=== PATIENT | male | born 1970 | race Caucasian/White ===

== ENCOUNTER 2023-01-05 13:28 | Outpatient (OUT) | payer OTHER, SELFPAY ==
[2023-01-05 14:15] LABS: Basophils Absolute Auto 0.1 10^3/uL (0.0-0.1); Basophils Percent Auto 1.3 % (0.2-2.0); Eosinophils Absolute Auto 0.2 10^3/uL (0.0-0.7); Eosinophils Percent Auto 2.9 % (0.9-7.0); Hematocrit 40.6 % (42.0-54.0); Hemoglobin 13.9 g/dL (14.0-18.0); Immature Granulocytes Abs Auto 0.01 10^3/uL (0.00-0.03); Immature Granulocytes Pct Auto 0.2 % (0.0-0.5); Lymphocytes Absolute Auto 1.4 10^3/uL (1.2-3.8); Lymphocytes Percent Auto 24.6 % (20.5-60.0); Mean Corpuscular HGB Conc 34.2 g/dL (29.9-35.2); Mean Corpuscular Hemoglobin 31.7 pg (25.9-34.0); Mean Corpuscular Volume 92.5 fL (80.0-94.0); Mean Platelet Volume 8.8 fL (9.5-13.5); Monocytes Absolute Auto 0.5 10^3/uL (0.3-0.8); Monocytes Percent Auto 8.6 % (1.7-12.0); Neutrophils Absolute Auto 3.5 10^3/uL (1.4-6.5); Neutrophils Percent Auto 62.4 % (43.0-75.0); Platelet Count 299 10^3/uL (150-450); Red Blood Count 4.39 10^6/uL (4.70-6.10); White Blood Count 5.6 10^3/uL (4.0-11.0)
[2023-01-05 14:58] LABS: Alanine Aminotransferase 21 U/L (16-63); Albumin Globulin Ratio 1.1; Albumin Level 3.8 g/dL (3.4-5.0); Alkaline Phosphatase 51 U/L (46-116); Anion Gap 10.8; Aspartate Amino Transferase 16 U/L (15-37); BUN Creatinine Ratio 9.7; Bilirubin Total 0.5 mg/dL (0.2-1.0); Carbon Dioxide 27.8 mmol/L (21.0-32.0); Chloride 104 mmol/L (98-107); Chol HDL Ratio 3.3; Cholesterol 122 mg/dL (<=200); Estimated GFR (African America >60 (>=60); Estimated GFR (Non-African Ame 51 (>=60); Free T3 2.94 pg/mL (2.18-3.98); Globulin 3.6 g/dL; Glucose 93 mg/dL (74-106); HDL Cholesterol 37 mg/dL (40-60); Potassium 3.6 mmol/L (3.5-5.1); Sodium 139 mmol/L (136-145); Thyroid Stimulating Hormone 1.456 uIU/mL (0.358-3.740); Total Protein 7.4 g/dL (6.4-8.2); Triglycerides 55 mg/dL (<=150); Uric Acid 8.1 mg/dL (3.5-7.2)
[2023-01-05 15:19] LABS: Prostate Specific Antigen Scrn 1.59 ng/mL (<=4.00)
[2023-01-05 15:21] LABS: Estimated Average Glucose 85 mg/dL; Glycohemoglobin A1C 4.6 % (4.5-6.2)
== END 2023-01-05 13:29 | disposition home or self-care (01) ==
LOC: LAB 13:34
PROVIDERS: PCP Family Medicine; Visit Provider Nurse Practitioner Family
DX: Z00.00 Encounter for general adult medical examination without abnormal findings (principal); Z12.5 Encounter for screening for malignant neoplasm of prostate
CPT/HCPCS: 36415; 80053; 80061; 83036; 83525; 84436; 84443; 84481; 84550; 85025; G0103

== ENCOUNTER 2023-11-11 03:52 | Observation (INO) | payer OTHER, SELFPAY ==
[2023-11-11] VITALS (66 sets, daily range): BP systolic 116–160; BP diastolic 66–91; PULSE 58–81; TEMP 36.6–37.2; O2SAT 88–99; BMI 47.9; BMI 45.5
--- NOTE | 2023-11-11 03:30 | ECG_ITS ---
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
--- OUTSIDE RECORDS SUMMARY | 2023-11-11 03:58 | XMS_ITS | CCD ---
Author Organization [facility] Care Team Providers Care Mixed Livestock Farm Worker Name Role Phone TORRES, POLLY Unavailable Unavailable ELIAS SALDANA Unavailable Unavailable TORRES, POLLY Unavailable Unavailable TORRES, POLLY Unavailable Unavailable TORRES, POLLY Unavailable Unavailable SHOSHANA ESTEVES Unavailable Unavailable TORRES, POLLY Unavailable Unavailable TORRES, POLLY Unavailable Unavailable TORRES, POLLY Unavailable Unavailable TORRES, POLLY Unavailable Unavailable TORRES, POLLY Unavailable Unavailable TORRES, POLLY Unavailable Unavailable TORRES, POLLY Unavailable Unavailable TORRES, POLLY Unavailable Unavailable TORRES, POLLY Unavailable Unavailable CAT WILL (PRINT PRODUCER) Unavailable Unavailab le CAT WILL (PRINT PRODUCER) Unavailable Unavailab ARMANI Brooke (FEL) Unavailable Unavailable TORRES, POLLY Unavailable Unavailable TORRES, POLLY Unavailable Unavailable TORRES, POLLY Unavailable Unavailable HOANG ABDULLAHI Unavailable Unavailable TORRES, POLLY Unavailable Unavailable TORRES, POLLY Unavailable Unavailable TORRES, POLLY Unavailable Unavailable TORRES, POLLY Unavailable Unavailable TORRES, POLLY Unavailable Unavailable CAT WILL (PRINT PRODUCER) Unavailable Unavailab le TORRES, POLLY Unavailable Unavailable CAT WILL (PRINT PRODUCER) Unavailable Unavailab CAT Lucas (PRINT PRODUCER) Unavailable Unavailab Onel Shanks Primary Care Physician Onel Bryan Referring Unavailabl Gary Reilly Attending Unavailable NILLGary Attending Unavailable NILL, Gary Estevez Attending Unavailable NILGary Argueta Attending Unavailable nOel Bryan Referring Unavailabl e NILGary Argueta Attending Unavailable ALEXX, DR SYKES Primary Care Unavailable NILL, DR GREEN Admitting Unavailable NILL, DR GREEN Attending Unavailable NILL, DR GREEN Consulting Unavailable MARISY, DR SYKES Consulting Unavailable ALEXX, DR SYKES Primary Care Unavailable ALEXX, DR SYKES Admitting Unavailable ALEXX, DR SYKES Attending Unavailable HOY, DR SYKES Primary Care Unavailable DR ONEL COFFEY Admitting Unavailable DR ONEL COFFEY Attending Unavailable DR ONEL COFFEY Consulting Unavailable Allergies Allergy Classification Reported Allergen(s) Allergy Type Date of Onset Reaction(s) Facility (5 sources) codeine; Translations: [CODEINE] Drug Allergy 4 Weal (disorder) [facility] Repository (1 source) Codeine; Translations: [codeine sulfate] Drug Allergy [facility] Repository Medications Current Medications Medication Drug Class(es) Dates Sig (Normalized) Sig (Original) amLODIPine 10 mg oral tablet (3 sources) Dihydropyridine Calcium Channel Srinivas Start: 09-15-2021 take 1 tablet by mouth once daily amLODIPine 10 mg Tab 10 mg = 1 tab(s), Oral, Daily, Refills(s) 0 Start Date: 09/15/21 Status: Ordered carvedilol 25 mg oral tablet (3 sources) alpha-Adrenergic Srinivas, beta-Adrenergic Srinivas Start: 09-15-2021 take 1 tablet by mouth three times daily carvedilol 25 mg Tab 25 mg = 1 tab(s), Oral, TID, Refills(s) 0 Start Date: 09/15/21 Status: Ordered colchicine 0.6 mg oral tablet (3 sources) Start: 09-15-2021 take 1 tablet by mouth twice daily colchicine 0.6 mg Tab 0.6 mg = 1 tab(s), Oral, BID, Refills(s) 0 Start Date: 09/15/21 Status: Ordered hydrALAZINE hydrochloride 100 mg oral tablet (3 sources) Arteriolar Vasodilator Start: 09-15-2021 take 1 tablet by mouth three times daily hydrALAZINE 100 mg oral tablet 100 mg = 1 tab(s), Oral, TID, Refills(s) 0 Start Date: 09/15/21 Status: Ordered levoFLOXacin 750 mg oral tablet (1 source) Quinolone Antimicrobial Start: 11-29-2021 End: 12-04-2021 take 1 tablet by mouth once daily Levaquin 750 mg Tab 750 mg = 1 tab(s), Oral, Daily, X 5 day(s), # 5 tab(s), Refills(s) 0, Pharmacy: [id number], 182.9, cm, 09/23/21 13:05:00 EDT, Height/Length Dosing, 162, kg, 09/23/21 13:05:00 EDT, Weight Dosing Start Date: 11/29/21 Stop Date: 12/04/21 Status: Ordered Problems Active Problems Problem Classification Problem Date Documented Date Episodic/Chronic Calculus of urinary tract (5 sources) Calculus of kidney; Translations: [Calculus of ureter] Onset: 07-24-2017 09-15-2021 Episodic Esophageal disorders (1 source) Gastro-esophageal reflux disease without esophagitis; Translations: [Gastro-esophageal reflux disease without esophagitis] Onset: 07-24-2017 Chronic Essential hypertension (5 sources) Essential (primary) hypertension; Translations: [Hypertensive disorder] Onset: 07-24-2017 09-15-2021 Chronic Gout and other crystal arthropathies (3 sources) Primary gout 09-15-2021 Chronic Other circulatory disease (3 sources) H/O: rheumatic fever 09-15-2021 Episodic Other nutritional; endocrine; and metabolic disorders (2 sources) Hyperoxaluria; Translations: [Hyperoxaluria] Onset: 09-13-2017 Chronic Other nutritional; endocrine; and metabolic disorders (1 source) Body mass index (BMI) 50-59.9 , adult; Translations: [Body mass index (bmi) 50-59.9 , adult] Onset: 07-24-2017 Chronic Other nutritional; endocrine; and metabolic disorders (2 sources) Morbid (severe) obesity due to excess calories; Translations: [Morbid (severe) obesity due to excess calories] Onset: 09-28-2017 Chronic Other nutritional; endocrine; and metabolic disorders (3 sources) Body mass index 40+ - severely obese 09-23-2021 Chronic Other nutritional; endocrine; and metabolic disorders (3 sources) Morbid obesity 09-23-2021 Chronic Other nutritional; endocrine; and metabolic disorders (1 source) Body mass index (BMI) 45.0-49.9, adult; Translations: [BODY MASS INDEX BMI 45.0-49.9 ADULT] Onset: 11-24-2021 Chronic Other skin disorders (2 sources) Sebaceous cyst of skin; Translations: [Sebaceous cyst] Onset: 11-29-2021 Episodic Other skin disorders (2 sources) Infection of sebaceous cyst 09-25-2021 Episodic Other skin disorders (4 sources) Sebaceous cyst; Translations: [SEBACEOUS CYST] Onset: 11-16-2021 Episodic Other upper respiratory disease (3 sources) Allergic rhinitis 09-15-2021 Chronic Residual codes; unclassified (3 sources) Obstructive sleep apnea syndrome 09-15-2021 Chronic Screening or history of mental health and substance abuse (2 sources) Personal history of nicotine dependence; Translations: [Personal history of nicotine dependence] Onset: 07-24-2017 Episodic Skin and subcutaneous tissue infections (3 sources) Infection of skin and/or subcutaneous tissue; Translations: [Local infection of the skin and subcutaneous tissue, unspecified] Onset: 11-24-2021 Episodic Spondylosis; intervertebral disc disorders; other back problems (1 source) Dorsalgia, unspecified; Translations: [DORSALGIA UNSPECIFIED] Onset: 11-24-2021 Episodic Substance-related disorders (3 sources) Nicotine dependence 09-15-2021 Chronic Unclassified (3 sources) Obstructive sleep apnea (adult) (pediatric); Translations: [Dependence on other enabling machines and devices] Onset: 09-28-2017 Chronic Unclassified (3 sources) Encounter for screening for other disorder; Translations: [Other specified abnormal findings of blood chemistry] Onset: 07-26-2017 Episodic Unclassified (1 source) Hypocitraturia; Translations: [Hypocitraturia] Onset: 09-13-2017 Unclassified (1 source) Unknown / UNK(Unknown) Onset: 07-24-2017 Unclassified (3 sources) History of hydronephrosis 09-15-2021 Past or Other Problems Problem Classification Problem Date Documented Date Episodic/Chronic Fluid and electrolyte disorders (1 source) Hyperosmolality and hypernatremia; Translations: [Hyperosmolality and hypernatremia] Onset: 09-13-2017 Episodic Genitourinary symptoms and ill-defined conditions (2 sources) Anuria and oliguria; Translations: [Other abnormal findings in urine] Onset: 09-13-2017 Episodic Other nutritional; endocrine; and metabolic disorders (1 source) Hyperuricemia without signs of inflammatory arthritis and tophaceous disease; Translations: [Hyperuricemia without signs of inflammatory arthritis and tophaceous disease] Onset: 07-26-2017 Episodic Results Test Name Value Interpretation Reference Range Facility INSULINon 12-31-2021 Insulin 33.8 uIU/mL Critically high 2.6-24.9 [facility] Comment on above: Performed By: #### INSULIN #### [facility] [address] [place], [place] [address] Dr. Markus Andrade CBC AUTO DIFFon 12-30-2021 BASO # 0.1 103/ul Normal 0.0-0.1 [facility] Comment on above: Performed By: #### CBC ####[facility] ital [address] [place] [address]Dr. Markus Andrade Basophils/100 WBC (Bld) 0.7 % Normal 0.2-2.0 [facility] Comment on above: Performed By: #### CBC ####[facility] ital [address] [place] [address]Dr. Markus Andrade EO # 0.0 103/ul Normal 0.0-0.7 [facility] Comment on above: Performed By: #### CBC ####[facility] R[address]we[address] [place] [address]Dr. Markus Andrade Eosinophils/100 WBC (Bld) 0.3 % Critically low 0.9-7.0 [facility] Comment on above: Performed By: #### CBC ####[facility] [address]es[address] [place] [address]Dr. Markus Andrade Erythrocyte distribution width (RBC) [Ratio] 13.0 % Normal 11.0-15.0 [facility] Comment on above: Performed By: #### CBC ####[facility] N[address]rsvl[address] [place] [address]Dr. Markus Andrade Hematocrit (Bld) [Volume fraction] 43.8 % Normal 42.0-54.0 [facility] Comment on above: Performed By: #### CBC ####[facility] [address] [place] [address]Dr. Markus Andrade Hemoglobin (Bld) [Mass/Vol] 14.7 g/dL Normal 14.0-18.0 [facility] Comment on above: Performed By: #### CBC ####[facility] ital [address] [place] [address]Dr. Markus Andrade IG # 0.02 10e3/ul Normal 0.00-0.03 [facility] Comment on above: Performed By: #### CBC ####[facility] ital [address]jxmf[address] [place] [address]DrLinda Nellabrittanie Andrade IG % 0.2 % Normal 0.0-0.5 [facility] Comment on above: Performed By: #### CBC ####[facility] ital [address] [place] [address]DrLinda Nellabrittanie Andrade LYMPH # 1.5 103/ul Normal 1.2-3.8 [facility] Comment on above: Performed By: #### CBC ####[facility] ital [address]vps[address]llry[address] [place] [address]DrLinda Nellabrittanie Andrade Lymphocytes/100 WBC (Bld) 17.1 % Critically low 20.5-60.0 [facility] Comment on above: Performed By: #### CBC ####[facility] [address] [place] [address]Dr. Markus Andrade MANUAL DIFF REQ NO Normal [facility] Comment on above: Performed By: #### CBC ####[facility] [address] [place] [address]Dr. Nellabrittanie Andrade MCH (RBC) [Entitic mass] 31.6 pg Normal 25.9-34.0 [facility] Comment on above: Performed By: #### CBC ####[facility] [address]lem[address]ysb[address] [place] [address]DrLinda Nellabrittanie Andrade MCHC (RBC) [Mass/Vol] 33.6 g/dL Normal 29.9-35.2 [facility] Comment on above: Performed By: #### CBC ####[facility] [address]sn[address] [place] [address]DrLinda Nellabrittanie Andrade MCV (RBC) [Entitic vol] 94.2 fL Critically high 80.0-94.0 [facility] Comment on above: Performed By: #### CBC ####[facility] [address]xs[address] [place] [address]DrLinda Andrade MONO # 0.6 103/ul Normal 0.3-0.8 [facility] Comment on above: Performed By: #### CBC ####[facility] ital [address]abcw[address] [place] [id number]. Markus Andrade Monocytes/100 WBC (Bld) 6.7 % Normal 1.7-12.[address] [facility] Comment on above: Performed By: #### CBC ####[facility] ital Ltllupmrhx[address] [place] [id number]. Markus Andrade NEUT # 6.5 103/ul Normal 1.4-6.5 [facility] Comment on above: Performed By: #### CBC ####[facility] ital [address]qhvfzhxgt[address] [place] [address]Dr. Markus Andrade Neutrophils/100 WBC (Bld) 75.0 % Normal 43.0-75.[address] [facility] Comment on above: Performed By: #### CBC ####[facility] ital Yactqpdjig[address] [place] [address]Dr. Markus Andrade Platelet mean volume (Bld) [Entitic vol] 8.6 fL Critically low 9.5-13.5 [facility] Comment on above: Performed By: #### CBC ####[facility] ital Jguatolval[address] [place] [address]Dr. Markus Andrade PLT 303 103/ul Normal 150-[address] [facility] Comment on above: Performed By: #### CBC ####[facility] ital Ttmjqicpzv[address] [place] [address]Dr. Markus Andrade RBC 4.65 106/ul Critically low 4.70-6.[address] [facility] Comment on above: Performed By: #### CBC ####[facility] ital [address]xc[address]lrrar[address] [place] [id number]. Markus Andrade WBC 8.6 103/ul Normal 4.0-11.[address] [facility] Comment on above: Performed By: #### CBC ####[facility] ital Rcilnsihxl[address] [place] [address]Dr. Markus Andrade FREE THYROXINE INDEX T7on FTI 2.48 Normal 1.30-4.[address] [facility] Comment on above: Performed By: #### TSH, T7, CMP, URIC, L IPID ####[facility] [address]ocl[address] [place] [address]Dr. Markus Andrade T3U 33.0 % Normal 33.0-40.0 [facility] Comment on above: Performed By: #### TSH, T7, CMP, URIC, L IPID ####[facility] [address] [place] [address]Dr. Markus Andrade T4 [Mass/Vol] 7.50 ug/dL Normal 4.50-12.[address] [facility] Comment on above: Performed By: #### TSH, T7, CMP, URIC, L IPID ####[facility] [address]fb[address] [place] [address]Dr. Markus Andrade GLYCOHEMOGLOBIN A1Con 2021 ADA RECOMMENDATION SEE BELOW Normal [facility] Comment on above: Result Comment: ADA RECOMMENDED LIMIT 4. 0 - 6.0 ADA THERAPEUTIC TARGET < 7.0 ACTION SUGGESTED > 7.0 Performed By: #### A 1C #### [facility] [address] [place] [address] [address] Markus Andrade Glucose [Mass/Vol] 100 mg/dL Normal [facility] Comment on above: Performed By: #### A1C #### [facility] [address] [place] [address] [address] Markus Andrade HbA1c (Bld) [Mass fraction] 5.1 % Normal 4.5-6.2 [facility] Comment on above: Performed By: #### A1C #### [facility] [address] [place] [address] [address] Markus Andrade LIPID PROFILEon 12-30-2021 CHOL-HDL RATIO NORM SEE BELOW Normal [facility] Comment on above: Result Comment: 3.3 - 4.4 LOW RISK 4.4 - 7.1 AVERAGE RISK 7.1 - 11.0 MODERATE RISK >11.0 HIGH RISK Performed By: #### T SH, T7, CMP, URIC, LIPID ####[facility] [address] [place] [address]Dr. Yilan Andrade Cholesterol [Mass/Vol] 139 mg/dL Normal <=[address] [facility] Comment on above: Performed By: #### TSH, T7, CMP, URIC, L IPID ####[facility] I[address]text39[address] [place] [address]Dr. Markus Andrade Cholesterol in HDL [Mass/Vol] 41 mg/dL Normal 40-[address] [facility] Comment on above: Performed By: #### TSH, T7, CMP, URIC, L IPID ####[facility] Rowqsctkbj[address] [place] [address]Dr. Markus Andrade Cholesterol in LDL [Mass/Vol] 79.0 mg/dL Normal [facility] Comment on above: Performed By: #### TSH, T7, CMP, URIC, L IPID ####[facility] [address]ts[address] [place] [address]Dr. Markus Andrade Cholesterol.tota l/Cholesterol in HDL [Mass ratio] 3.4 {ratio} Normal [facility] Comment on above: Performed By: #### TSH, T7, CMP, URIC, L IPID ####[facility] [address] [place] [address]Dr. Markus Andrade HDL NORMAL > or = 60 mg/dl - LO W CARDIOVASCULAR RISK <40 mg/dl - HIGH CARDIOVASCULAR RISK Normal [facility] Comment on above: Performed By: #### TSH, T7, CMP, URIC, L IPID ####[facility] [address]eol[address] [place] [address]Dr. Markus Andrade LDL CALC NORMAL SEE BELOW Normal [facility] Comment on above: Result Comment: <100 mg/dl OPTIMAL 100 - 129 mg/dl NEAR OR ABOVE OPTIMAL 130 - 159 mg/dl BORDERLINE HIGH 160 - 189 mg/dl HIGH >190 mg/dl VERY HIGH Performed By: #### T SH, T7, CMP, URIC, LIPID ####[facility] [address]vqkgmh[address] [place] [address]Dr. Markus Andrade Triglyceride [Mass/Vol] 95 mg/dL Normal <=[address] [facility] Comment on above: Performed By: #### TSH, T7, CMP, URIC, L IPID ####[facility] [address]cd[address] [place] [address]Dr. Markus Andrade VLDL CALC 19.0 mg/dL Normal [facility] Comment on above: Performed By: #### TSH, T7, CMP, URIC, L IPID ####[facility] [address] [place] [address]Dr. Markus Andrade PROF 14(COMP METB)on 022 Albumin [Mass/Vol] 4.0 g/dL Normal 3.4-5.0 [facility] Comment on above: Performed By: #### TSH, T7, CMP, URIC, L IPID ####[facility] [address] [place], [place] [address]Dr. Markus Andrade Albumin/Globulin [Mass ratio] 1.2 {ratio} Normal [facility] Comment on above: Performed By: #### TSH, T7, CMP, URIC, L IPID ####[facility] [address] [place], [place] [address]Dr. Markus Andrade ALP [Catalytic activity/Vol] 55 U/L Normal 46-[address] [facility] Comment on above: Performed By: #### TSH, T7, CMP, URIC, L IPID ####[facility] [address]vr[address]wo[address] [place], [place] [address]Dr. Markus Andrade ALT [Catalytic activity/Vol] 25 U/L Normal 16-63 [facility] Comment on above: Performed By: #### TSH, T7, CMP, URIC, L IPID ####[facility] [address] [place], [place] [address]Dr. Markus Andrade Anion gap [Moles/Vol] 11.3 mmol/L Normal [facility] Comment on above: Performed By: #### TSH, T7, CMP, URIC, L IPID ####[facility] H[address]axxfosc[address] [place], [place] [address]Dr. Markus Andrade AST [Catalytic activity/Vol] 19 U/L Normal 15-37 [facility] Comment on above: Performed By: #### TSH, T7, CMP, URIC, L IPID ####[facility] [address]rv[address]rqc[address] [place], [place] [address]Dr. Markus Andrade Bilirubin [Mass/Vol] 0.6 mg/dL Normal 0.2-1.[address] [facility] Comment on above: Performed By: #### TSH, T7, CMP, URIC, L IPID ####[facility] Xspepwtglv[address] [place] [address]Dr. Markus Andrade Calcium [Mass/Vol] 8.8 mg/dL Normal 8.5-10.[address] [facility] Comment on above: Performed By: #### TSH, T7, CMP, URIC, L IPID ####[facility] [address]xpfs[address] [place], [place] [address]Dr. Markus Andrade Chloride [Moles/Vol] 105 mmol/L Normal 98-[address] [facility] Comment on above: Performed By: #### TSH, T7, CMP, URIC, L IPID ####[facility] Tgfkewvjtw[address] [place], [place] [address]Dr. Markus Andrade CO2 [Moles/Vol] 27.2 mmol/L Normal 21.0-32.[address] [facility] Comment on above: Performed By: #### TSH, T7, CMP, URIC, L IPID ####[facility] Xcg[address]uzwe[address] [place], [place] [address]Dr. Markus Raymond Creatinine [Mass/Vol] 1.33 mg/dL Critically high 0.70-1.[address] [facility] Comment on above: Performed By: #### TSH, T7, CMP, URIC, L IPID ####[facility] Sq[address]zw[address]vk[address] [place], [place] [address]Dr. Nellabrittanie Raymond EGFR-AF HONDURAN >60 Normal >=[address] [facility] Comment on above: Performed By: #### TSH, T7, CMP, URIC, L IPID ####[facility] [address]lay[address] [place], [place] [address]Dr. Markus Andrade EGFR-NON AF HONDURAN 56 mL/min/1.73m2 Critically low >=[address] [facility] Comment on above: Performed By: #### TSH, T7, CMP, URIC, L IPID ####[facility] [address]afi[address] [place], [place] [address]Dr. Markus Andrade Globulin (S) [Mass/Vol] 3.4 g/dL Normal [facility] Comment on above: Performed By: #### TSH, T7, CMP, URIC, L IPID ####[facility] [address]lo[address]vqms[address] [place], [place] [address]Dr. Markus Andrade Glucose [Mass/Vol] 103 mg/dL Normal 74-[address] [facility] Comment on above: Performed By: #### TSH, T7, CMP, URIC, L IPID ####[facility] [address] [place], [place] [address]Dr. Markus Andrade Potassium [Moles/Vol] 3.5 mmol/L Normal 3.5-5.[address] [facility] Comment on above: Performed By: #### TSH, T7, CMP, URIC, L IPID ####[facility] [address] [place], [place] [address]Dr. Markus Andrade Protein [Mass/Vol] 7.4 g/dL Normal 6.4-8.[address] [facility] Comment on above: Performed By: #### TSH, T7, CMP, URIC, L IPID ####[facility] [address] [place], [place] [address]Dr. Markus Andrade Sodium [Moles/Vol] 140 mmol/L Normal 136-[address] [facility] Comment on above: Performed By: #### TSH, T7, CMP, URIC, L IPID ####[facility] [address] [place], [place] [address]Dr. Markus Andrade Urea nitrogen [Mass/Vol] 14.0 mg/dL Normal 7.0-18.[address] [facility] Comment on above: Performed By: #### TSH, T7, CMP, URIC, L IPID ####[facility] [address]im[address] [place], [place] [address]Dr. Markus Andrade Urea nitrogen/Creatin ine [Mass ratio] 10.5 mg/mg Normal [facility] Comment on above: Performed By: #### TSH, T7, CMP, URIC, L IPID ####[facility] [address] [place], [place] [address]Dr. Markus Andrade TSHon 12-30-2021 TSH 0.811 uIU/mL Normal 0.358-3.74 0 [facility] Comment on above: Performed By: #### TSH, T7, CMP, URIC, L IPID ####[facility] [address] [place], [place] [address]Pt. Markus Andrade URIC ACID SERUMon 12-30-2021 Urate [Mass/Vol] 8.0 mg/dL Critically high 3.5-7.2 [facility] Comment on above: Performed By: #### TSH, T7, CMP, URIC, L IPID ####[facility] [address] [place], [place] [address]Ek. Markus Andrade Ambulatory Visit Summaryon 0 12-06-2021 Ambulatory Visit Summary JOE DAVID Ellie :1970 Visit Date:12/06/2021 Ambulatory Visit Instructions Your Diagnosis Infected sebaceous cyst Local infection of the skin and subcutaneous tissue, unspecified Your Care Team Attending Physician - LANNY HERNANDEZ, Gary Estevez Primary Care Physician - Onel Coffey MD This Is Your Medications List Contact prescribing physician if questions or concerns amlodipine (amLODIPine 10 mg Tab) carvedilol (carvedilol 25 mg Tab) colchicine (colchicine 0.6 mg Tab) hydrALAZINE (hydrALAZINE 100 mg oral tablet) Procedures Performed Excision sebaceous cyst, Fluoroscopic guidance for dilatation of pyloric stenosis. Medications What How Much When Instructions Unchanged amlodipine (amLODIPine 10 mg Tab) 1 Tablets By Mouth Every day Contact prescribing physician if questions or concerns Unchanged carvedilol (carvedilol 25 mg Tab) 1 Tablets By Mouth 3 times a day Contact prescribing physician if questions or concerns Unchanged colchicine (colchicine 0.6 mg Tab) 1 Tablets By Mouth 2 times a day Contact prescribing physician if questions or concerns Unchanged hydrALAZINE (hydrALAZINE 100 mg oral tablet) 1 Tablets By Mouth 3 times a day Contact prescribing physician if questions or concerns Allergies codeine sulfate (Hives) Problems Ongoing - Any problem that you are currently receiving treatment for. Allergic rhinitis BMI 45.0-49.9, adult History of hydronephrosis History of nephrolithiasis History of rheumatic fever HTN (hypertension) Idiopathic gout Infected sebaceous cyst Morbid obesity Nicotine addiction CHRISTOPHER (obstructive sleep apnea) Normal [facility] General Surgery Office/Clini c Noteon 12-06-2021 General Surgery Office/Clinic Note Chief Complaint post operative follow up HPI Staff 20 day post operative follow up post excisional biopsy sebaceous cyst right upper back. Reports redness has improved. Drainage has resolved. Levaquin prescribed at last visit has been completed. Sutures intact. History of Present Illness 3 weeks s/p excision inflamed sebaceous cyst of right upper back; completed course of antibiotics, no drainage, minimal soreness. Review of Systems ROS - Provider Constitutional: no fever, no sweats, no weight loss. Eyes: no glasses, no blurred vision, no visual loss. ENMT: no dentures, no hoarseness, no swallowing difficulties, no hearing loss, no ear infection(s), no nose bleeds. Cardiovascular: normal blood pressure, no chest pain, regular heartbeat, no heart murmur. Respiratory: no shortness of breath, no cough, no asthma, no wheezing. Gastrointestinal: no nausea, no vomiting, no diarrhea, no constipation, no blood in stool, no change in bowel habits, no abdominal pain, no hepatitis. Genitourinary: no kidney stones, no urine infection, no dysuria. Musculoskeletal: no pain, no weakness. Skin: no changing moles, no rash, no skin lumps. Neurologic: no seizures, no epilepsy, no headache. Psychiatric: no emotional or psychiatric problem. Heme/Lymph: no bleeding problems, no anemia, no blood clots, no transfusions. Allergy/Immunologic: no swollen lymph nodes/glands, no IV drug abuse. Other: Additional ROS info: Except as noted in the above Review of Systems and in the History of Present Illness, all other systems have been reviewed and are negative or noncontributory. Physical Exam skin: incision healing well, no open areas, no drainage, no fluctuance, no cellulitis Assessment/Plan 1. Infected sebaceous cyst (L72.3: Sebaceous cyst) doing well, remaining sutures removed; call with problems/questions. Local infection of the skin and subcutaneous tissue, unspecified (L08.9: Local infection of the skin and subcutaneous tissue, unspecified) Follow-up No qualifying data available Problem List/Past Medical History Ongoing Allergic rhinitis BMI 45.0-49.9, adult History of hydronephrosis History of nephrolithiasis History of rheumatic fever HTN (hypertension) Idiopathic gout Infected sebaceous cyst Morbid obesity Nicotine addiction CHRISTOPHER (obstructive sleep apnea) Historical No qualifying data Procedure/Surgical History Excision sebaceous cyst, Fluoroscopic guidance for dilatation of pyloric stenosis. Medications amLODIPine 10 mg Tab, 10 mg= 1 tab(s), Oral, Daily carvedilol 25 mg Tab, 25 mg= 1 tab(s), Oral, TID colchicine 0.6 mg Tab, 0.6 mg= 1 tab(s), Oral, BID hydrALAZINE 100 mg oral tablet, 100 mg= 1 tab(s), Oral, TID Allergies codeine sulfate (Hives) Social History Alcohol - Denies Alcohol Use, 09/23/2021 Substance Abuse - Denies Substance Abuse, 09/23/2021 Tobacco Former smoker, quit more than 30 days ago Tobacco Use:. Former smokeless tobacco user, quit more than 30 days ago Smokeless Tobacco Use:. Cigarettes, Oral, Started age 17.0 Years. Stopped age 43 Years., 09/23/2021 Family History Diabetes mellitus type 2: Father. Liver cancer: Father. Primary malignant neoplasm of prostate: Father. Renal cell carcinoma: Mother. [facility] Comment on above: Result Comment: Electronically Signed By : LANNY HERNANDEZ, Gary Molina\Date and Time Signed: 12/06/21 13:31 EDT General Surgery Office/Clini c Noteon 11-29-2021 General Surgery Office/Clinic Note Chief Complaint post operative follow up HPI Staff 13 day post operative follow up post excisional biopsy sebaceous cyst right upper back. Reports moderate redness around incision. Minimal tenderness. Small amount intermittent clear drainage. Sutures intact. History of Present Illness 2 weeks s/o excision inflamed sebaceous cyst upper right back; minimal central drainage; sore; had been using antibiotic ointment on incision, recently stopped; pathology consistent with epidermal cyst. Review of Systems ROS - Provider Constitutional: no fever, no sweats, no weight loss. Eyes: no glasses, no blurred vision, no visual loss. ENMT: no dentures, no hoarseness, no swallowing difficulties, no hearing loss, no ear infection(s), no nose bleeds. Cardiovascular: normal blood pressure, no chest pain, regular heartbeat, no heart murmur. Respiratory: no shortness of breath, no cough, no asthma, no wheezing. Gastrointestinal: no nausea, no vomiting, no diarrhea, no constipation, no blood in stool, no change in bowel habits, no abdominal pain, no hepatitis. Genitourinary: no kidney stones, no urine infection, no dysuria. Musculoskeletal: no pain, no weakness. Skin: no changing moles, no rash, no skin lumps. Neurologic: no seizures, no epilepsy, no headache. Psychiatric: no emotional or psychiatric problem. Heme/Lymph: no bleeding problems, no anemia, no blood clots, no transfusions. Allergy/Immunologic: no swollen lymph nodes/glands, no IV drug abuse. Other: Additional ROS info: Except as noted in the above Review of Systems and in the History of Present Illness, all other systems have been reviewed and are negative or noncontributory. Physical Exam skin: incision with erythema; folliculitis, edema, no drainage, no fluctuance Assessment/Plan 1. Infected sebaceous cyst (L72.3: Sebaceous cyst) s/p excision; incision with inflammation; possible early infection; begin Levaquin for 5 days; sutures removed except for 4 mattress sutures; f/u in 1 week. Ordered: levofloxacin, 750 mg = 1 tab(s), Oral, Daily, X 5 day(s), # 5 tab(s), Refills(s) 0, [id number], 182.9, cm, 09/23/21 13:05:00 EDT, Height/Length Dosing, 162, kg, 09/23/21 13:05:00 EDT, Weight Dosing E&M of Est. Patient Straight Fwd 10-19 Min [id number] Local infection of the skin and subcutaneous tissue, unspecified (L08.9: Local infection of the skin and subcutaneous tissue, unspecified) Follow-up No qualifying data available Problem List/Past Medical History Ongoing Allergic rhinitis BMI 45.0-49.9, adult History of hydronephrosis History of nephrolithiasis History of rheumatic fever HTN (hypertension) Idiopathic gout Infected sebaceous cyst Morbid obesity Nicotine addiction CHRISTOPHER (obstructive sleep apnea) Historical No qualifying data Procedure/Surgical History Excision sebaceous cyst, Fluoroscopic guidance for dilatation of pyloric stenosis. Medications amLODIPine 10 mg Tab, 10 mg= 1 tab(s), Oral, Daily carvedilol 25 mg Tab, 25 mg= 1 tab(s), Oral, TID colchicine 0.6 mg Tab, 0.6 mg= 1 tab(s), Oral, BID hydrALAZINE 100 mg oral tablet, 100 mg= 1 tab(s), Oral, TID Levaquin 750 mg Tab, 750 mg= 1 tab(s), Oral, Daily Allergies codeine sulfate (Hives) Social History Alcohol - Denies Alcohol Use, 09/23/2021 Substance Abuse - Denies Substance Abuse, 09/23/2021 Tobacco Former smoker, quit more than 30 days ago Tobacco Use:. Former smokeless tobacco user, quit more than 30 days ago Smokeless Tobacco Use:. Cigarettes, Oral, Started age 17.0 Years. Stopped age 43 Years., 09/23/2021 Family History Diabetes mellitus type 2: Father. Liver cancer: Father. Primary malignant neoplasm of prostate: Father. Renal cell carcinoma: Mother. [facility] Comment on above: Result Comment: Electronically Signed By : LANNY HERNANDEZ, Gary Estevez\.br\Date and Time Signed: 11/29/21 13:28 EDT Pathology Noteon 11-21-2021 Pathology Note [id number]:127 [facility] Operative Reporton Operative Report [id number]:127 [facility] Consent for Procedure/Surger yon 09-26-2021 Consent for Procedure/Surger y [id number]:127 [facility] Ambulatory Visit Summaryon 0 09-23-2021 Ambulatory Visit Summary JOE DAVID :1970 Visit Date:09/23/2021 Ambulatory Visit Instructions Your Care Team Attending Physician - LANNY HERNANDEZ, Gary Estevez Primary Care Physician - Alexx HERNANDEZ, Onel Referring Physician - Onel Coffey MD This Is Your Medications List Contact prescribing physician if questions or concerns amlodipine (amLODIPine 10 mg Tab) carvedilol (carvedilol 25 mg Tab) colchicine (colchicine 0.6 mg Tab) hydrALAZINE (hydrALAZINE 100 mg oral tablet) Procedures Performed Fluoroscopic guidance for dilatation of pyloric stenosis. Discharge Vitals Heart Rate (Peripheral) 80 Respiratory Rate 16 Blood Pressure 126/82 Height 182.88 cm Height 182.9 cm Weight 162 kg Weight 162.0 kg BMI 48.44 Medications What How Much When Instructions Unchanged amlodipine (amLODIPine 10 mg Tab) 1 Tablets By Mouth Every day Contact prescribing physician if questions or concerns Unchanged carvedilol (carvedilol 25 mg Tab) 1 Tablets By Mouth 3 times a day Contact prescribing physician if questions or concerns Unchanged colchicine (colchicine 0.6 mg Tab) 1 Tablets By Mouth 2 times a day Contact prescribing physician if questions or concerns Unchanged hydrALAZINE (hydrALAZINE 100 mg oral tablet) 1 Tablets By Mouth 3 times a day Contact prescribing physician if questions or concerns Allergies codeine sulfate (Hives) Problems Ongoing - Any problem that you are currently receiving treatment for. Allergic rhinitis BMI 45.0-49.9, adult History of hydronephrosis History of nephrolithiasis History of rheumatic fever HTN (hypertension) Idiopathic gout Morbid obesity Nicotine addiction CHRISTOPHER (obstructive sleep apnea) [facility] Physician Referralon 022 Physician Referral [id number]:127 [facility] INSULINon 01-28-2021 Insulin 38.3 uIU/mL Critically high 2.6-24.9 [facility] Comment on above: Performed By: #### INSULIN #### [facility] [address] [place] [address] Dr. Markus Andrade CBC AUTO DIFFon 01-27-2021 BASO # 0.1 103/ul Normal 0.0-0.1 [facility] Comment on above: Performed By: #### CBC #### [facility] [address] [address] [address] Markus Andrade Basophils/100 WBC (Bld) 0.6 % Normal 0.2-2.0 [facility] Comment on above: Performed By: #### CBC #### [facility] [address] [address] [address] Markus Andrade EO # 0.1 103/ul Normal 0.0-0.7 [facility] Comment on above: Performed By: #### CBC #### [facility] [address] [place] [address] Dr. Markus Andrade Eosinophils/100 WBC (Bld) 0.8 % Critically low 0.9-7.0 [facility] Comment on above: Performed By: #### CBC #### [facility] [address] [place] [address] Dr. Markus Andrade Erythrocyte distribution width (RBC) [Ratio] 13.3 % Normal 11.0-15.0 [facility] Comment on above: Performed By: #### CBC #### [facility] [address] [place] [address] Dr. Markus Andrade Hematocrit (Bld) [Volume fraction] 44.4 % Normal 42.0-54.0 [facility] Comment on above: Performed By: #### CBC #### [facility] [address] [place] [address] Dr. Markus Andrade Hemoglobin (Bld) [Mass/Vol] 14.8 g/dL Normal 14.0-18.0 [facility] Comment on above: Performed By: #### CBC #### [facility] [address] [place] [address] Dr. Markus Andrade IG # 0.03 10e3/ul Normal 0.00-0.03 [facility] Comment on above: Performed By: #### CBC #### [facility] [address] [place] [address] Dr. Markus Andrade IG % 0.4 % Normal 0.0-0.[address] [facility] Comment on above: Performed By: #### CBC #### [facility] [address] [place] [address] Dr. Markus Andrade LYMPH # 1.7 103/ul Normal 1.2-3.8 [facility] Comment on above: Performed By: #### CBC #### [facility] [address] [place] [address] Dr. Markus Andrade Lymphocytes/100 WBC (Bld) 20.1 % Critically low 20.5-60.0 [facility] Comment on above: Performed By: #### CBC #### [facility] [address] [place] [address] Dr. Markus Andrade MANUAL DIFF REQ NO Normal [facility] Comment on above: Performed By: #### CBC #### [facility] [address] [place] [address] Dr. Markus Andrade MCH (RBC) [Entitic mass] 31.6 pg Normal 25.9-34.0 [facility] Comment on above: Performed By: #### CBC #### [facility] [address] [place] [address] Dr. Markus Andrade MCHC (RBC) [Mass/Vol] 33.3 g/dL Normal 29.9-35.2 [facility] Comment on above: Performed By: #### CBC #### [facility] [address] [place] [address] Dr. Markus Andrade MCV (RBC) [Entitic vol] 94.7 fL Critically high 80.0-94.0 [facility] Comment on above: Performed By: #### CBC #### [facility] [address] [place] [address] Dr. Markus Andrade MONO # 0.6 103/ul Normal 0.3-0.8 [facility] Comment on above: Performed By: #### CBC #### [facility] [address] [place] [address] Dr. Markus Andrade Monocytes/100 WBC (Bld) 7.4 % Normal 1.7-12.0 [facility] Comment on above: Performed By: #### CBC #### [facility] [address] [place] [address] Dr. Markus Andrade NEUT # 5.9 103/ul Normal 1.4-6.5 [facility] Comment on above: Performed By: #### CBC #### [facility] [address] [place] [address] Dr. Markus Andrade Neutrophils/100 WBC (Bld) 70.7 % Normal 43.0-75.0 [facility] Comment on above: Performed By: #### CBC #### [facility] [address] [address] [address] Markus Andrade Platelet mean volume (Bld) [Entitic vol] 8.5 fL Critically low 9.5-13.5 [facility] Comment on above: Performed By: #### CBC #### [facility] [address] [address] [address] Markus Andrade PLT 296 103/ul Normal 150-[address] [facility] Comment on above: Performed By: #### CBC #### [facility] [address] [address] [address] Markus Andrade RBC 4.69 106/ul Critically low 4.70-6.10 [facility] Comment on above: Performed By: #### CBC #### [facility] [address] [address] [address] Markus Andrade WBC 8.4 103/ul Normal 4.0-11.0 [facility] Comment on above: Performed By: #### CBC #### [facility] [address] [address] [address] Markus Andrade GLYCOHEMOGLOBIN A1Con 2020 ADA RECOMMENDATION ADA THERAPEUTIC TARGET 6.0 - 7.0 ACTION SUGGESTED > 7.0 Normal [facility] Comment on above: Performed By: #### A1C #### [facility] [address] [address] [address] Markus Andrade Glucose [Mass/Vol] 97 mg/dL Normal [facility] Comment on above: Performed By: #### A1C #### [facility] [address] [address] [address] Markus Andrade HbA1c (Bld) [Mass fraction] 5.0 % Normal <=6.0 [facility] Comment on above: Performed By: #### A1C #### [facility] [address] [address] [address] Markus Andrade LIPID PROFILEon 01-27-2021 CHOL-HDL RATIO NORM SEE BELOW Normal [facility] Comment on above: Result Comment: 3.3 - 4.4 LOW RISK 4.4 - 7.1 AVERAGE RISK 7.1 - 11.0 MODERATE RISK >11.0 HIGH RISK Performed By: #### L IPID, CMP, URIC #### [facility] [address] [address] [address] Markus Andrade Cholesterol [Mass/Vol] 130 mg/dL Normal <=200 [facility] Comment on above: Performed By: #### LIPID, CMP, URIC #### [facility] [address] [address] [address] Markus Andrade Cholesterol in HDL [Mass/Vol] 41 mg/dL Normal [facility] Comment on above: Performed By: #### LIPID, CMP, URIC #### [facility] [address] [place] [address] Dr. Markus Andrade Cholesterol in LDL [Mass/Vol] 72.0 mg/dL Normal [facility] Comment on above: Performed By: #### LIPID, CMP, URIC #### [facility] [address] [place] [address] Dr. Markus Andrade Cholesterol.tota l/Cholesterol in HDL [Mass ratio] 3.2 {ratio} Normal [facility] Comment on above: Performed By: #### LIPID, CMP, URIC #### [facility] [address] [place] [address] Dr. Markus Andrade HDL NORMAL > or = 60 mg/dl - LO W CARDIOVASCULAR RISK <40 mg/dl - HIGH CARDIOVASCULAR RISK Normal [facility] Comment on above: Performed By: #### LIPID, CMP, URIC #### [facility] [address] [place] [address] Dr. Markus Andrade LDL CALC NORMAL SEE BELOW Normal [facility] Comment on above: Result Comment: <100 mg/dl OPTIMAL 100 - 129 mg/dl NEAR OR ABOVE OPTIMAL 130 - 159 mg/dl BORDERLINE HIGH 160 - 189 mg/dl HIGH >190 mg/dl VERY HIGH Performed By: #### L IPID, CMP, URIC #### [facility] [address] [place] [address] Dr. Markus Andrade Triglyceride [Mass/Vol] 85 mg/dL Normal <=[address] [facility] Comment on above: Performed By: #### LIPID, CMP, URIC #### [facility] [address] [address] [address] Markus Andrade VLDL CALC 17.0 mg/dL Normal [facility] Comment on above: Performed By: #### LIPID, CMP, URIC #### [facility] [address] [address] [address] Markus Andrade PROF 14(COMP METB)on 021 Albumin [Mass/Vol] 3.7 g/dL Normal 3.5-5.0 [facility] Comment on above: Performed By: #### LIPID, CMP, URIC #### [facility] [address] [address] [address] Markus Andrade Albumin/Globulin [Mass ratio] 1.0 {ratio} Normal [facility] Comment on above: Performed By: #### LIPID, CMP, URIC #### [facility] [address] [place] [address] Dr. Markus Andrade ALP [Catalytic activity/Vol] 54 U/L Normal 38-126 [facility] Comment on above: Performed By: #### LIPID, CMP, URIC #### [facility] [address] [address] [address] Markus Andrade ALT [Catalytic activity/Vol] 30 U/L Normal 21-72 [facility] Comment on above: Performed By: #### LIPID, CMP, URIC #### [facility] [address] [address] [address] Markus Andrade Anion gap [Moles/Vol] 12.5 mmol/L Normal [facility] Comment on above: Performed By: #### LIPID, CMP, URIC #### [facility] [address] [address] [address] Markus Andrade AST [Catalytic activity/Vol] 19 U/L Normal 17-59 [facility] Comment on above: Performed By: #### LIPID, CMP, URIC #### [facility] [address] [address] [address] Markus Andrade Bilirubin [Mass/Vol] 0.6 mg/dL Normal 0.2-1.[address] [facility] Comment on above: Performed By: #### LIPID, CMP, URIC #### [facility] [address] [address] [address] Markus Andrade Calcium [Mass/Vol] 8.6 mg/dL Normal 8.4-10.2 [facility] Comment on above: Performed By: #### LIPID, CMP, URIC #### [facility] [address] [address] [address] Markus Andrade Chloride [Moles/Vol] 105 mmol/L Normal 98-[address] [facility] Comment on above: Performed By: #### LIPID, CMP, URIC #### [facility] [address] [address] [address] Markus Andrade CO2 [Moles/Vol] 27.9 mmol/L Normal 22.0-30.0 [facility] Comment on above: Performed By: #### LIPID, CMP, URIC #### [facility] [address] [address] [address] Markus Andrade Creatinine [Mass/Vol] 1.35 mg/dL Critically high 0.66-1.25 [facility] Comment on above: Performed By: #### LIPID, CMP, URIC #### [facility] [address] [address] [address] Markus Andrade EGFR-AF HONDURAN >60 Normal >=60 [facility] Comment on above: Performed By: #### LIPID, CMP, URIC #### [facility] [address] [address] [address] Markus Andrade EGFR-NON AF HONDURAN 56 mL/min/1.73m2 Critically low >=[address] [facility] Comment on above: Performed By: #### LIPID, CMP, URIC #### [facility] [address] [address] [address] Markus Andrade Globulin (S) [Mass/Vol] 3.6 g/dL Normal [facility] Comment on above: Performed By: #### LIPID, CMP, URIC #### [facility] [address] [address] [address] Markus Andrade Glucose [Mass/Vol] 101 mg/dL Normal 74-106 [facility] Comment on above: Performed By: #### LIPID, CMP, URIC #### [facility] [address] [place] [address] Dr. Markus Andrade Potassium [Moles/Vol] 3.4 mmol/L Normal 3.4-5.0 [facility] Comment on above: Performed By: #### LIPID, CMP, URIC #### [facility] [address] [place] [address] Dr. Markus Andrade Protein [Mass/Vol] 7.3 g/dL Normal 6.1-8.2 [facility] Comment on above: Performed By: #### LIPID, CMP, URIC #### [facility] [address] [place] [address] Dr. Markus Andrade Sodium [Moles/Vol] 142 mmol/L Normal 137-145 [facility] Comment on above: Performed By: #### LIPID, CMP, URIC #### [facility] [address] [place] [address] Dr. Markus Andrade Urea nitrogen [Mass/Vol] 18.0 mg/dL Normal 9.0-20.0 [facility] Comment on above: Performed By: #### LIPID, CMP, URIC #### [facility] [address] [place] [address] Dr. Markus Andrade Urea nitrogen/Creatin ine [Mass ratio] 13.3 mg/mg Normal [facility] Comment on above: Performed By: #### LIPID, CMP, URIC #### [facility] [address] [place] [address] Dr. Markus Andrade URIC ACID SERUMon 01-27-2021 Urate [Mass/Vol] 8.7 mg/dL Critically high 3.5-8.5 [facility] Comment on above: Performed By: #### LIPID, CMP, URIC #### [facility] [address] [place] [address] Dr. Markus Andrade CNOVon 12-27-2017 CNOV Office Visit (UROLMN) DAVIDJOE ([id number]) 1970 MDate Time Provider Ketijbtqyt64/18/18 10:30 AM CAT WILL During your visit today, we recorded the following information about you:Cat Will APRN.PRINT PRODUCER 12/27/2017 11:59 AM SignedBasic HPI: 47 year old male Presents today for follow up appt. S/p PCNL w/ Kevin in September 2017. Pt Denies renal colic, fever, chills, n/v dysuria or grosshematuria but did have a recent gout attack -right foot then left foot. Missed7 days of work due to pain, pt sts he increased his allopurinol to 200mg /d andsxs improved after a few daysImpression/Plan:N20.0 Calculus of kidney (primary encounter diagnosis)E79.0 LcvixdyigqboxU38.0 Calcium oxalate zgijbhyoR91.992 IfeygkvmqkaexJ61.991 UxnpqwuvoorpdhV57.0 HypernatriuriaReviewed latest images and 24 hr urine testingMuch improved urine volume- encouraged to continueRecent gout attack and hx of high uric acid will increase allopurinol uz568yk/day. Pt to monitor animal protein intake, feels latest attack was due topork/ceballos/sausage he consumed. Hyperoxaluria- slowly improving, advised toadd vitamin A8Hazpzuyclmgyak- pt declined urocit but has increased dietary citrus, slowlyimproved, encouraged to continue. Hypernatriuria- worse than before, reviewedhigh sodium foods, pt to monitor intake better. Improved hydro and not stoneson imaging, will continue to monitor. RTC in 12 months with new imagesPAST MEDICAL HISTORYDiagnosis Date- Essential hypertension- Morbid obesity (HCC)- Nephrolithiasis- CHRISTOPHER on CPAPNo past surgical history on file.No family history on file.Social History Marital status: Spouse name: Years of education: Number of children:Social History Main Topics Smoking status: Former Smoker Packs/day: 1.00 Years: 24.00 Types: Cigarettes Quit date: 07/27/2013 Smokeless tobacco: Former User Types: Snuff Quit date: 07/28/2011 =======GUROS: UA: no sampleKUB: in processRenal Sono: Right Kidney:?? ? -Renal length: 11.6 cm?? ? -Parenchyma: Normal parenchymal echogenicity. ?Normal parenchymalthickness.?? ? -Collecting system: No hydronephrosis.?? ? -Calculus: No echogenic, shadowing calculus.?? ? -Lesion: ?None.Left Kidney:?? ? -Renal length: 15.4 cm?? ? -Parenchyma: Normal parenchymal echogenicity. ?Normal parenchymalthickness.?? ? -Collecting system: Previously shown hydronephrosis has improvedwith residual upper pole pelviectasis. ?Ureter stent is no longer visible.?? ? -Calculus: Previously shown echogenic, shadowing calculus is nolonger identified.?? ? -Lesion: ?None.Bladder: Normal sonographic appearanceKidney Stone Analysis: CaPh/CaOx24 hour urine test:Component Latest Ref Rng AND Units 09/04/2017 12/17/2017Urine pH 5.800 - 6.200 5.642 (L) 6.743 (H)24 hr Uric Acid <0.800 g/d 0.651 0.11546 hr Citrate >450 mg/d 106 (L) 279 (L)24 hr Oxlate 20 - 40 mg/d 77 (H) 62 (H)24 hr Calcium <250 mg/d 147 180Urine Volume 0.50 - 4.00 L/d 1.95 3.29Supersaturation CaOx 6.00 - 10.00 8.12 3.63 (L)Supersaturation CaP 0.50 - 2.00 0.34 (L) 1.16Supersaturation Uric Acid <1.00 1.23 (H) 0.0924 hr Potassium 20 - 100 mmol/d 55 4424 hr Sodium 50 - 150 mmol/d 292 (H) 373 (H)24 hr Sulfate 20 - 80 mEq/d 33 4924 hr Ammonium 15 - 60 mmol/d 39 2724 hr Chloride 70 - 250 mmol/d 290 (H) 281 (H)24 hr Magnesium 30 - 120 mg/d 138 (H) 156 (H)24 hr Phosphorus 0.60 - 1.20 g/d 1.072 1.524 (H)24 hr Urea Nitrogen 6.00 - 14.00 g/d 14.28 (H) 12.18Protein Catabolic Rate 0.8 - 1.4 g/kg/d 0.8 0.7 (L)24 hr Creatinine mg/d 2,629 2,69947 hr Creatinine per Kilogram Body Weight 11.9 - 24.4 mg/d/kg 17.0 17.324 hr Calcium per Kilogram Body Weight <4.0 mg/d/kg 1.0 1.124 hr Calcium per 24 hr Creatinine 34 - 196 mg/g 56 6624 hr Urine Comments Comments CommentsTranscription Cystine Screen Negative Fo rce of Stream: fineNOCTURIA: sometimes , 1-2 times /nightDay Time Frequency: 3hr, 4hrHesitancy: NoIntermittency: NoIncomplete Emptying: NoPost void Dribbling: NoUrinary Retention Hx:NoDouble Voiding: NoUrgency: NoDysuria: NoIncontinence history: NoGross hematuria history: NoUTI Hx: NoStone Event Hx: NoReview, other organ system:GI:Blood: NoConstipation: NoDiarrhea: NoNausea/Vomiting: NoOTHER:Impression/Plan:N20.0 Calculus of kidney (primary encounter diagnosis)E79.0 HzqexhfbvbkfwQ54.0 Calcium oxalate wryndgekS80.992 KzrgmoxogwwrjV59.991 JukvgevdvuwuwlX08.0 HypernatriuriaReviewed latest images and 24 hr urine testingMuch improved urine volume- encouraged to continueRecent gout attack and hx of high uric acid will increase allopurinol hl106ra/day. Pt to monitor animal protein intake, feels latest attack was due topork/ceballos/sausage he consumed. Hyperoxaluria- slowly improving, advised toadd vitamin M9Czxgingbscpdsr- pt declined urocit but has increased dietary citrus, slowlyimproved, encouraged to continue. Hypernatriuria- worse than before, reviewedhigh sodium foods, pt to monitor intake better. Improved hydro and not stoneson imaging, will continue to monitor. RTC in 12 months with new imagesPt requested notes forwarded to Dr Oneill spent 25 minutes in this visit, with more than 50% of the time devoted topatient face to face counseling.Cat Will APRN.CNPReferring Provider: CAT WILL [[id number]]Allergies As of Date: 12/27/2017 Noted Allergy ReactionCODEINE 07/24/2017 4 - HivesDate Reviewed: 12/27/2017Reviewed by: Isabella Lyons Rma - Fully AssessedPrimary Visit Diagnosis:Calculus of kidney [N20.0] Other Visit Diagnoses:Hyperuricemia [E79.0] Calcium oxalate calculus [N20.0] Hyperoxaluria [R82.992] Hypocitraturia [R82.991] Hypernatriuria [E87.0]Order(s):UA CHEMSTRIP ONLY [SQUA] Order #: [id number] FUTURE UA CHEMSTRIP ONLY [SQUA] Order #: [id number] allopurinol (ZYLOPRIM) 100 mg tabletTake 2 tablets by mouth once daily.Disp: 180 tabletRfl: 3 US KIDNEY/BLADDER [[id number]] Order #: [id number] FUTURE XR ABDOMEN 3V KUB W/OBLIQUES [[id number]] Order #: [id number] FUTUREPrescriptions as of 12/27/2017 Sig: ALLOPURINOL 100 MG TABLET Take 2 tablets by mouth once * CHOLECALCIFEROL (VITAMIN D3) * Take 1 tablet by mouth once e* HYDRALAZINE 100 MG TABLET Take 1 tablet by mouth three * ACETAMINOPHEN 500 MG TABLET Take 1,000 mg by mouth as nee* CARVEDILOL 25 MG TABLET Take 25 mg by mouth three randall* OXYBUTYNIN CHLORIDE 5 MG TABL* Take 1 tablet by mouth every * Patient not taking: Reported on 10/18/2017 TAMSULOSIN 0.4 MG CAPSULE Take 1 capsule by mouth once * Patient not taking: Reported on 10/18/2017 PYRIDOXINE (VITAMIN B6) 100 M* Take 1 tablet by mouth once d* Patient not taking: Reported on 10/18/2017 DOCUSATE SODIUM 100 MG CAPSULE Take 1 capsule by mouth twice* Patient not taking: Reported on 10/18/2017Problem List As Of Date 12/27/2017 Noted Resolved Calculus of kidney [N20.0] INVALID FOR* CPAP (continuous positive airway pressure) depe*INVALID FOR* CHRISTOPHER (obstructive sleep apnea) [G47.33] INVALID FOR* Gastroesophageal reflux disease without esophag*INVALID FOR* Essential hypertension [I10] INVALID FOR* Former smoker [Z87.891] INVALID FOR* BMI 50.0-59.9, adult (HCC) [Z68.43] INVALID FOR* Calculus of ureter [N20.1] INVALID FOR* Abnormal urinalysis [R82.90] INVALID FOR* Family history of diabetes mellitus [Z83.3] INVALID FOR* Family history of prostate cancer [Z80.42] INVALID FOR* Family history of nephrolithiasis [Z84.1] INVALID FOR* Hyperuricemia [E79.0] INVALID FOR* Low vitamin D level [R79.89] INVALID FOR* Hypocitraturia [R82.991] INVALID FOR* Hyperoxaluria (HCC) [R82.992] INVALID FOR* Low urine output [R34] INVALID FOR* Hypernatriuria [E87.0] INVALID FOR* Nephrolithiasis [N20.0] Morbid obesity (HCC) [E66.01] CHRISTOPHER on CPAP [G47.33, Z99.89]Prescriptions ordered this encounter Disp Refills Start End ALLOPURINOL 100 MG TABLET 180 * 3 12/27/2017 12/27/2018 Route: ORAL Sig: Take 2 tablets by mouth once daily.Medications Discontinued During This Encounter allopurinol (ZYLOPRIM) 100 mg tablet 90 t* 3 07/26/2017 12/27/2017 Route: ORAL Sig: Take 1 tablet by mouth once daily. Disc: Reason for discontinue is not on file. potassium citrate ER (UROCIT-K 10) 1* 180 * 3 09/13/2017 12/27/2017 Route: ORAL Sig: Take 1 tablet by mouth twice daily. Patient not taking: Reported on 10/18/2017 Disc: Cost of medicationDisposition: Return for New images in 1 yr .Follow-up and Disposition History RecordedEncounter Number: [id number] Status:Closed by CAT WILL CNP on 12/27/[address] [facility] PROGRESSon 12-27-2017 Protein mass conc HNO ID: [id number]: Cat PeñaroService: (none)Author Type: Nurse PractitionerType: Progress NotesFiled: 12/27/2017 11:59 AMNote Text:Basic HPI: 47 year old male Presents today for follow up appt. S/p PCNLw/ Dr Torres in September 2017. Pt Denies renal colic, fever, chills, n/vdysuria or gross hematuria but did have a recent gout attack -right footthen left foot. Missed 7 days of work due to pain, pt sts he increasedhis allopurinol to 200mg /d and sxs improved after a few daysImpression/Plan:N20.0 Calculus of kidney (primary encounter diagnosis)E79.0 SypbpdmscojvgD50.0 Calcium oxalate ynqijxqnO47.992 ZmmjiaujqtdnpQ42.991 CdsygmvwilduafJ38.0 HypernatriuriaReviewed latest images and 24 hr urine testingMuch improved urine volume- encouraged to continueRecent gout attack and hx of high uric acid will increase allopurinol xn390qc/day. Pt to monitor animal protein intake, feels latest attack wasdue to pork/ceballos/sausage he consumed. Hyperoxaluria- slowly improving,advised to add vitamin Z2Fbalyzvfsanzfa- pt declined urocit but has increased dietary citrus,slowly improved, encouraged to continue. Hypernatriuria- worse thanbefore, reviewed high sodium foods, pt to monitor intake better. Improvedhydro and not stones on imaging, will continue to monitor. RTC in 12months with new imagesPAST MEDICAL HISTORYDiagnosis Date- Essential hypertension- Morbid obesity (HCC)- Nephrolithiasis- CHRISTOPHER on CPAPNo past surgical history on file.No family history on file.Social History Marital status: Spouse name: Years of education: Number of children:Social History Main Topics Smoking status: Former Smoker Packs/day: 1.00 Years: 24.00 Types: Cigarettes Quit date: 07/27/2013 Smokeless tobacco: Former User Types: Snuff Quit date: 07/28/2011 =======GUROS: UA: no sampleKUB: in processRenal Sono: Right Kidney:?? ? -Renal length: 11.6 cm?? ? -Parenchyma: Normal parenchymal echogenicity. ?Normal parenchymalthickness.?? ? -Collecting system: No hydronephrosis.?? ? -Calculus: No echogenic, shadowing calculus.?? ? -Lesion: ?None.Left Kidney:?? ? -Renal length: 15.4 cm?? ? -Parenchyma: Normal parenchymal echogenicity. ?Normal parenchymalthickness.?? ? -Collecting system: Previously shown hydronephrosis has improvedwith residual upper pole pelviectasis. ?Ureter stent is no longer visible.?? ? -Calculus: Previously shown echogenic, shadowing calculus is nolonger identified.?? ? -Lesion: ?None.Bladder: Normal sonographic appearanceKidney Stone Analysis: CaPh/CaOx24 hour urine test:Component Latest Ref Rng AND Units 09/04/2017 12/17/2017Urine pH 5.800 - 6.200 5.642 (L) 6.743 (H)24 hr Uric Acid <0.800 g/d 0.651 0.79973 hr Citrate >450 mg/d 106 (L) 279 (L)24 hr Oxlate 20 - 40 mg/d 77 (H) 62 (H)24 hr Calcium <250 mg/d 147 180Urine Volume 0.50 - 4.00 L/d 1.95 3.29Supersaturation CaOx 6.00 - 10.00 8.12 3.63 (L)Supersaturation CaP 0.50 - 2.00 0.34 (L) 1.16Supersaturation Uric Acid <1.00 1.23 (H) 0.0924 hr Potassium 20 - 100 mmol/d 55 4424 hr Sodium 50 - 150 mmol/d 292 (H) 373 (H)24 hr Sulfate 20 - 80 mEq/d 33 4924 hr Ammonium 15 - 60 mmol/d 39 2724 hr Chloride 70 - 250 mmol/d 290 (H) 281 (H)24 hr Magnesium 30 - 120 mg/d 138 (H) 156 (H)24 hr Phosphorus 0.60 - 1.20 g/d 1.072 1.524 (H)24 hr Urea Nitrogen 6.00 - 14.00 g/d 14.28 (H) 12.18Protein Catabolic Rate 0.8 - 1.4 g/kg/d 0.8 0.7 (L)24 hr Creatinine mg/d 2,629 2,15028 hr Creatinine per Kilogram Body Weight 11.9 - 24.4 mg/d/kg 17.0 17.324 hr Calcium per Kilogram Body Weight <4.0 mg/d/kg 1.0 1.124 hr Calcium per 24 hr Creatinine 34 - 196 mg/g 56 6624 hr Urine Comments Comments CommentsTranscription Cystine Screen Negative Fo rce of Stream: fineNOCTURIA: sometimes , 1-2 times /nightDay Time Frequency: 3hr, 4hrHesitancy: NoIntermittency: NoIncomplete Emptying: NoPost void Dribbling: NoUrinary Retention Hx:NoDouble Voiding: NoUrgency: NoDysuria: NoIncontinence history: NoGross hematuria history: NoUTI Hx: NoStone Event Hx: NoReview, other organ system:GI:Blood: NoConstipation: NoDiarrhea: NoNausea/Vomiting: NoOTHER:Impression/Plan:N20.0 Calculus of kidney (primary encounter diagnosis)E79.0 XtlsbvagqnsyjK55.0 Calcium oxalate yvsujxvxF79.992 EaeqwkjhgxmhrA87.991 RrjczeuxoerbxjR60.0 HypernatriuriaReviewed latest images and 24 hr urine testingMuch improved urine volume- encouraged to continueRecent gout attack and hx of high uric acid will increase allopurinol ej897dh/day. Pt to monitor animal protein intake, feels latest attack wasdue to pork/ceballos/sausage he consumed. Hyperoxaluria- slowly improving,advised to add vitamin D3Sibhxkadlltbid- pt declined urocit but has increased dietary citrus,slowly improved, encouraged to continue. Hypernatriuria- worse thanbefore, reviewed high sodium foods, pt to monitor intake better. Improvedhydro and not stones on imaging, will continue to monitor. RTC in 12months with new imagesPt requested notes forwarded to Dr Oneill spent 25 minutes in this visit, with more than 50% of the time devotedto patient face to face counseling.Cat Will APRN.PRINT PRODUCER [facility] Protein mass conc HNO ID: [id number]: Gary Buenoice: (none)Author Type: (none)Type: Progress NotesFiled: 12/27/2017 9:59 AMNote Text: Radiology Service Progress NotePATIENT NAME: Joe [facility]N: [id number] OF SERVICE: December 27, 2017TIME: 9:58 AMPATIENT IDENTITY VERIFICATION COMPLETED USING TWO (2) METHODS: Patientconfirmed name verbally and Date of .PATIENT GENDER DATA: MalePATIENT RELEVANT IMPLANT DATA REVIEWED: Not ApplicableRADIOLOGY DEPARTMENT: General X-ray: Exam(s) Completed: Abdomen X-RayAbdomen with ObliquesPERIPHERAL IV DATA: Not applicableSIGNED BY: Gary Batista2017 9:58 AM [facility] US KIDNEY/BLADDERon 12-28-19 US KIDNEY/BLADDER * * *Final Report* * *DATE OF EXAM: Dec 27 2017 9:15AM KATTY 1055 - US KIDNEY/BLADDER / REASON: Calculus of kidney * * * * Physician Interpretation * * * * EXAMINATION: RENAL ULTRASOUNDCLINICAL HISTORY: Renal calculusTECHNIQUE: Sonography of the kidneys and urinary bladder was performed. Images were obtained and stored in a permanent archive.MQ: [id number]: 09/13/2017RESULT:Right Kidney: -Renal length: 11.6 cm -Parenchyma: Normal parenchymal echogenicity. Normal parenchymal thickness. -Collecting system: No hydronephrosis. -Calculus: No echogenic, shadowing calculus. -Lesion: None.Left Kidney: -Renal length: 15.4 cm -Parenchyma: Normal parenchymal echogenicity. Normal parenchymal thickness. -Collecting system: Previously shown hydronephrosis has improved with residual upper pole pelviectasis. Ureter stent is no longer visible. -Calculus: Previously shown echogenic, shadowing calculus is no longer identified. -Lesion: None.Bladder: Normal sonographic appearance.IMPRESSION:Improved left-sided hydronephrosis with residual upper pole pelviectasis.The previously shown left UPJ calculus is no longer identified.Care Coordination Manager: [facility] Transcribe Date/Time: Dec 27 2017 9:46ADictated by : YOGI CABAN MDThitavia examination was interpreted and the report reviewed and electronically signed by: YOGI CABAN MD on Dec 27 2017 9:52AM [id number] [facility] XR ABDOMEN 3V KUB W/OBLIQUES on 12-27-2017 XR ABDOMEN 3V KUB W/OBLIQUES * * *Final Report* * *DATE OF EXAM: Dec 27 2017 9:55AM AOX 5358 - XR ABDOMEN 3V KUB W/OBLIQUES / REASON: Calculus of kidney * * * * Physician Interpretation * * * * ABDOMEN THREE VIEWSCLINICAL INFORMATION: Renal calculus..TECHNIQUE: AP and both oblique views of the abdomen, 5 imagesCOMPARISON: 09/13/2017RESULT: The left ureter stent has been removed. No radiopaque density overlies either kidney or the expected course of the ureters. Calcified pelvic phleboliths are unchanged.Bowel gas: No dilated loops of bowel. Stool present within the right colon overlies and partially obscured the right renal shadow..No focal bony abnormalities.IMPRESSION: NO RADIOPAQUE RENAL CALCULUS. THE LEFT URETER STENT HAS BEEN REMOVED.Care Coordination Manager: [facility] Transcribe Date/Time: Dec 27 2017 1:27PDictated by : YOGI CABAN MDThitavia examination was interpreted and the report reviewed and electronically signed by: YOGI CABAN MD on Dec 27 2017 1:30PM [id number] [facility] CNOVon 10-18-2017 CNOV Office Visit (UROSMN) JOE DAVID ([id number]) 1970 MDate Time Provider Department10/18/17 3:00 PM POLLY TORRES During your visit today, we recorded the following information about you:Alberta Greenberg, RN, RN 12/19/2017 2:08 PM AddendumPRE PROCEDURE ASSESSMENT- CystoProcedure Indication: Cystoscopystent extractionAugust 2017, Time In: 1500Latex Allergy: NoAllergies reviewed and updated. YesPre-Procedure Vital Signs: BP: 159/77 Pulse: 111Heart valve replacement: NoJoint replacement: NoBack Office UA otained: noPatient brought to procedure room # 7 @ time 1500.Anabel Yo MD 10/18/2017 4:07 PM SignedCYSTOSCOPY PROCEDUREM.D.'S HOPS NOTEPertinent History and Physical Exam reviewed and is unchanged.Primary Diagnosis: NephrolithiasisProcedure: Stent ExtractionInformed Consent Discussed: Yes. Risks, benefits, alternatives and personneldiscussed with patient who consents to proceed.Audible Time-Out: YesDetails of Procedure:TECHNIQUE: The procedure was fully explained to the patient, risks werereviewed. The patient was placed in the supine position. The genitalia wereprepped with antiseptic soap per protocol, and the urethra was anesthetizedwith viscous 2% lidocaine. The flexible cystoscope was introduced into theurethra and advanced under direct vision with findings as outlined below. Atthe conclusion of the procedure, the cystoscope was withdrawn.Anesthetics given: 10 cc 2% Lidocaine-UrethralOperative Findings Urethra: Normal Prostate: Occlusive Bladder: Left stent removed without difficultyRadiologic Studies CT: N/A Urogram: N/A Urethrogram: N/A Cystogram: N/A Retrograde Pyelogram(s): None Ultrasound: None KUB: NoneComplications: NoneRecommendations: Discussed findings with patient, RTC in 6 wk for f/u (call meif probs), KUB at F/U, Renal Ultrasound at F/U and Complete 24 hr urine stonepanel prior to F/UComments: well-tolerated; Left PCNL site well-healed, sutures removed.Post Procedure Evaluation Condition Post Procedure: satisfactory Post Procedure Medications: NoneMark Brian, MDDirector, Surgical Stone DiseaseValleywise Behavioral Health Center MaryvalePager [phone]/18/2017Tonio Muñoz Ma 10/18/2017 4:10 PM SignedPROCEDURE PREP-CystoPatient ID with two(2)identifiers verified by: Tonio Thomas valve replacement: NoJoint replacement: NoPre-Procedure Antibiotics: None taken at home nor prior to procedurePatient Prep: Betadine Scrub to perineum and placement of Sterile Drape.COMPLETEDAnesthetic Given:10 cc 2% Lidocaine jelly Tonio Muñoz MaUNIVERSAL PROTOCOL / SAFETY CHECKLISTProcedure to be performed: Cystoscopy and Stent ExtractionSign in Communication: CompletedTime Out: Team Confirms the Correct Patient, Correct Procedure, Correct Siteand Site Marking, Correct Position (if applicable).Sign Out Discussion: CompletedTonio ZendejasOST PROCEDURE NURSE ASSESSMENTPresent along with physician during procedure exam. Tonio Zendejasrocedure/Indication: Cystoscopy and Stent ExtractionInstruction sheet given and reviewed and patient verbalizes understanding: yesPost Procedure Antibiotic: None givenCurrent pain intensity is 0 on a 0-10 pain scale.Tonio Muñoz MaAMBULATORY PATIENT EDUCATIONTHE FOLLOWING WAS EVALUATEDMotivation To Learn: EagerFamily/Significant Other Support: None - Unavailable/disinterestedCognitive Ability: Alert/OrientedMethod of Instruction: Individual instructionWritten instruction - handoutsVerbal instructionThe Following Influencing Factors Were Barriers To This Education Session: NoneThe Following Physical Limitations Were Barriers To This Education Session: NoneInstruction Provided To: PatientInterpreter Present: not applicableDiscipline: NursingLearning Topic: SURVIVAL SKILLS: Complication PreventionPatient Evaluation: Verbalizes understanding: YesSupplemental Material Given: Written MaterialInstructed By Tonio Muñoz Ma In Department Urology .Referring Provider: POLLY TORRES [[id number]]Allergies As of Date: 10/18/2017 Noted Allergy ReactionCODEINE 07/24/2017 4 - HivesDate Reviewed: 10/18/2017Reviewed by: Alberta Mcrae (Rn) FRANKIE Greenberg - Fully AssessedReason for Visit: Stent Extraction [372]Primary Visit Diagnosis:Calculus of kidney [N20.0]Order(s): KIDNEY/BLADDER [[id number]] Order #: [id number] FUTURE XR ABDOMEN 3V KUB W/OBLIQUES [[id number]] Order #: [id number] FUTUREPrescriptions as of 10/18/2017 Sig: CHOLECALCIFEROL (VITAMIN D3) * Take 1 tablet by mouth once e* HYDRALAZINE 100 MG TABLET Take 1 tablet by mouth three * ACETAMINOPHEN 500 MG TABLET Take 1,000 mg by mouth as nee* ALLOPURINOL 100 MG TABLET Take 1 tablet by mouth once d* CARVEDILOL 25 MG TABLET Take 25 mg by mouth three randall* OXYBUTYNIN CHLORIDE 5 MG TABL* Take 1 tablet by mouth every * Patient not taking: Reported on 10/18/2017 TAMSULOSIN 0.4 MG CAPSULE Take 1 capsule by mouth once * Patient not taking: Reported on 10/18/2017 PYRIDOXINE (VITAMIN B6) 100 M* Take 1 tablet by mouth once d* Patient not taking: Reported on 10/18/2017 POTASSIUM CITRATE ER 10 MEQ (* Take 1 tablet by mouth twice * Patient not taking: Reported on 10/18/2017 DOCUSATE SODIUM 100 MG CAPSULE Take 1 capsule by mouth twice* Patient not taking: Reported on 10/18/2017Problem List As Of Date 10/18/2017 Noted Resolved Calculus of kidney [N20.0] INVALID FOR* CPAP (continuous positive airway pressure) depe*INVALID FOR* CHRISTOPHER (obstructive sleep apnea) [G47.33] INVALID FOR* Gastroesophageal reflux disease without esophag*INVALID FOR* Essential hypertension [I10] INVALID FOR* Former smoker [Z87.891] INVALID FOR* BMI 50.0-59.9, adult (HCC) [Z68.43] INVALID FOR* Calculus of ureter [N20.1] INVALID FOR* Abnormal urinalysis [R82.90] INVALID FOR* Family history of diabetes mellitus [Z83.3] INVALID FOR* Family history of prostate cancer [Z80.42] INVALID FOR* Family history of nephrolithiasis [Z84.1] INVALID FOR* Hyperuricemia [E79.0] INVALID FOR* Low vitamin D level [R79.89] INVALID FOR* Hypocitraturia [R82.991] INVALID FOR* Hyperoxaluria (HCC) [R82.992] INVALID FOR* Low urine output [R34] INVALID FOR* Hypernatriuria [E87.0] INVALID FOR* Nephrolithiasis [N20.0] Morbid obesity (HCC) [E66.01] CHRISTOPHER on CPAP [G47.33, Z99.89]Visit Notes:>> Alberta Mcrae (Frankie) FRANKIE Greenberg [facility] Oct 18, 2017 3:06 PM Status: AddendumPRE PROCEDURE ASSESSMENT- CystoProcedure Indication: Cystoscopystent extractionAugust 2017, Time In: 1500Latex Allergy: NoAllergies reviewed and updated. YesPre-Procedure Vital Signs: BP: 159/77 Pulse: 111Heart valve replacement: NoJoint replacement: NoBack Office UA otained: noPatient brought to procedure room # 7 @ time 1500.Alberta Greenberg RN>> Tonio Muñoz Ma [facility] Oct 18, 2017 4:09 PM Status: SignedPROCEDURE PREP-CystoPatient ID with two(2)identifiers verified by: Tonio Thomas valve replacement: NoJoint replacement: NoPre-Procedure Antibiotics: None taken at home nor prior to procedurePatient Prep: Betadine Scrub to perineum and placement of Sterile Drape.COMPLETEDAnesthetic Given:10 cc 2% Lidocaine jelly Tonio Muñoz MaUNIVERSAL PROTOCOL / SAFETY CHECKLISTProcedure to be performed: Cystoscopy and Stent ExtractionSign in Communication: CompletedTime Out: Team Confirms the Correct Patient, Correct Procedure, CorrectSite and Site Marking, Correct Position (if applicable).Sign Out Discussion: Basilio Mauricio PROCEDURE NURSE ASSESSMENTPresent along with physician during procedure exam. Tonio Zendejasrocedure/Indication: Cystoscopy and Stent ExtractionInstruction sheet given and reviewed and patient verbalizes understanding:yesPost Procedure Antibiotic: None givenCurrent pain intensity is 0 on a 0-10 pain scale.Tonio OkeefeULATORY PATIENT EDUCATIONTHE FOLLOWING WAS EVALUATEDMotivation To Learn: EagerFamily/Significant Other Support: None - Unavailable/disinterestedCognitive Ability: Alert/OrientedMethod of Instruction: Individual instructionWritten instruction - handoutsVerbal instructionThe Following Influencing Factors Were Barriers To This Education Session:NoneThe Following Physical Limitations Were Barriers To This EducationSession: NoneInstruction Provided To: PatientInterpreter Present: not applicableDiscipline: NursingLearning Topic: SURVIVAL SKILLS: Complication PreventionPatient Evaluation: Verbalizes understanding: YesSupplemental Material Given: Written MaterialInstructed By Tonio Muñoz Ma In Department Urology .Disposition: Return in about 7 weeks (around 12/06/2017) for Complete repeat Litholink; f/u 6-7 wk with Cat with KUB/sono at f/u.Follow-up and Disposition History RecordedLetter Dwayne Baxter 2017TO WHOM IT MAY CONCERN:This is to certify that Joe David has been under my care. Joe Davidwas unable to work from 10/05/17 through 10/23/17. The patient may return towork on 10/23/17 with the following instructions:No restrictionsSincerely yoursPolly MDELECTRONICALLY SIGNEDEncounter Number: [id number] Status:Closed by POLLY TORRES MD on 10/18/17 Normal [facility] PROGRESSon 10-18-2017 Protein mass conc HNO ID: [id number]: Polly Leiervice: (none)Author Type: PhysicianType: Progress NotesFiled: 10/18/2017 4:07 PMNote Text:CYSTOSCOPY PROCEDUREM.D.'S HOPS NOTEPertinent History and Physical Exam reviewed and is unchanged.Primary Diagnosis: NephrolithiasisProcedure: Stent ExtractionInformed Consent Discussed: Yes. Risks, benefits, alternatives andpersonnel discussed with patient who consents to proceed.Audible Time-Out: YesDetails of Procedure:TECHNIQUE: The procedure was fully explained to the patient, risks werereviewed. The patient was placed in the supine position. The genitaliawere prepped with antiseptic soap per protocol, and the urethra wasanesthetized with viscous 2% lidocaine. The flexible cystoscope wasintroduced into the urethra and advanced under direct vision with findingsas outlined below. At the conclusion of the procedure, the cystoscope waswithdrawn.Anesthetics given: 10 cc 2% Lidocaine-UrethralOperative Findings Urethra: Normal Prostate: Occlusive Bladder: Left stent removed without difficultyRadiologic Studies CT: N/A Urogram: N/A Urethrogram: N/A Cystogram: N/A Retrograde Pyelogram(s): None Ultrasound: None KUB: NoneComplications: NoneRecommendations: Discussed findings with patient, RTC in 6 wk for f/u(call me if probs), KUB at F/U, Renal Ultrasound at F/U and Complete 24 hrurine stone panel prior to F/UComments: well-tolerated; Left PCNL site well-healed, sutures removed.Post Procedure Evaluation Condition Post Procedure: satisfactory Post Procedure Medications: NoneMark Torres, MDDirector, Surgical Stone DiseaseMount Carmel Health Systemic Jensen, [facility] HospitalPager Normal [facility] Basic Metabolic Panlon 10-06 Anion gap 3 molar conc 18 mmol/L Normal 9-18 [facility] Comment on above: Performed By: #### CBCDIF, CMP, URIC, PT HI, VITD ####[facility] [place] [phone] Calcium mass conc 8.9 mg/dL Normal 8.5-10.2 [facility] Comment on above: Performed By: #### CBCDIF, CMP, URIC, PT HI, VITD ####[facility] [address]Cle[address], [place] [phone] Chloride molar conc 99 mmol/L Normal 97-105 [facility] Comment on above: Performed By: #### CBCDIF, CMP, URIC, PT HI, VITD ####[facility] [address] AveCHolly V[place] [phone] CO2 molar conc 21 mmol/L Low 22-30 [facility] Comment on above: Performed By: #### CBCDIF, CMP, URIC, PT HI, VITD ####[facility] [address] AveCHolly V[place] [phone] Creatinine mass conc 2.04 mg/dL High 0.73-1.22 [facility] Comment on above: Performed By: #### CBCDIF, CMP, URIC, PT HI, VITD ####[facility] [address], [place] [phone] eGFR- Amer. 42 Normal [facility] Comment on above: Performed By: #### CBCDIF, CMP, URIC, PT HI, VITD ####[facility] [address] [place], [place] [phone] GFR/1.73 sq M predicted among non-blacks MDRD vol rate/area (S/P/Bld) 35 . Normal [facility] Comment on above: Result Comment: eGFR (Estimated GFR) Uni ts of measure: mL/min/1.73 meters squaredeGFR is derived from the reexpressed MDRD Study equation using the following parameters: serum creatinine, age, gender and race. The creatinine assay has been calibrated to be traceable to IDMS.An eGFR <60 mL/min/1.73m2 for >3 months is consistent with chronic kidney disease. Refer to KDOQI guidelines for clinical interpretation.In patients with unstable renal function, e.g. those with acute kidney injury, the eGFR may not accurately reflect actual GFR. Performed By: #### C BCDIF, CMP, URIC, PTHI, VITD ####[facility] [place], [place] [phone] Glucose mass conc 88 mg/dL Normal 74-99 [facility] Comment on above: Result Comment: The Canadian Diabetes As sociation (ADA) provides guidance for cutoff values for fasting glucose and random glucose. The ADA defines fasting as no caloric intake for at least 8 hours. Fasting plasma glucose results between 100 to 125 mg/dL indicate increased risk for diabetes (prediabetes).Fasting plasma glucose results greater than or equal to 126 mg/dL meet the criteria for diagnosis of diabetes. In the absence of unequivocal hyperglycemia, results should be confirmed by repeat testing. In a patient with classic symptoms of hyperglycemia or hyperglycemic crisis, random plasma glucose results greater than or equal to 200 mg/dL meet the criteria for diagnosis of diabetes.Reference: Standards of Medical Care in Diabetes 2016, Canadian Diabetes Association. Diabetes Care. 2016.39(Suppl 1). Performed By: #### C BCDIF, CMP, URIC, PTHI, VITD ####[facility] [address], [place] [phone] Potassium molar conc 4.0 mmol/L Normal 3.7-5.1 [facility] Comment on above: Performed By: #### CBCDIF, CMP, URIC, PT HI, VITD ####[facility] [address], [place] [phone] Sodium molar conc 138 mmol/L Normal 136-144 [facility] Comment on above: Performed By: #### CBCDIF, CMP, URIC, PT HI, VITD ####[facility] [address], [place] [phone] Urea nitrogen mass conc 19 mg/dL Normal 9-24 [facility] Comment on above: Performed By: #### CBCDIF, CMP, URIC, PT HI, VITD ####[facility] [address], [place] [phone] CASE MANAGEMon 10-06-2017 CASE MANAGEM HNO ID: [id number] thor: Delilah HellerRn) MITCH Rodriguezervice: Care ManagementAuthor Type: Registered NurseType: Care Mgt Progress NoteFiled: 10/06/2017 6:32 PMNote Text:CARE MANAGEMENT DISCHARGE NOTESERVICE DATE: 10/06/2017SERVICE TIME: 2:01 PM LOS: 0 daysNeeds Prior to Discharge: NoneMet with pt and spouse at bedside. No skilled needs identified. Pt readyfor discharge today. Pt verbalized agreement and understanding of thedischarge plan. Family to provide transportation. Bedside nurse to providedischarge instructions.SIGNATURE: Delilah Rodriguez RN PATIENT NAME: Joe DavidDATE: October 06, 2017 : 6:31 PM PAGER/CONTACT #: [phone] Normal [facility] CBC and Differentialon 10-06 Abs Baso 0.05 k/uL Normal <0.11 [facility] Comment on above: Performed By: #### CBCDIF, CMP, URIC, PT HI, VITD ####[place] [address] [place] [phone] Abs Island 0.82 k/uL Normal <0.87 [facility] Comment on above: Performed By: #### CBCDIF, CMP, URIC, PT HI, VITD ####[place] [address] [place] [phone] Abs Neut 9.54 k/uL High 1.45-7.50 [facility] Comment on above: Performed By: #### CBCDIF, CMP, URIC, PT HI, VITD ####[place] [address] [place] [phone] Absolute nRBC <0.01 Normal <0.01 [facility] Comment on above: Performed By: #### CBCDIF, CMP, URIC, PT HI, VITD ####[place] [address] [place] [phone] Basophils/100 WBC Auto (Bld) 0.4 % Normal [facility] Comment on above: Performed By: #### CBCDIF, CMP, URIC, PT HI, VITD ####[place] [address] [phone] DTYPE Auto Diff Normal [facility] Comment on above: Performed By: #### CBCDIF, CMP, URIC, PT HI, VITD ####[place] [address] [phone] Eosinophils Auto #/vol (Bld) 10*3/uL Normal <0.46 [facility] Comment on above: Performed By: #### CBCDIF, CMP, URIC, PT HI, VITD ####[place] [address] [phone] Eosinophils/100 WBC Auto (Bld) 0.0 % Normal [facility] Comment on above: Performed By: #### CBCDIF, CMP, URIC, PT HI, VITD ####[place] [id number] [place] [phone] Erythrocyte distribution width Auto Ratio (RBC) 12.5 % Normal 11.5-15.0 [facility] Comment on above: Performed By: #### CBCDIF, CMP, URIC, PT HI, VITD ####[place] [address] [phone] Hematocrit Auto Volume Fraction (Bld) 41.0 % Normal 39.0-51.0 [facility] Comment on above: Performed By: #### CBCDIF, CMP, URIC, PT HI, VITD ####[place] [address] [place] [phone] Hemoglobin mass conc (Bld) 13.8 g/dL Normal 13.0-17.0 [facility] Comment on above: Performed By: #### CBCDIF, CMP, URIC, PT HI, VITD ####[place] [address] [place] [phone] Lymphocytes Auto #/vol (Bld) 1.67 10*3/uL Normal 1.00-4.00 [facility] Comment on above: Performed By: #### CBCDIF, CMP, URIC, PT HI, VITD ####[place] [address] [phone] Lymphocytes/100 WBC Auto (Bld) 13.8 % Normal [facility] Comment on above: Performed By: #### CBCDIF, CMP, URIC, PT HI, VITD ####[place] [address] [place] [phone] MCH Auto Entitic mass (RBC) 31.4 pG Normal 26.0-34.0 [facility] Comment on above: Performed By: #### CBCDIF, CMP, URIC, PT HI, VITD ####[place] [address] [place] [phone] MCHC Auto mass conc (RBC) 33.7 g/dL Normal 30.5-36.0 [facility] Comment on above: Performed By: #### CBCDIF, CMP, URIC, PT HI, VITD ####[place] [address] [phone] MCV Auto Entitic volume (RBC) 93.2 fL Normal 80.0-100.0 [facility] Comment on above: Performed By: #### CBCDIF, CMP, URIC, PT HI, VITD ####[place] [address] [phone] Monocytes/100 WBC Auto (Bld) 6.8 % Normal [facility] Comment on above: Performed By: #### CBCDIF, CMP, URIC, PT HI, VITD ####[place] [address] [place] [phone] Neutrophils/100 WBC Auto (Bld) 79.0 % Normal [facility] Comment on above: Performed By: #### CBCDIF, CMP, URIC, PT HI, VITD ####[place] [address] [phone] NRBCs 0.0 /100 WBC Normal 0 [facility] Comment on above: Performed By: #### CBCDIF, CMP, URIC, PT HI, VITD ####[place] [address] [place] [phone] Platelet mean volume Auto Entitic volume (Bld) 8.5 fL Low 9.0-12.7 [facility] Comment on above: Performed By: #### CBCDIF, CMP, URIC, PT HI, VITD ####[place] [address] [place] [phone] Platelets Auto #/vol (Bld) 343 10*3/uL Normal 150-400 [facility] Comment on above: Performed By: #### CBCDIF, CMP, URIC, PT HI, VITD ####[facility] [place], [place] [phone] RBC Auto #/vol (Bld) 4.40 10*6/uL Normal 4.20-6.00 [facility] Comment on above: Performed By: #### CBCDIF, CMP, URIC, PT HI, VITD ####[address] [phone] WBC Auto #/vol (Bld) 12.08 10*3/uL High 3.70-11.00 [facility] Comment on above: Performed By: #### CBCDIF, CMP, URIC, PT HI, VITD ####[place] [address] [place], [place] [phone] PROGRESSon 10-06-2017 Protein mass conc HNO ID: [id number]: Shruthi (Jackson Hackett: UrologyAuthor Type: ResidentType: Progress NotesFiled: 10/06/2017 6:47 PMNote Text:The [place] [phone] or [phone] [facility] F I D E N T I A L I N F O R M A T I O N [facility] DOCUMENTDISCHARGE SUMMARYPatient Name: Joe Krueger Date: 10/05/2017Discharge Date:October 06, 2017Attending Physician: Tremaine Pagan Diagnosis:NephrolithiasisSecondary Diagnoses:Patient Active Hospital Problem List: Calculus of kidney (07/24/2017) CPAP (continuous positive airway pressure) dependence (07/24/2017) CHRISTOPHER (obstructive sleep apnea) (07/24/2017)Operations During Hospitalization: Procedure(s) (LRB):PERCUTANEOUS NEPHROSTOLITHOTOMY UP TO 2 CM (Left), 2.2cmReason for Hospitalization: 47 year old morbidly obese male with left2.2cm renal stone who presented for operative management.Hospital Course: The patient underwent the above procedure(s) (please seeseparately dictated operative report for full details of the procedure).Pt tolerated the procedure well and post-operatively was transferred toPACU and ultimately to a regular nursing unit. Pain was initiallycontrolled with intravenous analgesia and pt's diet was restricted untilsigns of returning bowel function. Then diet was advanced as bowelfunction returned and pt was transitioned to oral pain medication as wellas restarted on prior to admission medications. On post-operative day, 1pt was afebrile, ambulating without difficulty, tolerating a regular diet,passing flatus, and pain was adequately controlled with PO medication. HisFoley was removed and voided without issue. Pt was discharged home withinstructions to return for follow up in clinic.Patient Condition at Discharge: StableDischarge Disposition:HomeInformation Provided to the Patient:Patient was given a copy of Discharge InstructionsDischarge Medications: Discharge Medication List as of 10/06/2017 1:57 PMSTART taking these medicationsoxybutynin (DITROPAN) 5 mg tabletTake 1 tablet by mouth every 8 hours as needed. Take if you go home with afoley catheter. If you do not, no need to take.Print RX, Disp-21 tablet, R-0, Long-termCONTINUE these medications which have CHANGEDtamsulosin ER (FLOMAX) 0.4 mg capTake 1 capsule by mouth once daily. While stent in place30 minutes after the same meal each day.Print RX, Disp-30 capsule, R-0, Long-termCONTINUE these medications which have NOT CHANGEDcholecalciferol, vitamin D3, 50,000 unit tabTake 1 tablet by mouth once each week.Historical Med, Long-termhydrALAZINE (APRESOLINE) 100 mg tabletTake 1 tablet by mouth three times daily.Normal, Disp-90 tablet, R-2, Long-termpyridoxine, vitamin B6, (VITAMIN B-6) 100 mg tabletTake 1 tablet by mouth once daily.OTC, Long-termDx: 1. Calculus of kidney 2. Hyperoxaluria (HCC) 3. Hyperuricemia 4.Hypocitraturia 5. Low urine output 6. Hypernatriuria 7. Calculus of ureterpotassium citrate ER (UROCIT-K 10) 10 mEq (1,080 mg) TbERTake 1 tablet by mouth twice daily.Normal, Disp-180 tablet, R-3Dx: 1. Calculus of kidney 2. Hypocitraturia 3. Hyperuricemia 4.Hyperoxaluria (HCC) 5. Low urine output 6. Hypernatriuria 7. Calculus ofureterdocusate sodium (COLACE) 100 mg capsuleTake 1 capsule by mouth twice daily.Normal, Disp-60 capsule, R-0acetaminophen (TYLENOL EXTRA STRENGTH) 500 mg tabletTake 1,000 mg by mouth as needed for Pain.Historical Medallopurinol (ZYLOPRIM) 100 mg tabletTake 1 tablet by mouth once daily.Normal, Disp-90 tablet, R-3Dx: 1. Hyperuricemiacarvedilol (COREG) 25 mg tabletTake 25 mg by mouth three times daily.Historical Med, Long-termFuture Appointments:Please follow-up as recommended by your provider.Electronically SIGNED by Licensed Independent Practitioner: MD Manuel Normal [facility] Protein mass conc HNO ID: [id number]: CAIT Melchor Reservice: UrologyAuthor Type: ResidentType: Progress NotesFiled: 10/06/2017 10:42 AMNote Text:.UROLOGY SERVICE PROGRESS NOTEName: Joe Argueta HallBed: G090 [id number]/[id number]: [id number] clearsNo n/vNo cp, sobOBJECTIVEBP 129/58 Pulse 85 Temp 37.2 ?C (99 ?F) (Oral) Resp 17 Ht 174cm (5' 8.5 ) Wt (!) 158 kg (348 lb 5.2 oz) SpO2 94% BMI 52.19kg/m?Physical ExamGeneral: Well-appearing, no acute distressCV: Hemodynamically stable, regular rate, well perfusedLungs: Non-labored breathingAbdomen: soft, nt, ndWound: primipore dressing over left flank, c//di. No hematoma or leakageGU: valdes to gravity with light yellow urineIntake/Output Summary (Last 24 hours) at 10/06/17 1038Last data filed at 10/06/17 1000 Gross per 24 hourIntake 3122 mlOutput 1850 mlNet 1272 mlCBC, Coags, BMP, Mg, PhosRecent Labs 633WBC 12.08* 11.44*HB 13.8 14.3HCT 41.0 42.7PLT 343 340NA 138 141K 4.0 4.4CHLOR 99 101CO2 21* 25BUN 19 20CREAT 2.04* 2.10*GLUC 88 129*CA 8.9 9.4Medications: ReviewedASSESSMENT AND PLANJeffry Ellie David is a 47 year old morbidly obese male with a 2.2cm left renalstone now POD#1 s/p L PCNL.Plan:-Pulm: CXR w/o pneumo, mild left basilar atelectasis. 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 Fill and pull today.-Pain: Controlled on po and iv prns-GI/Fluids: advance to cc diet and drop fluids-ID: periop ancef-Ppx: scds, sqh contraindicated given elevated bleeding risk-Drains: has internal L JJ stent-Home meds/other issues: continue home hydralazine, urocit K, B6,allopurinol, coreg-Discharge teaching: routine teaching-Discharge planning: D/c valdes, later today if he ambulates, weaned off O2and tolerates reg diet otherwise home tmrw. Will need follow up in 1 weekfor stent removal.Discussed w/ Dr. Torres, staff attending.Shruthi Montgomery MDUrologic Surgery PGY-2From 6a-6pm, please page with any issues or concerns: Pager: [phone] hours or on the weekend, page [phone] 201710:38 AM Normal [facility] Protein mass conc HNO ID: [id number]: Stas (Jhonny Treadwell: UrologyAuthrashmi Type: ResidentType: Progress NotesFiled: 10/05/2017 11:47 PMNote Text: UROLOGY POST OPERATIVE CHECK NOTEName: Joe DavidMRN: [id number]: October 05, 2017S: Patient doing well. Pain well-controlled. Denies fevers, chills,chest pain, shortness of breath, nausea, vomiting.O: BP 155/82 Pulse 77 Temp 36.5 ?C (97.7 ?F) (Oral) Resp 16 Ht174 cm (5' 8.5 ) Wt (!) 158 kg (348 lb 5.2 oz) SpO2 93% BMI 52.19kg/m?Temp (24hrs), Av.3 ?C (97.4 ?F), Min:36.2 ?C (97.2 ?F), Max:36.5 ?C(97.7 ?F)Intake/Output Summary (Last 24 hours) at 10/05/17 2346Last data filed at 10/05/17 2242 Gross per 24 hourIntake 1703 mlOutput 600 mlNet 1103 mlCBC, Coags, BMP, Mg, PhosRecent Labs 633WBC 11.44*HB 14.3HCT 42.7PLT 340NA 141K 4.4CHLOR 101CO2 25BUN 20CREAT 2.10*GLUC 129*CA 9.4General - NAD, [id number] - non-labored breathingAbdomen - soft, appropriately tender, nondistendedGU - Valdes draining clear pink urineA/P: 47 year old male POD#0 S/P Procedure(s):Left PCNL. Doing well, hemodynamically stable, no issues. Routinepostoperative care.- Diet - Clear liquid diet- Activity - Ambulate with assistance- DVT prophylaxis - Pharmacologic DVT prophylaxis contraindicated due tobleeding risk- Antibiotics - ancef- zofran for nausea PRN- pain control with fentanylDaniesthela Pepper MD Normal [facility] ANES Ambrocio 10-05-2017 ANES POST HNO ID: [id number] thor: Sohan J PhillipsService: AnesthesiologyAuthor Type: AnesthesiologistType: Anesthesia PostOpFiled: 10/05/2017 4:43 PMNote Text:POST ANESTHESIA EVALUATION NOTESERVICE DATE: 10/04/2017SERVICE TIME: nowVitals:Patient Vitals for the past 24 hrs: BP Temp Temp src Pulse Resp SpO2 Height Issxcl10/27/18 1631 162/93 36.2 ?C (97.2 ?F) Temporal Art 87 17 97 % - -10/05/17 1024 134/67 36.2 ?C (97.2 ?F) Temporal Art 81 18 98 % 174 cm (5'8.5 ) (!) 156.9 kg (346 lb)Validated Vital Signs: YesPOST ANES STATUS: No apparent anesthetic complications. The patient isappropriately hydrated with stable respiratory and cardiovascular status.Patient has safe and adequate airway control. The patient has appropriatepain relief and no significant post operative nausea or vomiting. Thepatient has achieved baseline mental status.Further assessment by Anesthesia Service: NoneOther Remarks: Awake, fluent, clinically comfortable. Respiratory statusstable.SIGNATURE: JOB Mcknight MD PT NAME: Joe CarrasquilloTE: October 05, 2017; 4:43 PM Normal [facility] Basic Metabolic Panlon 10-05 Anion gap 3 molar conc 15 mmol/L Normal 9-18 [facility] Comment on above: Performed By: #### CBCDIF, CMP, URIC, PT HI, VITD ####[facility] [address] [place], [place] [phone] Calcium mass conc 9.4 mg/dL Normal 8.5-10.2 [facility] Comment on above: Performed By: #### CBCDIF, CMP, URIC, PT HI, VITD ####[facility] [address] [place], [place] [phone] Chloride molar conc 101 mmol/L Normal 97-105 [facility] Comment on above: Performed By: #### CBCDIF, CMP, URIC, PT HI, VITD ####[facility] [address] [place], [place] [phone] CO2 molar conc 25 mmol/L Normal 22-30 [facility] Comment on above: Performed By: #### CBCDIF, CMP, URIC, PT HI, VITD ####[facility] [address], [place] [phone] Creatinine mass conc 2.10 mg/dL High 0.73-1.22 [facility] Comment on above: Performed By: #### CBCDIF, CMP, URIC, PT HI, VITD ####[facility] [address], [place] [phone] eGFR- Amer. 41 Normal [facility] Comment on above: Performed By: #### CBCDIF, CMP, URIC, PT HI, VITD ####[facility] [address], [place] [phone] GFR/1.73 sq M predicted among non-blacks MDRD vol rate/area (S/P/Bld) 34 . Normal [facility] Comment on above: Result Comment: eGFR (Estimated GFR) Uni ts of measure: mL/min/1.73 meters squaredeGFR is derived from the reexpressed MDRD Study equation using the following parameters: serum creatinine, age, gender and race. The creatinine assay has been calibrated to be traceable to IDMS.An eGFR <60 mL/min/1.73m2 for >3 months is consistent with chronic kidney disease. Refer to KDOQI guidelines for clinical interpretation.In patients with unstable renal function, e.g. those with acute kidney injury, the eGFR may not accurately reflect actual GFR. Performed By: #### C BCDIF, CMP, URIC, PTHI, VITD ####[facility] [address], [place] [phone] Glucose mass conc 129 mg/dL High 74-99 [facility] Comment on above: Result Comment: The [place] Diabetes As sociation (ADA) provides guidance for cutoff values for fasting glucose and random glucose. The ADA defines fasting as no caloric intake for at least 8 hours. Fasting plasma glucose results between 100 to 125 mg/dL indicate increased risk for diabetes (prediabetes).Fasting plasma glucose results greater than or equal to 126 mg/dL meet the criteria for diagnosis of diabetes. In the absence of unequivocal hyperglycemia, results should be confirmed by repeat testing. In a patient with classic symptoms of hyperglycemia or hyperglycemic crisis, random plasma glucose results greater than or equal to 200 mg/dL meet the criteria for diagnosis of diabetes.Reference: Standards of Medical Care in Diabetes 2016, [place] Diabetes Association. Diabetes Care. 2016.39(Suppl 1). Performed By: #### C BCDIF, CMP, URIC, PTHI, VITD ####[place] [address] [address] [place] [phone] Potassium molar conc 4.4 mmol/L Normal 3.7-5.1 [facility] Comment on above: Performed By: #### CBCDIF, CMP, URIC, PT HI, VITD ####[place] [address] [address] [place] [phone] Sodium molar conc 141 mmol/L Normal 136-144 [facility] Comment on above: Performed By: #### CBCDIF, CMP, URIC, PT HI, VITD ####[place] [address] [address] [place] [phone] Urea nitrogen mass conc 20 mg/dL Normal 9-24 [facility] Comment on above: Performed By: #### CBCDIF, CMP, URIC, PT HI, VITD ####[place] [address] [address] [place] [phone] CBC and Differentialon 10-05 Abs Baso 0.06 k/uL Normal <0.11 [facility] Comment on above: Performed By: #### CBCDIF, CMP, URIC, PT HI, VITD ####[place] [address] [address] [phone] Abs Island 0.62 k/uL Normal <0.87 [facility] Comment on above: Performed By: #### CBCDIF, CMP, URIC, PT HI, VITD ####[place] [address] [address] [phone] Abs Neut 9.12 k/uL High 1.45-7.50 [facility] Comment on above: Performed By: #### CBCDIF, CMP, URIC, PT HI, VITD ####[place] [address] [address], [place] [phone] Absolute nRBC <0.01 Normal <0.01 [facility] Comment on above: Performed By: #### CBCDIF, CMP, URIC, PT HI, VITD ####[place] [address] [address] [phone] Basophils/100 WBC Auto (Bld) 0.5 % Normal [facility] Comment on above: Performed By: #### CBCDIF, CMP, URIC, PT HI, VITD ####[place] [address] [address] [phone] DTYPE Auto Diff Normal [facility] Comment on above: Performed By: #### CBCDIF, CMP, URIC, PT HI, VITD ####[place] [address] [address] [phone] Eosinophils Auto #/vol (Bld) 0.05 10*3/uL Normal <0.46 [facility] Comment on above: Performed By: #### CBCDIF, CMP, URIC, PT HI, VITD ####[place] [address] [address]ClevelRachel [address] [phone] Eosinophils/100 WBC Auto (Bld) 0.4 % Normal [facility] Comment on above: Performed By: #### CBCDIF, CMP, URIC, PT HI, VITD ####[place] [address] [address] [phone] Erythrocyte distribution width Auto Ratio (RBC) 12.7 % Normal 11.5-15.0 [facility] Comment on above: Performed By: #### CBCDIF, CMP, URIC, PT HI, VITD ####[place] [address] [address], [place] [phone] Hematocrit Auto Volume Fraction (Bld) 42.7 % Normal 39.0-51.0 [facility] Comment on above: Performed By: #### CBCDIF, CMP, URIC, PT HI, VITD ####[place] [address] [address], [place] [phone] Hemoglobin mass conc (Bld) 14.3 g/dL Normal 13.0-17.0 [facility] Comment on above: Performed By: #### CBCDIF, CMP, URIC, PT HI, VITD ####[place] [address] [address] [place] [phone] Lymphocytes Auto #/vol (Bld) 1.59 10*3/uL Normal 1.00-4.00 [facility] Comment on above: Performed By: #### CBCDIF, CMP, URIC, PT HI, VITD ####[place] [address] [address] [place] [phone] Lymphocytes/100 WBC Auto (Bld) 13.9 % Normal [facility] Comment on above: Performed By: #### CBCDIF, CMP, URIC, PT HI, VITD ####[place] [address] [address], [place] [phone] MCH Auto Entitic mass (RBC) 31.1 pG Normal 26.0-34.0 [facility] Comment on above: Performed By: #### CBCDIF, CMP, URIC, PT HI, VITD ####[place] [address] [address] [place] [phone] MCHC Auto mass conc (RBC) 33.5 g/dL Normal 30.5-36.0 [facility] Comment on above: Performed By: #### CBCDIF, CMP, URIC, PT HI, VITD ####[place] [address] [address] [place] [phone] MCV Auto Entitic volume (RBC) 92.8 fL Normal 80.0-100.0 [facility] Comment on above: Performed By: #### CBCDIF, CMP, URIC, PT HI, VITD ####[facility] [phone] Monocytes/100 WBC Auto (Bld) 5.4 % Normal [facility] Comment on above: Performed By: #### CBCDIF, CMP, URIC, PT HI, VITD ####[place] [address] [address] [place] [phone] Neutrophils/100 WBC Auto (Bld) 79.8 % Normal [facility] Comment on above: Performed By: #### CBCDIF, CMP, URIC, PT HI, VITD ####[place] [address] [address] [place] [phone] NRBCs 0.0 /100 WBC Normal 0 [facility] Comment on above: Performed By: #### CBCDIF, CMP, URIC, PT HI, VITD ####[place] [address] [address] [place] [phone] Platelet mean volume Auto Entitic volume (Bld) 8.4 fL Low 9.0-12.7 [facility] Comment on above: Performed By: #### CBCDIF, CMP, URIC, PT HI, VITD ####[place] [address] [address] [place] [phone] Platelets Auto #/vol (Bld) 340 10*3/uL Normal 150-400 [facility] Comment on above: Performed By: #### CBCDIF, CMP, URIC, PT HI, VITD ####[place] [address] [address] [place] [phone] RBC Auto #/vol (Bld) 4.60 10*6/uL Normal 4.20-6.00 [facility] Comment on above: Performed By: #### CBCDIF, CMP, URIC, PT HI, VITD ####[place] [address]CG[address], [place] [phone] WBC Auto #/vol (Bld) 11.44 10*3/uL High 3.70-11.00 [facility] Comment on above: Performed By: #### CBCDIF, CMP, URIC, PT HI, VITD ####[facility]Cle[address], [place] [phone] Calculi Analysison 8 Calculus Type No Information Provided Normal [facility] Comment on above: Performed By: #### CBCDIF, CMP, URIC, PT HI, VITD ####[facility] [address]CG[address], [place] [phone] Note (NOTE) Normal [facility] Comment on above: Result Comment: Calculus Color: BROWNCal culus Size & Weight: MULTIPLE PIECES, 3.9646 GRAMSComposition: CALCIUM PHOSPHATE - 60% CALCIUM OXALATE MONOHYDRATE - 30% MINOR COMPONENTS - 10%This test was developed and its performance characteristicsdetermined by the [facility] Pathology andLaboratory Medicine Jensen ([facility]).It has not been cleared or approved by the FDA.-[facility] is regulated under CLIA as qualified to performhigh-complexity testing.This test is used for clinical purposes. It should not be regarded asinvestigational or for research. Performed By: #### C BCDIF, CMP, URIC, PTHI, VITD ####[facility] [place], [place] [phone] NURSING PROGon 10-05-2017 Protein mass conc HNO ID: [id number]: Carrie (Rn) MITCH Floreservice: NursingAuthor Type: Registered NurseType: Nursing Progress NoteFiled: 10/05/2017 7:51 PMNote Text:Admission/Transfer NotePATIENT NAME: Joe DavidMRN: [id number] transferred from PACU via stretcher in stable condition.Actions taken: Patient oriented to room, call light function, prescribedactivities, Patient rights and Quiet at night. The patient has beeninstructed on the plan of care and fall prevention.This note was completed by: Carrie Flores RN [facility] Protein mass conc HNO ID: [id number]: MITCH Terrazas Rnervice: (none)Author Type: Registered NurseType: Nursing Progress NoteFiled: 10/05/2017 5:56 PMNote Text: Nursing Progress NotePatient Name: Joe JamesN: [id number] Location: E020 014/B139-03 Pt rating pain 2/10, tolerable. Pt does not want pain medication at thistime. VSS. Sats are 94% on 4L NC, RR 14. Scant amt of bloody drainage ondressing. No hematoma noted. Valdes draining clear/bloody urine. Emotionalsupport provided. Mouth care provided. Will continue to monitor andassess.This note was completed by: Karissa Barrios RN [facility] Protein mass conc HNO ID: [id number]: Jemima (Frankie) MITCH Schulteervice: NursingAuthor Type: Registered NurseType: Nursing Progress NoteFiled: 10/05/2017 10:29 AMNote Text: PATIENT EDUCATION TOPIC: PROCEDURE / SURGERY: Procedure/Surgery:PATIENT NAME: Joe JamesN: [id number] LOCATION: [place] [address]READINESS TO LEARNCOGNITIVE ABILITY: Alert and orientedMOTIVATION TO LEARN: EagerFAMILY SUPPORT: High - Very involved in pt careINSTRUCTION PROVIDED TO: PatientPATIENT LEARNS BEST BY: Individual InstructionVerbal InstructionFACTORS AFFECTING LEARNING: NonePHYSICAL LIMITATIONS AFFECTING LEARNING: NoneLEARNING RESPONSEDIAGNOSIS: ADULT: PATIENT/FAMILY RESPONSE: METHOD OF INSTRUCTION:FOLLOW-UP PLAN:INSTRUCTIONAL AIDS USED:SUPPLEMENTAL MATERIAL PROVIDED TO PATIENT: noneREFERRAL (RECOMMENDATION): noneElectronically Signed By: Jemima Schulte RN [facility] Protein mass conc HNO ID: [id number]: Jemmia (Rn) MITCH Schulteervice: NursingAuthor Type: Registered NurseType: Nursing Progress NoteFiled: 10/05/2017 10:27 AMNote Text:[facility] BEDSIDE DELIVERY SURVEY1. Patient to use [facility] Bedside Delivery - YES2. If fax, patient would like us to fax prescriptions to Pharmacy [facility]choice a. Pharmacy: b. Location: c. Phone:3. Insurance card on file - YES4. Credit card for payment - NONo prescriptions yet. Please page sds water filtration technician upon discharge. Normal [facility] OPERATIVE NOon 10-05-2017 OPERATIVE NO HNO ID: [id number] thor: Polly Leiervice: UrologyAuthor Type: PhysicianType: Operative ReportFiled: 10/08/2017 7:31 AMNote Text:OPERATIVE/PROCEDURE REPORTLOG ID: [id number]/Procedure Date: 10/05/2017Incision/Procedure Start Time: 2:14 PMIncision Close/Procedure End Time: 4:00 PMSurgeon(s)/Proceduralist(s) and Senior Research Analyst(s):Surgeon(s) and Role: * Polly Torres - Primary * Shruthi (Res) MD Ulises - Resident - AssistingProcedure(s):Flexible cystourethroscopyFlexible eft ureteroscopyLeft pyeloscopy with laser lithotripsy of a >2cm kidney stoneLeft retrograde pyelogramInsertion of left indwelling 7 Fr x 30cm JJ ureteral stentPhysician fluoroscopy time >1hrConsiderations:Technically difficult case due to patient's morbid obesity.Anesthesia: GeneralOperative Indications: This is a 47 year old morbidly obese male with a2.2cm left renal stone who after discussing the risks, benefits, andalternatives of the procedure has elected to pursue management of theircondition via the aforementioned surgery.Procedure Details:The patient was taken to the operating room and a preoperative huddle wasperformed identifying the patient. The patient was then induced undergeneral anesthesia, positioned in low lithotomy and prepped and draped inthe standard sterile fashion. Preoperative antibiotic was administeredintravenously prior to the start of the procedure. SCDs were used for DVTprophylaxis and all pressure points were padded carefully. A time-out wasthen performed to confirm the patient, procedure and laterality.?We first obtained retail field merchandiser images which showed an indwelling left ureteralstent and stone burden at the UPJ. A 22fr rigid cystoscope was insertedinto the bladder and a grasper was used to pull the stent to the meatus.A stiff glidewire was passed up for through and through access. A duallumen catheter was used to perform a retrograde pyelogram which revealed afilling defect at the UPJ. A 14fr valdes catheter was inserted. A /46ureteral access sheath was passed over the second wire up to the kidneyunder flouroscopic guidance. A flexible ureteroscope was passed throughthis up to the kidney.This was done with great difficulty due to thepatient's morbid obesity. A thorough pyeloscopy was done which revealed noresidual stones in the upper poles.The 18-gauge Chiba percutaneous access needle was then used to access aposterior lower calyx and the percutaneous needle was then identified andvisualized by flexible ureteroscopy. Once the needle was within thecollecting system, a glide wire was advanced through the sheath and [employer] nitinol basket was used to grasp the wire and pulled the wireout through the access sheath and out the urethral meatus to tfuhirxuvgq-jrt-pcvirbz access. The wire was exchanged out for a super stiffwire using the glide catheter. The tract was then dilated using the 8/10French coaxial dilator and the skin was incised. The Bard X-Force balloonwas advanced over the wire and noted to enter the collecting systemfluoroscopically. The renal tract was dilated to approximately 30F using30 atmospheres with good dilation of the tract. The working sheath wasthen advanced over the balloon and into the kidney under fluoroscopicguidance. This was done with difficulty due to the patient's morbidobesity and the sheath was essentially hubbed at the patient's skin.?The balloon was then removed, and the rigid nephroscope was inserted.Rigid nephroscopy was then performed, and the ShockPulse was used topulverize and vacuum the stone. All calyces were inspected, with the rigidand flexible nephroscopes. There was no significant stone burdenremaining. Antegrade ureteroscopy was performed to ensure that there wereno stone fragments in the ureter.?The ureteral access sheath was then removed and an antegrade ureteroscopyrevealed no further stones within the distal ureter. At that time, theureteroscope was removed, and a 7F x 30cm double-J stent was placedretrograde over the stiff glide wire and had good curls in both the kidneyand the bladder. The super stiff wire was removed using the glidecatheter. The nephrostomy sheath was then removed, and a 20 [address]Foley catheter was placed. The perc access site was closed using twointerrupted stitches with 2-0 Prolene suture. The patient was thenawakened from anesthesia and taken to the PACU in stable condition. Thepatient tolerated the procedure well, and there were no complications.Fluoroscopic interpretation of images was performed to evaluate foraccurate guidewire placement, monitor tract dilation and confirm properstent positioningPre-Op/Pre-Procedure Diagnosis: Pre-Op Diagnosis Codes: * Calculus of kidney [N20.0] greater than 2cmPost-Op/Post-Procedure Diagnosis: Post-Op Diagnosis Codes: * Calculus of kidney [N20.0] greater than 2cmEstimated Blood Loss: 50ccSpecimens: Kidney stones for analysisSpecimen ID Type Site Comments Sent Tomicro 1 Urine urine from left kidney- report any and all growthMicrobiologypath 1 Stone stone from left kidney- to PACU for analysisDrains: left Indwelling 7 Fr. X 30cm JJ ureteral stentComplications: NoneThe primary surgeon/proceduralist performed the procedure with assistance.SIGNATURE: Shruthi Montgomery MD PATIENT NAME: Joe DavidDATE: October 05, 2017 : 4:23 PM PAGER/CONTACT #: [id number] Paganirector, Surgical Stone Disease, [facility] JensenProfessor of Surgery, [facility] HospitalPager Normal [facility] Urine Cultureon 10-05-2017 Bacteria identified Cx Nom (U) Sp. Request/Comment: - Specimen collected in surgery. Culture Result - No growth (<100 CFU/ml) Normal [facility] Comment on above: Performed By: #### CBCDIF, CMP, URIC, PT HI, VITD ####[facility] [address] [place], [place] [phone] XR CHEST 1V FRONTAL PORTon 0 10-05-2017 XR CHEST 1V FRONTAL PORT * * *Final Report* * *DATE OF EXAM: Oct 05 2017 5:53PM [id number] - XR CHEST 1V FRONTAL PORT / REASON: Chest pain or SOB, pleurisy or effusion suspected * * * * Physician Interpretation * * * * EXAMINATION: XR CHEST 1V FRONTAL PORTPATIENT/TECHNOLOGIST PROVIDED HISTORY:CLINICAL INFORMATION: Chest pain or SOB, pleurisy or effusion suspectedTECHNIQUE: Frontal portable image of the chestRESULT:COMPARISON: None.DEVICES: NoneHEART/MEDIASTINUM: The patient has taken a shallow breath which accentuates the heart size and the bronchopulmonary markings. The heart is upper normal in size, without specific chamber predominance. Mediastinum appears unremarkable.MARY/PULMONARY VASCULATURE: The pulmonary vascular pattern is normal.PULMONARY PARENCHYMA: There is mild left basilar linear atelectasis or fibrosis.PLEURA: There is no evidence of pneumothorax or effusion.IMPRESSION:LEFT BASILAR LINEAR ATELECTASIS OR FIBROSIS.Care Coordination Manager: NIECY Transcribe Date/Time: Oct 05 2017 5:56PDictated by : AMRIT PAN MDThis examination was interpreted and the report reviewed and electronically signed by: AMRIT PAN MD on Oct 05 2017 6:07PM [id number] Normal [facility] CNCOon 10-01-2017 CNCO Letter Text10/01/2017 Joe Ellie [id number] [facility] [id number] Mr. David:Your vitamin D level was quite low and I recommend that you start OTC(qarr-fjo-qajahvt) vitamin D3, 2000 units daily. This will help protect youagainst osteoporosis (thin or weak bones) in the future. We can check anothervitamin D level in 3-4 months.Polly Torres, MDDirector, Surgical Stone Disease, [facility] InstituteProfessor of Surgery, [facility] [place] HospitalELECTRONICALLY SIGNED Normal [facility] CBCon 09-28-2017 Absolute nRBC <0.01 Normal <0.01 [facility] Comment on above: Performed By: #### CBCDIF, CMP, URIC, PT HI, VITD ####[place] [address] [address] [place] [phone] Erythrocyte distribution width Auto Ratio (RBC) 12.6 % Normal 11.5-15.0 [facility] Comment on above: Performed By: #### CBCDIF, CMP, URIC, PT HI, VITD ####[place] [address] [address] [place] [phone] Hematocrit Auto Volume Fraction (Bld) 41.4 % Normal 39.0-51.0 [facility] Comment on above: Performed By: #### CBCDIF, CMP, URIC, PT HI, VITD ####[place] [address] [place] [phone] Hemoglobin mass conc (Bld) 13.9 g/dL Normal 13.0-17.0 [facility] Comment on above: Performed By: #### CBCDIF, CMP, URIC, PT HI, VITD ####[place] [address] [place] [phone] MCH Auto Entitic mass (RBC) 31.6 pG Normal 26.0-34.0 [facility] Comment on above: Performed By: #### CBCDIF, CMP, URIC, PT HI, VITD ####[place] [address] [place] [phone] MCHC Auto mass conc (RBC) 33.6 g/dL Normal 30.5-36.0 [facility] Comment on above: Performed By: #### CBCDIF, CMP, URIC, PT HI, VITD ####[place] [address] [place] [phone] MCV Auto Entitic volume (RBC) 94.1 fL Normal 80.0-100.0 [facility] Comment on above: Performed By: #### CBCDIF, CMP, URIC, PT HI, VITD ####[place] [address], [place] [phone] Platelet mean volume Auto Entitic volume (Bld) 8.6 fL Low 9.0-12.7 [facility] Comment on above: Performed By: #### CBCDIF, CMP, URIC, PT HI, VITD ####[place] [address], [place] [phone] Platelets Auto #/vol (Bld) 333 10*3/uL Normal 150-400 [facility] Comment on above: Performed By: #### CBCDIF, CMP, URIC, PT HI, VITD ####[address], [place] [phone] RBC Auto #/vol (Bld) 4.40 10*6/uL Normal 4.20-6.00 [facility] Comment on above: Performed By: #### CBCDIF, CMP, URIC, PT HI, VITD ####[place] [address], [place] [phone] WBC Auto #/vol (Bld) 7.62 10*3/uL Normal 3.70-11.00 [facility] Comment on above: Performed By: #### CBCDIF, CMP, URIC, PT HI, VITD ####[address] [place], [place] [phone] Case 09-28-2017 CNOV Office Visit (IMPAMN) JOE DAVID ([id number]) 1970 MDate Time Provider Department09/28/17 1:45 PM HOANG ABDULLAHI During your visit today, we recorded the following information about you: Temperature Pulse Blood pressure Weight 98.9 degrees 88/minute 133/73 156.9 kg Height 1.74 Yariel Abdullahi MD 09/30/2017 10:31 PM SignedHISTORY AND PHYSICAL EXAMINATION (IMPACT)SERVICE DATE: 09/28/2017SERVICE TIME: 2:07 [facility] CARE PHYSICIAN: Onel Coffey [facility] COMPLAINT/HISTORY OF PRESENT ILLNESS:Mr. David is a 47 year old male referred to me for preoperative evaluation. Myfinal recommendations will be communicated back to the requestingphysician/surgeon by the way of the shared medical record.Referring Surgeon: Dr. Townsend of Surgery: 10/05Planned Surgery/Procedure: L perc nephrostolithotomyIndication for Planned Surgery / Procedure: L ureteral stone + ongoinghematuriaRefer to Assessment section for details of any comorbidities.Patient is Able to Perform the Following Physical Activity:Walk a block or two on level ground (2.75 METs)Climb a flight of stairs or walk up a hill (5.50 METs)Patient's functional class is I based on self-reported physical activity.Significant Anesthesia Considerations: None. PAST MEDICAL/SURGICAL/FAMILY/SOCIAL HISTORYPAST MEDICAL HISTORYDiagnosis Date- Essential hypertension- Morbid obesity (HCC)- Nephrolithiasis- CHRISTOPHER on CPAPNo past surgical history on file.No family history on file.SOCIAL HISTORYSocial History Marital status: Spouse name: Years of education: Number of children:Social History Main Topics Smoking status: Former Smoker Packs/day: 1.00 Years: 24.00 Types: Cigarettes Quit date: 07/27/2013 Smokeless tobacco: Former User Types: Snuff Quit date: 07/28/2011MEDICATIONS/ALLERGIESCurr ent Outpatient Prescriptions:cholecalciferol, vitamin D3, 50,000 unit tab Take 1 tablet by mouth once eachweek. Disp: Rfl:pyridoxine, vitamin B6, (VITAMIN B-6) 100 mg tablet Take 1 tablet by mouth oncedaily. Disp: Rfl:potassium citrate ER (UROCIT-K 10) 10 mEq (1,080 mg) TbER Take 1 tablet bymouth twice daily. Disp: 180 tablet Rfl: 3acetaminophen (TYLENOL EXTRA STRENGTH) 500 mg tablet Take 1,000 mg by mouth asneeded for Pain. Disp: Rfl:allopurinol (ZYLOPRIM) 100 mg tablet Take 1 tablet by mouth once daily. Disp:90 tablet Rfl: 3hydrALAZINE (APRESOLINE) 100 mg tablet Take 100 mg by mouth twice daily. Disp:Rfl:carvedilol (COREG) 25 mg tablet Take 25 mg by mouth three times daily. Disp:Rfl:docusate sodium (COLACE) 100 mg capsule Take 1 capsule by mouth twice daily.Disp: 60 capsule Rfl: 0Cephalexin 500 mg tab Take by mouth. Take one(1) tablet daily. Disp: Rfl:No current facility-administered medications for this visit.ALLERGIESAllergen Reactions- Codeine HivesREVIEW OF SYSTEMSGeneral: No weight loss, malaise or fevers.Neuro: No history of TIA's, stroke, ENTRY LEVEL FINANCE tumor, impaired sensorium, hemiplegia,paraplegia or quadriplegia. No neurological symptoms or problems.Respiratory: Obstructive Sleep Apnea (on CPAP)Cardiovascular: Hypertension requiring meds, Hx of Rheumatic fever age 4, nosequelae + NO CAD/CHFGI: No history of GI symptoms or problems. No history of esophageal varices,recent ascites, or ETOH greater than 2 drinks per day., Hx of pyloricobstruction, had surgical correction age 6 weeksGU: see HPIEndocrine: Diabetes Mellitus with diet controlHematology: No history of bleeding or clotting disorder. No history ofhematological symptoms or problems.Oncology: No history of CA metastasis, chemo within 30 days, or radiotherapywithin 90 days. No history of oncological symptoms or problems.Psych: No history of psychiatric symptoms or problems.Skin: Negative for lesions, rash, and itching.PHYSICAL EXAMVITALS: BP 133/73 Pulse 88 Temp (Src) 98.9 (Oral) Ht 5' 8.5 (1.74m) Wt346 lb (156.9kg) SpO2 95% BMI 51.84 kg/(m2).Repeat BP 160/96 R + L w/ large cuff per MDGeneral: Alert and orientedSkin: Normal color, no rash, no lesions.HEENT: EOM, pupils equal, round and reactive.Cardiovascular: Normal S1 AND S2, no rubs, murmurs or gallops. No JVD. Pulseregular.Lungs: Normal breath sounds, no wheezes or crackles.Abdomen: Soft, non-tender, no rigidity., morbid obesityExtremities: No deformity, no edema or tenderness, no joint swelling orclubbing.Neurological: Normal cognition and motor skills.Pulses: Carotid and radial pulses normal +2.ASSESSMENTMr. David is a 47 year old male referred to me for preoperative evaluation.Patient has the following medical comorbidities which might affect theperioperative course:- Hypertension, uncontrolled and Hydral dose changed to 100mg TID .- Patient is morbidly obese related to excessive caloric intake. Body massindex is 51.84 kg/m?.- Patient with sleep apnea and uses CPAP.Patient's RCRI (Revised Cardiac Risk Index: CAD/CHF/Stroke or TIA/SCr>2/DM onInsulin/High Risk Surgery) score is 0 and is at low risk for major adversecardiac events in the perioperative period.Diagnostic tests reviewed for today's visit:Most recent EKG: normal sinus rhythm, normal axis, normal intervals, small qinf, no acute changes, reviewed by myself.PLAN/RECOMMENDATIONSCARDIAC : Patient is at optimal cardiac condition for scheduled surgery / procedure.PULMONARY: Patient is at optimal Pulmonary status for scheduled surgery / procedure. Patient is at increased risk for postoperative pulmonary complications. Suggest the following in the post-operative period: Aggressivebronchopulmonary hygiene, CPAP/BiPAP at home setting (advised patient to bringtheir CPAP/BiPAP machine/mask), Minimize sedation/opioids as patient has OSAand Early ambulationVASCULAR/ANTICOAGULATION : VTE prophylaxis as deemed appropriate by the surgical service.Patient is optimally prepared for surgery pending labsPatient Instructions: As per patient instructions section.I have discussed the above recommendations with the patient in detail, in frankand lay terms, and provided a written summary of instructions as needed. Wehave discussed that no surgery is without risk, but that the goal ofpreoperative assessment is to optimize that risk, and that was clearlyunderstood by the patient. I have given ample opportunity for the patient toask questions, and answered all questions to their stated satisfaction.SIGNATURE: Hoang Abdullahi MD PATIENT NAME: Joe DavidDATE: September 28, 2017 : 2:07 PMAddendum 09/30:LabsComponent Latest Ref Rng AND Units 07/24/2017 09/28/2017WBC 3.70 - 11.00 k/uL 8.12 7.62RBC 4.20 - 6.00 m/uL 4.34 4.40Hemoglobin 13.0 - 17.0 g/dL 13.2 13.9Hematocrit 39.0 - 51.0 % 41.2 41.4MCV 80.0 - 100.0 fL 94.9 94.1MCH 26.0 - 34.0 pG 30.4 31.6MCHC 30.5 - 36.0 g/dL 32.0 33.6RDW-CV 11.5 - 15.0 % 13.0 12.6Platelet Count 150 - 400 k/uL 372 333MPV 9.0 - 12.7 fL 8.8 (L) 8.6 (L)Neut% % 71.5Abs Neut (ANC) 1.45 - 7.50 k/uL 5.80Lymph% % 19.8Abs Lymph 1.00 - 4.00 k/uL 1.61Mono% % 6.0Abs Island <0.87 k/uL 0.49Eosin% % 1.6Abs Eosin <0.46 k/uL 0.13Baso% % 1.1Abs Baso <0.11 k/uL 0.09Nucleated Reds 0 /100 WBC 0.0Absolute nRBC <0.01 k/uL <0.01 <0.01Diff Type Auto DiffProtein, Total 6.3 - 8.0 g/dL 7.6 6.5Albumin 3.9 - 4.9 g/dL 4.6 4.3Calcium 8.5 - 10.2 mg/dL 9.5 9.9Bilirubin, Total 0.2 - 1.3 mg/dL 0.4 0.3Alkaline Phosphatase 36 - 108 U/L 54 53AST 14 - 40 U/L 10 (L) 10 (L)Glucose 74 - 99 mg/dL 90 109 (H)BUN 9 - 24 mg/dL 22 19Creatinine 0.73 - 1.22 mg/dL 1.78 (H) 1.64 (H)Sodium 136 - 144 mmol/L 139 140Potassium 3.7 - 5.1 mmol/L 4.0 4.0Chloride 97 - 105 mmol/L 101 101CO2 22 - 30 mmol/L 25 26Anion Gap 9 - 18 mmol/L 13 13ALT 10 - 54 U/L 12 14eGFR- 50 55eGFR-All Other Races . 41 45Uric Acid 4.0 - 8.1 mg/dL 9.3 (H) 7.3OK to proceed with surgery.Vinayak Benson LPN 09/30/2017 10:31 PM SignedJoe David is a 47 year old male [facility] Dr. Townsend of Surgery: 10/05/2017Planned Surgery/Procedure: PERCUTANEOUS NEPHROSTOLIAllergies have been reviewed and verified. They include the following:CodeineSocial HistorySubstance Use Topics- Smoking status: Former Smoker Packs/day: 1.00 Years: 24.00 Types: Cigarettes Quit date: 07/27/2013- Smokeless tobacco: Former User Types: Snuff Quit date: 07/28/2011- Alcohol use Not on fileMedications reviewed and updated: Isaac Bertrand LPNRhomero Abdullahi MD 09/28/2017 2:33 PM SignedPROM[facility]PITALPatient Instructions for SurgeryRepeat OLIVIER 160/96Exam is stableSame meds except:Increase Hydralazine to 1 pill 3 times a dayBring CPAP machine + mask with you (+ water)FOOD INSTRUCTIONS:NO solid food or non-clear liquids for 8 hours prior to the arrival time foryour surgery. Unless you are instructed otherwise, you are allowed to drink upto 12 ounces of clear liquids (e.g. water, black tea/coffee, fruit juicewithout pulp, Baldo Celestina, etc.) up until 2 hours prior to the arrival time forsurgery.MEDICATION INSTRUCTIONS: Prior to Surgery:Do not take the following medications for 7 days prior to surgery: DONE - any NSAID's (e.g. Motrin, Aleve, Arthrotec, Naproxen,etc) - any herbal preparations - Aspirin or aspirin containing productsDo not take any Vitamin E / multivitamins for 10-14 days before surgery:You are allowed to take Tylenol if needed until the day of surgery.MEDICATION INSTRUCTIONS: Day/Morning of Surgersee belowCarvedilolHydralazineZyloprim If you have any questions or concerns regarding today's visit please do nothesitate to contact the [facility] at [phone] or [phone], [phone].Signature: Hoang Abdullahi, MDDate: September 28, 2017Referring Provider: POLLY TORRES [[id number]]Allergies As of Date: 09/28/2017 Noted Allergy ReactionCODEINE 07/24/2017 4 - HivesDate Reviewed: 09/28/2017Reviewed by: Milton Bertrand LPN - Fully AssessedPrimary Visit Diagnosis:Pre-op evaluation [Z01.818] Other Visit Diagnoses:Calculus of kidney [N20.0] Nephrolithiasis [N20.0] Morbid obesity (HCC) [E66.01] CHRISTOPHER on CPAP [G47.33, Z99.89] Pre-operative examination [Z01.818]Order(s):hydrALAZINE (APRESOLINE) 100 mg tabletTake 1 tablet by mouth three times daily.Disp: 90 tabletRfl: 2Prescriptions as of 09/28/2017 Sig: CHOLECALCIFEROL (VITAMIN D3) * Take 1 tablet by mouth once e* HYDRALAZINE 100 MG TABLET Take 1 tablet by mouth three * PYRIDOXINE (VITAMIN B6) 100 M* Take 1 tablet by mouth once d* POTASSIUM CITRATE ER 10 MEQ (* Take 1 tablet by mouth twice * ACETAMINOPHEN 500 MG TABLET Take 1,000 mg by mouth as nee* ALLOPURINOL 100 MG TABLET Take 1 tablet by mouth once d* CARVEDILOL 25 MG TABLET Take 25 mg by mouth three randall* DOCUSATE SODIUM 100 MG CAPSULE Take 1 capsule by mouth twice* CEPHALEXIN 500 MG TABLET Take by mouth. Take one(1) ta*Medication notes this encounter ALLOPURINOL 100 MG TABLET >> Milton Bertrand LPN 09/28/2017 1:27 PM >> MILTON MADSEN* Fri Sep 28, 2017 1:27 PMProblem List As Of Date 09/28/2017 Noted Resolved Calculus of kidney [N20.0] INVALID FOR* CPAP (continuous positive airway pressure) depe*INVALID FOR* CHRISTOPHER (obstructive sleep apnea) [G47.33] INVALID FOR* Gastroesophageal reflux disease without esophag*INVALID FOR* Essential hypertension [I10] INVALID FOR* Former smoker [Z87.891] INVALID FOR* BMI 50.0-59.9, adult (HCC) [Z68.43] INVALID FOR* Calculus of ureter [N20.1] INVALID FOR* Abnormal urinalysis [R82.90] INVALID FOR* Family history of diabetes mellitus [Z83.3] INVALID FOR* Family history of prostate cancer [Z80.42] INVALID FOR* Family history of nephrolithiasis [Z84.1] INVALID FOR* Hyperuricemia [E79.0] INVALID FOR* Low vitamin D level [R79.89] INVALID FOR* Hypocitraturia [R82.99] INVALID FOR* Hyperoxaluria (HCC) [E72.53] INVALID FOR* Low urine output [R34] INVALID FOR* Hypernatriuria [E87.0] INVALID FOR* Nephrolithiasis [N20.0] Morbid obesity (HCC) [E66.01] CHRISTOPHER on CPAP [G47.33, Z99.89] Other instructions from your clinician: [facility] Patient Instructions for Surgery Repeat OLIVIER 160/96 Exam is stable Same meds except: Increase Hydralazine to 1 pill 3 times a day Bring CPAP machine + mask with you (+ water) FOOD INSTRUCTIONS: NO solid food or non-clear liquids for 8 hours prior to the arrival time for your surgery. Unless you are instructed otherwise, you are allowed to drink up to 12 ounces of clear liquids (e.g. water, black tea/coffee, fruit juice without pulp, Baldo Celestina, etc.) up until 2 hours prior to the arrival time for surgery. MEDICATION INSTRUCTIONS: Prior to Surgery: Do not take the following medications for 7 days prior to surgery: DONE - any NSAID's (e.g. Motrin, Aleve, Arthrotec, Naproxen,etc) - any herbal preparations - Aspirin or aspirin containing products Do not take any Vitamin E / multivitamins for 10-14 days before surgery: You are allowed to take Tylenol if needed until the day of surgery. MEDICATION INSTRUCTIONS: Day/Morning of Surgersee below Carvedilol Hydralazine Zyloprim If you have any questions or concerns regarding today's visit please do not hesitate to contact the [facility] at [phone] or [phone], ext [phone]. Signature: Hoang Abdullahi MD Date: September 28, 2017Prescriptions ordered this encounter Disp Refills Start End HYDRALAZINE 100 MG TABLET 90 t* 2 09/28/2017 Route: ORAL Sig: Take 1 tablet by mouth three times daily.Medications Discontinued During This Encounter hydrALAZINE (APRESOLINE) 100 mg tabl* 09/28/2017 Class: Historical Med Route: ORAL Sig: Take 100 mg by mouth twice daily. Disc: Reason for discontinue is not on file. Status:Closed by HOANG ABDULLAHI MD on 09/30/17 [facility] CNOV Office Visit (UROLMN) JOE DAVID ([id number]) 1970 MDate Time Provider Department09/28/17 9:30 AM ARMANI URENA ([place]) URODAQUAN During your visit today, we recorded the following information about you: Pulse Blood pressure Weight Height 87/minute 184/104 158.8 kg 1.727 Ralph Urena MD 09/28/2017 9:45 AM [facility] UROLOGICAL AND KIDNEY INSTITUTEPRE-OP NOTEJoe David is a 47 year old male.Pre-op Date: September 28, 2017Date of Procedure: 10/05/17Procedure/Surgery: left PCNLDiagnosis: left UPJ stonePrimary Surgeon: MD Brian, [facility] Hospitalquest Score:BP 184/104 Pulse 87 Ht 172.7 cm (5' 8 ) Wt (!) 158.8 kg (350 lb) BMI 53.22 kg/m?Pain Assessment: Are you currently having pain? No 0 on a scale of 0 to 10Surgical Guide Book Status: Patient given book today.Dialysis Guide Book Status: N/AAllergies Reviewed: YesMedications Reviewed: YesIs patient currently on oral steroids?: NoHas the patient had a UTI in the past month?: No.Does the patient have any artificial joints (last 2 years), metal parts,pacemakers or cardiac/ureteral stents in place?: NoDoes the patient have diabetes?: NoIs the patient routinely taking anticoagulants?: No.Can the patient have an IV put in either arm?: YesUrine Dip Complete?: YesURINE CULTURE COMPLETE?: in processOstomy/Stoma Nurse appointment made/completed: N/AIMPACT/Medical Clearance: Cleared per IMPACT - To be seenP[facility] Clinic: Cleared per [facility] - N/AAll testing on cureform has been scheduled: YesConsent Signed: Yes.DOS Orders Placed and Signed: Yes.Pre-op HANDP Done by Impact: To be done by [facility].PATIENT INSTRUCTIONS FOR SURGERY1.) DO NOT HAVE ANYTHING TO EAT AFTER MIDNIGHT THE DAY BEFORE SURGERY exceptfor certain morning medications as instructed by the doctor. Candy, mints, gum,and smoking are NOT permitted. You may drink clear liquids (Sprite, water,baldo celestina) up to two hours before your arrival time on the day of surgery.2.) Medications to be taken on the morning of surgery with a few sips of water:per IMPACT3.) Please bring all your prescribed inhalers (if you have any you normallytake) to the hospital.4.) Arrival time: Call for arrival.5.) Prep given: No6.) Lovenox instructions given: N/A7.) Patient reminded that surgery time provided day before surgery is tentativebased on potential changes with transplants.Recommendations: This patient is optimally prepared for surgery pendingIMPACT, LABS and urine culture.Armani Urena MDElectronically signedArmani Urena MD 09/28/2017 9:49 AM SignedAddended by: ARMANI URENA MD on: 09/28/2017 09:49 AM Modules accepted: OrdersReferring Provider: POLLY TORRES [[id number]]Allergies As of Date: 09/28/2017 Noted Allergy ReactionCODEINE 07/24/2017 4 - HivesDate Reviewed: 09/28/2017Reviewed by: Briana Conklin - Fully AssessedPrimary Visit Diagnosis:Screening for genitourinary condition [Z13.89] Other Visit Diagnosis:Calculus of kidney [N20.0]Order(s):UA CHEMSTRIP ONLY [SQUA] Order #: [id number] FUTURE UA CHEMSTRIP ONLY [SQUA] Order #: [id number]. #:[id number] URINE CULTURE [SQURCUL] Order #: [id number] as of 09/28/2017 Sig: PYRIDOXINE (VITAMIN B6) 100 M* Take 1 tablet by mouth once d* POTASSIUM CITRATE ER 10 MEQ (* Take 1 tablet by mouth twice * DOCUSATE SODIUM 100 MG CAPSULE Take 1 capsule by mouth twice* ACETAMINOPHEN 500 MG TABLET Take 1,000 mg by mouth as nee* HYDRALAZINE 100 MG TABLET Take 100 mg by mouth twice da* CARVEDILOL 25 MG TABLET Take 25 mg by mouth three randall* CEPHALEXIN 500 MG TABLET Take by mouth. Take one(1) ta* ALLOPURINOL 100 MG TABLET Take 1 tablet by mouth once d*Problem List As Of Date 09/28/2017 Noted Resolved Calculus of kidney [N20.0] INVALID FOR* CPAP (continuous positive airway pressure) depe*INVALID FOR* CHRISTOPHER (obstructive sleep apnea) [G47.33] INVALID FOR* Gastroesophageal reflux disease without esophag*INVALID FOR* Essential hypertension [I10] INVALID FOR* Former smoker [Z87.891] INVALID FOR* BMI 50.0-59.9, adult (HCC) [Z68.43] INVALID FOR* Calculus of ureter [N20.1] INVALID FOR* Abnormal urinalysis [R82.90] INVALID FOR* Family history of diabetes mellitus [Z83.3] INVALID FOR* Family history of prostate cancer [Z80.42] INVALID FOR* Family history of nephrolithiasis [Z84.1] INVALID FOR* Hyperuricemia [E79.0] INVALID FOR* Low vitamin D level [R79.89] INVALID FOR* Hypocitraturia [R82.99] INVALID FOR* Hyperoxaluria (HCC) [E72.53] INVALID FOR* Low urine output [R34] INVALID FOR* Hypernatriuria [E87.0] INVALID FOR* Nephrolithiasis [N20.0] Morbid obesity (HCC) [E66.01] CHRISTOPHER on CPAP [G47.33, Z99.89] Status:Closed by ARMANI URENA MD on 09/28/17 Normal [facility] Metabolic Panelon 09-28 Albumin mass conc 4.3 g/dL Normal 3.9-4.9 [facility] Comment on above: Performed By: #### CBCDIF, CMP, URIC, PT HI, VITD ####[facility], [place] [phone] ALP enzyme act/vol 53 U/L Normal 36-108 [facility] Comment on above: Performed By: #### CBCDIF, CMP, URIC, PT HI, VITD ####[place] [address] [place] [phone] ALT enzyme act/vol 14 U/L Normal 10-54 [facility] Comment on above: Performed By: #### CBCDIF, CMP, URIC, PT HI, VITD ####[place] [address], [place] [phone] Anion gap 3 molar conc 13 mmol/L Normal 9-18 [facility] Comment on above: Performed By: #### CBCDIF, CMP, URIC, PT HI, VITD ####[place] [address], [place] [phone] AST enzyme act/vol 10 U/L Low 14-40 [facility] Comment on above: Performed By: #### CBCDIF, CMP, URIC, PT HI, VITD ####[place] [address], [place] [phone] Bilirubin mass conc 0.3 mg/dL Normal 0.2-1.3 [facility] Comment on above: Performed By: #### CBCDIF, CMP, URIC, PT HI, VITD ####[place] [address], [place] [phone] Calcium mass conc 9.9 mg/dL Normal 8.5-10.2 [facility] Comment on above: Performed By: #### CBCDIF, CMP, URIC, PT HI, VITD ####[place] [address] [place] [phone] Chloride molar conc 101 mmol/L Normal 97-105 [facility] Comment on above: Performed By: #### CBCDIF, CMP, URIC, PT HI, VITD ####[facility] [place] [phone] CO2 molar conc 26 mmol/L Normal 22-30 [facility] Comment on above: Performed By: #### CBCDIF, CMP, URIC, PT HI, VITD ####[facility] [place] [phone] Creatinine mass conc 1.64 mg/dL High 0.73-1.22 [facility] Comment on above: Performed By: #### CBCDIF, CMP, URIC, PT HI, VITD ####[facility] [place] [phone] eGFR- Amer. 55 Normal [facility] Comment on above: Performed By: #### CBCDIF, CMP, URIC, PT HI, VITD ####[facility] [place] [phone] GFR/1.73 sq M predicted among non-blacks MDRD vol rate/area (S/P/Bld) 45 . Normal [facility] Comment on above: Result Comment: eGFR (Estimated GFR) Uni ts of measure: mL/min/1.73 meters squaredeGFR is derived from the reexpressed MDRD Study equation using the following parameters: serum creatinine, age, gender and race. The creatinine assay has been calibrated to be traceable to IDMS.An eGFR <60 mL/min/1.73m2 for >3 months is consistent with chronic kidney disease. Refer to KDOQI guidelines for clinical interpretation.In patients with unstable renal function, e.g. those with acute kidney injury, the eGFR may not accurately reflect actual GFR. Performed By: #### C BCDIF, CMP, URIC, PTHI, VITD ####[facility], [place] [phone] Glucose mass conc 109 mg/dL High 74-99 [facility] Comment on above: Result Comment: The [place] Diabetes As sociation (ADA) provides guidance for cutoff values for fasting glucose and random glucose. The ADA defines fasting as no caloric intake for at least 8 hours. Fasting plasma glucose results between 100 to 125 mg/dL indicate increased risk for diabetes (prediabetes).Fasting plasma glucose results greater than or equal to 126 mg/dL meet the criteria for diagnosis of diabetes. In the absence of unequivocal hyperglycemia, results should be confirmed by repeat testing. In a patient with classic symptoms of hyperglycemia or hyperglycemic crisis, random plasma glucose results greater than or equal to 200 mg/dL meet the criteria for diagnosis of diabetes.Reference: Standards of Medical Care in Diabetes 2016, Canadian Diabetes Association. Diabetes Care. 2016.39(Suppl 1). Performed By: #### C BCDIF, CMP, URIC, PTHI, VITD ####[place] [address] [place], [place] [phone] Potassium molar conc 4.0 mmol/L Normal 3.7-5.1 [facility] Comment on above: Performed By: #### CBCDIF, CMP, URIC, PT HI, VITD ####[facility] [place] [phone] Protein mass conc 6.5 g/dL Normal 6.3-8.0 [facility] Comment on above: Performed By: #### CBCDIF, CMP, URIC, PT HI, VITD ####[facility] [phone] Sodium molar conc 140 mmol/L Normal 136-144 [facility] Comment on above: Performed By: #### CBCDIF, CMP, URIC, PT HI, VITD ####[facility] [place] [place] [phone] Urea nitrogen mass conc 19 mg/dL Normal 9-24 [facility] Comment on above: Performed By: #### CBCDIF, CMP, URIC, PT HI, VITD ####[facility] [place] [phone] PROGRESSon 07-20-2018 Protein mass conc HNO ID: [id number]: Milton Bertrand LPNService: (none)Author Type: (none)Type: Progress NotesFiled: 09/30/2017 10:31 PMNote Text:Joe David is a 47 year old male [facility]: Dr. TorresDate of Surgery: 10/05/2017Planned Surgery/Procedure: PERCUTANEOUS NEPHROSTOLIAllergies have been reviewed and verified. They include the following:CodeineSocial HistorySubstance Use Topics- Smoking status: Former Smoker Packs/day: 1.00 Years: 24.00 Types: Cigarettes Quit date: 07/27/2013- Smokeless tobacco: Former User Types: Snuff Quit date: 07/28/2011- Alcohol use Not on fileMedications reviewed and updated: Isaac Bertrand LPN Normal [facility] Protein mass conc HNO ID: [id number]: Armani Joel (Fel): (none)Author Type: FellowType: Progress NotesFiled: 09/28/2017 9:45 AMNote Text:[facility] UROLOGICAL AND KIDNEY INSTITUTEPRE-OP NOTEJoe David is a 47 year old male.Pre-op Date: September 28, 2017Date of Procedure: 10/05/17Procedure/Surgery: left PCNLDiagnosis: left UPJ stonePrimary Surgeon: MD Brian, MarkHealthquest Score:BP 184/104 Pulse 87 Ht 172.7 cm (5' 8 ) Wt (!) 158.8 kg (350 lb) BMI 53.22 kg/m?Pain Assessment: Are you currently having pain? No 0 on a scale of 0 xt61Imertjye Guide Book Status: Patient given book today.Dialysis Guide Book Status: N/AAllergies Reviewed: YesMedications Reviewed: YesIs patient currently on oral steroids?: NoHas the patient had a UTI in the past month?: No.Does the patient have any artificial joints (last 2 years), metal parts,pacemakers or cardiac/ureteral stents in place?: NoDoes the patient have diabetes?: NoIs the patient routinely taking anticoagulants?: No.Can the patient have an IV put in either arm?: YesUrine Dip Complete?: YesURINE CULTURE COMPLETE?: in processOstomy/Stoma Nurse appointment made/completed: N/AIMPACT/Medical Clearance: Cleared per [facility] - To be seenPACE Clinic: Cleared per [facility] - N/AAll testing on cureform has been scheduled: YesConsent Signed: Yes.DOS Orders Placed and Signed: Yes.Pre-op HANDP Done by Impact: To be done by [facility].PATIENT INSTRUCTIONS FOR SURGERY1.) DO NOT HAVE ANYTHING TO EAT AFTER MIDNIGHT THE DAY BEFORE SURGERYexcept for certain morning medications as instructed by the doctor. Candy,mints, gum, and smoking are NOT permitted. You may drink clear liquids(Sprite, water, baldo celestina) up to two hours before your arrival time onthe day of surgery.2.) Medications to be taken on the morning of surgery with a few sips ofwater: per IMPACT3.) Please bring all your prescribed inhalers (if you have any younormally take) to the hospital.4.) Arrival time: Call for arrival.5.) Prep given: No6.) Lovenox instructions given: N/A7.) Patient reminded that surgery time provided day before surgery istentative based on potential changes with transplants.Recommendations: This patient is optimally prepared for surgery pendingIMPACT, LABS and urine culture.Armani Urena MDElectronically signed Normal [facility] Protein mass conc HNO ID: [id number]: Hoang AbdullahiSer: (none)Author Type: PhysicianType: Progress NotesFiled: 09/30/2017 10:31 PMNote Text:HISTORY AND PHYSICAL EXAMINATION ([employer])SERVICE DATE: 09/28/2017SERVICE TIME: 2:07 [facility]IAN: MATTHEW RushingMEЕЛЕНА COMPLAINT/HISTORY OF PRESENT ILLNESS:Mr. David is a 47 year old male referred to me for preoperative evaluation.My final recommendations will be communicated back to the requestingphysician/surgeon by the way of the shared medical record.Referring Surgeon: Dr. Townsend of Surgery: 10/05Planned Surgery/Procedure: L perc nephrostolithotomyIndication for Planned Surgery / Procedure: L ureteral stone + ongoinghematuriaRefer to Assessment section for details of any comorbidities.Patient is Able to Perform the Following Physical Activity:Walk a block or two on level ground (2.75 METs)Climb a flight of stairs or walk up a hill (5.50 METs)Patient's functional class is I based on self-reported physical activity.Significant Anesthesia Considerations: None. PAST MEDICAL/SURGICAL/FAMILY/SOCIAL HISTORYPAST MEDICAL HISTORYDiagnosis Date- Essential hypertension- Morbid obesity (HCC)- Nephrolithiasis- CHRISTOPHER on CPAPNo past surgical history on file.No family history on file.SOCIAL HISTORYSocial History Marital status: Spouse name: Years of education: Number of children:Social History Main Topics Smoking status: Former Smoker Packs/day: 1.00 Years: 24.00 Types: Cigarettes Quit date: 07/27/2013 Smokeless tobacco: Former User Types: Snuff Quit date: 07/28/2011MEDICATIONS/ALLERGIESCurr ent Outpatient Prescriptions:cholecalciferol, vitamin D3, 50,000 unit tab Take 1 tablet by mouth onceeach week. Disp: Rfl:pyridoxine, vitamin B6, (VITAMIN B-6) 100 mg tablet Take 1 tablet by mouthonce daily. Disp: Rfl:potassium citrate ER (UROCIT-K 10) 10 mEq (1,080 mg) TbER Take 1 tablet bymouth twice daily. Disp: 180 tablet Rfl: 3acetaminophen (TYLENOL EXTRA STRENGTH) 500 mg tablet Take 1,000 mg bymouth as needed for Pain. Disp: Rfl:allopurinol (ZYLOPRIM) 100 mg tablet Take 1 tablet by mouth once daily.Disp: 90 tablet Rfl: 3hydrALAZINE (APRESOLINE) 100 mg tablet Take 100 mg by mouth twice daily.Disp: Rfl:carvedilol (COREG) 25 mg tablet Take 25 mg by mouth three times daily.Disp: Rfl:docusate sodium (COLACE) 100 mg capsule Take 1 capsule by mouth twicedaily. Disp: 60 capsule Rfl: 0Cephalexin 500 mg tab Take by mouth. Take one(1) tablet daily. Disp: Rfl:No current facility-administered medications for this visit.ALLERGIESAllergen Reactions- Codeine HivesREVIEW OF SYSTEMSGeneral: No weight loss, malaise or fevers.Neuro: No history of TIA's, stroke, ENTRY LEVEL FINANCE tumor, impaired sensorium,hemiplegia, paraplegia or quadriplegia. No neurological symptoms orproblems.Respiratory: Obstructive Sleep Apnea (on CPAP)Cardiovascular: Hypertension requiring meds, Hx of Rheumatic fever age 4,no sequelae + NO CAD/CHFGI: No history of GI symptoms or problems. No history of esophagealvarices, recent ascites, or ETOH greater than 2 drinks per day., Hx ofpyloric obstruction, had surgical correction age 6 weeksGU: see HPIEndocrine: Diabetes Mellitus with diet controlHematology: No history of bleeding or clotting disorder. No history ofhematological symptoms or problems.Oncology: No history of CA metastasis, chemo within 30 days, orradiotherapy within 90 days. No history of oncological symptoms orproblems.Psych: No history of psychiatric symptoms or problems.Skin: Negative for lesions, rash, and itching.PHYSICAL EXAMVITALS: BP 133/73 Pulse 88 Temp (Src) 98.9 (Oral) Ht 5' 8.5 (1.74m) Wt 346 lb (156.9kg) SpO2 95% BMI 51.84 kg/(m2).Repeat BP 160/96 R + L w/ large cuff per MDGeneral: Alert and orientedSkin: Normal color, no rash, no lesions.HEENT: EOM, pupils equal, round and reactive.Cardiovascular: Normal S1 AND S2, no rubs, murmurs or gallops. No JVD. Pulseregular.Lungs: Normal breath sounds, no wheezes or crackles.Abdomen: Soft, non-tender, no rigidity., morbid obesityExtremities: No deformity, no edema or tenderness, no joint swelling orclubbing.Neurological: Normal cognition and motor skills.Pulses: Carotid and radial pulses normal +2.ASSESSMENTMr. David is a 47 year old male referred to me for preoperative evaluation.Patient has the following medical comorbidities which might affect theperioperative course:- Hypertension, uncontrolled and Hydral dose changed to 100mg TID .- Patient is morbidly obese related to excessive caloric intake. Body massindex is 51.84 kg/m?.- Patient with sleep apnea and uses CPAP.Patient's RCRI (Revised Cardiac Risk Index: CAD/CHF/Stroke or TIA/SCr>2/DMon Insulin/High Risk Surgery) score is 0 and is at low risk for majoradverse cardiac events in the perioperative period.Diagnostic tests reviewed for today's visit:Most recent EKG: normal sinus rhythm, normal axis, normal intervals, smallq inf, no acute changes, reviewed by myself.PLAN/RECOMMENDATIONSCARDIAC : Patient is at optimal cardiac condition for scheduled surgery /procedure.PULMONARY: Patient is at optimal Pulmonary status for scheduled surgery /procedure. Patient is at increased risk for postoperative pulmonary complications. Suggest the following in the post-operative period: Aggressivebronchopulmonary hygiene, CPAP/BiPAP at home setting (advised patient tobring their CPAP/BiPAP machine/mask), Minimize sedation/opioids as patienthas CHRISTOPHER and Early ambulationVASCULAR/ANTICOAGULATION : VTE prophylaxis as deemed appropriate by the surgical service.Patient is optimally prepared for surgery pending labsPatient Instructions: As per patient instructions section.I have discussed the above recommendations with the patient in detail, infrank and lay terms, and provided a written summary of instructions asneeded. We have discussed that no surgery is without risk, but that thegoal of preoperative assessment is to optimize that risk, and that wasclearly understood by the patient. I have given ample opportunity for thepatient to ask questions, and answered all questions to their statedsatisfaction.SIGNATURE: Hoang Abdullahi MD PATIENT NAME: Joe DavidDATE: September 28, 2017 : 2:07 PMAddendum 09/30:LabsComponent Latest Ref Rng AND Units 07/24/2017 09/28/2017WBC 3.70 - 11.00 k/uL 8.12 7.62RBC 4.20 - 6.00 m/uL 4.34 4.40Hemoglobin 13.0 - 17.0 g/dL 13.2 13.9Hematocrit 39.0 - 51.0 % 41.2 41.4MCV 80.0 - 100.0 fL 94.9 94.1MCH 26.0 - 34.0 pG 30.4 31.6MCHC 30.5 - 36.0 g/dL 32.0 33.6RDW-CV 11.5 - 15.0 % 13.0 12.6Platelet Count 150 - 400 k/uL 372 333MPV 9.0 - 12.7 fL 8.8 (L) 8.6 (L)Neut% % 71.5Abs Neut (ANC) 1.45 - 7.50 k/uL 5.80Lymph% % 19.8Abs Lymph 1.00 - 4.00 k/uL 1.61Mono% % 6.0Abs Island <0.87 k/uL 0.49Eosin% % 1.6Abs Eosin <0.46 k/uL 0.13Baso% % 1.1Abs Baso <0.11 k/uL 0.09Nucleated Reds 0 /100 WBC 0.0Absolute nRBC <0.01 k/uL <0.01 <0.01Diff Type Auto DiffProtein, Total 6.3 - 8.0 g/dL 7.6 6.5Albumin 3.9 - 4.9 g/dL 4.6 4.3Calcium 8.5 - 10.2 mg/dL 9.5 9.9Bilirubin, Total 0.2 - 1.3 mg/dL 0.4 0.3Alkaline Phosphatase 36 - 108 U/L 54 53AST 14 - 40 U/L 10 (L) 10 (L)Glucose 74 - 99 mg/dL 90 109 (H)BUN 9 - 24 mg/dL 22 19Creatinine 0.73 - 1.22 mg/dL 1.78 (H) 1.64 (H)Sodium 136 - 144 mmol/L 139 140Potassium 3.7 - 5.1 mmol/L 4.0 4.0Chloride 97 - 105 mmol/L 101 101CO2 22 - 30 mmol/L 25 26Anion Gap 9 - 18 mmol/L 13 13ALT 10 - 54 U/L 12 14eGFR- 50 55eGFR-All Other Races . 41 45Uric Acid 4.0 - 8.1 mg/dL 9.3 (H) 7.3OK to proceed with surgery.Hoang Abdullahi MD Normal [facility] Type and SCR (30D)on 018 ABO/RH(D) Positive Normal [facility] Comment on above: Performed By: #### CBCDIF, CMP, URIC, PT HI, VITD ####[facility] [address] [place], [place] [phone] Uric Acidon 09-28-2017 Urate mass conc 7.3 mg/dL Normal 4.0-8.1 [facility] Comment on above: Performed By: #### CBCDIF, CMP, URIC, PT HI, VITD ####[place] [address] [place] [phone] Urinalysison 09-28-2017 Bilirubin, Urine Negative Normal Negative [facility] Comment on above: Performed By: #### CBCDIF, CMP, URIC, PT HI, VITD ####[address] [place] [phone] Clarity Slightly Cloudy Critically abnormal Clear [facility] Comment on above: Performed By: #### CBCDIF, CMP, URIC, PT HI, VITD ####[place] [phone] Color Tiffanie Critically abnormal Yellow [facility] Comment on above: Performed By: #### CBCDIF, CMP, URIC, PT HI, VITD ####[address] [place] [phone] Comments SEE COMMENT Normal [facility] Comment on above: Result Comment: Microscopic Examination Performed Performed By: #### C BCDIF, CMP, URIC, PTHI, VITD ####[place] [phone] Glucose Ql (U) Negative Normal Negative [facility] Comment on above: Performed By: #### CBCDIF, CMP, URIC, PT HI, VITD ####[address] [place] [phone] Hemoglobin/Blood ,Ur 3+ Critically abnormal Negative [facility] Comment on above: Performed By: #### CBCDIF, CMP, URIC, PT HI, VITD ####[address] [place] [phone] INR Coag RelTime (Bld) {INR} Critically abnormal 0-3 [facility] Comment on above: Performed By: #### CBCDIF, CMP, URIC, PT HI, VITD ####[place] [address] [address] [phone] Ketones Ql (U) Negative Normal Negative [facility] Comment on above: Performed By: #### CBCDIF, CMP, URIC, PT HI, VITD ####[facility] [place] [phone] Leukest 2+ Critically abnormal Negative [facility] Comment on above: Performed By: #### CBCDIF, CMP, URIC, PT HI, VITD ####[place] [id number] [place] [phone] Nitrites Negative Normal Negative [facility] Comment on above: Performed By: #### CBCDIF, CMP, URIC, PT HI, VITD ####[place] [address] [address] [phone] pH 6.0 Normal 4.5-8.0 [facility] Comment on above: Performed By: #### CBCDIF, CMP, URIC, PT HI, VITD ####[place] [address] [address] [phone] Protein, Urine 30 mg/dL Critically abnormal Negative [facility] Comment on above: Performed By: #### CBCDIF, CMP, URIC, PT HI, VITD ####[place] [address] [address] [phone] Specific Mcdavid, Ur 1.017 Normal 1.005-1.03 0 [facility] Comment on above: Performed By: #### CBCDIF, CMP, URIC, PT HI, VITD ####[facility] [phone] Urine Brayan Comment SEE COMMENT Normal [facility] Comment on above: Result Comment: N/A Performed By: #### C BCDIF, CMP, URIC, PTHI, VITD ####[place] [id number] [place] [phone] Urobilinogen Normal Normal Normal [facility] Comment on above: Performed By: #### CBCDIF, CMP, URIC, PT HI, VITD ####[facility], [place] [phone] WBC 6-10 Critically abnormal 0-5 [facility] Comment on above: Performed By: #### CBCDIF, CMP, URIC, PT HI, VITD ####[facility] [place], [place] [phone] Urine Cultureon 09-28-2017 Bacteria identified Cx Nom (U) Sp. Request/Comment: - Presurgical Sterilization Specimen received in preservative Culture Result - Normal Urogenital nadia: Staphylococcus epidermidis --> ABNORMAL ALERT Corynebacterium species --> ABNORMAL ALERT Critically abnormal [facility] Comment on above: Performed By: #### CBCDIF, CMP, URIC, PT HI, VITD ####[facility] [place], [place] [phone] Vitamin D 25 Hydroxyon 09-28 Vitamin D 25 Hydroxy 24.2 ng/mL Low 31.0-80.0 [facility] Comment on above: Result Comment: Classification of 25 [place] Vitamin D status:Insufficiency/Moderate Deficiency: < or = 30 ng/mLSufficiency/Optimal Levels: 31 to 80 ng/mLToxicity: > 100 ng/mLTest performed by chemiluminescent immunoassay. Performed By: #### C BCDIF, CMP, URIC, PTHI, VITD ####[facility] [place], [place] [phone] HOSPon 09-19-2017 HOSP Patient Update (UROLMN) JOE DAVID ([id number]) 1970 MDate Time Provider Department09/19/17 CAT WILL (EDNA) KIRK During your visit today, we recorded the following information about you:Allergies As of Date: 09/19/2017 Noted Allergy ReactionCODEINE 07/24/2017 4 - HivesDate Reviewed: 08/16/2017Reviewed by: Kayleigh Muñoz - Fully AssessedPrimary Visit Diagnosis:Calculus of kidney [N20.0] Other Visit Diagnoses:CPAP (continuous positive airway pressure) dependence [Z99.89] CHRISTOPHER (obstructive sleep apnea) [G47.33]Order(s):COMP METABOLIC PANEL [SQCMP] Order #: [id number] FUTURE CBC [SQCBC] Order #: [id number] FUTURE TYPE + SCREEN,30 DAY [[id number]] Order #: [id number] FUTURE URINALYSIS WITH MICROSCOPIC [SQUAWMIC] Order #: [id number] FUTURE URINE CULTURE [SQURCUL] Order #: [id number] CONSULT TO ANESTHESIOLOGY [9002] Order #: [id number]: 1 CONSULT TO INT MED-IMPACT [6022988] Order #: [id number]: 1 SURGICAL REQUEST - ELECTIVE [5950907] Order #: [id number]: 1Prescriptions as of 09/19/2017 Sig: PYRIDOXINE (VITAMIN B6) 100 M* Take 1 tablet by mouth once d* POTASSIUM CITRATE ER 10 MEQ (* Take 1 tablet by mouth twice * DOCUSATE SODIUM 100 MG CAPSULE Take 1 capsule by mouth twice* ACETAMINOPHEN 500 MG TABLET Take 1,000 mg by mouth as nee* ALLOPURINOL 100 MG TABLET Take 1 tablet by mouth once d* HYDRALAZINE 100 MG TABLET Take 100 mg by mouth twice da* CARVEDILOL 25 MG TABLET Take 25 mg by mouth three randall* CEPHALEXIN 500 MG TABLET Take by mouth. Take one(1) ta*Problem List As Of Date 09/19/2017 Noted Resolved Calculus of kidney [N20.0] INVALID FOR* CPAP (continuous positive airway pressure) depe*INVALID FOR* CHRISTOPHER (obstructive sleep apnea) [G47.33] INVALID FOR* Gastroesophageal reflux disease without esophag*INVALID FOR* Essential hypertension [I10] INVALID FOR* Former smoker [Z87.891] INVALID FOR* BMI 50.0-59.9, adult (HCC) [Z68.43] INVALID FOR* Calculus of ureter [N20.1] INVALID FOR* Abnormal urinalysis [R82.90] INVALID FOR* Family history of diabetes mellitus [Z83.3] INVALID FOR* Family history of prostate cancer [Z80.42] INVALID FOR* Family history of nephrolithiasis [Z84.1] INVALID FOR* Hyperuricemia [E79.0] INVALID FOR* Low vitamin D level [R79.89] INVALID FOR* Hypocitraturia [R82.99] INVALID FOR* Hyperoxaluria (HCC) [E72.53] INVALID FOR* Low urine output [R34] INVALID FOR* Hypernatriuria [E87.0] INVALID FOR*Follow-up and Disposition History RecordedEncounter Number: [id number] Status:Closed by CAT WILL CNP on 09/19/17 [facility] Patient:Joe David LMRN: Height:5' 8 (1.727 m)Weight:350 lb (158.759 kg)Outpatient Medications as of 10/05/17:cholecalciferol, vitamin D3, 50,000 unit tabhydrALAZINE (APRESOLINE) 100 mg tabletpyridoxine, vitamin B6, (VITAMIN B-6) 100 mg tabletpotassium citrate ER (UROCIT-K 10) 10 mEq (1,080 mg) TbERdocusate sodium (COLACE) 100 mg capsuleacetaminophen (TYLENOL EXTRA STRENGTH) 500 mg tabletallopurinol (ZYLOPRIM) 100 mg tabletcarvedilol (COREG) 25 mg tabletAdmission/Clinic Administered Medications as of 10/05/17:lactated ringers infusionProblem List:Calculus of kidney [N20.0]CPAP (continuous positive airway pressure) dependence [Z99.89]CHRISTOPHER (obstructive sleep apnea) [G47.33]Gastroesophageal reflux disease without esophagitis [K21.9]Essential hypertension [I10]Former smoker [Z87.891]BMI 50.0-59.9, adult (HCC) [Z68.43]Calculus of ureter [N20.1]Abnormal urinalysis [R82.90]Family history of diabetes mellitus [Z83.3]Family history of prostate cancer [Z80.42]Family history of nephrolithiasis [Z84.1]Hyperuricemia [E79.0]Low vitamin D level [R79.89]Hypocitraturia [R82.99]Hyperoxaluria (HCC) [E72.53]Low urine output [R34]Hypernatriuria [E87.0]Nephrolithiasis [N20.0]Morbid obesity (HCC) [E66.01]CHRISTOPHER on CPAP [G47.33, Z99.89]Allergies:CodeineDate Verified: 10/05/17Lab ValuesLab Value Units Date High LowPOTA* 4.0 mmol/L 09/28/2017 5.1 3.7HEMA* 41.4 % 09/28/2017 51.0 39.0Progress Notes (UROL MAIN):Armani Urena MD 09/28/2017 9:45 AM SignedATRIUM HEALTH UNION [facility]OLOGICAL AND KIDNEY INSTITUTEPRE-OP NOTEJoe David is a 47 year old male.Pre-op Date: September 28, 2017Date of Procedure: 10/05/17Procedure/Surgery: left PCNLDiagnosis: left UPJ stonePrimary Surgeon: MD Brian, MarkHealthquest Score:BP 184/104 Pulse 87 Ht 172.7 cm (5' 8 ) Wt (!) 158.8 kg (350 lb) BMI53.22 kg/m?Pain Assessment: Are you currently having pain? No 0 on a scale of 0 to 10Surgical Guide Book Status: Patient given book today.Dialysis Guide Book Status: N/AAllergies Reviewed: YesMedications Reviewed: YesIs patient currently on oral steroids?: NoHas the patient had a UTI in the past month?: No.Does the patient have any artificial joints (last 2 years), metal parts,pacemakers or cardiac/ureteral stents in place?: NoDoes the patient have diabetes?: NoIs the patient routinely taking anticoagulants?: No.Can the patient have an IV put in either arm?: YesUrine Dip Complete?: YesURINE CULTURE COMPLETE?: in processOstomy/Stoma Nurse appointment made/completed: N/AIMPACT/Medical Clearance: Cleared per [facility] - [facility]: Cleared per [facility] - N/AAll testing on cureform has been scheduled: YesConsent Signed: Yes.DOS Orders Placed and Signed: Yes.Pre-op HANDP Done by Impact: To be done by [facility].PATIENT INSTRUCTIONS FOR SURGERY1.) DO NOT HAVE ANYTHING TO EAT AFTER MIDNIGHT THE DAY BEFORE SURGERY except forcertain morning medications as instructed by the doctor. Candy, mints, gum, andsmoking are NOT permitted. You may drink clear liquids (Sprite, water, gingerale) up to two hours before your arrival time on the day of surgery.2.) Medications to be taken on the morning of surgery with a few sips of water:per IMPACT3.) Please bring all your prescribed inhalers (if you have any you normallytake) to the hospital.4.) Arrival time: Call for arrival.5.) Prep given: No6.) Lovenox instructions given: N/A7.) Patient reminded that surgery time provided day before surgery is tentativebased on potential changes with transplants.Recommendations: This patient is optimally prepared for surgery pending IMPACT,LABS and urine culture.Armani Urena MDElectronically signedArmani Urena MD 09/28/2017 9:49 AM SignedAddended by: ARMANI URENA MD on: 09/28/2017 09:49 AM Modules accepted: OrdersProgress Notes (INTM MAIN [facility]):Hoang Abdullahi MD 09/30/2017 10:31 PM SignedHISTORY AND PHYSICAL EXAMINATION (IMPACT)SERVICE DATE: 09/28/2017SERVICE TIME: 2:07 [facility]IAN: Onel Coffey [facility] COMPLAINT/HISTORY OF PRESENT ILLNESS:Mr. David is a 47 year old male referred to me for preoperative evaluation. Myfinal recommendations will be communicated back to the requestingphysician/surgeon by the way of the shared medical record.Referring Surgeon: Dr. Townsend of Surgery: 10/05Planned Surgery/Procedure: L perc nephrostolithotomyIndication for Planned Surgery / Procedure: L ureteral stone + ongoing hematuriaRefer to Assessment section for details of any comorbidities.Patient is Able to Perform the Following Physical Activity:Walk a block or two on level ground (2.75 METs)Climb a flight of stairs or walk up a hill (5.50 METs)Patient's functional class is I based on self-reported physical activity.Significant Anesthesia Considerations: None. PAST MEDICAL/SURGICAL/FAMILY/SOCIAL HISTORYPAST MEDICAL HISTORYDiagnosis Date- Essential hypertension- Morbid obesity (HCC)- Nephrolithiasis- CHRISTOPHER on CPAPNo past surgical history on file.No family history on file.SOCIAL HISTORYSocial History Marital status: Spouse name: Years of education: Number of children:Social History Main Topics Smoking status: Former Smoker Packs/day: 1.00 Years: 24.00 Types: Cigarettes Quit date: 07/27/2013 Smokeless tobacco: Former User Types: Snuff Quit date: 07/28/2011MEDICATIONS/ALLERGIESCurr ent Outpatient Prescriptions:cholecalciferol, vitamin D3, 50,000 unit tab Take 1 tablet by mouth once eachweek. Disp: Rfl:pyridoxine, vitamin B6, (VITAMIN B-6) 100 mg tablet Take 1 tablet by mouth oncedaily. Disp: Rfl:potassium citrate ER (UROCIT-K 10) 10 mEq (1,080 mg) TbER Take 1 tablet by mouthtwice daily. Disp: 180 tablet Rfl: 3acetaminophen (TYLENOL EXTRA STRENGTH) 500 mg tablet Take 1,000 mg by mouth asneeded for Pain. Disp: Rfl:allopurinol (ZYLOPRIM) 100 mg tablet Take 1 tablet by mouth once daily. Disp: 90tablet Rfl: 3hydrALAZINE (APRESOLINE) 100 mg tablet Take 100 mg by mouth twice daily. Disp:Rfl:carvedilol (COREG) 25 mg tablet Take 25 mg by mouth three times daily. Disp:Rfl:docusate sodium (COLACE) 100 mg capsule Take 1 capsule by mouth twice daily.Disp: 60 capsule Rfl: 0Cephalexin 500 mg tab Take by mouth. Take one(1) tablet daily. Disp: Rfl:No current facility-administered medications for this visit.ALLERGIESAllergen Reactions- Codeine HivesREVIEW OF SYSTEMSGeneral: No weight loss, malaise or fevers.Neuro: No history of TIA's, stroke, ENTRY LEVEL FINANCE tumor, impaired sensorium, hemiplegia,paraplegia or quadriplegia. No neurological symptoms or problems.Respiratory: Obstructive Sleep Apnea (on CPAP)Cardiovascular: Hypertension requiring meds, Hx of Rheumatic fever age 4, nosequelae + NO CAD/CHFGI: No history of GI symptoms or problems. No history of esophageal varices,recent ascites, or ETOH greater than 2 drinks per day., Hx of pyloricobstruction, had surgical correction age 6 weeksGU: see HPIEndocrine: Diabetes Mellitus with diet controlHematology: No history of bleeding or clotting disorder. No history ofhematological symptoms or problems.Oncology: No history of CA metastasis, chemo within 30 days, or radiotherapywithin 90 days. No history of oncological symptoms or problems.Psych: No history of psychiatric symptoms or problems.Skin: Negative for lesions, rash, and itching.PHYSICAL EXAMVITALS: BP 133/73 Pulse 88 Temp (Src) 98.9 (Oral) Ht 5' 8.5 (1.74m) Wt346 lb (156.9kg) SpO2 95% BMI 51.84 kg/(m2).Repeat BP 160/96 R + L w/ large cuff per MDGeneral: Alert and orientedSkin: Normal color, no rash, no lesions.HEENT: EOM, pupils equal, round and reactive.Cardiovascular: Normal S1 AND S2, no rubs, murmurs or gallops. No JVD. Pulseregular.Lungs: Normal breath sounds, no wheezes or crackles.Abdomen: Soft, non-tender, no rigidity., morbid obesityExtremities: No deformity, no edema or tenderness, no joint swelling orclubbing.Neurological: Normal cognition and motor skills.Pulses: Carotid and radial pulses normal +2.ASSESSMENTMr. David is a 47 year old male referred to me for preoperative evaluation.Patient has the following medical comorbidities which might affect theperioperative course:- Hypertension, uncontrolled and Hydral dose changed to 100mg TID .- Patient is morbidly obese related to excessive caloric intake. Body mass indexis 51.84 kg/m?.- Patient with sleep apnea and uses CPAP.Patient's RCRI (Revised Cardiac Risk Index: CAD/CHF/Stroke or TIA/SCr>2/DM onInsulin/High Risk Surgery) score is 0 and is at low risk for major adversecardiac events in the perioperative period.Diagnostic tests reviewed for today's visit:Most recent EKG: normal sinus rhythm, normal axis, normal intervals, small qinf, no acute changes, reviewed by myself.PLAN/RECOMMENDATIONSCARDIAC : Patient is at optimal cardiac condition for scheduled surgery / procedure.PULMONARY: Patient is at optimal Pulmonary status for scheduled surgery / procedure. Patient is at increased risk for postoperative pulmonary complications. Suggest the following in the post-operative period: Aggressivebronchopulmonary hygiene, CPAP/BiPAP at home setting (advised patient to bringtheir CPAP/BiPAP machine/mask), Minimize sedation/opioids as patient has CHRISTOPHER andEarly ambulationVASCULAR/ANTICOAGULATION : VTE prophylaxis as deemed appropriate by the surgical service.Patient is optimally prepared for surgery pending labsPatient Instructions: As per patient instructions section.I have discussed the above recommendations with the patient in detail, in frankand lay terms, and provided a written summary of instructions as needed. We havediscussed that no surgery is without risk, but that the goal of preoperativeassessment is to optimize that risk, and that was clearly understood by thepatient. I have given ample opportunity for the patient to ask questions, andanswered all questions to their stated satisfaction.SIGNATURE: Hoang Abdullahi MD PATIENT NAME: Joe DavidDATE: September 28, 2017 : 2:07 PMAddendum 09/30:LabsComponent Latest Ref Rng AND Units 07/24/2017 09/28/2017WBC 3.70 - 11.00 k/uL 8.12 7.62RBC 4.20 - 6.00 m/uL 4.34 4.40Hemoglobin 13.0 - 17.0 g/dL 13.2 13.9Hematocrit 39.0 - 51.0 % 41.2 41.4MCV 80.0 - 100.0 fL 94.9 94.1MCH 26.0 - 34.0 pG 30.4 31.6MCHC 30.5 - 36.0 g/dL 32.0 33.6RDW-CV 11.5 - 15.0 % 13.0 12.6Platelet Count 150 - 400 k/uL 372 333MPV 9.0 - 12.7 fL 8.8 (L) 8.6 (L)Neut% % 71.5Abs Neut (ANC) 1.45 - 7.50 k/uL 5.80Lymph% % 19.8Abs Lymph 1.00 - 4.00 k/uL 1.61Mono% % 6.0Abs Island <0.87 k/uL 0.49Eosin% % 1.6Abs Eosin <0.46 k/uL 0.13Baso% % 1.1Abs Baso <0.11 k/uL 0.09Nucleated Reds 0 /100 WBC 0.0Absolute nRBC <0.01 k/uL <0.01 <0.01Diff Type Auto DiffProtein, Total 6.3 - 8.0 g/dL 7.6 6.5Albumin 3.9 - 4.9 g/dL 4.6 4.3Calcium 8.5 - 10.2 mg/dL 9.5 9.9Bilirubin, Total 0.2 - 1.3 mg/dL 0.4 0.3Alkaline Phosphatase 36 - 108 U/L 54 53AST 14 - 40 U/L 10 (L) 10 (L)Glucose 74 - 99 mg/dL 90 109 (H)BUN 9 - 24 mg/dL 22 19Creatinine 0.73 - 1.22 mg/dL 1.78 (H) 1.64 (H)Sodium 136 - 144 mmol/L 139 140Potassium 3.7 - 5.1 mmol/L 4.0 4.0Chloride 97 - 105 mmol/L 101 101CO2 22 - 30 mmol/L 25 26Anion Gap 9 - 18 mmol/L 13 13ALT 10 - 54 U/L 12 14eGFR- 50 55eGFR-All Other Races . 41 45Uric Acid 4.0 - 8.1 mg/dL 9.3 (H) 7.3OK to proceed with surgery.Vinayak Benson LPN 09/30/2017 10:31 PM SignedJoe David is a 47 year old male [facility] Dr. Townsend of Surgery: 10/05/2017Planned Surgery/Procedure: PERCUTANEOUS NEPHROSTOLIAllergies have been reviewed and verified. They include the following:CodeineSocial HistorySubstance Use Topics- Smoking status: Former Smoker Packs/day: 1.00 Years: 24.00 Types: Cigarettes Quit date: 07/27/2013- Smokeless tobacco: Former User Types: Snuff Quit date: 07/28/2011- Alcohol use Not on fileMedications reviewed and updated: Isaac Bertrand LPNRhomero Abdullahi MD 09/28/2017 2:33 PM SignedPROMEDICA FLOWER HOSPITALPatient Instructions for SurgeryRepeat OLIVIER 160/96Exam is stableSame meds except:Increase Hydralazine to 1 pill 3 times a dayBring CPAP machine + mask with you (+ water)FOOD INSTRUCTIONS:NO solid food or non-clear liquids for 8 hours prior to the arrival time foryour surgery. Unless you are instructed otherwise, you are allowed to drink upto 12 ounces of clear liquids (e.g. water, black tea/coffee, fruit juice withoutpulp, Baldo Celestina, etc.) up until 2 hours prior to the arrival time for surgery.MEDICATION INSTRUCTIONS: Prior to Surgery:Do not take the following medications for 7 days prior to surgery: DONE - any NSAID's (e.g. Motrin, Aleve, Arthrotec, Naproxen,etc) - any herbal preparations - Aspirin or aspirin containing productsDo not take any Vitamin E / multivitamins for 10-14 days before surgery:You are allowed to take Tylenol if needed until the day of surgery.MEDICATION INSTRUCTIONS: Day/Morning of Surgersee belowCarvedilolHydralazineZyloprim If you have any questions or concerns regarding today's visit please do nothesitate to contact the [facility] at [phone] or [phone], [phone].Signature: Hoang Abdullahi, MDDate: September 28, 2017 Normal [facility] CNOVon 09-13-2017 CNOV Office Visit (UROLMN) JOE DAVID ([id number]) 1970 MDate Time Provider Department09/13/17 10:00 AM CAT WILL ([facility]) URODAQUAN During your visit today, we recorded the following information about you:Cat Will APRN.CNP 09/13/2017 12:32 PM SignedChief complaint: Kidney stonesJeffry Ellie David is a 47 year old male who presents today for a Kidney stonemanagement and prevention counseling. Denies renal colic, fever, chills, n/vdysuria or gross hematuriaRecent R URS and large left ureteral stone and stone present. Some stentdiscomfort and gross hematuria at times but denies fever, chills. Was told John Argueta PCNl is tent for September 24, will confirm w/ Dr TorresAssessment/Plan:N20.0 Calculus of kidney (primary encounter diagnosis)E79.0 LiyojowrafbonP41.99 MxkmoqehygqvfhI30.53 Hyperoxaluria (HCC)R34 Low urine hdqzohY27.0 QggkykeyfrliwhR95.1 Calculus of ureterReviewed recent 24 hour urine study and discussed strategies for stoneprevention.Hyperuricemia- pt recently started on allopurinol. Denies hx of goutHypocitraturia-Recommend increasing dietary citrate intake. Adding more fruitsAND vegetables to your diet; in particular citrus fruits like mesfin, limes,oranges, melons and tomatoes. Will also start potassium citrate BIDHyperoxaluria-recommend a low oxalate diet, adding calcium rich foods at eachmeal and add a vitamin B6 100 mg supplement daily.Low urine volume-We recommend increasing your fluid intake to 2.5-3L/day lz86-906 ounces/day. Not only increase fluids during the day but also drink 1-2glasses of water before bed, get up at least once thru the night to urinate andthen before returning to sleep drink another glass of water.Hypernatriuria-we recommend a low sodium diet <2000mg/d. Read food labels,choose low sodium options, avoid canned, frozen or boxed meals, eat more freshfoods and reduce consumption of fast food, convenience meals and processedmeats.Ureteral stone AND stent- will confirm sx date w/ Dr Torres for PCNl procedureNew litholink in 3 monthsNo past medical history on file.No past surgical history on file.No family history on file.Social History Marital status: Spouse name: Years of education: Number of children:Social History Main Topics Smoking status: Former Smoker Packs/day: 1.00 Years: 24.00 Types: Cigarettes Quit date: 07/27/2013 Smokeless tobacco: Former User Types: Snuff Quit date: 07/28/2011Current Outpatient Prescriptions on File Prior to Visit:docusate sodium (COLACE) 100 mg capsule Take 1 capsule by mouth twice daily.acetaminophen (TYLENOL EXTRA STRENGTH) 500 mg tablet Take 1,000 mg by mouth asneeded for Pain.allopurinol (ZYLOPRIM) 100 mg tablet Take 1 tablet by mouth once daily.hydrALAZINE (APRESOLINE) 100 mg tablet Take 100 mg by mouth twice daily.carvedilol (COREG) 25 mg tablet Take 25 mg by mouth three times daily.Cephalexin 500 mg tab Take by mouth. Take one(1) tablet daily.No current facility-administered medications on file prior to visit.ALLERGIESAllergen Reactions- Codeine HivesResults Only on 09/04/2017Component Date Value Ref Range Status- 24 hr Urine Comments 09/04/2017 Comments Corrected Comment: BORDERLINE LOW URINE PH. : May lead to uric acid stoneformation, particularly if urine volume is low. If thepatient has uric acid stones consider treatment with alkalipotassium citrate, 20 - 60 mEq/day in 2-3 doses (check serumpotassium). If unable to tolerate potassium loads considersodium bicarbonate. Recheck at 6 weeks including serumpotassium.MARKED HYPOCITRATURIA. : Consider treatment with potassiumcitrate 20 to 60 meq per day in 2 to 3 doses. If pH is above6.3 monitor SS CaP, hypercalciuria may need to be treated toavoid CaP stones. Hypokalemia can cause hypocitraturia.HYPEROXALURIA. : Most likely of dietary origin. Boweldisease and primary hyperoxaluria usually raise oxalate morethan this. Treat with low oxalate diet and diet calcium of800 to 1200 mg/day. Recheck at 6 weeks.SUBOPTIMAL URINE VOLUME. : Increase urine volume above 2.5liters.MODERATE CAOX STONE RISK. : If stones are calcium oxalateand actively forming, manage urine volume, calcium andoxalate to lower SS below 4.MILD URIC ACID SUPERSATURATION. : If stones are uric acidmanage volume and pH to reduce SS below 1. If uric acidexcretion low and urine pH is low, consider crystallizationhas occurred and uric acid excretion and SS are falsely low.- Urine pH 09/04/2017 5.642* 5.800 - 6.200 Final Comment: This value shows an increased risk factor of 2, where 0 isnormal and 7 is extremely high.- 24 hr Uric Acid 09/04/2017 0.651 <0.800 g/d Final- 24 hr Citrate 09/04/2017 106* >450 mg/d Final Comment: This value shows an increased risk factor of 5, where 0 isnormal and 7 is extremely high.- 24 hr Oxlate 09/04/2017 77* 20 - 40 mg/d Final Comment: This value shows an increased risk factor of 4, where 0 isnormal and 7 is extremely high.- 24 hr Calcium 09/04/2017 147 <250 mg/d Final- Urine Volume 09/04/2017 1.95 0.50 - 4.00 L/d Final Comment: This value shows an increased risk factor of 1, where 0 isnormal and 7 is extremely high.- Supersaturation CaOx 09/04/2017 8.12 6.00 - 10.00 Final Comment: This value shows an increased risk factor of 4, where 0 isnormal and 7 is extremely high.- Supersaturation CaP 09/04/2017 0.34* 0.50 - 2.00 Final- Supersaturation Uric Acid 09/04/2017 1.23* <1.00 Final Comment: This value shows an increased risk factor of 1, where 0 isnormal and 7 is extremely high.- 24 hr Potassium 09/04/2017 55 20 - 100 mmol/d Final- 24 hr Sodium 09/04/2017 292* 50 - 150 mmol/d Final Comment: This value shows an increased risk factor of 4, where 0 isnormal and 7 is extremely high.- 24 hr Sulfate 09/04/2017 33 20 - 80 mEq/d Final- 24 hr Ammonium 09/04/2017 39 15 - 60 mmol/d Final- 24 hr Chloride 09/04/2017 290* 70 - 250 mmol/d Final Comment: This value shows an increased risk factor of 4, where 0 isnormal and 7 is extremely high.- 24 hr Magnesium 09/04/2017 138* 30 - 120 mg/d Final- 24 hr Phosphorus 09/04/2017 1.072 0.60 - 1.20 g/d Final- 24 hr Urea Nitrogen 09/04/2017 14.28* 6.00 - 14.00 g/d Final- Protein Catabolic Rate 09/04/2017 0.8 0.8 - 1.4 g/kg/d Final- 24 hr Creatinine 09/04/2017 2629 mg/d Final Comment: Glove Cleaner Note: Effective 07/08/2017, reference rangeshave changed for Cr24/Kg, Ca24/Cr24 and Cit24/Cr24 due toconversion to an IDMS traceable urine creatininecalibration.- 24 hr Creatinine per Kilogram Body* 09/04/2017 17.0 11.9 - 24.4 mg/d/kgFinal- 24 hr Calcium per Kilogram Body We* 09/04/2017 1.0 <4.0 mg/d/kg Final- 24 hr Calcium per 24 hr Creatinine 09/04/2017 56 34 - 196 mg/g Final- Medical Biller Coder 09/04/2017 Final Value: Cystine Screen Negative ====Urinalysis: Red (A) Yellow Final CCMClarity Cloudy (A) Clear Final CCMGlucose, Urine Negative Negative mg/dL Final CCMBilirubin, Urine Negative Negative Final CCMKetones, Urine Negative Negative Final CCMSpecific Mcdavid, Ur 1.018 1.005 - 1.030 Final CCMHemoglobin/Blood,Ur 2+ (A) Negative ? ? Final CCMpH, Urine 6.0 4.5 - 8.0 Final CCMProtein, Urine 30 (A) Negative mg/dL Final CCMUrobilinogen Normal Normal Final CCMNitrites Negative Negative Final CCMLeukest 2+ (A) Negative Final CCMComments SEE COMMENT Final CCMComment:Microscopic Examination PerformedWBC, Urine 6-10 (A) 0 - 5 /HPF Final CCMRBC, Urine >25 (A) 0 - 3 /HPF Final CCMUrine Brayan Comment SEE COMMENT Final CCMComment:N/AStone composition: CaOx/CaPhImages:US: PERSISTENT MILD LEFT-SIDED HYDRONEPHROSIS DESPITE PRESENCE OF URETERSTENT. ?PERSISTENT 2 CM SHADOWING CALCULUS AT THE LEFT UPJ.KUB: LEFT DOUBLE-J URETERAL STENT WITH LARGE LEFT URETERAL CALCULUS ASDESCRIBED.PREVIOUSLY REPORTED RIGHT URETERAL CALCULUS IS NO LONGER VISIBLE.Stone Panel/ Litholink:Component Latest Ref Rng AND Units 09/04/2017Urine pH 5.800 - 6.200 5.642 (L)24 hr Uric Acid <0.800 g/d 0.33369 hr Citrate >450 mg/d 106 (L)24 hr Oxlate 20 - 40 mg/d 77 (H)24 hr Calcium <250 mg/d 147Urine Volume 0.50 - 4.00 L/d 1.95Supersaturation CaOx 6.00 - 10.00 8.12Supersaturation CaP 0.50 - 2.00 0.34 (L)Supersaturation Uric Acid <1.00 1.23 (H)24 hr Potassium 20 - 100 mmol/d 5524 hr Sodium 50 - 150 mmol/d 292 (H)24 hr Sulfate 20 - 80 mEq/d 3324 hr Ammonium 15 - 60 mmol/d 3924 hr Chloride 70 - 250 mmol/d 290 (H)24 hr Magnesium 30 - 120 mg/d 138 (H)24 hr Phosphorus 0.60 - 1.20 g/d 1.14343 hr Urea Nitrogen 6.00 - 14.00 g/d 14.28 (H)Protein Catabolic Rate 0.8 - 1.4 g/kg/d 0.824 hr Creatinine mg/d 2,46533 hr Creatinine per Kilogram Body Weight 11.9 - 24.4 mg/d/kg 17.024 hr Calcium per Kilogram Body Weight <4.0 mg/d/kg 1.024 hr Calcium per 24 hr Creatinine 34 - 196 mg/g 5624 hr Urine Comments CommentsTranscription Cystine Screen Negative ====24-Hour Diet Recall:B'fast: Sleeps till 11am-snack- Diet Dew or waterLunch: Water, 40-60oz during work shift--1pm or 3pm: pc of fruit, chixtenders.-snack- Small frozen mealsDinner: After work meal- frozen meal/ PB or cheese crackers; Dt 7up or water-snack- waterFluids: Water, Dt Dew, Dt 7 up, no coffee/tea, rare ETOH, rare milk, no sportdrinks, no energy drinks, no protein drinks, occ OJWorks afternoons 3-11pm, tool makerAssessment/Plan:N20.0 Calculus of kidney (primary encounter diagnosis)E79.0 VvomjgqtrfhmbB80.99 IfdtevqvetrkusA28.53 Hyperoxaluria (HCC)R34 Low urine ehkimbG18.0 RlqvgohpyerhcrF66.1 Calculus of ureterReviewed recent 24 hour urine study and discussed strategies for stoneprevention.Hyperuricemia- pt recently started on allopurinol. Denies hx of goutHypocitraturia-Recommend increasing dietary citrate intake. Adding more fruitsAND vegetables to your diet; in particular citrus fruits like mesfin, limes,oranges, melons and tomatoes. Will also start potassium citrate BIDHyperoxaluria-recommend a low oxalate diet, adding calcium rich foods at eachmeal and add a vitamin B6 100 mg supplement daily.Low urine volume-We recommend increasing your fluid intake to 2.5-3L/day gs66-406 ounces/day. Not only increase fluids during the day but also drink 1-2glasses of water before bed, get up at least once thru the night to urinate andthen before returning to sleep drink another glass of water.Hypernatriuria-we recommend a low sodium diet <2000mg/d. Read food labels,choose low sodium options, avoid canned, frozen or boxed meals, eat more freshfoods and reduce consumption of fast food, convenience meals and processedmeats.Ureteral stone AND stent- will confirm sx date w/ Dr Torres for PCNl procedureNew litholink in 3 monthsTime spent in direct contact (face to face) with the patient, counseling andcoordination of care over 30 minutes. Greater than 50% of the visit was spentwith face to face counselling, discussion of the above topics, and coordinationof care. All questions answered.Cat Will APRN.CNPReferring Provider: CAT WILL ([facility]) [[id number]]Allergies As of Date: 09/13/2017 Noted Allergy ReactionCODEINE 07/24/2017 4 - HivesDate Reviewed: 08/16/2017Reviewed by: Kayleigh Toni - Fully AssessedPrimary Visit Diagnosis:Calculus of kidney [N20.0] Other Visit Diagnoses:Hyperuricemia [E79.0] Hypocitraturia [R82.99] Hyperoxaluria (HCC) [E72.53] Low urine output [R34] Hypernatriuria [E87.0] Calculus of ureter [N20.1]Order(s):UA CHEMSTRIP ONLY [SQUA] Order #: [id number] FUTURE UA CHEMSTRIP ONLY [SQUA] Order #: [id number]. #:[id number] pyridoxine, vitamin B6, (VITAMIN B-6) 100 mg tabletTake 1 tablet by mouth once daily.Disp: Rfl: potassium citrate ER (UROCIT-K 10) 10 mEq (1,080 mg) TbERTake 1 tablet by mouth twice daily.Disp: 180 tabletRfl: 3 URINE CULTURE [SQURCUL] Order #: [id number] as of 09/13/2017 Sig: PYRIDOXINE (VITAMIN B6) 100 M* Take 1 tablet by mouth once d* POTASSIUM CITRATE ER 10 MEQ (* Take 1 tablet by mouth twice * DOCUSATE SODIUM 100 MG CAPSULE Take 1 capsule by mouth twice* ACETAMINOPHEN 500 MG TABLET Take 1,000 mg by mouth as nee* ALLOPURINOL 100 MG TABLET Take 1 tablet by mouth once d* HYDRALAZINE 100 MG TABLET Take 100 mg by mouth twice da* CARVEDILOL 25 MG TABLET Take 25 mg by mouth three randall* CEPHALEXIN 500 MG TABLET Take by mouth. Take one(1) ta*Problem List As Of Date 09/13/2017 Noted Resolved Calculus of kidney [N20.0] INVALID FOR* CPAP (continuous positive airway pressure) depe*INVALID FOR* CHRISTOPHER (obstructive sleep apnea) [G47.33] INVALID FOR* Gastroesophageal reflux disease without esophag*INVALID FOR* Essential hypertension [I10] INVALID FOR* Former smoker [Z87.891] INVALID FOR* BMI 50.0-59.9, adult (HCC) [Z68.43] INVALID FOR* Calculus of ureter [N20.1] INVALID FOR* Abnormal urinalysis [R82.90] INVALID FOR* Family history of diabetes mellitus [Z83.3] INVALID FOR* Family history of prostate cancer [Z80.42] INVALID FOR* Family history of nephrolithiasis [Z84.1] INVALID FOR* Hyperuricemia [E79.0] INVALID FOR* Low vitamin D level [R79.89] INVALID FOR* Hypocitraturia [R82.99] INVALID FOR* Hyperoxaluria (HCC) [E72.53] INVALID FOR* Low urine output [R34] INVALID FOR* Hypernatriuria [E87.0] INVALID FOR*Prescriptions ordered this encounter Disp Refills Start End PYRIDOXINE (VITAMIN B6) 100 MG TABLET 09/13/2017 Class: OTC Route: ORAL Sig: Take 1 tablet by mouth once daily. POTASSIUM CITRATE ER 10 MEQ (1,080 M* 180 * 3 09/13/2017 Route: ORAL Sig: Take 1 tablet by mouth twice daily.Disposition: Return for Blood work in 2-3 weeks, new 24 hr testing in 3 months - will update w/ sx date once I speak w/ Dr Del Toro.Follow-up and Disposition History RecordedEncounter Number: [id number] Status:Closed by CAT WILL CNP on 09/13/17 [facility] PROGRESSon 09-13-2017 Protein mass conc HNO ID: [id number]: Cat ([place]) CaseyroService: (none)Author Type: Nurse PractitionerType: Progress NotesFiled: 09/13/2017 12:32 PMNote Text:Chief complaint: Kidney stonesJoe David is a 47 year old male who presents today for a Kidney stonemanagement and prevention counseling. Denies renal colic, fever, chills,n/v dysuria or gross hematuriaRecent R URS and large left ureteral stone and stone present. Some stentdiscomfort and gross hematuria at times but denies fever, chills. Wastold by Dr Brian Argueta PCNl is tent for September 24, will confirm w/ Dr TorresAssessment/Plan:N20.0 Calculus of kidney (primary encounter diagnosis)E79.0 SxnrnkhajpyphR71.99 LbghsxyxtzxvdiR07.53 Hyperoxaluria (HCC)R34 Low urine xhjhqsA05.0 BxqirriylopkmcF13.1 Calculus of ureterReviewed recent 24 hour urine study and discussed strategies for stoneprevention.Hyperuricemia- pt recently started on allopurinol. Denies hx of goutHypocitraturia-Recommend increasing dietary citrate intake. Adding morefruits AND vegetables to your diet; in particular citrus fruits like mesfin,limes, oranges, melons and tomatoes. Will also start potassium citrate BIDHyperoxaluria-recommend a low oxalate diet, adding calcium rich foods ateach meal and add a vitamin B6 100 mg supplement daily.Low urine volume-We recommend increasing your fluid intake to 2.5-3L/dayor 80-100 ounces/day. Not only increase fluids during the day but alsodrink 1-2 glasses of water before bed, get up at least once thru the nightto urinate and then before returning to sleep drink another glass ofwater.Hypernatriuria-we recommend a low sodium diet <2000mg/d. Read foodlabels, choose low sodium options, avoid canned, frozen or boxed meals,eat more fresh foods and reduce consumption of fast food, conveniencemeals and processed meats.Ureteral stone AND stent- will confirm sx date w/ Dr Torres for PCNlprocedureNew litholink in 3 monthsNo past medical history on file.No past surgical history on file.No family history on file.Social History Marital status: Spouse name: Years of education: Number of children:Social History Main Topics Smoking status: Former Smoker Packs/day: 1.00 Years: 24.00 Types: Cigarettes Quit date: 07/27/2013 Smokeless tobacco: Former User Types: Snuff Quit date: 07/28/2011Current Outpatient Prescriptions on File Prior to Visit:docusate sodium (COLACE) 100 mg capsule Take 1 capsule by mouth twicedaily.acetaminophen (TYLENOL EXTRA STRENGTH) 500 mg tablet Take 1,000 mg bymouth as needed for Pain.allopurinol (ZYLOPRIM) 100 mg tablet Take 1 tablet by mouth once daily.hydrALAZINE (APRESOLINE) 100 mg tablet Take 100 mg by mouth twice daily.carvedilol (COREG) 25 mg tablet Take 25 mg by mouth three times daily.Cephalexin 500 mg tab Take by mouth. Take one(1) tablet daily.No current facility-administered medications on file prior to visit.ALLERGIESAllergen Reactions- Codeine HivesResults Only on 09/04/2017Component Date Value Ref Range Status- 24 hr Urine Comments 09/04/2017 Comments Corrected Comment: BORDERLINE LOW URINE PH. : May lead to uric acid stoneformation, particularly if urine volume is low. If thepatient has uric acid stones consider treatment with alkalipotassium citrate, 20 - 60 mEq/day in 2-3 doses (check serumpotassium). If unable to tolerate potassium loads considersodium bicarbonate. Recheck at 6 weeks including serumpotassium.MARKED HYPOCITRATURIA. : Consider treatment with potassiumcitrate 20 to 60 meq per day in 2 to 3 doses. If pH is above6.3 monitor SS CaP, hypercalciuria may need to be treated toavoid CaP stones. Hypokalemia can cause hypocitraturia.HYPEROXALURIA. : Most likely of dietary origin. Boweldisease and primary hyperoxaluria usually raise oxalate morethan this. Treat with low oxalate diet and diet calcium of800 to 1200 mg/day. Recheck at 6 weeks.SUBOPTIMAL URINE VOLUME. : Increase urine volume above 2.5liters.MODERATE CAOX STONE RISK. : If stones are calcium oxalateand actively forming, manage urine volume, calcium andoxalate to lower SS below 4.MILD URIC ACID SUPERSATURATION. : If stones are uric acidmanage volume and pH to reduce SS below 1. If uric acidexcretion low and urine pH is low, consider crystallizationhas occurred and uric acid excretion and SS are falsely low.- Urine pH 09/04/2017 5.642* 5.800 - 6.200 Final Comment: This value shows an increased risk factor of 2, where 0 isnormal and 7 is extremely high.- 24 hr Uric Acid 09/04/2017 0.651 <0.800 g/d Final- 24 hr Citrate 09/04/2017 106* >450 mg/d Final Comment: This value shows an increased risk factor of 5, where 0 isnormal and 7 is extremely high.- 24 hr Oxlate 09/04/2017 77* 20 - 40 mg/d Final Comment: This value shows an increased risk factor of 4, where 0 isnormal and 7 is extremely high.- 24 hr Calcium 09/04/2017 147 <250 mg/d Final- Urine Volume 09/04/2017 1.95 0.50 - 4.00 L/d Final Comment: This value shows an increased risk factor of 1, where 0 isnormal and 7 is extremely high.- Supersaturation CaOx 09/04/2017 8.12 6.00 - 10.00 Final Comment: This value shows an increased risk factor of 4, where 0 isnormal and 7 is extremely high.- Supersaturation CaP 09/04/2017 0.34* 0.50 - 2.00 Final- Supersaturation Uric Acid 09/04/2017 1.23* <1.00 Final Comment: This value shows an increased risk factor of 1, where 0 isnormal and 7 is extremely high.- 24 hr Potassium 09/04/2017 55 20 - 100 mmol/d Final- 24 hr Sodium 09/04/2017 292* 50 - 150 mmol/d Final Comment: This value shows an increased risk factor of 4, where 0 isnormal and 7 is extremely high.- 24 hr Sulfate 09/04/2017 33 20 - 80 mEq/d Final- 24 hr Ammonium 09/04/2017 39 15 - 60 mmol/d Final- 24 hr Chloride 09/04/2017 290* 70 - 250 mmol/d Final Comment: This value shows an increased risk factor of 4, where 0 isnormal and 7 is extremely high.- 24 hr Magnesium 09/04/2017 138* 30 - 120 mg/d Final- 24 hr Phosphorus 09/04/2017 1.072 0.60 - 1.20 g/d Final- 24 hr Urea Nitrogen 09/04/2017 14.28* 6.00 - 14.00 g/d Final- Protein Catabolic Rate 09/04/2017 0.8 0.8 - 1.4 g/kg/d Final- 24 hr Creatinine 09/04/2017 2629 mg/d Final Comment: Glove Cleaner Note: Effective 07/08/2017, reference rangeshave changed for Cr24/Kg, Ca24/Cr24 and Cit24/Cr24 due toconversion to an IDMS traceable urine creatininecalibration.- 24 hr Creatinine per Kilogram Body* 09/04/2017 17.0 11.9 - 24.4 mg/d/kgFinal- 24 hr Calcium per Kilogram Body We* 09/04/2017 1.0 <4.0 mg/d/kg Final- 24 hr Calcium per 24 hr Creatinine 09/04/2017 56 34 - 196 mg/g Final- Medical Biller Coder 09/04/2017 Final Value: Cystine Screen Negative ====Urinalysis: Red (A) Yellow Final CCMClarity Cloudy (A) Clear Final CCMGlucose, Urine Negative Negative mg/dL Final CCMBilirubin, Urine Negative Negative Final CCMKetones, Urine Negative Negative Final CCMSpecific Mcdavid, Ur 1.018 1.005 - 1.030 Final CCMHemoglobin/Blood,Ur 2+ (A) Negative ? ? Final CCMpH, Urine 6.0 4.5 - 8.0 Final CCMProtein, Urine 30 (A) Negative mg/dL Final CCMUrobilinogen Normal Normal Final CCMNitrites Negative Negative Final CCMLeukest 2+ (A) Negative Final CCMComments SEE COMMENT Final CCMComment:Microscopic Examination PerformedWBC, Urine 6-10 (A) 0 - 5 /HPF Final CCMRBC, Urine >25 (A) 0 - 3 /HPF Final CCMUrine Brayan Comment SEE COMMENT Final CCMComment:N/AStone composition: CaOx/CaPhImages:US: PERSISTENT MILD LEFT-SIDED HYDRONEPHROSIS DESPITE PRESENCE OFURETERSTENT. ?PERSISTENT 2 CM SHADOWING CALCULUS AT THE LEFT UPJ.KUB: LEFT DOUBLE-J URETERAL STENT WITH LARGE LEFT URETERAL CALCULUS ASDESCRIBED.PREVIOUSLY REPORTED RIGHT URETERAL CALCULUS IS NO LONGER VISIBLE.Stone Panel/ [facility]ink:Component Latest Ref Rng AND Units 09/04/2017Urine pH 5.800 - 6.200 5.642 (L)24 hr Uric Acid <0.800 g/d 0.33440 hr Citrate >450 mg/d 106 (L)24 hr Oxlate 20 - 40 mg/d 77 (H)24 hr Calcium <250 mg/d 147Urine Volume 0.50 - 4.00 L/d 1.95Supersaturation CaOx 6.00 - 10.00 8.12Supersaturation CaP 0.50 - 2.00 0.34 (L)Supersaturation Uric Acid <1.00 1.23 (H)24 hr Potassium 20 - 100 mmol/d 5524 hr Sodium 50 - 150 mmol/d 292 (H)24 hr Sulfate 20 - 80 mEq/d 3324 hr Ammonium 15 - 60 mmol/d 3924 hr Chloride 70 - 250 mmol/d 290 (H)24 hr Magnesium 30 - 120 mg/d 138 (H)24 hr Phosphorus 0.60 - 1.20 g/d 1.94989 hr Urea Nitrogen 6.00 - 14.00 g/d 14.28 (H)Protein Catabolic Rate 0.8 - 1.4 g/kg/d 0.824 hr Creatinine mg/d 2,49012 hr Creatinine per Kilogram Body Weight 11.9 - 24.4 mg/d/kg 17.024 hr Calcium per Kilogram Body Weight <4.0 mg/d/kg 1.024 hr Calcium per 24 hr Creatinine 34 - 196 mg/g 5624 hr Urine Comments CommentsTranscription Cystine Screen Negative ====24-Hour Diet Recall:B'fast: Sleeps till 11am-snack- Diet Dew or waterLunch: Water, 40-60oz during work shift--1pm or 3pm: pc of fruit, chixtenders.-snack- Small frozen mealsDinner: After work meal- frozen meal/ PB or cheese crackers; Dt 7up orwater-snack- waterFluids: Water, Dt Dew, Dt 7 up, no coffee/tea, rare ETOH, rare milk, nosport drinks, no energy drinks, no protein drinks, occ OJWorks afternoons 3-11pm, tool makerAssessment/Plan:N20.0 Calculus of kidney (primary encounter diagnosis)E79.0 OtcqitbqrqjslK97.99 SvsgzpdhvcyhzkJ48.53 Hyperoxaluria (HCC)R34 Low urine oowqpxA29.0 LxsqyqcuvsfyhmQ47.1 Calculus of ureterReviewed recent 24 hour urine study and discussed strategies for stoneprevention.Hyperuricemia- pt recently started on allopurinol. Denies hx of goutHypocitraturia-Recommend increasing dietary citrate intake. Adding morefruits AND vegetables to your diet; in particular citrus fruits like mesfin,limes, oranges, melons and tomatoes. Will also start potassium citrate BIDHyperoxaluria-recommend a low oxalate diet, adding calcium rich foods ateach meal and add a vitamin B6 100 mg supplement daily.Low urine volume-We recommend increasing your fluid intake to 2.5-3L/dayor 80-100 ounces/day. Not only increase fluids during the day but alsodrink 1-2 glasses of water before bed, get up at least once thru the nightto urinate and then before returning to sleep drink another glass ofwater.Hypernatriuria-we recommend a low sodium diet <2000mg/d. Read foodlabels, choose low sodium options, avoid canned, frozen or boxed meals,eat more fresh foods and reduce consumption of fast food, conveniencemeals and processed meats.Ureteral stone AND stent- will confirm sx date w/ Dr Torres for PCNlprocedureNew litholink in 3 monthsTime spent in direct contact (face to face) with the patient, counselingand coordination of care over 30 minutes. Greater than 50% of the visitwas spent with face to face counselling, discussion of the above topics,and coordination of care. All questions answered.Cat Will APRN.PRINT PRODUCER Normal [facility] Protein mass conc HNO ID: [id number]: Martin Sánchez (Rt)vice: RadiologyAuthor Type: TechnicianType: Progress NotesFiled: 09/13/2017 9:06 AMNote Text: Radiology Service Progress NotePATIENT NAME: Joe [facility]gu[facility]N: [id number] OF SERVICE: September 13, 2017TIME: 9:05 AMPATIENT IDENTITY VERIFICATION COMPLETED USING TWO (2) METHODS: Patientconfirmed name verbally and Date of .PATIENT GENDER DATA: MalePATIENT RELEVANT IMPLANT DATA REVIEWED: YesRADIOLOGY DEPARTMENT: General X-ray: Exam(s) Completed: Abdomen X-RayAbdomen with ObliquesPERIPHERAL IV DATA: Not applicableSIGNED BY: Kristine Sánchez 2017 9:05 AM Normal [facility] US KIDNEY/BLADDERon 09-14-19 US KIDNEY/BLADDER * * *Final Report* * *DATE OF EXAM: Sep 13 2017 8:26AM KATTY 1055 - US KIDNEY/BLADDER / REASON: Calculus of kidney * * * * Physician Interpretation * * * * EXAMINATION: RENAL ULTRASOUNDCLINICAL HISTORY: NephrolithiasisTECHNIQUE: Sonography of the kidneys and urinary bladder was performed. Images were obtained and stored in a permanent archive.MQ: UR_1COMPARISON: 07/27/2017 CT scanRESULT:Right Kidney: -Renal length: 9.6 cm -Parenchyma: Normal parenchymal echogenicity. Normal parenchymal thickness. -Collecting system: No hydronephrosis. -Calculus: No echogenic, shadowing calculus. -Lesion: None.Left Kidney: -Renal length: 13.2 cm -Parenchyma: Normal parenchymal echogenicity. Normal parenchymal thickness. -Collecting system: Mild hydronephrosis with 2 cm shadowing calculus at the UPJ, similar to prior CT. Portions of ureter stent are identified in the lower pole collecting system. -Calculus: UPJ calculus as above -Lesion: None.Bladder: Normal sonographic appearance with portion of ureter stent visualized.IMPRESSION:PERSISTENT MILD LEFT-SIDED HYDRONEPHROSIS DESPITE PRESENCE OF URETER STENT. PERSISTENT 2 CM SHADOWING CALCULUS AT THE LEFT UPJ.Care Coordination Manager: [facility] Transcribe Date/Time: Sep 13 2017 8:33ADictated by : YOGI CABAN MDThis examination was interpreted and the report reviewed and electronically signed by: YOGI CABAN MD on Sep 13 2017 8:39AM [id number] Normal [facility] Urinalysison 09-13-2017 Bilirubin, Urine Negative Normal Negative [facility] Comment on above: Performed By: #### CBCDIF, CMP, URIC, PT HI, VITD ####[facility] [address] [place], [place] [phone] Clarity Cloudy Critically abnormal Clear [facility] Comment on above: Performed By: #### CBCDIF, CMP, URIC, PT HI, VITD ####[facility] [address] [place], [place] [phone] Color Red Critically abnormal Yellow [facility] Comment on above: Performed By: #### CBCDIF, CMP, URIC, PT HI, VITD ####[place] [id number] AveCH[address] [place] [phone] Comments SEE COMMENT Normal [facility] Comment on above: Result Comment: Microscopic Examination Performed Performed By: #### C BCDIF, CMP, URIC, PTHI, VITD ####[place] [address] [address] [phone] Glucose Ql (U) Negative Normal Negative [facility] Comment on above: Performed By: #### CBCDIF, CMP, URIC, PT HI, VITD ####[place] [address] [address] [phone] Hemoglobin/Blood ,Ur 2+ Critically abnormal Negative [facility] Comment on above: Performed By: #### CBCDIF, CMP, URIC, PT HI, VITD ####[place] [address] [phone] INR Coag RelTime (Bld) {INR} Critically abnormal 0-3 [facility] Comment on above: Performed By: #### CBCDIF, CMP, URIC, PT HI, VITD ####[place] [address] [address] [phone] Ketones Ql (U) Negative Normal Negative [facility] Comment on above: Performed By: #### CBCDIF, CMP, URIC, PT HI, VITD ####[place] [address] [address] [phone] Leukest 2+ Critically abnormal Negative [facility] Comment on above: Performed By: #### CBCDIF, CMP, URIC, PT HI, VITD ####[place] [address] [address] [phone] Nitrites Negative Normal Negative [facility] Comment on above: Performed By: #### CBCDIF, CMP, URIC, PT HI, VITD ####[place] [address] [phone] pH 6.0 Normal 4.5-8.0 [facility] Comment on above: Performed By: #### CBCDIF, CMP, URIC, PT HI, VITD ####[place] [address] [address] [phone] Protein, Urine 30 mg/dL Critically abnormal Negative [facility] Comment on above: Performed By: #### CBCDIF, CMP, URIC, PT HI, VITD ####[place] [address] [address] [place] [phone] Specific Mcdavid, Ur 1.018 Normal 1.005-1.03 0 [facility] Comment on above: Performed By: #### CBCDIF, CMP, URIC, PT HI, VITD ####[place] [address] [address] [phone] Urine Brayan Comment SEE COMMENT Normal [facility] Comment on above: Result Comment: N/A Performed By: #### C BCDIF, CMP, URIC, PTHI, VITD ####[place] [address] [address] [phone] Urobilinogen Normal Normal Normal [facility] Comment on above: Performed By: #### CBCDIF, CMP, URIC, PT HI, VITD ####[place] [address] [address] [place] [phone] WBC 6-10 Critically abnormal 0-5 [facility] Comment on above: Performed By: #### CBCDIF, CMP, URIC, PT HI, VITD ####[place] [address] [phone] Urine Cultureon 09-13-2017 Bacteria identified Cx Nom (U) Sp. Request/Comment: - Specimen received in preservative Presurgical Sterilization Culture Result - <1,000 CFU/ml Normal Urogenital nadia: --> ABNORMAL ALERT Coagulase negative Staphylococcus species --> ABNORMAL ALERT Critically abnormal [facility] Comment on above: Performed By: #### CBCDIF, CMP, URIC, PT HI, VITD ####[facility] [address] [place], [place] [phone] XR ABDOMEN 3V KUB W/OBLIQUES on 09-13-2017 XR ABDOMEN 3V KUB W/OBLIQUES * * *Final Report* * *DATE OF EXAM: Sep 13 2017 9:05AM OBED 5358 - XR ABDOMEN 3V KUB W/OBLIQUES / REASON: Calculus of kidney * * * * Physician Interpretation * * * * ABDOMINAL SERIES, 3 VIEWSCLINICAL INFORMATION: History of stones.TECHNIQUE: AP and bilateral oblique views of the abdomen, 4 imagesCOMPARISON: US Kidney/bladder 09/13/2017, CT flank 07/27/2017RESULT:Left double-J ureteral stent remains in place. Again present is a large LEFT ureteral calculus, which appears more distal in the ureter when compared to recent CT, measuring approximately 3 cm x 1.75 cm.No radiopaque calculus in the distribution of the RIGHT kidney or ureter. Previously reported RIGHT ureteral calculus is no longer visible.No dilated bowel. No organomegaly.IMPRESSION:LEFT DOUBLE-J URETERAL STENT WITH LARGE LEFT URETERAL CALCULUS DESCRIBED.PREVIOUSLY REPORTED RIGHT URETERAL CALCULUS IS NO LONGER VISIBLE.Care Coordination Manager: NIECY Transcribe Date/Time: Sep 13 2017 9:38ADictated by : Loli SALAZAR examination was interpreted and the report reviewed and electronically signed by: BENITEZ BOYKIN MD on Sep 13 2017 9:53AM [id number] Normal [facility] CNOVon 08-16-2017 CNOV Office Visit (UROSMN) JOE DAVID ([id number]) 1970 MDate Time Provider Department08/16/17 10:30 AM POLLY TORRES During your visit today, we recorded the following information about you:Kayleigh Muñoz 08/16/2017 10:54 AM SignedPRE PROCEDURE ASSESSMENT- CystoProcedure Indication: Stent ExtractionJune 2017, Time In: 10:36Latex Allergy: NoAllergies reviewed and updated. YesPre-Procedure Vital Signs: BP: 166/100 Pulse: 84Heart valve replacement: NoJoint replacement: NoBack Office UA otained: noPatient brought to procedure room # 9 @ time 10:56.Kayleigh Darwin Anderson Ma 08/16/2017 11:59 AM SignedPROCEDURE PREP-CystoPatient ID with two(2)identifiers verified by: Page Thomas valve replacement: NoJoint replacement: NoPre-Procedure Antibiotics: Patient is currently on Cephalexin 500 mg daily.Patient Prep: Betadine Scrub to perineum and placement of Sterile Drape.COMPLETEDAnesthetic Given:10 cc 2% Lidocaine jelly Page Anderson Ma/given by Maribel FORDUNIVERSAL PROTOCOL / SAFETY CHECKLISTProcedure to be performed: Cystoscopy and Stent ExtractionSign in Communication: CompletedTime Out: Team Confirms the Correct Patient, Correct Procedure, Correct Siteand Site Marking, Correct Position (if applicable).Sign Out Discussion: Erlinda Mauricio PROCEDURE NURSE ASSESSMENTPresent along with physician during procedure exam. Page Zendejasrocedure/Indication: Cystoscopy and Stent ExtractionInstruction sheet given and reviewed and patient verbalizes understanding: yesPost Procedure Antibiotic: noneCurrent pain intensity is 0 on a 0-10 pain scale.Page Anderson MaAMBULATORY PATIENT EDUCATIONTHE FOLLOWING WAS EVALUATEDMotivation To Learn: InterestedFamily/Significant Other Support: Unable to assess - Family not presentCognitive Ability: Alert/OrientedMethod of Instruction: Individual instructionWritten instruction - handoutsVerbal instructionThe Following Influencing Factors Were Barriers To This Education Session: NoneThe Following Physical Limitations Were Barriers To This Education Session: NoneInstruction Provided To: PatientInterpreter Present: not applicableDiscipline: NursingLearning Topic: SURVIVAL SKILLS: Complication PreventionPatient Evaluation: Verbalizes understanding: YesSupplemental Material Given: NoneInstructed By Page Anderson Ma In Department Urology .Polly Torres MD 08/16/2017 1:27 PM SignedCYSTOSCOPY PROCEDUREM.Andrew'S HOPS NOTEPertinent History and Physical Exam reviewed and is unchanged.Primary Diagnosis: NephrolithiasisProcedure: Stent ExtractionInformed Consent Discussed: Yes. Risks, benefits, alternatives and personneldiscussed with patient who consents to proceed.Audible Time-Out: YesDetails of Procedure:TECHNIQUE: The procedure was fully explained to the patient, risks werereviewed. The patient was placed in the supine position. The genitalia wereprepped with antiseptic soap per protocol, and the urethra was anesthetizedwith viscous 2% lidocaine. The flexible cystoscope was introduced into theurethra and advanced under direct vision with findings as outlined below. Atthe conclusion of the procedure, the cystoscope was withdrawn.Anesthetics given: 10 cc 2% Lidocaine-UrethralOperative Findings Urethra: Normal Prostate: Occlusive Bladder: Right stent removed with difficulty; it was necessary to untanglethe coils of the left and right stents to avoid dislodging the left one whileremoving the right one; Rechecked with flex cystoscope and left stent still ingood position.Radiologic Studies CT: N/A Urogram: N/A Urethrogram: N/A Cystogram: N/A Retrograde Pyelogram(s): None Ultrasound: None KUB: NoneComplications: NoneRecommendations: Discussed findings with patient, RTC in 4-6 wk for f/u (callme if probs), KUB at F/U, Renal Ultrasound at F/U, Complete 24 hr urine stonepanel prior to F/U and set up for left PCNL in about 6 wk;Comments: well-tolerated;Post Procedure Evaluation Condition Post Procedure: satisfactory Post Procedure Medications: NoneMark MARTHA Torresirector, Surgical Stone DiseaseUn[facility] Health [facility] JensenCleveland Clinic Union HospitalPager [phone] Provider: POLLY TORRES [[id number]]Allergies As of Date: 08/16/2017 Noted Allergy ReactionCODEINE 07/24/2017 4 - HivesDate Reviewed: 08/16/2017Reviewed by: Kayleigh Muñoz - Fully AssessedPrimary Visit Diagnosis:Calculus of kidney [N20.0]Order(s):US KIDNEY/BLADDER [1035831] Order #: [id number] FUTURE XR ABDOMEN 3V KUB W/OBLIQUES [9323417] Order #: [id number] FUTUREPrescriptions as of 08/16/2017 Sig: DOCUSATE SODIUM 100 MG CAPSULE Take 1 capsule by mouth twice* ACETAMINOPHEN 500 MG TABLET Take 1,000 mg by mouth as nee* ALLOPURINOL 100 MG TABLET Take 1 tablet by mouth once d* HYDRALAZINE 100 MG TABLET Take 100 mg by mouth twice da* CARVEDILOL 25 MG TABLET Take 25 mg by mouth three randall* CEPHALEXIN 500 MG TABLET Take by mouth. Take one(1) ta*Medication notes this encounter LIDOCAINE 2 % MUCOUS MEMBRANE JELLY IN APPLICATOR >> Page Anderson Ma 08/16/2017 11:14 AM >> PAGE ANDERSON MA Angella Aug 16, 2017 11:14 AM Medication given as directed in SIG, administered into urethra , Lot#[id number], expiration date 10/2018.Problem List As Of Date 08/16/2017 Noted Resolved Calculus of kidney [N20.0] INVALID FOR* CPAP (continuous positive airway pressure) depe*INVALID FOR* CHRISTOPHER (obstructive sleep apnea) [G47.33] INVALID FOR* Gastroesophageal reflux disease without esophag*INVALID FOR* Essential hypertension [I10] INVALID FOR* Former smoker [Z87.891] INVALID FOR* BMI 50.0-59.9, adult (HCC) [Z68.43] INVALID FOR* Calculus of ureter [N20.1] INVALID FOR* Abnormal urinalysis [R82.90] INVALID FOR* Family history of diabetes mellitus [Z83.3] INVALID FOR* Family history of prostate cancer [Z80.42] INVALID FOR* Family history of nephrolithiasis [Z84.1] INVALID FOR* Hyperuricemia [E79.0] INVALID FOR* Low vitamin D level [E55.9] INVALID FOR*Visit Notes:>> Kayleigh Perales Aug 16, 2017 10:39 AM Status: SignedPRE PROCEDURE ASSESSMENT- CystoProcedure Indication: Stent ExtractionJune 2017, Time In: 10:36Latex Allergy: NoAllergies reviewed and updated. YesPre-Procedure Vital Signs: BP: 166/100 Pulse: 84Heart valve replacement: NoJoint replacement: NoBack Office UA otained: noPatient brought to procedure room # 9 @ time 10:56.Kayleigh Muñoz>> Page Anderson Ma Angella Aug 16, 2017 10:57 AM Status: SignedPROCEDURE PREP-CystoPatient ID with two(2)identifiers verified by: Page Thomas valve replacement: NoJoint replacement: NoPre-Procedure Antibiotics: Patient is currently on Cephalexin 500 mgdaily.Patient Prep: Betadine Scrub to perineum and placement of Sterile Drape.COMPLETEDAnesthetic Given:10 cc 2% Lidocaine jelly Page Anderson Ma/given David Harden RNUNIVERSAL PROTOCOL / SAFETY CHECKLISTProcedure to be performed: Cystoscopy and Stent ExtractionSign in Communication: CompletedTime Out: Team Confirms the Correct Patient, Correct Procedure, CorrectSite and Site Marking, Correct Position (if applicable).Sign Out Discussion: Erlinda ZendejasOST PROCEDURE NURSE ASSESSMENTPresent along with physician during procedure exam. Page Zendejasrocedure/Indication: Cystoscopy and Stent ExtractionInstruction sheet given and reviewed and patient verbalizes understanding:yesPost Procedure Antibiotic: noneCurrent pain intensity is 0 on a 0-10 pain scale.Page Anderson MaAMBULATORY PATIENT EDUCATIONTHE FOLLOWING WAS EVALUATEDMotivation To Learn: InterestedFamily/Significant Other Support: Unable to assess - Family not presentCognitive Ability: Alert/OrientedMethod of Instruction: Individual instructionWritten instruction - handoutsVerbal instructionThe Following Influencing Factors Were Barriers To This Education Session:NoneThe Following Physical Limitations Were Barriers To This EducationSession: NoneInstruction Provided To: PatientInterpreter Present: not applicableDiscipline: NursingLearning Topic: SURVIVAL SKILLS: Complication PreventionPatient Evaluation: Verbalizes understanding: YesSupplemental Material Given: NoneInstructed By Page Anderson Ma In Department Urology .Medications Discontinued During This Encounter lidocaine urojet (XYLOCAINE, GLYDO) * 10 mL 0 08/16/2017 08/16/2017 Route: URETHRAL Sig: Insert 10 mL into the urethra one time only for 1 dose. Instill contents into urethra 5-10 minutes prior to HOPS endoscopy procedure Disc: Course of therapy completedDisposition: Return in about 4 weeks (around 09/13/2017) for Litholink; f/u 4 wk w Cat w WARREN/hina, discuss Litholink, and HANDP for left PCNL.Follow-up and Disposition History RecordedLetter TextTHE LAKEHEALTH BEACHWOOD MEDICAL CENTERUROLOGICAL INSTITUTEAFTER YOUR STENT EXTRACTIONYou have undergone a cystoscopy. Your doctor has inserted a telescope intoyour urinary bladder through your urethra to view the inside of your bladderand/or urethra.WHAT TO EXPECT * Possible burning during urination and/or blood-tinged urine.WHAT TO DO * Resume normal activity and medications. * Drink 6-8 glasses of fluid each day for 3 days to help flush yoururinary system.MEDICATIONS * If an antibiotic is prescribed, take it until ALL the medicationis gone. (If you miss a dose, continue when you remember and finish themedication completely.) * Other medication instructions: as prescribedWHEN TO CALL THE DOCTOR * If you have a fever over 100* Fahrenheit. * If you are unable to urinate. * If blood clots form in your urine. * If your urine becomes very bloody and does not clear with drinkingextra fluids.Between the hours of 9AM and 5PM call your doctor's office:Dr. Polly Torres M.D., Office Phone #: [phone] 5 PM and on weekends for [facility] [place] physicians only:Call [phone] and ask for the urologist coke oven mason. The doctor will needto know that you have had a cystoscopy and what symptoms you are having. Status:Closed by POLLY TORRES MD on 08/16/17 Normal [facility] PROGRESSon 08-16-2017 Protein mass conc HNO ID: [id number]: Polly Leiervice: (none)Author Type: PhysicianType: Progress NotesFiled: 08/16/2017 1:27 PMNote Text:CYSTOSCOPY PROCEDUREM.D.'S HOPS NOTEPertinent History and Physical Exam reviewed and is unchanged.Primary Diagnosis: NephrolithiasisProcedure: Stent ExtractionInformed Consent Discussed: Yes. Risks, benefits, alternatives andpersonnel discussed with patient who consents to proceed.Audible Time-Out: YesDetails of Procedure:TECHNIQUE: The procedure was fully explained to the patient, risks werereviewed. The patient was placed in the supine position. The genitaliawere prepped with antiseptic soap per protocol, and the urethra wasanesthetized with viscous 2% lidocaine. The flexible cystoscope wasintroduced into the urethra and advanced under direct vision with findingsas outlined below. At the conclusion of the procedure, the cystoscope waswithdrawn.Anesthetics given: 10 cc 2% Lidocaine-UrethralOperative Findings Urethra: Normal Prostate: Occlusive Bladder: Right stent removed with difficulty; it was necessary tountangle the coils of the left and right stents to avoid dislodging theleft one while removing the right one; Rechecked with flex cystoscope andleft stent still in good position.Radiologic Studies CT: N/A Urogram: N/A Urethrogram: N/A Cystogram: N/A Retrograde Pyelogram(s): None Ultrasound: None KUB: NoneComplications: NoneRecommendations: Discussed findings with patient, RTC in 4-6 wk for f/u(call me if probs), KUB at F/U, Renal Ultrasound at F/U, Complete 24 hrurine stone panel prior to F/U and set up for left PCNL in about 6 wk;Comments: well-tolerated;Post Procedure Evaluation Condition Post Procedure: satisfactory Post Procedure Medications: NoneMark Torres, MDDirector, Surgical Stone DiseaseUnc Health [facility]rologic [facility] HospitalPager [phone]/16/2017 Normal [facility] ANES Ambrocio 08-01-2017 ANES POST HNO ID: [id number] thor: Parrish Flaherty: (none)Author Type: AnesthesiologistType: Anesthesia PostOpFiled: 08/01/2017 2:46 PMNote Text:POST ANESTHESIA EVALUATION NOTESERVICE DATE: 08/01/2017SERVICE TIME: 1444DOB: 1970Vitals: 08/01/1813Temp: 36.5 ?C (97.7 ?F) 36.3 ?C (97.3 ?F) 08/01/18137BP: 153/70 157/77 08/01/1813Pulse: 85 84 08/01/1813Resp: 16 20 05/23/999960 05/23/354145ZmJ8: 94% 96%Validated Vital Signs: YesPOST ANES STATUS: No apparent anesthetic complications. The patient isappropriately hydrated with stable respiratory and cardiovascular status.Patient has safe and adequate airway control. The patient has appropriatepain relief and no significant post operative nausea or vomiting. Thepatient has achieved baseline mental status.Further assessment by Anesthesia Service: NoneOther Remarks:SIGNATURE: Parrish Umana MD PATIENT NAME: Joe DavidDATE: August 01, 2017 : 2:45 PM PAGER/CONTACT #: [phone] Normal [facility] Calculi Analysison 8 Calculus Type STONE Normal [facility] Comment on above: Performed By: #### CBCDIF, CMP, URIC, PT HI, VITD ####[facility] [address] [place], [place] [phone] Note (NOTE) Normal [facility] Comment on above: Result Comment: Calculus Color: BROWNCal culus Size & Weight: MULTIPLE PIECES, 0.0798 GRAMSComposition: CALCIUM PHOSPHATE - 60% CALCIUM OXALATE DIHYDRATE - 30% MINOR COMPONENTS - 10%This test was developed and its performance characteristicsdetermined by the [facility] Pathology andLaboratory Medicine Jensen ([facility]).It has not been cleared or approved by the FDA.[facility] is regulated under CLIA as qualified to performhigh-complexity testing.This test is used for clinical purposes. It should not be regarded asinvestigational or for research. Performed By: #### C BCDIF, CMP, URIC, PTHI, VITD ####[facility] [address] [place], [place] [phone] NURSING PROGon 08-01-2017 Protein mass conc HNO ID: [id number]: Adriana (Rn) MITCH Sheffieldervice: NursingAuthor Type: Registered NurseType: Nursing Progress NoteFiled: 08/01/2017 6:21 PMNote Text:PATIENT EDUCATION TOPIC: SURVIVAL SKILLS: Symptom ManagementPATIENT NAME: Joe DavidMRN: [id number] LOCATION: [place] [address]READINESS TO LEARNCOGNITIVE ABILITY: Alert and orientedMOTIVATION TO LEARN: EagerFAMILY SUPPORT: High - Very involved in pt careINSTRUCTION PROVIDED TO: Patient and family memberPATIENT LEARNS BEST BY: Written Instruction - Hand-outsVerbal InstructionFACTORS AFFECTING LEARNING: NonePHYSICAL LIMITATIONS AFFECTING LEARNING: NoneLEARNING RESPONSEDIAGNOSIS: ADULT: Well AdultPATIENT/FAMILY RESPONSE: Verbalizes understanding of: QOQZ-NABBDOLZZVMJZHFJULDBX-Ndtfabo actions to take to reduce postoperative complicationsPOST-PROCEDURE INSTRUCTIONS-Correct actions to take to reduce postprocedure complicationsMETHOD OF INSTRUCTION: Written instruction - handoutsVerbal instructionFOLLOW-UP PLAN: Follow up phone call.INSTRUCTIONAL AIDS USED: NASUPPLEMENTAL MATERIAL PROVIDED TO PATIENT: NoneREFERRAL (RECOMMENDATION): NoneElectronically Signed By: Adriana Sheffield RN [facility] Protein mass conc HNO ID: [id number]: Adriana (Rn) MITCH Sheffieldervice: NursingAuthor Type: Registered NurseType: Nursing Progress NoteFiled: 08/01/2017 6:08 PMNote Text:Pt has voided 125cc (around 60 twice). PVR is 50 from bladder scan Del paged to advise [facility] Protein mass conc HNO ID: [id number]: Cat Adhikari (Rn) MITCH Torreservice: NursingAuthor Type: Registered NurseType: Nursing Progress NoteFiled: 08/01/2017 11:47 AMNote Text:PRE OP LEARNING ASSESSMENTPROCEDURE/SURGERY: SURGERY: logisticsREADINESS TO LEARNCOGNITIVE ABILITY: Alert and orientedMOTIVATION TO LEARN: InterestedFAMILY SUPPORT: High - Very involved in pt carePATIENT LEARNS BEST BY: Verbal InstructionFACTORS AFFECTING LEARNING: NonePHYSICAL LIMITATIONS AFFECTING LEARNING: NoneElectronically Signed By: Boom Torres RN In Department: HOSP [id number] [facility] OPERATIVE NOon 08-01-2017 OPERATIVE NO HNO ID: [id number] thor: Polly YoonbleService: UrologyAuthor Type: PhysicianType: Operative ReportFiled: 08/02/2017 7:41 AMNote Text:OPERATIVE/PROCEDURE REPORTLOG ID: [id number]/Procedure Date: 08/01/2017Incision/Procedure Start Time: 1:21 PMIncision Close/Procedure End Time: 2:11 PMSurgeon(s)/Proceduralist(s) and Senior Research Analyst(s):Surgeon(s) and Role: * Polly Torres - Primary * Nestor (Daisha) June - Resident - Assisting * Armani ([place]) Ayanna - FellowProcedure(s):Cystoscopyright Ureteroscopy with laser lithotripsy and basket of stoneInsertion of right indwelling 7 Fr x 26cm JJ ureteral stentLeft ureteral stent exchange 7 Fr x 28cm JJPhysician fluoroscopy time <1hrAnatomic Site:Kidney, Laterality: BilateralUreter, Laterality: BilateralApproach: EndoscopicAnesthesia: GeneralOperative Indications: This is a 46 year old year old male with a right1.2 cm distal ureteral stone and a left 2.2 cm UPJ stone and bilateralureteral stents placed in another hospital, who after discussing therisks, benefits, and alternatives of the procedure has elected to pursuemanagement of their condition via the aforementioned surgery.Procedure Details:The patient was correctly identified and the operative plan was confirmedwith the patient and the operative team. A weight appropriate dose ofprophylactic antibiotics was administered intravenously prior to theprocedure and sequential compression devices were applied to the lowerextremities and activated prior to induction of anesthesia.The patient was placed in the dorsal lithotomy position. Generalanesthesia was induced. All pressure points were padded per protocol andthe operative area was prepped and draped in the standard sterile fashion.The panendoscope was inserted after dilating the patient's very tighturethral meatus and the bladder was surveyed with the 30 degree lens. Theureteral orifices were noted to be in orthotopic position and withoutgrowths and without hematuria. The remainder of the bladder mucosa wasnoted to be normal without erythema, lesions, or trabeculations.The Right ureteral orifice was identified and the pre placed ureteralstent was grasped at the tip and brought out and canulated with 0.035stiff shaft glidewire; the old stent was removed and discarded and thewire clipped to the drape as a safety. A 14 Fr. valdes was placed to keepthe bladder decompressed. A semirigid ureteroscope was then used tovisualize the stone that was impacted in the lower right ureter.This wasbroken with the holmium laser 200 micron fiber and basketed out. A second0.035 stiff shaft glidewire was introduced via the scope to kidney underfluoroscopic guidance. The semi rigid scope was removed. One of thesewires was clamped to the drape as a safety wire and the other kept as aworking wire. At this point, over one of the the wires a 13/15 Fr by 46 cmureteral access sheath was placed up to the UPJ. A flexible ureteroscopewas then inserted. There were no stones visible in any of the calyces.Thescope and sheath were removed and a 7 Fr x 26cm JJ ureteral stent wasplaced with position confirmed fluoroscopically in the pelvis and in thebladder. Cystoscopy revealed a few stone fragments in the bladder whichwere irrigated out. The bladder was emptied and the scope and all wiresremoved. Stone fragments were submitted for chemical stone analysis. Thenagain using the rigid cystoscope the pre placed left ureteral stent tipwas grasped and brought to the outside and was cannulated with a 0.035stiff Glidewire all the way to the left kidney. A new 7 Fr x 28 cm JJstent was then placed again under fluroscopy guide and have curls in thekidney and bladder. The patient was awakened from anesthesia and taken tothe recovery room in stable condition. It should be noted that perpre-operative discussion, the patient and spouse were informed that if theright stone was complex in its removal (and it was) that the left stoneremoval via percutaneous approach would be deferred to a separate date andthey had understood and agreed pre-operatively.Pre-Op/Pre-Procedu re Diagnosis: Pre-Op Diagnosis Codes: * Calculus of kidney [N20.0]Post-Op/Post-Procedure Diagnosis: Post-Op Diagnosis Codes: * Calculus of kidney [N20.0]Estimated Blood Loss: 3 mlsSpecimens: Kidney stones for analysisSpecimen ID Type Site Comments Sent Tostone 1 Stone RIGHT ureteral stones for analysis; to PACU with pt OtherDrains: 20 coude tip Valdes catheterImplantable Devices: bilateral Indwelling 7 Fr. X 26cm JJ ureteral stenton right and 7 Fr x 28 cm on the leftComplications: NoneQualifier: NoneThe primary surgeon/proceduralist performed the procedure with assistance.SIGNATURE: Armani Urena MD PATIENT NAME: Joe DavidDATE: August 01, 2017 : 2:56 PM PAGER/CONTACT #: [phone] Paganirector, Surgical Stone Disease, [facility] InstituteProfessor of Surgery, [facility] CenterPager [phone]/02/2017 [facility] PLAN OF CAREon 08-01-2017 PLAN OF CARE HNO ID: [id number] thor: Karina Yepez (Amplifinity)Service: (none)Author Type: (none)Type: Plan of CareFiled: 08/01/2017 5:25 PMNote Text:PHARMACY BEDSIDE DELIVERY SERVICEPatient Name: Joe DavidMRN: [id number] marked outpatient medications were Filled at: [facility] anddelivered to the patient's bedside to ptMedication ListSTART taking these medicationsdocusate sodium 100 mg capsule xCommonly known as: COLACETake 1 capsule by mouth twice daily.oxyCODONE-acetaminophen 5-325 mg tablet xCommonly known as: PERCOCETTake 1 tablet by mouth every 8 hours as needed for Pain for up to 7 days.CONTINUE taking these medicationsallopurinol 100 mg tabletCommonly known as: ZYLOPRIMTake 1 tablet by mouth once daily.carvedilol 25 mg tabletCommonly known as: COREGCephalexin 500 mg TabhydrALAZINE 100 mg tabletCommonly known as: APRESOLINETYLENOL EXTRA STRENGTH 500 mg tabletGeneric drug: acetaminophenYou might also be taking other medications not listed above. If you havequestions about any of your other medications, talk to the person whoprescribed them or your Primary Care Provider.Karina Yepez (Amplifinity)PAGER: [phone] 2017 4:33 PM [facility] PLAN OF CARE HNO ID: [id number] thor: Karina Yepez (Amplifinity)Service: (none)Author Type: (none)Type: Plan of CareFiled: 08/01/2017 3:20 PMNote Text:[facility] BEDSIDE DELIVERY SURVEY1. Patient to use [facility] Bedside Delivery - YES2. If fax, patient would like us to fax prescriptions to Pharmacy ofchoice a. Pharmacy: b. Location: c. Phone:3. Insurance card on file - YES4. Credit card for payment - YESNo prescriptions yet. Please page [phone] upon discharge[address] [facility] PLAN OF CARE HNO ID: [id number] thor: Karina Yepez (Amplifinity)Service: (none)Author Type: (none)Type: Plan of CareFiled: 08/01/2017 3:18 PMNote Text:Pharmacy Discharge Medication Service:This patient [facility]. Theprescriptions are currently being processed. A follow-up note will beentered once the prescriptions have been filled and delivered to thepatient. Please contact me with any questions or updates to the patient'sdischarge medications.Karina Yepez (Amplifinity)DCT Contact Info: [phone] [facility] PROGRESSon 08-01-2017 Protein mass conc HNO ID: [id number]: Nestor Solizervice: UrologyAuthor Type: ResidentType: Progress NotesFiled: 08/01/2017 2:21 PMNote Text:BRIEF OPERATIVE / PROCEDURE NOTELOG ID: [id number]/PROCEDURE DATE: 08/01/2017INCISION/PROCEDURE START TIME: 1:21 PMINCISION CLOSE/PROCEDURE END TIME: 2:11 PMSURGEON(S)/PROCEDURALIST(S) AND MIRROR FABRICATION SUPERVISOR(S):Surgeon(s) and Role: * Polly Torres - Primary * Nestor Watkins - Resident - Assisting * Armani Urena (Fel) - FellowNo Additional StaffSURGERY/PROCEDURE(S):1. Cystoscopy2. Bilateral ureteral stent removal3. Bilateral ureteral stent replacement4. Right semirigid ureteroscopy with laser lithotripsy5. Right ureteral stone basketing6. Right retrograde pyelography7. Right physician fluoroscopy interpretation <1hrANESTHESIA: GeneralFINDINGS:-10mm right impacted mid ureteral stone with moderate ureteral edema andtrauma-Decision made to forego left PCNL given extent of right ureteral work andconcern for complications given comorbidities-Left ureteral stent successfully exchangedESTIMATED BLOOD LOSS: 2 mlsSPECIMENS:Specimen ID Type Site Comments Sent Jabier 1 Stone RIGHT ureteral stones for analysis; to PACU with pt OtherCOMPLICATIONS: NonePRE-OP/PRE-PROCEDURE DIAGNOSIS: NephrolithiasisPOST-OP/POST-PROCED URE DIAGNOSIS: SameSIGNATURE: Nestor Watkins MD, PhD PATIENT NAME: Joe DavidDATE: August 01, 2017 : 2:19 PM PAGER/CONTACT #: [phone] [facility] PT EDon 08-01-2017 PT ED HNO ID: [id number] thor: Neha (Rn) Francia, MITCHervice: NursingAuthor Type: Registered NurseType: Patient EducationFiled: 08/01/2017 5:23 PMNote Text:PATIENT EDUCATION TOPIC: PROCEDURE / SURGERY: Post-op Teaching: SymptomManagementPATIENT NAME: Joe DavidMRN: [id number] LOCATION: [place] [address]READINESS TO LEARNCOGNITIVE ABILITY: Alert and orientedMOTIVATION TO LEARN: InterestedFAMILY SUPPORT: High - Very involved in pt careINSTRUCTION PROVIDED TO: Patient and family memberPATIENT LEARNS BEST BY: Written Instruction - Hand-outsVerbal InstructionFACTORS AFFECTING LEARNING: NonePHYSICAL LIMITATIONS AFFECTING LEARNING: NoneLEARNING RESPONSEDIAGNOSIS: ADULT: Procedure(s):Cystoscopyright Ureteroscopy with laser lithotripsy and basket of stoneInsertion of right indwelling 7 Fr x 26cm JJ ureteral stentLeft ureteral stent exchange 7 Fr x 28cm JJPhysician fluoroscopy time <1hrPATIENT/FAMILY RESPONSE: Information received as demonstrated byinterest and questionsMETHOD OF INSTRUCTION: Written instruction - handoutsVerbal instructionFOLLOW-UP PLAN: Patient instructed to call with any further issuesRecommend - Recommend continued instruction and follow up as directedFollow up phone call.Contact information given.INSTRUCTIONAL AIDS USED: NASUPPLEMENTAL MATERIAL PROVIDED TO PATIENT: Post op discharge instructionsREFERRAL (RECOMMENDATION): NoneElectronically Signed By: Neha Feldman RN [facility] CNOVon 07-27-2017 CNOV Office Visit (PSSCMN) JOE DAVID ([id number]) 1970 MDate Time Provider Department07/27/17 9:00 AM [facility] During your visit today, we recorded the following information about you: Pulse Blood pressure Weight Height 83/minute 159/85 152 kg 1.753 MINDY Boyd 07/27/2017 9:23 AM SignedANESTHESIA PRE-OPERATIVE ASSESSMENT (PACE)SERVICE DATE: 07/27/2017SERVICE TIME: 0853ASSESSMENT AND PLAN:Joe David is a 46 year old male scheduled for Left PercutaneousNephrolithotomy per Informed Consent in [facility] on 08/01/17.PMH:1. Renal calculus (is s/p stent placement 3-4 wks ago)2. HTN on carvedilol and hydralazine3. CHRISTOPHER on CPAP (provides adequate relief)4. Morbid Obesity5. May be difficult mask ventilation: CHRISTOPHER, thick neck, large beardHealthQuest: 4FC: IIMETS: Walk a block or two on level ground (2.75 METs)Do moderate work around the house such as vacuuming, sweeping floors, orcarrying in groceries (3.50 METs)Do yardwork, such as raking leaves, weeding,or pushing a power mower (4.50 METs)Climb a flight of stairs or walk up a hill (5.50 METs)ADDITIONAL DISCUSSION WITH PATIENT: Discussed with patient the possibilities of invasive monitoring, blood loss or possibiltiy of prolonged ICU stay andintubation.Patient WILL accept blood products.BLOOD WORK/PRODUCTS ORDERED: Type and Screen , Con ABOHISTORY OF CHRONIC PAIN: NoPAIN MANAGEMENT OPTIONS: Final pain management plan will be discussed on theday of surgery.ANESTHETIC OPTIONS: Final anesthesia management options will be discussed onday of surgery.PRE-OP PLAN ORDERED: Not ApplicablePatient Instructed:? No solid food or non-clear liquids after midnight. Clear liquids alloweduntil two hours before scheduled arrival.? Patient instructed to take the following medications with a sip of water:Coreg, HydralazineVital Signs:BP 159/85 Pulse 83 Ht 175.3 cm (5' 9.02 ) Wt (!) 152 kg (335 lb 1.6oz) SpO2 95% BMI 49.46 kg/m?BMI 49.46 kg/(m2)Vital signs completed by: IMPACTWeight acquired: per HANDP. Height acquired: per HANDPAirway Exam:MOUTH OPENING/TMJ: Full jaw ROMMICROGNATHIA/OVERBITE: NoMALLAMPATI SCORE is CLASS IVUPPER LIP BITE TEST: Class II - Lower incisors can bite the upper lip below thevermillion lineDENTITION: Chipped, loose, and/or missing - right lower jaw, left upper jawTHYROMENTAL DIST: WNLSHORT NECK: NoNECK CIRCUMFERENCE >40 cm: Appears > than 40 CMNECK FLEX: Full ROMNECK EXTENSION: Full ROMAIRWAY HISTORY: No abnormal airway historyARKS AIRWAY DETAIL:N/ADATA:EKG READING: Confirmed - 07/24/17OTHER TESTS: N/A Lab Value Units Date High Low HB 13.2 g/dL 07/24/2017 17.0 13.0 HCT 41.2 % 07/24/2017 51.0 39.0 WBC 8.12 k/uL 07/24/2017 11.00 3.70 PLT 372 k/uL 07/24/2017 400 150 NA 139 mmol/L 07/24/2017 144 136 K 4.0 mmol/L 07/24/2017 5.1 3.7 GLUC 90 mg/dL 07/24/2017 99 74 BUN 22 mg/dL 07/24/2017 24 9CREAT 1.78 mg/dL 07/24/2017 1.22 0.73 PTSEC No results within date range. INR No results within date range. APTT No results within date range. ALT 12 U/L 07/24/2017 54 10AST 10 U/L 07/24/2017 40 14 TBILI 0.4 mg/dL 07/24/2017 1.3 0.2 TSH No results within date range. Lab Value Units Date High Low HCGQT No results within date range. UHCG No results within date range. HCG, BODY* No results within date range. ABORHD O POSI* no uni* 07/24/2017 ABSCREEN NEG no uni* 07/24/2017HBA1C: No results found for: HBA1C)Patient accompanied by selfCase Discussed with Dr. GeorgePTIMIZATION STATUS: Patient optimized for OR, pending DOS review.SIGNATURE: MINDY Celeste PATIENT NAME: Joe DavidDATE: July 27, 2017 : 9:15 AM PAGER/CONTACT #:Referring Provider: POLLY TORRES [[id number]]Allergies As of Date: 07/27/2017 Noted Allergy ReactionCODEINE 07/24/2017 4 - HivesDate Reviewed: 07/27/2017Reviewed by: Stacia Toussaint) Mary - Fully AssessedPrimary Visit Diagnosis:Pre-op evaluation [Z01.818]Prescriptions as of 07/27/2017 Sig: ACETAMINOPHEN 500 MG TABLET Take 1,000 mg by mouth as nee* ALLOPURINOL 100 MG TABLET Take 1 tablet by mouth once d* HYDRALAZINE 100 MG TABLET Take 100 mg by mouth twice da* CARVEDILOL 25 MG TABLET Take 25 mg by mouth three randall* CEPHALEXIN 500 MG TABLET Take by mouth. Take one(1) ta*Problem List As Of Date 07/27/2017 Noted Resolved Calculus of kidney [N20.0] INVALID FOR* CPAP (continuous positive airway pressure) depe*INVALID FOR* CHRISTOPHER (obstructive sleep apnea) [G47.33] INVALID FOR* Gastroesophageal reflux disease without esophag*INVALID FOR* Essential hypertension [I10] INVALID FOR* Former smoker [Z87.891] INVALID FOR* BMI 50.0-59.9, adult (HCC) [Z68.43] INVALID FOR* Calculus of ureter [N20.1] INVALID FOR* Abnormal urinalysis [R82.90] INVALID FOR* Family history of diabetes mellitus [Z83.3] INVALID FOR* Family history of prostate cancer [Z80.42] INVALID FOR* Family history of nephrolithiasis [Z84.1] INVALID FOR* Hyperuricemia [E79.0] INVALID FOR* Low vitamin D level [E55.9] INVALID FOR* Status:Closed by STACIA FRIEDMAN on 07/27/17Chart Close Cosign Required by: Jurgen Emerson[] [facility] CNOV Office Visit (IMPAMN) JOE DAVID ([id number]) 1970 MDate Time Provider Department07/27/17 7:45 AM SHOSHANA ESTEVES During your visit today, we recorded the following information about you: Temperature Pulse Blood pressure Weight 97.9 degrees 83/minute 159/85 152 kg Height 1.753 Ana Esteves MD 07/27/2017 8:22 AM Chet David is a 46 year old male [facility]: Dr. Townsend of Surgery: 08/01/2017Planned Surgery/Procedure: PERCUTANEOUS NEPHROLITHOAllergies have been reviewed and verified. They include the following:CodeineSocial HistorySubstance Use Topics- Smoking status: Not on file- Smokeless tobacco: Not on file- Alcohol use Not on fileMedications reviewed and updated: Jeronimo Esteves MD 07/27/2017 8:22 AM SignedHISTORY AND PHYSICAL EXAMINATION (IMPACT)SERVICE DATE: 07/27/2017SERVICE TIME: 8:02 [facility] CARE PHYSICIAN: Onel Coffey [facility] COMPLAINT/HISTORY OF PRESENT ILLNESS:Mr. David is a 46 year old male referred to me for preoperative evaluation. Myfinal recommendations will be communicated back to the requestingphysician/surgeon by the way of the shared medical record.Referring Surgeon: Dr. Townsend of Surgery: 08/01/2017Planned Surgery/Procedure: PERCUTANEOUS NEPHROLITHOTOMYLaterality Anesthesia Op RegionLeftIndication for Planned Surgery / Procedure: BKidney stones, multiple URS inthe past with B stents placed 4 weeks ago.Patient is Able to Perform the Following Physical Activity:Climb a flight of stairs or walk up a hill (5.50 METs)Significant Anesthesia Considerations: None and Didn't get sick but was givenanti-emetic prior to surgery . PAST MEDICAL/SURGICAL/FAMILY/SOCIAL HISTORYNo past medical history on file.No past surgical history on file.No family history on file.SOCIAL HISTORYSocial History Marital status: Spouse name: Years of education: Number of children:Social History Main Topics Smoking status: Former Smoker Packs/day: 1.00 Years: 24.00 Types: Cigarettes Quit date: 07/27/2013 Smokeless tobacco: Former User Types: Snuff Quit date: 07/28/2011MEDICATIONS/ALLERGIESCurr ent Outpatient Prescriptions:acetaminophen (TYLENOL EXTRA STRENGTH) 500 mg tablet Take 1,000 mg by mouth asneeded for Pain. Disp: Rfl:allopurinol (ZYLOPRIM) 100 mg tablet Take 1 tablet by mouth once daily. Disp:90 tablet Rfl: 3carvedilol (COREG) 25 mg tablet Take 25 mg by mouth three times daily. Disp:Rfl:Cephalexin 500 mg tab Take by mouth. Take one(1) tablet daily. Disp: Rfl:ergocalciferol, vitamin D2, (VITAMIN D) 50,000 unit capsule Take 1 capsule bymouth once each week. (Patient not taking: Reported on 07/27/2017) Disp: 12 capsule Rfl: 1hydrALAZINE (APRESOLINE) 100 mg tablet Take 100 mg by mouth twice daily. Disp:Rfl:No current facility-administered medications for this visit.ALLERGIESAllergen Reactions- Codeine HivesREVIEW OF SYSTEMSGeneral: No weight loss, malaise or fevers.Neuro: No history of TIA's, stroke, ENTRY LEVEL FINANCE tumor, impaired sensorium, hemiplegia,paraplegia or quadriplegia. No neurological symptoms or problems.Respiratory: Obstructive Sleep Apnea (on CPAP)Cardiovascular: HypertensionGI: No history of GI symptoms or problems. No history of esophageal varices,recent ascites, or ETOH greater than 2 drinks per day.: UTI < 6 weeksEndocrine: No history of diabetes. Has not taken steroids within the past 30days. No history of endocrinological symptoms or problems.Hematology: No history of bleeding or clotting disorder. No history ofhematological symptoms or problems.Oncology: No history of CA metastasis, chemo within 30 days, or radiotherapywithin 90 days. No history of oncological symptoms or problems.Psych: No history of psychiatric symptoms or problems.Skin: Negative for lesions, rash, and itching.PHYSICAL EXAMVITALS: BP 159/85[MD notified[ Pulse 83 Temp (Src) 97.9 (Oral) Ht 5' 9 (1.75m) Wt 335 lb (152.0kg) SpO2 95% BMI 49.45 kg/(m2).Last 14 BPLast 14 Encounter BP Readings: Date: BP: 07/27/2017 159/85[MD notified[ 07/24/2017 175/99General: Alert and orientedSkin: Normal color, no rash, no lesions.HEENT: EOM, pupils equal, round and reactive.Cardiovascular: Normal S1 AND S2, no rubs, murmurs or gallops. No JVD. Pulseregular.Lungs: Normal breath sounds, no wheezes or crackles.Abdomen: Soft, non-tender, no rigidity.Extremities: No deformity, no edema or tenderness, no joint swelling orclubbing.Neurological: Normal cognition and motor skills.Pulses: Carotid and radial pulses normal +2.ASSESSMENTMrLinda David is a 46 year old male referred to me for preoperative evaluation.Patient has the following medical comorbidities which might affect theperioperative course:- Hypertension, uncontrolled - bp meds taken but has been normal in recentvisits with PCP and dose just adjusted- Patient is overweight related to- Patient with sleep apnea and uses CPAP.Patient's RCRI (Revised Cardiac Risk Index: CAD/CHF/Stroke or TIA/SCr>2/DM onInsulin/High Risk Surgery) score is 0 and is at low risk for major adversecardiac events in the perioperative period.Diagnostic tests reviewed for today's visit:Most recent labsComponent Latest Ref Rng AND Units 07/24/2017WBC 3.70 - 11.00 k/uL 8.12RBC 4.20 - 6.00 m/uL 4.34Hemoglobin 13.0 - 17.0 g/dL 13.2Hematocrit 39.0 - 51.0 % 41.2MCV 80.0 - 100.0 fL 94.9MCH 26.0 - 34.0 pG 30.4MCHC 30.5 - 36.0 g/dL 32.0RDW-CV 11.5 - 15.0 % 13.0Platelet Count 150 - 400 k/uL 372MPV 9.0 - 12.7 fL 8.8 (L)Neut% % 71.5Abs Neut (ANC) 1.45 - 7.50 k/uL 5.80Lymph% % 19.8Abs Lymph 1.00 - 4.00 k/uL 1.61Mono% % 6.0Abs Island <0.87 k/uL 0.49Eosin% % 1.6Abs Eosin <0.46 k/uL 0.13Baso% % 1.1Abs Baso <0.11 k/uL 0.09Nucleated Reds 0 /100 WBC 0.0Absolute nRBC <0.01 k/uL <0.01Diff Type Auto DiffProtein, Total 6.3 - 8.0 g/dL 7.6Albumin 3.9 - 4.9 g/dL 4.6Calcium 8.5 - 10.2 mg/dL 9.5Bilirubin, Total 0.2 - 1.3 mg/dL 0.4Alkaline Phosphatase 36 - 108 U/L 54AST 14 - 40 U/L 10 (L)Glucose 74 - 99 mg/dL 90BUN 9 - 24 mg/dL 22Creatinine 0.73 - 1.22 mg/dL 1.78 (H)Sodium 136 - 144 mmol/L 139Potassium 3.7 - 5.1 mmol/L 4.0Chloride 97 - 105 mmol/L 101CO2 22 - 30 mmol/L 25Anion Gap 9 - 18 mmol/L 13ALT 10 - 54 U/L 12eGFR- 50eGFR-All Other Races . 41ABO/RH(D) O POSITIVEOrder Type Blood Bank Blood BankPTH, Intact 15 - 65 pg/mL 60Vitamin D 25 Hydroxy 31.0 - 80.0 ng/mL 9.7 (L)Uric Acid 4.0 - 8.1 mg/dL 9.3 (H)Most recent EKG: normal sinus rhythm, normal axis, normal intervals, reviewedby myself.PLAN/RECOMMENDATIONSCARDIAC : Patient is at optimal cardiac condition for scheduled surgery / procedure.PULMONARY: Suggest the following in the post-operative period: Aggressivebronchopulmonary hygiene, CPAP/BiPAP at home setting (advised patient to bringtheir CPAP/BiPAP machine/mask), Minimize sedation/opioids as patient has OSAand Early ambulationVASCULAR/ANTICOAGULATION : VTE prophylaxis as deemed appropriate by the surgical service.Patient is optimally prepared for surgery.Patient Instructions: As per patient instructions section.I have discussed the above recommendations with the patient in detail, in frankand lay terms, and provided a written summary of instructions as needed. Wehave discussed that no surgery is without risk, but that the goal ofpreoperative assessment is to optimize that risk, and that was clearlyunderstood by the patient. I have given ample opportunity for the patient toask questions, and answered all questions to their stated satisfaction.SIGNATURE: Shoshana Esteves MD PATIENT NAME: Joe DavidDATE: July 27, 2017 : 8:02 AMShoshana Esteves MD 07/27/2017 8:21 AM Signed [facility]ITALPatient Instructions for SurgeryFOOD INSTRUCTIONS:NO solid food or non-clear liquids for 8 hours prior to the arrival time foryour surgery. Unless you are instructed otherwise, you are allowed to drink upto 12 ounces of clear liquids (e.g. water, black tea/coffee, fruit juicewithout pulp, Baldo Celestina, etc.) up until 2 hours prior to the arrival time forsurgery.MEDICATION INSTRUCTIONS: Prior to Surgery:Do not take the following medications for 7 days prior to surgery: - any NSAID's (e.g. Motrin, Aleve, Arthrotec, Naproxen,etc) - any herbal preparations - Aspirin or aspirin containing productsDo not take any Vitamin E / multivitamins for 10-14 days before surgeryYou are allowed to take Tylenol if needed until the day of surgery.Please bring your inhalers and or CPAP/BiPAP machine and mask when you come foryour surgery.MEDICATION INSTRUCTIONS: Day/Morning of Surgery:The following medications should be taken with sips of water: Carvedilol(Coreg) and HydralazineIf you have any questions or concerns regarding today's visit please do nothesitate to contact the [facility] at [phone] or [phone], [phone].Signature: MARTHA Christineate: July 27, 2017Referring Provider: POLLY TORRES [[id number]]Allergies As of Date: 07/27/2017 Noted Allergy ReactionCODEINE 07/24/2017 4 - HivesDate Reviewed: 07/27/2017Reviewed by: Rosana Romero Ma - Fully AssessedPrimary Visit Diagnosis:Pre-operative examination [Z01.818] Other Visit Diagnoses:Calculus of kidney [N20.0] CHRISTOPHER (obstructive sleep apnea) [G47.33] Essential hypertension [I10]Prescriptions as of 07/27/2017 Sig: ACETAMINOPHEN 500 MG TABLET Take 1,000 mg by mouth as nee* ALLOPURINOL 100 MG TABLET Take 1 tablet by mouth once d* CARVEDILOL 25 MG TABLET Take 25 mg by mouth three randall* CEPHALEXIN 500 MG TABLET Take by mouth. Take one(1) ta* HYDRALAZINE 100 MG TABLET Take 100 mg by mouth twice da*Problem List As Of Date 07/27/2017 Noted Resolved Calculus of kidney [N20.0] INVALID FOR* CPAP (continuous positive airway pressure) depe*INVALID FOR* CHRISTOPHER (obstructive sleep apnea) [G47.33] INVALID FOR* Gastroesophageal reflux disease without esophag*INVALID FOR* Essential hypertension [I10] INVALID FOR* Former smoker [Z87.891] INVALID FOR* BMI 50.0-59.9, adult (HCC) [Z68.43] INVALID FOR* Calculus of ureter [N20.1] INVALID FOR* Abnormal urinalysis [R82.90] INVALID FOR* Family history of diabetes mellitus [Z83.3] INVALID FOR* Family history of prostate cancer [Z80.42] INVALID FOR* Family history of nephrolithiasis [Z84.1] INVALID FOR* Hyperuricemia [E79.0] INVALID FOR* Low vitamin D level [E55.9] INVALID FOR* Other instructions from your clinician: [facility] Patient Instructions for Surgery FOOD INSTRUCTIONS: NO solid food or non-clear liquids for 8 hours prior to the arrival time for your surgery. Unless you are instructed otherwise, you are allowed to drink up to 12 ounces of clear liquids (e.g. water, black tea/coffee, fruit juice without pulp, Baldo Celestina, etc.) up until 2 hours prior to the arrival time for surgery. MEDICATION INSTRUCTIONS: Prior to Surgery: Do not take the following medications for 7 days prior to surgery: - any NSAID's (e.g. Motrin, Aleve, Arthrotec, Naproxen,etc) - any herbal preparations - Aspirin or aspirin containing products Do not take any Vitamin E / multivitamins for 10-14 days before surgery You are allowed to take Tylenol if needed until the day of surgery. Please bring your inhalers and or CPAP/BiPAP machine and mask when you come for your surgery. MEDICATION INSTRUCTIONS: Day/Morning of Surgery: The following medications should be taken with sips of water: Carvedilol (Coreg) and Hydralazine If you have any questions or concerns regarding today's visit please do not hesitate to contact the [facility] at [phone] or [phone], ext [phone]. Signature: Shoshana Esteves MD Date: July 27, 2017Medications Discontinued During This Encounter ergocalciferol, vitamin D2, (VITAMIN* 12 c* 1 07/26/2017 07/27/2017 Route: ORAL Sig: Take 1 capsule by mouth once each week. Patient not taking: Reported on 07/27/2017 Disc: Reason for discontinue is not on file. Status:Closed by SHOSHANA ESTEVES MD on 07/27/[address] [facility] CT FLANK WO IVCONon 07-28-19 CT FLANK WO IVCON * * *Final Report* * * * SEE BOTTOM OF REPORT FOR ADDENDED TEXT * * *DATE OF EXAM: Jul 27 2017 7:24AM [facility] 0529 - CT FLANK WO IVCON / REASON: multiple diagnoses * * * * Physician Interpretation * * * * * * * * * * * * ORIGINAL REPORT * * * * * * * *EXAMINATION: CT ABDOMEN AND PELVIS WITHOUT IV CONTRAST (Renal stone protocol)CLINICAL HISTORY: Calculus of kidneyTECHNIQUE: Non-contrast imaging of the abdomen and pelvis was performed through the urinary tract. Study performed without intravenous or oral contrast to evaluate for urinary tract calculus.MQ: CTAbdPelvF_1Contrast:IV contrast: NoneOral contrast: NoneCT Radiation dose: Integrated dose-length product (DLP) for this visit = 1696 mGy*cm.CT Dose Reduction Employed: Automated exposure control (AEC)COMPARISON: None.RESULT:Limitations: Unenhanced imaging is limited for the evaluation of some renal and other intra-abdominal and pelvic pathology.Urinary Tract:Right kidney and ureter: 1.0 cm calculus distal right ureter, near iliac crossing (2:116). Moderate upstream hydroureteronephrosis. No other radiopaque calculi. Indwelling right double-J ureteral stent, proximal pigtail in renal pelvis, distal pigtail in urinary bladder.Left kidney and ureter: 2.2 cm calculus at left UPJ, with mild left pelvocaliectasis. No substantial ureterectasis. No other radiopaque calculi. Left double-J ureteral stent, proximal pigtail along left upper pole infundibula, distal pigtail in urinary bladder.Bladder: No calculus.Abdomen and Pelvis:Liver: Nodular hepatic surface contour suggests underlying chronic liver disease/cirrhosis.Biliary: Gallbladder present, unremarkableSpleen: No splenomegaly.Pancreas: Interdigitation of peripancreatic fat along pancreatic tail. No contour deforming mass or ductal dilatation.Adrenals: Mild nodular thickening bilaterally.GI Tract: No bowel dilation. Colonic diverticulosis without acute inflammation. Normal appendix right lower quadrant.Lymph Nodes: No lymphadenopathy.Mesentery/peritone um: Inflammatory retroperitoneal stranding, probably from prior stent manipulation and/or stone migration. No massVasculature: No abdominal aortic aneurysm. Mild atherosclerotic aorta iliac vascular calcification.Pelvis: Coarse central prostatic ulcerations, probably dystrophic. No pelvic soft tissue mass or loculated collection .Bones/Soft Tissues: Degenerative changes. No destructive osseous lesion.Lower thorax: Multiple tiny well marginated cysts in lung bases, overall similar to prior. Some of these demonstrate small vessels coursing through them, and may represent emphysema rather than cystic interstitial lung disease.IMPRESSION:BILATERAL DOUBLE-J URETERAL STENTS IN PLACE. OBSTRUCTING RIGHT DISTAL URETERAL CALCULUS WITH UPSTREAM MODERATE HYDROURETERONEPHROSIS.LARGE LEFT PELVIC CALCULUS WITH MILD PELVOCALIECTASIS.NODULAR HEPATIC SURFACE CONTOUR RAISES POSSIBILITY OF UNDERLYING CHRONIC LIVER DISEASE. CORRELATE CLINICALLY.CHANGES IN LUNG BASES DESCRIBED. * * * * * * * * ADDENDUM #1 * * * * * * * *Addendum:There is also 0.5 cm noncalcified nodule in the left lower lobe, which is similar to prior study. This is not well seen on the prior study, and therefore could be inflammatory in etiology, though follow-up study in 6-12 months may be of value to ensure temporal stability/resolution.-Transcriptio nist: PSCB Transcribe Date/Time: Jul 27 2017 11:30ADictated by : Arleth CARREON examination was interpreted and the report reviewed and electronically signed by: AMALIA FREIRE MD on Jul 27 2017 9:45AM ESTThis document has been addended by: AMALIA FREIRE MD on Jul 27 2017 11:31AM [id number] Normal [facility] HISTORY PHYSICALon 8 HISTORY PHYSICAL HNO ID: [id number] thor: Shoshana Houser: (none)Author Type: PhysicianType: HANDPFiled: 07/27/2017 8:22 AMNote Text:HISTORY AND PHYSICAL EXAMINATION (IMPACT)SERVICE DATE: 07/27/2017SERVICE TIME: 8:02 [facility]IAN: NIKI Rushing COMPLAINT/HISTORY OF PRESENT ILLNESS:Mr. David is a 46 year old male referred to me for preoperative evaluation.My final recommendations will be communicated back to the requestingphysician/surgeon by the way of the shared medical record.Referring Surgeon: Dr. Townsend of Surgery: 08/01/2017Planned Surgery/Procedure: PERCUTANEOUS NEPHROLITHOTOMYLaterality Anesthesia Op RegionLeftIndication for Planned Surgery / Procedure: BKidney stones, multiple URSin the past with B stents placed 4 weeks ago.Patient is Able to Perform the Following Physical Activity:Climb a flight of stairs or walk up a hill (5.50 METs)Significant Anesthesia Considerations: None and Didn't get sick but wasgiven anti-emetic prior to surgery . PAST MEDICAL/SURGICAL/FAMILY/SOCIAL HISTORYNo past medical history on file.No past surgical history on file.No family history on file.SOCIAL HISTORYSocial History Marital status: Spouse name: Years of education: Number of children:Social History Main Topics Smoking status: Former Smoker Packs/day: 1.00 Years: 24.00 Types: Cigarettes Quit date: 07/27/2013 Smokeless tobacco: Former User Types: Snuff Quit date: 07/28/2011MEDICATIONS/ALLERGIESCurr ent Outpatient Prescriptions:acetaminophen (TYLENOL EXTRA STRENGTH) 500 mg tablet Take 1,000 mg bymouth as needed for Pain. Disp: Rfl:allopurinol (ZYLOPRIM) 100 mg tablet Take 1 tablet by mouth once daily.Disp: 90 tablet Rfl: 3carvedilol (COREG) 25 mg tablet Take 25 mg by mouth three times daily.Disp: Rfl:Cephalexin 500 mg tab Take by mouth. Take one(1) tablet daily. Disp: Rfl:ergocalciferol, vitamin D2, (VITAMIN D) 50,000 unit capsule Take 1 capsuleby mouth once each week. (Patient not taking: Reported on 07/27/2017) Disp: 12 capsule Rfl: 1hydrALAZINE (APRESOLINE) 100 mg tablet Take 100 mg by mouth twice daily.Disp: Rfl:No current facility-administered medications for this visit.ALLERGIESAllergen Reactions- Codeine HivesREVIEW OF SYSTEMSGeneral: No weight loss, malaise or fevers.Neuro: No history of TIA's, stroke, ENTRY LEVEL FINANCE tumor, impaired sensorium,hemiplegia, paraplegia or quadriplegia. No neurological symptoms orproblems.Respiratory: Obstructive Sleep Apnea (on CPAP)Cardiovascular: HypertensionGI: No history of GI symptoms or problems. No history of esophagealvarices, recent ascites, or ETOH greater than 2 drinks per day.: UTI < 6 weeksEndocrine: No history of diabetes. Has not taken steroids within the past30 days. No history of endocrinological symptoms or problems.Hematology: No history of bleeding or clotting disorder. No history ofhematological symptoms or problems.Oncology: No history of CA metastasis, chemo within 30 days, orradiotherapy within 90 days. No history of oncological symptoms orproblems.Psych: No history of psychiatric symptoms or problems.Skin: Negative for lesions, rash, and itching.PHYSICAL EXAMVITALS: BP 159/85[MD notified[ Pulse 83 Temp (Src) 97.9 (Oral) Ht 5'9 (1.75m) Wt 335 lb (152.0kg) SpO2 95% BMI 49.45 kg/(m2).Last 14 BPLast 14 Encounter BP Readings: Date: BP: 07/27/2017 159/85[MD notified[ 07/24/2017 175/99General: Alert and orientedSkin: Normal color, no rash, no lesions.HEENT: EOM, pupils equal, round and reactive.Cardiovascular: Normal S1 AND S2, no rubs, murmurs or gallops. No JVD. Pulseregular.Lungs: Normal breath sounds, no wheezes or crackles.Abdomen: Soft, non-tender, no rigidity.Extremities: No deformity, no edema or tenderness, no joint swelling orclubbing.Neurological: Normal cognition and motor skills.Pulses: Carotid and radial pulses normal +2.ASSESSMENTMr. David is a 46 year old male referred to me for preoperative evaluation.Patient has the following medical comorbidities which might affect theperioperative course:- Hypertension, uncontrolled - bp meds taken but has been normal in recentvisits with PCP and dose just adjusted- Patient is overweight related to- Patient with sleep apnea and uses CPAP.Patient's RCRI (Revised Cardiac Risk Index: CAD/CHF/Stroke or TIA/SCr>2/DMon Insulin/High Risk Surgery) score is 0 and is at low risk for majoradverse cardiac events in the perioperative period.Diagnostic tests reviewed for today's visit:Most recent labsComponent Latest Ref Rng AND Units 07/24/2017WBC 3.70 - 11.00 k/uL 8.12RBC 4.20 - 6.00 m/uL 4.34Hemoglobin 13.0 - 17.0 g/dL 13.2Hematocrit 39.0 - 51.0 % 41.2MCV 80.0 - 100.0 fL 94.9MCH 26.0 - 34.0 pG 30.4MCHC 30.5 - 36.0 g/dL 32.0RDW-CV 11.5 - 15.0 % 13.0Platelet Count 150 - 400 k/uL 372MPV 9.0 - 12.7 fL 8.8 (L)Neut% % 71.5Abs Neut (ANC) 1.45 - 7.50 k/uL 5.80Lymph% % 19.8Abs Lymph 1.00 - 4.00 k/uL 1.61Mono% % 6.0Abs Island <0.87 k/uL 0.49Eosin% % 1.6Abs Eosin <0.46 k/uL 0.13Baso% % 1.1Abs Baso <0.11 k/uL 0.09Nucleated Reds 0 /100 WBC 0.0Absolute nRBC <0.01 k/uL <0.01Diff Type Auto DiffProtein, Total 6.3 - 8.0 g/dL 7.6Albumin 3.9 - 4.9 g/dL 4.6Calcium 8.5 - 10.2 mg/dL 9.5Bilirubin, Total 0.2 - 1.3 mg/dL 0.4Alkaline Phosphatase 36 - 108 U/L 54AST 14 - 40 U/L 10 (L)Glucose 74 - 99 mg/dL 90BUN 9 - 24 mg/dL 22Creatinine 0.73 - 1.22 mg/dL 1.78 (H)Sodium 136 - 144 mmol/L 139Potassium 3.7 - 5.1 mmol/L 4.0Chloride 97 - 105 mmol/L 101CO2 22 - 30 mmol/L 25Anion Gap 9 - 18 mmol/L 13ALT 10 - 54 U/L 12eGFR- 50eGFR-All Other Races . 41ABO/RH(D) O POSITIVESt. [facility] Type Blood Bank Blood BankPTH, Intact 15 - 65 pg/mL 60Vitamin D 25 Hydroxy 31.0 - 80.0 ng/mL 9.7 (L)Uric Acid 4.0 - 8.1 mg/dL 9.3 (H)Most recent EKG: normal sinus rhythm, normal axis, normal intervals,reviewed by myself.PLAN/RECOMMENDATIONSCARDIAC : Patient is at optimal cardiac condition for scheduled surgery /procedure.PULMONARY: Suggest the following in the post-operative period: Aggressivebronchopulmonary hygiene, CPAP/BiPAP at home setting (advised patient tobring their CPAP/BiPAP machine/mask), Minimize sedation/opioids as patienthas CHRISTOPHER and Early ambulationVASCULAR/ANTICOAGULATION : VTE prophylaxis as deemed appropriate by the surgical service.Patient is optimally prepared for surgery.Patient Instructions: As per patient instructions section.I have discussed the above recommendations with the patient in detail, infrank and lay terms, and provided a written summary of instructions asneeded. We have discussed that no surgery is without risk, but that thegoal of preoperative assessment is to optimize that risk, and that wasclearly understood by the patient. I have given ample opportunity for thepatient to ask questions, and answered all questions to their statedsatisfaction.SIGNATURE: hSoshana Esteves MD PATIENT NAME: Joe DavidDATE: July 27, 2017 : 8:02 AM Normal [facility] 07-27-2017 Protein mass conc HNO ID: [id number]: Stacia Kilgore (Srna)e: (none)Author Type: StudentType: Progress NotesFiled: 07/27/2017 9:23 AMNote Text:ANESTHESIA PRE-OPERATIVE ASSESSMENT (PACE)SERVICE DATE: 07/27/2017SERVICE TIME: 0853ASSESSMENT AND PLAN:Joe David is a 46 year old male scheduled for Left PercutaneousNephrolithotomy per Informed Consent in MAIN on 08/01/17.PMH:1. Renal calculus (is s/p stent placement 3-4 wks ago)2. HTN on carvedilol and hydralazine3. CHRISTOPHER on CPAP (provides adequate relief)4. Morbid Obesity5. May be difficult mask ventilation: CHRISTOPHER, thick neck, large beardHealthQuest: 4FC: IIMETS: Walk a block or two on level ground (2.75 METs)Do moderate work around the house such as vacuuming, sweeping floors, orcarrying in groceries (3.50 METs)Do yardwork, such as raking leaves, weeding,or pushing a power mower (4.50METs)Climb a flight of stairs or walk up a hill (5.50 METs)ADDITIONAL DISCUSSION WITH PATIENT: Discussed with patient thepossibilities of invasive monitoring, blood loss or possibiltiy ofprolonged ICU stay and intubation.Patient WILL accept blood products.BLOOD WORK/PRODUCTS ORDERED: Type and Screen , Con ABOHISTORY OF CHRONIC PAIN: NoPAIN MANAGEMENT OPTIONS: Final pain management plan will be discussed onthe day of surgery.ANESTHETIC OPTIONS: Final anesthesia management options will be discussedon day of surgery.PRE-OP PLAN ORDERED: Not ApplicablePatient Instructed:? No solid food or non-clear liquids after midnight. Clear liquids alloweduntil two hours before scheduled arrival.? Patient instructed to take the following medications with a sip ofwater: Coreg, HydralazineVital Signs:BP 159/85 Pulse 83 Ht 175.3 cm (5' 9.02 ) Wt (!) 152 kg (335 lb1.6 oz) SpO2 95% BMI 49.46 kg/m?BMI 49.46 kg/(m2)Vital signs completed by: IMPACTWeight acquired: per HANDP. Height acquired: per HANDPAirway Exam:MOUTH OPENING/TMJ: Full jaw ROMMICROGNATHIA/OVERBITE: NoMALLAMPATI SCORE is CLASS IVUPPER LIP BITE TEST: Class II - Lower incisors can bite the upper lipbelow the dirk lineDENTITION: Chipped, loose, and/or missing - right lower jaw, left upperjawTHYROMENTAL DIST: WNLSHORT NECK: NoNECK CIRCUMFERENCE >40 cm: Appears > than 40 CMNECK FLEX: Full ROMNECK EXTENSION: Full ROMAIRWAY HISTORY: No abnormal airway historyARKS AIRWAY DETAIL:N/ADATA:EKG READING: Confirmed - 07/24/17OTHER TESTS: N/A Lab Value Units Date High Low HB 13.2 g/dL 07/24/2017 17.0 13.0 HCT 41.2 % 07/24/2017 51.0 39.0 WBC 8.12 k/uL 07/24/2017 11.00 3.70 PLT 372 k/uL 07/24/2017 400 150 NA 139 mmol/L 07/24/2017 144 136 K 4.0 mmol/L 07/24/2017 5.1 3.7 GLUC 90 mg/dL 07/24/2017 99 74 BUN 22 mg/dL 07/24/2017 24 9CREAT 1.78 mg/dL 07/24/2017 1.22 0.73 PTSEC No results within date range. INR No results within date range. APTT No results within date range. ALT 12 U/L 07/24/2017 54 10AST 10 U/L 07/24/2017 40 14 TBILI 0.4 mg/dL 07/24/2017 1.3 0.2 TSH No results within date range. Lab Value Units Date High Low HCGQT No results within date range. UHCG No results within date range. HCG, BODY* No results within date range. ABORHD O POSI* no uni* 07/24/2017 ABSCREEN NEG no uni* 07/24/2017HBA1C: No results found for: HBA1C)Patient accompanied by selfCase Discussed with Dr. GeorgePTIMIZATION STATUS: Patient optimized for OR, pending DOS review.SIGNATURE: MINDY Celeste PATIENT NAME: Joe DavidDATE: July 27, 2017 : 9:15 AM PAGER/CONTACT #: Normal [facility] Protein mass conc HNO ID: [id number]: Shoshana Houser: (none)Author Type: PhysicianType: Progress NotesFiled: 07/27/2017 8:22 AMNote Text:Joe David is a 46 year old male [facility] Dr. Townsend of Surgery: 08/01/2017Planned Surgery/Procedure: PERCUTANEOUS NEPHROLITHOAllergies have been reviewed and verified. They include the following:CodeineSocial HistorySubstance Use Topics- Smoking status: Not on file- Smokeless tobacco: Not on file- Alcohol use Not on fileMedications reviewed and updated: Jeronimo Romero Ma Normal [facility] Protein mass conc HNO ID: [id number]: Barbara Senior (Ct) Alis, CTService: RadiologyAuthor Type: Clinical TechnicianType: Progress NotesFiled: 07/27/2017 7:27 AMNote Text: Radiology Service Progress NotePATIENT NAME: Joe DavidMRN: [id number] OF SERVICE: July 27, 2017TIME: 7:12 AMPATIENT IDENTITY VERIFICATION COMPLETED USING TWO (2) METHODS: Patientconfirmed name verbally and ID band matches..PATIENT GENDER DATA: MalePATIENT RELEVANT IMPLANT DATA REVIEWED: YesRADIOLOGY DEPARTMENT: CT; Exam(s) Completed: Abdomen/PelvisPERIPHERAL IV DATA: Not applicableSIGNED BY: Barbara Diego, CTMay 2017 7:12 AM Normal [facility] CBC and Differentialon 07-24 Abs Baso 0.09 k/uL Normal <0.11 [facility] Comment on above: Performed By: #### CBCDIF, CMP, URIC, PT HI, VITD ####[facility] [address] [place], [place] [phone] Abs Island 0.49 k/uL Normal <0.87 [facility] Comment on above: Performed By: #### CBCDIF, CMP, URIC, PT HI, VITD ####[facility] [address] [place], [place] [phone] Abs Neut 5.80 k/uL Normal 1.45-7.50 [facility] Comment on above: Performed By: #### CBCDIF, CMP, URIC, PT HI, VITD ####[place] [address] [address] [place] [phone] Absolute nRBC <0.01 Normal <0.01 [facility] Comment on above: Performed By: #### CBCDIF, CMP, URIC, PT HI, VITD ####[place] [address] [address] [place] [phone] Basophils/100 WBC Auto (Bld) 1.1 % Normal [facility] Comment on above: Performed By: #### CBCDIF, CMP, URIC, PT HI, VITD ####[place] [address] [address] [phone] DTYPE Auto Diff Normal [facility] Comment on above: Performed By: #### CBCDIF, CMP, URIC, PT HI, VITD ####[place] [address] [address] [phone] Eosinophils Auto #/vol (Bld) 0.13 10*3/uL Normal <0.46 [facility] Comment on above: Performed By: #### CBCDIF, CMP, URIC, PT HI, VITD ####[place] [address] [address] [phone] Eosinophils/100 WBC Auto (Bld) 1.6 % Normal [facility] Comment on above: Performed By: #### CBCDIF, CMP, URIC, PT HI, VITD ####[place] [address] [address] [phone] Erythrocyte distribution width Auto Ratio (RBC) 13.0 % Normal 11.5-15.0 [facility] Comment on above: Performed By: #### CBCDIF, CMP, URIC, PT HI, VITD ####[place] [address] [address] [phone] Hematocrit Auto Volume Fraction (Bld) 41.2 % Normal 39.0-51.0 [facility] Comment on above: Performed By: #### CBCDIF, CMP, URIC, PT HI, VITD ####[place] [address] [address] [place] [phone] Hemoglobin mass conc (Bld) 13.2 g/dL Normal 13.0-17.0 [facility] Comment on above: Performed By: #### CBCDIF, CMP, URIC, PT HI, VITD ####[place] [address] [address] [phone] Lymphocytes Auto #/vol (Bld) 1.61 10*3/uL Normal 1.00-4.00 [facility] Comment on above: Performed By: #### CBCDIF, CMP, URIC, PT HI, VITD ####[place] [address] [address] [phone] Lymphocytes/100 WBC Auto (Bld) 19.8 % Normal [facility] Comment on above: Performed By: #### CBCDIF, CMP, URIC, PT HI, VITD ####[place] [address] [place] [phone] MCH Auto Entitic mass (RBC) 30.4 pG Normal 26.0-34.0 [facility] Comment on above: Performed By: #### CBCDIF, CMP, URIC, PT HI, VITD ####[place] [address] [address] [phone] MCHC Auto mass conc (RBC) 32.0 g/dL Normal 30.5-36.0 [facility] Comment on above: Performed By: #### CBCDIF, CMP, URIC, PT HI, VITD ####[place] [address] [address] [phone] MCV Auto Entitic volume (RBC) 94.9 fL Normal 80.0-100.0 [facility] Comment on above: Performed By: #### CBCDIF, CMP, URIC, PT HI, VITD ####[facility] [phone] Monocytes/100 WBC Auto (Bld) 6.0 % Normal [facility] Comment on above: Performed By: #### CBCDIF, CMP, URIC, PT HI, VITD ####[place] [address] [address] [phone] Neutrophils/100 WBC Auto (Bld) 71.5 % Normal [facility] Comment on above: Performed By: #### CBCDIF, CMP, URIC, PT HI, VITD ####[place] [address] [address] [phone] NRBCs 0.0 /100 WBC Normal 0 [facility] Comment on above: Performed By: #### CBCDIF, CMP, URIC, PT HI, VITD ####[place] [address] [address] [place] [phone] Platelet mean volume Auto Entitic volume (Bld) 8.8 fL Low 9.0-12.7 [facility] Comment on above: Performed By: #### CBCDIF, CMP, URIC, PT HI, VITD ####[place] [address] [address] [place] [phone] Platelets Auto #/vol (Bld) 372 10*3/uL Normal 150-400 [facility] Comment on above: Performed By: #### CBCDIF, CMP, URIC, PT HI, VITD ####[place] [address] [address] [place] [phone] RBC Auto #/vol (Bld) 4.34 10*6/uL Normal 4.20-6.00 [facility] Comment on above: Performed By: #### CBCDIF, CMP, URIC, PT HI, VITD ####[place] [address] [address] [phone] WBC Auto #/vol (Bld) 8.12 10*3/uL Normal 3.70-11.00 [facility] Comment on above: Performed By: #### CBCDIF, CMP, URIC, PT HI, VITD ####[facility] [address] [place], [place] [phone] CNOVon 07-24-2017 CNOV Office Visit (UROLMN) JOE DAVID ([id number]) 1970 MDate Time Provider Department07/24/17 8:45 AM POLLY TORRES During your visit today, we recorded the following information about you: Pulse Blood pressure Weight Height 89/minute 175/99 153.6 kg 1.753 Polly Rust 07/24/2017 10:08 AM SignedBasic HPI: 46 year old male who comes in for kidney stone management. Hx ofstones starting 10 years ago. Patient has a history of stones and has hadmultiple URS in the past. Patient has bilateral stents placed 3-4 weeks ago.Patient has some irritation from the stents. Patient's father had stones andDM. No family history of gout. Family history of prostate cancer. =====GUROS: =========UA: unable to leave a sampleOutside records receivedForce of Stream: fluctuatesNOCTURIA: Yes: 2 times /nightDay Time Frequency: 1-2hrHesitancy: NoIntermittency: NoIncomplete Emptying: Yes: unsurePost void Dribbling: NoUrinary Retention Hx:NoDouble Voiding: NoUrgency: NoDysuria: Yes:Incontinence history: NoGross hematuria history: NoUTI Hx: NoStone Event Hx: Yes: URS 4 weeks agoReview, other organ system:GI:Blood: NoConstipation: NoDiarrhea: NoNausea/Vomiting: NoREVIEW OF SYSTEMSPAIN ASSESSMENT: Negative for pain, history of chronic pain, or currenttreatment for a chronic pain condition.GENERAL: No weight loss, malaise or feversRESPIRATORY: sleep apnea-cpap, former smokerCARDIOVASCULAR: HypertensionGI: No nausea, vomiting, or diarrheaGU: hx of kidney stonesENDOCRINE: Negative for cold or heat intolerance, polyuria, polydipsia andgoiterNEURO: No history of headaches, syncope, paralysis, seizures or tremorsOTHER: patient present for kidney stone consult. Currently on keflex s/p stentplacementSara KRISSY Duggan UROLOGY NOTE:I personally interviewed the patient, examined, confirmed and edited thehistory that was documented by Ms Ema RN and ancillary personnel.Consultation requested by Dr. Saldana for an opinion regarding bilateral largestones; 14 mm distal right ureter and 2.2 cm left UPJ. My finalrecommendations will be communicated back to the requesting physician by way ofshared Medical record or letter to requesting physician via US mail.UROLOGY SURGICAL HANDPSERVICE DATE: 07/24/2017SERVICE TIME: 9:31 AMREFERRING PROVIDER: Elias Saldana MD[address] [place] [address]RYO: Onel Coffey MDGENDER:SUBJECTIVECHIEF COMPLAINT: Pre-op examHISTORY OF PRESENT ILLNESS: Mr. David is a 46 year old male who presents forbilateral stones (see above);FUNCTIONAL STATUS: Do moderate work around the house such as vacuuming,sweeping floors, or carrying in groceries (3.50 METs)No past medical history on file.No past surgical history on file.No family history on file.Social HistorySubstance Use Topics- Smoking status: Not on file- Smokeless tobacco: Not on file- Alcohol use Not on fileREVIEW OF SYSTEMS:General: General: Well developed, well nourished. No acute distressGeneral: Positive for Morbidly obeseHEENT: Negative for sore throat, difficulty swallowing.Negative for frequent or significant headaches, changes in vision or hearing.Cardiovascular: No history of cardiovascular symtoms or problems.No history of angina, CHF, [place], cardiac surgery of stents.Respiratory: Negative for current cough, dyspnea. No hx of pneumonia in thepast six weeksPositive: Sleep apneaGastrointestinal: No history of GERD, PUD, abd pain, difficulty swallowing, GIbleed.Renal: Negative for renal failure and No history of dialysisMusculoskeletal: Negative for joint pain or swelling, back pain or muscle pain.Skin: Negative for lesions, rash and itching.Psychological: No history of psychiatric symptoms or problems.Neurologic: No history of TIA's, stroke, ENTRY LEVEL FINANCE tumor, impaired sensorium,hemiplegia, paraplegia or quadriplegia. No neurological symptoms or problems.Hematology/Oncology: No history of bleeding or clotting disorder. Pt is nottaking anti-coagulation or platelet medications. No history of hematologicalsymptoms or problems.Endocrine: No history of endocrinological symtoms or problemsNo history of DM; has not taken steroids w/in past 30 days.Negative for excessive sweating, thirst or hungerPHYSICAL EXAM:General Appearance/ Constitutional: Well developed, well nourished, and in noapparent distressHead and Neck normal, no jugular venous extension, no thyromegaly and nopalpable massEyes: Pupils are equally round and reactive to light. Extraocular movementsare intact.Respiratory: Clear to auscultation AND percussionCardiovascular: Normal, Regular rate and rhythm and No murmursGI: Soft, Non-tender, No masses, hepatosplenomegaly and No lymphadenopathyExtremities: Radial and pedal pulses +2, no edema, extremities WNLBack: Normal back and mobilityNeurological: Normal cognition and motor skills.Skin: Color, texture, turgor normal.VITALS:BP 175/99 Pulse 89 Ht 175.3 cm (5' 9 ) Wt (!) 153.6 kg (338 lb 11.2oz) BMI 50.02 kg/m?Temperature Max: @TMAXREFRESH(24)@ALLERGIES:ALLERGI ESAllergen Reactions- Codeine HivesLABS:No results found for: BUNNo results found for: CREATNo results found for: PSANo results found for: UGLUC, UBILI, UKET, SPGR, UHB, UPH, UPROT, NITRITES,UWBC, COLOR, CLARITYMEDICATIONS:(Not in a hospital admission)Current Outpatient Prescriptions:hydrALAZINE (APRESOLINE) 100 mg tablet Take 100 mg by mouth twice daily.carvedilol (COREG) 25 mg tablet Take 25 mg by mouth three times daily.Cephalexin 500 mg tab Take by mouth. Take one(1) tablet daily.No current facility-administered medications for this visit.DIAGNOSIS, ASSESSMENT AND PLANThere are no active hospital problems to display for this patient.Medication and Non-Pharmacologic VTE Prophylaxis/AnticoagulantsVTE Prophylaxis: VTE prophylaxis appropriateAssessment AND Plan:Imp: The primary encounter diagnosis was Calculus of kidney. Diagnoses of CPAP(continuous positive airway pressure) dependence, CHRISTOPHER (obstructive sleepapnea), Gastroesophageal reflux disease without esophagitis, Essentialhypertension, Former smoker, BMI 50.0-59.9, adult (HCC), Calculus of ureter,Kidney stone, Abnormal urinalysis, Family history of nephrolithiasis, Familyhistory of prostate cancer, and Family history of diabetes mellitus were alsopertinent to this visit.Plan: Labs, EKG, repeat CT (has had right URS x [address]); then mayneed repeat right URS plus will need left PCNL with URS-guided access;brochures given and consent done. Culture. IMPACT/PACE.Very complex, very high risk, complete HANDPMark MARTHA Torresirector, Surgical Stone Disease, [facility] InstituteProfessor of Surgery, [place] [facility] CenterPager [phone]: Polly Torres MD PATIENT NAME: Joe DavidDATE: July 24, 2017 : 9:31 AM PAGER/CONTACT #:Referring Provider: ELIAS SALDANA [[id number]]Allergies As of Date: 07/24/2017 Noted Allergy ReactionCODEINE 07/24/2017 4 - HivesDate Reviewed: 07/24/2017Reviewed by: Isabella Armstrong - Fully AssessedPrimary Visit Diagnosis:Calculus of kidney [N20.0] Other Visit Diagnoses:CPAP (continuous positive airway pressure) dependence [Z99.89] CHRISTOPHER (obstructive sleep apnea) [G47.33] Gastroesophageal reflux disease without esophagitis [K21.9] Essential hypertension [I10] Former smoker [Z87.891] BMI 50.0-59.9, adult (HCC) [Z68.43] Calculus of ureter [N20.1] Kidney stone [N20.0] Abnormal urinalysis [R82.90] Family history of nephrolithiasis [Z84.1] Family history of prostate cancer [Z80.42] Family history of diabetes mellitus [Z83.3]Order(s):UA CHEMSTRIP ONLY [SQUA] Order #: [id number] FUTURE UA CHEMSTRIP ONLY [SQUA] Order #: [id number] CBC + DIFF [SQCBCDIF] Order #: [id number] FUTURE COMP METABOLIC PANEL [SQCMP] Order #: [id number] FUTURE PTH INTACT BLD [SQPTHI] Order #: [id number] FUTURE VITAMIN D 25 HYDROXY [SQVITD] Order #: [id number] FUTURE URIC ACID BLOOD [SQURIC] Order #: [id number] FUTURE CONFIRM BLOOD TYPE [SQCONABO] Order #: [id number] FUTURE TYPE + SCREEN,30 DAY [YIDGVB90] Order #: [id number] FUTURE ECG COMPLETE W INTERPRETATION [ECG01] Order #: [id number] FUTURE CT FLANK WO IVCON [1645227] Order #: [id number] FUTURE CONSULT TO ANESTHESIOLOGY [9001] Order #: [id number]: 1 CONSULT TO INT MED-IMPACT [4901302] Order #: [id number]: 1 [facility] [[id number]] Order #: [id number] URINE CULTURE [SQURCUL] Order #: [id number] as of 07/24/2017 Sig: HYDRALAZINE 100 MG TABLET Take 100 mg by mouth twice da* CARVEDILOL 25 MG TABLET Take 25 mg by mouth three randall* CEPHALEXIN 500 MG TABLET Take by mouth. Take one(1) ta*Problem List As Of Date 07/24/2017 Noted Resolved Calculus of kidney [N20.0] INVALID FOR* CPAP (continuous positive airway pressure) depe*INVALID FOR* CHRISTOPHER (obstructive sleep apnea) [G47.33] INVALID FOR* Gastroesophageal reflux disease without esophag*INVALID FOR* Essential hypertension [I10] INVALID FOR* Former smoker [Z87.891] INVALID FOR* BMI 50.0-59.9, adult (HCC) [Z68.43] INVALID FOR* Calculus of ureter [N20.1] INVALID FOR* Abnormal urinalysis [R82.90] INVALID FOR* Family history of diabetes mellitus [Z83.3] INVALID FOR* Family history of prostate cancer [Z80.42] INVALID FOR* Family history of nephrolithiasis [Z84.1] INVALID FOR*Disposition: Return for blood work and EKG today; surgery 08/01/17.Follow-up and Disposition History RecordedLetter TextMay 2017Elias Saldana MD[address] [place] [address]BTNV: Boo David NO: [id number] OF SERVICE: 07/24/2017Dear Dr. Saldana,I recently saw your patient, Mr. David, [facility].Enclosed is a copy of my clinic note which should be self-explanatoryregarding findings, recommendations, and treatment plan. Please don'thesitate to contact me if there are questions.Sincerely,Polly Torres M.D.Staff Urologist, [facility] CenterELECTRONICALLY SIGNEDcc: Onel Coffey MD, [address] [facility] [address]Zdeqlvfnp Number: [id number] Status:Closed by POLLY TORRES MD on 07/24/17 Normal [facility] Comp Metabolic Panelon 07-24 Albumin mass conc 4.6 g/dL Normal 3.9-4.9 [facility] Comment on above: Performed By: #### CBCDIF, CMP, URIC, PT HI, VITD ####[facility] [address] [place], [place] [phone] ALP enzyme act/vol 54 U/L Normal 36-108 [facility] Comment on above: Performed By: #### CBCDIF, CMP, URIC, PT HI, VITD ####[facility] [address] [place], [place] [phone] ALT enzyme act/vol 12 U/L Normal 10-54 [facility] Comment on above: Performed By: #### CBCDIF, CMP, URIC, PT HI, VITD ####[facility]CH[address] [place] [phone] Anion gap 3 molar conc 13 mmol/L Normal 9-18 [facility] Comment on above: Performed By: #### CBCDIF, CMP, URIC, PT HI, VITD ####[place] [address] [phone] AST enzyme act/vol 10 U/L Low 14-40 [facility] Comment on above: Performed By: #### CBCDIF, CMP, URIC, PT HI, VITD ####[place] [address] [address] [phone] Bilirubin mass conc 0.4 mg/dL Normal 0.2-1.3 [facility] Comment on above: Performed By: #### CBCDIF, CMP, URIC, PT HI, VITD ####[place] [address] [phone] Calcium mass conc 9.5 mg/dL Normal 8.5-10.2 [facility] Comment on above: Performed By: #### CBCDIF, CMP, URIC, PT HI, VITD ####[place] [address] [address] [place] [phone] Chloride molar conc 101 mmol/L Normal 97-105 [facility] Comment on above: Performed By: #### CBCDIF, CMP, URIC, PT HI, VITD ####[place] [address] [phone] CO2 molar conc 25 mmol/L Normal 22-30 [facility] Comment on above: Performed By: #### CBCDIF, CMP, URIC, PT HI, VITD ####[place] [address] [place] [phone] Creatinine mass conc 1.78 mg/dL High 0.73-1.22 [facility] Comment on above: Performed By: #### CBCDIF, CMP, URIC, PT HI, VITD ####[facility] [address] [place], [place] [phone] eGFR- Amer. 50 Normal [facility] Comment on above: Performed By: #### CBCDIF, CMP, URIC, PT HI, VITD ####[facility] [address] [place], [place] [phone] GFR/1.73 sq M predicted among non-blacks MDRD vol rate/area (S/P/Bld) 41 . Normal [facility] Comment on above: Result Comment: eGFR (Estimated GFR) Uni ts of measure: mL/min/1.73 meters squaredeGFR is derived from the reexpressed MDRD Study equation using the following parameters: serum creatinine, age, gender and race. The creatinine assay has been calibrated to be traceable to IDMS.An eGFR <60 mL/min/1.73m2 for >3 months is consistent with chronic kidney disease. Refer to KDOQI guidelines for clinical interpretation.In patients with unstable renal function, e.g. those with acute kidney injury, the eGFR may not accurately reflect actual GFR. Performed By: #### C BCDIF, CMP, URIC, PTHI, VITD ####[facility] [place], [place] [phone] Glucose mass conc 90 mg/dL Normal 74-99 [facility] Comment on above: Result Comment: The [place] Diabetes As sociation (ADA) provides guidance for cutoff values for fasting glucose and random glucose. The ADA defines fasting as no caloric intake for at least 8 hours. Fasting plasma glucose results between 100 to 125 mg/dL indicate increased risk for diabetes (prediabetes).Fasting plasma glucose results greater than or equal to 126 mg/dL meet the criteria for diagnosis of diabetes. In the absence of unequivocal hyperglycemia, results should be confirmed by repeat testing. In a patient with classic symptoms of hyperglycemia or hyperglycemic crisis, random plasma glucose results greater than or equal to 200 mg/dL meet the criteria for diagnosis of diabetes.Reference: Standards of Medical Care in Diabetes 2016, Canadian Diabetes Association. Diabetes Care. 2016.39(Suppl 1). Performed By: #### C BCDIF, CMP, URIC, PTHI, VITD ####[address] [place] [phone] Potassium molar conc 4.0 mmol/L Normal 3.7-5.1 [facility] Comment on above: Performed By: #### CBCDIF, CMP, URIC, PT HI, VITD ####[address] [place] [phone] Protein mass conc 7.6 g/dL Normal 6.3-8.0 [facility] Comment on above: Performed By: #### CBCDIF, CMP, URIC, PT HI, VITD ####[address], [place] [phone] Sodium molar conc 139 mmol/L Normal 136-144 [facility] Comment on above: Performed By: #### CBCDIF, CMP, URIC, PT HI, VITD ####[address], [place] [phone] Urea nitrogen mass conc 22 mg/dL Normal 9-24 [facility] Comment on above: Performed By: #### CBCDIF, CMP, URIC, PT HI, VITD ####[address] [place], [place] [phone] Confirm Blood Typeon 018 ABO/RH(D) Positive Normal [facility] Comment on above: Performed By: #### CONABO ####[place] [phone] HOSPon 07-24-2017 HOSP Patient Update (UROLMN) JOANNJOE Argueta ([id number]) 1970 MDate Time Provider Department07/24/17 JANA DUGGAN (RN) UROLMN During your visit today, we recorded the following information about you:Allergies As of Date: 07/24/2017 Noted Allergy ReactionCODEINE 07/24/2017 4 - HivesDate Reviewed: 07/24/2017Reviewed by: Isabella Okeefe - Fully AssessedOrder(s):SURGICAL REQUEST - ELECTIVE [[id number]] Order #: [id number]: 1Prescriptions as of 07/24/2017 Sig: HYDRALAZINE 100 MG TABLET Take 100 mg by mouth twice da* CARVEDILOL 25 MG TABLET Take 25 mg by mouth three randall* CEPHALEXIN 500 MG TABLET Take by mouth. Take one(1) ta*Problem List As Of Date 07/24/2017 Noted Resolved Calculus of kidney [N20.0] INVALID FOR* CPAP (continuous positive airway pressure) depe*INVALID FOR* CHRISTOPHER (obstructive sleep apnea) [G47.33] INVALID FOR* Gastroesophageal reflux disease without esophag*INVALID FOR* Essential hypertension [I10] INVALID FOR* Former smoker [Z87.891] INVALID FOR* BMI 50.0-59.9, adult (HCC) [Z68.43] INVALID FOR* Calculus of ureter [N20.1] INVALID FOR* Abnormal urinalysis [R82.90] INVALID FOR* Family history of diabetes mellitus [Z83.3] INVALID FOR* Family history of prostate cancer [Z80.42] INVALID FOR* Family history of nephrolithiasis [Z84.1] INVALID FOR*Follow-up and Disposition History RecordedEncounter Number: [id number] Status:Closed by JANA DUGGAN on 07/24/17 [facility] Patient:Joe David LMRN: Height:5' 9.016 (1.753 m)Weight:335 lb 1.6 oz (152 kg)Outpatient Medications as of 08/01/17:acetaminophen (TYLENOL EXTRA STRENGTH) 500 mg tabletallopurinol (ZYLOPRIM) 100 mg tablethydrALAZINE (APRESOLINE) 100 mg tabletcarvedilol (COREG) 25 mg tabletCephalexin 500 mg tabAdmission/Clinic Administered Medications as of 08/01/17:0.9% NaCl 2-10 mLlactated ringers infusionceFAZolin 3 g in D5W 100 mL (ANCEF)Problem List:Calculus of kidney [N20.0]CPAP (continuous positive airway pressure) dependence [Z99.89]CHRISTOPHER (obstructive sleep apnea) [G47.33]Gastroesophageal reflux disease without esophagitis [K21.9]Essential hypertension [I10]Former smoker [Z87.891]BMI 50.0-59.9, adult (HCC) [Z68.43]Calculus of ureter [N20.1]Abnormal urinalysis [R82.90]Family history of diabetes mellitus [Z83.3]Family history of prostate cancer [Z80.42]Family history of nephrolithiasis [Z84.1]Hyperuricemia [E79.0]Low vitamin D level [E55.9]Allergies:CodeineDate Verified: 08/01/17Lab ValuesLab Value Units Date High LowPOTA* 4.0 mmol/L 07/24/2017 5.1 3.7HEMA* 41.2 % 07/24/2017 51.0 39.0Progress Notes (INTM MAIN IMPACT):Shoshana Esteves MD 07/27/2017 8:22 AM SignedJoe David is a 46 year old male here today for visit in IMPACTReferring Surgeon: Dr. Townsend of Surgery: 08/01/2017Planned Surgery/Procedure: PERCUTANEOUS NEPHROLITHOAllergies have been reviewed and verified. They include the following:CodeineSocial HistorySubstance Use Topics- Smoking status: Not on file- Smokeless tobacco: Not on file- Alcohol use Not on fileMedications reviewed and updated: Jeronimo Romero MaPrevious VersionShoshana Esteves MD 07/27/2017 8:22 AM SignedHISTORY AND PHYSICAL EXAMINATION (IMPACT)SERVICE DATE: 07/27/2017SERVICE TIME: 8:02 [facility] CARE PHYSICIAN: Onel Coffey [facility] COMPLAINT/HISTORY OF PRESENT ILLNESS:Mr. David is a 46 year old male referred to me for preoperative evaluation. Myfinal recommendations will be communicated back to the requestingphysician/surgeon by the way of the shared medical record.Referring Surgeon: Dr. Townsend of Surgery: 08/01/2017Planned Surgery/Procedure: PERCUTANEOUS NEPHROLITHOTOMYLaterality Anesthesia Op RegionLeftIndication for Planned Surgery / Procedure: BKidney stones, multiple URS in thepast with B stents placed 4 weeks ago.Patient is Able to Perform the Following Physical Activity:Climb a flight of stairs or walk up a hill (5.50 METs)Significant Anesthesia Considerations: None and Didn't get sick but was givenanti-emetic prior to surgery . PAST MEDICAL/SURGICAL/FAMILY/SOCIAL HISTORYNo past medical history on file.No past surgical history on file.No family history on file.SOCIAL HISTORYSocial History Marital status: Spouse name: Years of education: Number of children:Social History Main Topics Smoking status: Former Smoker Packs/day: 1.00 Years: 24.00 Types: Cigarettes Quit date: 07/27/2013 Smokeless tobacco: Former User Types: Snuff Quit date: 07/28/2011MEDICATIONS/ALLERGIESCurr ent Outpatient Prescriptions:acetaminophen (TYLENOL EXTRA STRENGTH) 500 mg tablet Take 1,000 mg by mouth asneeded for Pain. Disp: Rfl:allopurinol (ZYLOPRIM) 100 mg tablet Take 1 tablet by mouth once daily. Disp: 90tablet Rfl: 3carvedilol (COREG) 25 mg tablet Take 25 mg by mouth three times daily. Disp:Rfl:Cephalexin 500 mg tab Take by mouth. Take one(1) tablet daily. Disp: Rfl:ergocalciferol, vitamin D2, (VITAMIN D) 50,000 unit capsule Take 1 capsule bymouth once each week. (Patient not taking: Reported on 07/27/2017) Disp: 12 capsule Rfl: 1hydrALAZINE (APRESOLINE) 100 mg tablet Take 100 mg by mouth twice daily. Disp:Rfl:No current facility-administered medications for this visit.ALLERGIESAllergen Reactions- Codeine HivesREVIEW OF SYSTEMSGeneral: No weight loss, malaise or fevers.Neuro: No history of TIA's, stroke, ENTRY LEVEL FINANCE tumor, impaired sensorium, hemiplegia,paraplegia or quadriplegia. No neurological symptoms or problems.Respiratory: Obstructive Sleep Apnea (on CPAP)Cardiovascular: HypertensionGI: No history of GI symptoms or problems. No history of esophageal varices,recent ascites, or ETOH greater than 2 drinks per day.: UTI < 6 weeksEndocrine: No history of diabetes. Has not taken steroids within the past 30days. No history of endocrinological symptoms or problems.Hematology: No history of bleeding or clotting disorder. No history ofhematological symptoms or problems.Oncology: No history of CA metastasis, chemo within 30 days, or radiotherapywithin 90 days. No history of oncological symptoms or problems.Psych: No history of psychiatric symptoms or problems.Skin: Negative for lesions, rash, and itching.PHYSICAL EXAMVITALS: BP 159/85[MD notified[ Pulse 83 Temp (Src) 97.9 (Oral) Ht 5' 9 (1.75m) Wt 335 lb (152.0kg) SpO2 95% BMI 49.45 kg/(m2).Last 14 BPLast 14 Encounter BP Readings: Date: BP: 07/27/2017 159/85[MD notified[ 07/24/2017 175/99General: Alert and orientedSkin: Normal color, no rash, no lesions.HEENT: EOM, pupils equal, round and reactive.Cardiovascular: Normal S1 AND S2, no rubs, murmurs or gallops. No JVD. Pulseregular.Lungs: Normal breath sounds, no wheezes or crackles.Abdomen: Soft, non-tender, no rigidity.Extremities: No deformity, no edema or tenderness, no joint swelling orclubbing.Neurological: Normal cognition and motor skills.Pulses: Carotid and radial pulses normal +2.ASSESSMENTMr. David is a 46 year old male referred to me for preoperative evaluation.Patient has the following medical comorbidities which might affect theperioperative course:- Hypertension, uncontrolled - bp meds taken but has been normal in recentvisits with PCP and dose just adjusted- Patient is overweight related to- Patient with sleep apnea and uses CPAP.Patient's RCRI (Revised Cardiac Risk Index: CAD/CHF/Stroke or TIA/SCr>2/DM onInsulin/High Risk Surgery) score is 0 and is at low risk for major adversecardiac events in the perioperative period.Diagnostic tests reviewed for today's visit:Most recent labsComponent Latest Ref Rng AND Units 07/24/2017WBC 3.70 - 11.00 k/uL 8.12RBC 4.20 - 6.00 m/uL 4.34Hemoglobin 13.0 - 17.0 g/dL 13.2Hematocrit 39.0 - 51.0 % 41.2MCV 80.0 - 100.0 fL 94.9MCH 26.0 - 34.0 pG 30.4MCHC 30.5 - 36.0 g/dL 32.0RDW-CV 11.5 - 15.0 % 13.0Platelet Count 150 - 400 k/uL 372MPV 9.0 - 12.7 fL 8.8 (L)Neut% % 71.5Abs Neut (ANC) 1.45 - 7.50 k/uL 5.80Lymph% % 19.8Abs Lymph 1.00 - 4.00 k/uL 1.61Mono% % 6.0Abs Island <0.87 k/uL 0.49Eosin% % 1.6Abs Eosin <0.46 k/uL 0.13Baso% % 1.1Abs Baso <0.11 k/uL 0.09Nucleated Reds 0 /100 WBC 0.0Absolute nRBC <0.01 k/uL <0.01Diff Type Auto DiffProtein, Total 6.3 - 8.0 g/dL 7.6Albumin 3.9 - 4.9 g/dL 4.6Calcium 8.5 - 10.2 mg/dL 9.5Bilirubin, Total 0.2 - 1.3 mg/dL 0.4Alkaline Phosphatase 36 - 108 U/L 54AST 14 - 40 U/L 10 (L)Glucose 74 - 99 mg/dL 90BUN 9 - 24 mg/dL 22Creatinine 0.73 - 1.22 mg/dL 1.78 (H)Sodium 136 - 144 mmol/L 139Potassium 3.7 - 5.1 mmol/L 4.0Chloride 97 - 105 mmol/L 101CO2 22 - 30 mmol/L 25Anion Gap 9 - 18 mmol/L 13ALT 10 - 54 U/L 12eGFR- 50eGFR-All Other Races . 41ABO/RH(D) O POSITIVEOrder Type Blood Bank Blood BankPTH, Intact 15 - 65 pg/mL 60Vitamin D 25 Hydroxy 31.0 - 80.0 ng/mL 9.7 (L)Uric Acid 4.0 - 8.1 mg/dL 9.3 (H)Most recent EKG: normal sinus rhythm, normal axis, normal intervals, reviewed bymyself.PLAN/RECOMMENDATIONSCARDI AC: Patient is at optimal cardiac condition for scheduled surgery / procedure.PULMONARY: Suggest the following in the post-operative period: Aggressivebronchopulmonary hygiene, CPAP/BiPAP at home setting (advised patient to bringtheir CPAP/BiPAP machine/mask), Minimize sedation/opioids as patient has CHRISTOPHER andEarly ambulationVASCULAR/ANTICOAGULATION : VTE prophylaxis as deemed appropriate by the surgical service.Patient is optimally prepared for surgery.Patient Instructions: As per patient instructions section.I have discussed the above recommendations with the patient in detail, in frankand lay terms, and provided a written summary of instructions as needed. We havediscussed that no surgery is without risk, but that the goal of preoperativeassessment is to optimize that risk, and that was clearly understood by thepatient. I have given ample opportunity for the patient to ask questions, andanswered all questions to their stated satisfaction.SIGNATURE: Shoshana Esteves MD PATIENT NAME: Joe CarrasquilloTE: July 27, 2017 : 8:02 AMShoshana Esteves MD 07/27/2017 8:21 AM Signed [facility]ITALPatient Instructions for SurgeryFOOD INSTRUCTIONS:NO solid food or non-clear liquids for 8 hours prior to the arrival time foryour surgery. Unless you are instructed otherwise, you are allowed to drink upto 12 ounces of clear liquids (e.g. water, black tea/coffee, fruit juice withoutpulp, Baldo Celestina, etc.) up until 2 hours prior to the arrival time for surgery.MEDICATION INSTRUCTIONS: Prior to Surgery:Do not take the following medications for 7 days prior to surgery: - any NSAID's (e.g. Motrin, Aleve, Arthrotec, Naproxen,etc) - any herbal preparations - Aspirin or aspirin containing productsDo not take any Vitamin E / multivitamins for 10-14 days before surgeryYou are allowed to take Tylenol if needed until the day of surgery.Please bring your inhalers and or CPAP/BiPAP machine and mask when you come foryour surgery.MEDICATION INSTRUCTIONS: Day/Morning of Surgery:The following medications should be taken with sips of water: Carvedilol (Coreg)and HydralazineIf you have any questions or concerns regarding today's visit please do nothesitate to contact the [facility] at [phone] or [phone], [phone].Signature: Shoshana Esteves, MDDate: July 27, 2017Progress Notes ([facility] MAIN):Stacia FriedmanMINDY 07/27/2017 9:23 AM SignedANESTHESIA PRE-OPERATIVE ASSESSMENT (PACE)SERVICE DATE: 07/27/2017SERVICE TIME: 0853ASSESSMENT AND PLAN:Joe David is a 46 year old male scheduled for Left PercutaneousNephrolithotomy per Informed Consent in MAIN on 08/01/17.PMH:1. Renal calculus (is s/p stent placement 3-4 wks ago)2. HTN on carvedilol and hydralazine3. CHRISTOPHER on CPAP (provides adequate relief)4. Morbid Obesity5. May be difficult mask ventilation: CHRISTOPHER, thick neck, large beardHealthQuest: 4FC: IIMETS: Walk a block or two on level ground (2.75 METs)Do moderate work around the house such as vacuuming, sweeping floors, orcarrying in groceries (3.50 METs)Do yardwork, such as raking leaves, weeding,or pushing a power mower (4.50 METs)Climb a flight of stairs or walk up a hill (5.50 METs)ADDITIONAL DISCUSSION WITH PATIENT: Discussed with patient the possibilities ofinvasive monitoring, blood loss or possibiltiy of prolonged ICU stay andintubation.Patient WILL accept blood products.BLOOD WORK/PRODUCTS ORDERED: Type and Screen , Con ABOHISTORY OF CHRONIC PAIN: NoPAIN MANAGEMENT OPTIONS: Final pain management plan will be discussed on the dayof surgery.ANESTHETIC OPTIONS: Final anesthesia management options will be discussed on dayof surgery.PRE-OP PLAN ORDERED: Not ApplicablePatient Instructed:? No solid food or non-clear liquids after midnight. Clear liquids allowed untiltwo hours before scheduled arrival.? Patient instructed to take the following medications with a sip of water:Coreg, HydralazineVital Signs:BP 159/85 Pulse 83 Ht 175.3 cm (5' 9.02 ) Wt (!) 152 kg (335 lb 1.6 oz) SpO2 95% BMI 49.46 kg/m?BMI 49.46 kg/(m2)Vital signs completed by: IMPACTWeight acquired: per HANDP. Height acquired: per HANDPAirway Exam:MOUTH OPENING/TMJ: Full jaw ROMMICROGNATHIA/OVERBITE: NoMALLAMPATI SCORE is CLASS IVUPPER LIP BITE TEST: Class II - Lower incisors can bite the upper lip below thevermillion lineDENTITION: Chipped, loose, and/or missing - right lower jaw, left upper jawTHYROMENTAL DIST: WNLSHORT NECK: NoNECK CIRCUMFERENCE >40 cm: Appears > than 40 CMNECK FLEX: Full ROMNECK EXTENSION: Full ROMAIRWAY HISTORY: No abnormal airway historyARKS AIRWAY DETAIL:N/ADATA:EKG READING: Confirmed - 07/24/17OTHER TESTS: N/A Lab Value Units Date High Low HB 13.2 g/dL 07/24/2017 17.0 13.0 HCT 41.2 % 07/24/2017 51.0 39.0 WBC 8.12 k/uL 07/24/2017 11.00 3.70 PLT 372 k/uL 07/24/2017 400 150 NA 139 mmol/L 07/24/2017 144 136 K 4.0 mmol/L 07/24/2017 5.1 3.7 GLUC 90 mg/dL 07/24/2017 99 74 BUN 22 mg/dL 07/24/2017 24 9CREAT 1.78 mg/dL 07/24/2017 1.22 0.73 PTSEC No results within date range. INR No results within date range. APTT No results within date range. ALT 12 U/L 07/24/2017 54 10AST 10 U/L 07/24/2017 40 14 TBILI 0.4 mg/dL 07/24/2017 1.3 0.2 TSH No results within date range. Lab Value Units Date High Low HCGQT No results within date range. UHCG No results within date range. HCG, BODY* No results within date range. ABORHD O POSI* no uni* 07/24/2017 ABSCREEN NEG no uni* 07/24/2017HBA1C: No results found for: HBA1C)Patient accompanied by selfCase Discussed with Dr. GeorgePTIMIZATION STATUS: Patient optimized for OR, pending DOS review.SIGNATURE: MINDY Celeste PATIENT NAME: Joe DavidDATE: July 27, 2017 : 9:15 AM PAGER/CONTACT #: [facility] PROGRESSon 07-24-2017 Protein mass conc HNO ID: [id number]: Ana Torresice: (none)Author Type: PhysicianType: Progress NotesFiled: 07/24/2017 10:08 AMNote Text:Basic HPI: 46 year old male who comes in for kidney stone management. Hxof stones starting 10 years ago. Patient has a history of stones and hashad multiple URS in the past. Patient has bilateral stents placed 3-4weeks ago. Patient has some irritation from the stents. Patient's fatherhad stones and DM. No family history of gout. Family history of prostatecancer. GUROS: UA: unable to leave a sampleOutside records receivedForce of Stream: fluctuatesNOCTURIA: Yes: 2 times /nightDay Time Frequency: 1-2hrHesitancy: NoIntermittency: NoIncomplete Emptying: Yes: unsurePost void Dribbling: NoUrinary Retention Hx:NoDouble Voiding: NoUrgency: NoDysuria: Yes:Incontinence history: NoGross hematuria history: NoUTI Hx: NoStone Event Hx: Yes: URS 4 weeks agoReview, other organ system:GI:Blood: NoConstipation: NoDiarrhea: NoNausea/Vomiting: NoREVIEW OF SYSTEMSPAIN ASSESSMENT: Negative for pain, history of chronic pain, or currenttreatment for a chronic pain condition.GENERAL: No weight loss, malaise or feversRESPIRATORY: sleep apnea-cpap, former smokerCARDIOVASCULAR: HypertensionGI: No nausea, vomiting, or diarrheaGU: hx of kidney stonesENDOCRINE: Negative for cold or heat intolerance, polyuria, polydipsia andgoiterNEURO: No history of headaches, syncope, paralysis, seizures or tremorsOTHER: patient present for kidney stone consult. Currently on keflex s/pstent placementSara Naro, RNSTAMAVERICK UROLOGY NOTE:I personally interviewed the patient, examined, confirmed and edited thehistory that was documented by Ms Duggan RN and ancillary personnel.Consultation requested by Dr. Saldana for an opinion regarding bilaterallarge stones; 14 mm distal right ureter and 2.2 cm left UPJ. My finalrecommendations will be communicated back to the requesting physician byway of shared Medical record or letter to requesting physician via USmail.UROLOGY SURGICAL HANDPSERVICE DATE: 07/24/2017SERVICE TIME: 9:31 AMREFERRING PROVIDER: Elias Saldana MD[address] [place] [address]UXY: Onel Coffey MDGENDER:SUBJECTIVECHIEF COMPLAINT: Pre-op examHISTORY OF PRESENT ILLNESS: Mr. David is a 46 year old male who presentsfor bilateral stones (see above);FUNCTIONAL STATUS: Do moderate work around the house such as vacuuming,sweeping floors, or carrying in groceries (3.50 METs)No past medical history on file.No past surgical history on file.No family history on file.Social HistorySubstance Use Topics- Smoking status: Not on file- Smokeless tobacco: Not on file- Alcohol use Not on fileREVIEW OF SYSTEMS:General: General: Well developed, well nourished. No acute distressGeneral: Positive for Morbidly obeseHEENT: Negative for sore throat, difficulty swallowing.Negative for frequent or significant headaches, changes in vision orhearing.Cardiovascular: No history of cardiovascular symtoms or problems.No history of angina, CHF, [place], cardiac surgery of stents.Respiratory: Negative for current cough, dyspnea. No hx of pneumonia inthe past six weeksPositive: Sleep apneaGastrointestinal: No history of GERD, PUD, abd pain, difficultyswallowing, GI bleed.Renal: Negative for renal failure and No history of dialysisMusculoskeletal: Negative for joint pain or swelling, back pain or musclepain.Skin: Negative for lesions, rash and itching.Psychological: No history of psychiatric symptoms or problems.Neurologic: No history of TIA's, stroke, ENTRY LEVEL FINANCE tumor, impaired sensorium,hemiplegia, paraplegia or quadriplegia. No neurological symptoms orproblems.Hematology/Oncology: No history of bleeding or clotting disorder. Pt isnot taking anti-coagulation or platelet medications. No history ofhematological symptoms or problems.Endocrine: No history of endocrinological symtoms or problemsNo history of DM; has not taken steroids w/in past 30 days.Negative for excessive sweating, thirst or hungerPHYSICAL EXAM:General Appearance/ Constitutional: Well developed, well nourished, and inno apparent distressHead and Neck normal, no jugular venous extension, no thyromegaly and nopalpable massEyes: Pupils are equally round and reactive to light. Extraocularmovements are intact.Respiratory: Clear to auscultation AND percussionCardiovascular: Normal, Regular rate and rhythm and No murmursGI: Soft, Non-tender, No masses, hepatosplenomegaly and No lymphadenopathyExtremities: Radial and pedal pulses +2, no edema, extremities WNLBack: Normal back and mobilityNeurological: Normal cognition and motor skills.Skin: Color, texture, turgor normal.VITALS:BP 175/99 Pulse 89 Ht 175.3 cm (5' 9 ) Wt (!) 153.6 kg (338 lb11.2 oz) BMI 50.02 kg/m?Temperature Max: @TMAXREFRESH(24)@ALLERGIES:ALLERGI ESAllergen Reactions- Codeine HivesLABS:No results found for: BUNNo results found for: CREATNo results found for: PSANo results found for: UGLUC, UBILI, UKET, SPGR, UHB, UPH, UPROT, NITRITES,UWBC, COLOR, CLARITYMEDICATIONS:(Not in a hospital admission)Current Outpatient Prescriptions:hydrALAZINE (APRESOLINE) 100 mg tablet Take 100 mg by mouth twice daily.carvedilol (COREG) 25 mg tablet Take 25 mg by mouth three times daily.Cephalexin 500 mg tab Take by mouth. Take one(1) tablet daily.No current facility-administered medications for this visit.DIAGNOSIS, ASSESSMENT AND PLANThere are no active hospital problems to display for this patient.Medication and Non-Pharmacologic VTE Prophylaxis/AnticoagulantsVTE Prophylaxis: VTE prophylaxis appropriateAssessment AND Plan:Imp: The primary encounter diagnosis was Calculus of kidney. Diagnoses ofCPAP (continuous positive airway pressure) dependence, CHRISTOPHER (obstructivesleep apnea), Gastroesophageal reflux disease without esophagitis,Essential hypertension, Former smoker, BMI 50.0-59.9, adult (HCC),Calculus of ureter, Kidney stone, Abnormal urinalysis, Family history ofnephrolithiasis, Family history of prostate cancer, and Family history ofdiabetes mellitus were also pertinent to this visit.Plan: Labs, EKG, repeat CT (has had right URS x [address]); thenmay need repeat right URS plus will need left PCNL with URS-guided access;brochures given and consent done. Culture. IMPACT/PACE.Very complex, very high risk, complete HANDPMark Brian, MDDirector, Surgical Stone Disease, [facility] JensenProfessor of Surgery, [place] [facility] Medical CenterPager [phone]/24/2017SIGNATURE: Polly Torres MD PATIENT NAME: Joe DavidDATE: July 24, 2017 : 9:31 AM PAGER/CONTACT #: Normal [facility] PTH, Intacton 07-24-2017 PTH, Intact 60 pg/mL Normal 15-65 [facility] Comment on above: Performed By: #### CBCDIF, CMP, URIC, PT HI, VITD ####[facility] [place], [place] [phone] Type and SCR (30D)on 018 ABO/RH(D) Positive Normal [facility] Comment on above: Performed By: #### TSCR30 ####[facility] [address]Cle[address], [place] [phone] Uric Acidon 07-24-2017 Urate mass conc 9.3 mg/dL High 4.0-8.1 [facility] Comment on above: Performed By: #### CBCDIF, CMP, URIC, PT HI, VITD ####[facility] [address] AveCGering, [place] [phone] Urinalysison 07-24-2017 Bilirubin, Urine Negative Normal Negative [facility] Comment on above: Performed By: #### UA ####[facility] [address] AveCHolly [place] [phone] Clarity Clear Normal Clear [facility] Comment on above: Performed By: #### UA ####[facility] ic [address] AveCHolly [place] [phone] Color Yellow Normal Yellow [facility] Comment on above: Performed By: #### UA ####[facility] ic [address] AveCHolly [place] [phone] Comments SEE COMMENT Normal [facility] Comment on above: Result Comment: Microscopic Examination Performed Performed By: #### U A ####[place] [address] [place] [phone] Glucose Ql (U) Negative Normal Negative [facility] Comment on above: Performed By: #### UA ####[facility] ic [address]CH[address] [place] [phone] Hemoglobin/Blood ,Ur 2+ Critically abnormal Negative [facility] Comment on above: Performed By: #### UA ####[facility] ic [address] AveCHolly [place] [phone] INR Coag RelTime (Bld) {INR} Critically abnormal 0-3 [facility] Comment on above: Performed By: #### UA ####[facility] ic [address] AveCHolly [place] [phone] Ketones Ql (U) Negative Normal Negative [facility] Comment on above: Performed By: #### UA ####[facility] ic [address] AveCH[address] [place] [phone] Leukest 3+ Critically abnormal Negative [facility] Comment on above: Performed By: #### UA ####[facility] ic [address] AveCH[address] [place] [phone] Nitrites Negative Normal Negative [facility] Comment on above: Performed By: #### UA ####[facility] ic [address] AveCleveland, [place] [phone] pH 6.0 Normal 4.5-8.0 [facility] Comment on above: Performed By: #### UA ####[facility] ic [address] AvJoshua [place] [phone] Protein, Urine 30 mg/dL Critically abnormal Negative [facility] Comment on above: Performed By: #### UA ####[facility] ic [place] [address] [phone] Specific Mcdavid, Ur 1.017 Normal 1.005-1.03 0 [facility] Comment on above: Performed By: #### UA ####[place] [address] [place] [phone] Urine Brayan Comment SEE COMMENT Normal [facility] Comment on above: Result Comment: N/A Performed By: #### U A ####[address] [place] [phone] Urobilinogen Normal Normal Normal [facility] Comment on above: Performed By: #### UA ####[place] [address] [place] [phone] WBC >25 Critically abnormal 0-5 [facility] Comment on above: Performed By: #### UA ####[address] [place] [phone] Urine Cultureon 07-24-2017 Bacteria identified Cx Nom (U) Culture Result - <10,000 CFU/ml Normal urogenital nadia Normal [facility] Comment on above: Performed By: #### URCUL ####[place] [phone] Vitamin D 25 Hydroxyon 07-24 Vitamin D 25 Hydroxy 9.7 ng/mL Low 31.0-80.0 [facility] Comment on above: Result Comment: Classification of 25 [place] Vitamin D status:Insufficiency/Moderate Deficiency: < or = 30 ng/mLSufficiency/Optimal Levels: 31 to 80 ng/mLToxicity: > 100 ng/mLTest performed by chemiluminescent immunoassay. Performed By: #### C BCDIF, CMP, URIC, PTHI, VITD ####[facility] [address] [place], [place] [phone] OT-CT ABD/PELVIS W CON IMPOR Ton 06-22-2017 OT-CT ABD/PELVIS W CON IMPORT Images were obtained outside of [facility] [id number] Normal [facility] Vital Signs Date Time Vital Sign Value Performing Clinician Faci murray 09-23-2021 12:52-0400 Blood Pressure Location Gary NILL [facility] [place] 09-23-2021 12:52-0400 Diastolic blood pressure 82 mm[Hg] Gary NILL [facility] [place] 09-23-2021 12:52-0400 Heart rate 80 /min Gary NILL [facility] [place] 09-23-2021 12:52-0400 Respiratory rate 16 /min Gary NILL [facility] [place] 09-23-2021 12:52-0400 Systolic blood pressure 126 mm[Hg] Gary NILL [facility] [place] Encounters Encounter Date Encounter Type Care Provider Facility Start: 01-04-2022 Encounter for genera l adult medical examination without abnormal findings DR ONEL COFFEY [facility] Start: 12-30-2021 End: 12-31-[address] ONEL COFFEY Facility:[facility] Start: 12-30-2021 End: 12-31-2021 Encounter for general adult medical examination without abnormal findings DR ONEL COFFEY Facility:[facility] Start: 12-06-2021 End: 12-07-2021 ambulatory Gary R NILL Facility:[facility] Start: 12-06-2021 End: 12-06-2021 Patient encounter procedure Gary R NILL [facility] [place] Start: 11-29-2021 End: 11-30-2021 ambulatory Gary R NILL Facility:[facility] Start: 11-29-2021 End: 11-29-2021 Patient encounter procedure Gary R NILL [facility] [place] Start: 11-16-2021 End: 11-17-2021 ambulatory Gary R NILL Facility:CD:[id number] Start: 09-23-2021 End: 09-24-2021 ambulatory Onel Coffey PROVIDER Facility:[facility] Start: 09-23-2021 End: 09-23-2021 Patient encounter procedure Gary R NILL [facility] Start: 08-25-2021 ambulatory Onel Coffey PROVIDER Fa cility:[facility] Start: 01-27-2021 End: 01-28-[address] ONEL COFFEY Facility:[facility] Start: 12-27-2017 End: 12-28-2017 Patient encounter CAT KUNZ [facility] Start: 12-27-2017 End: 12-27-2017 Patient encounter CAT KUNZ [facility] Start: 10-18-2017 Patient encounter POLLY [facility] Start: 10-05-2017 End: 10-06-2017 Patient encounter POLLY TORRES [facility] Start: 09-28-2017 Encounter for other preprocedural examination POLLY TORRES [facility] Start: 09-28-2017 End: 10-01-2017 Patient encounter HOANG ABDULLAHI [facility] Start: 09-28-2017 End: 09-28-2017 Patient encounter POLLY TORRES [facility] Start: 09-13-2017 End: 09-17-2017 [facility] Start: 08-16-2017 End: 08-23-2017 Patient encounter POLLY TORRES [facility] Start: 08-01-2017 End: 08-01-2017 Patient encounter POLLY TORRES [facility] Start: 07-27-2017 End: 07-27-2017 Patient encounter POLLY TORRES [facility] Start: 07-24-2017 End: 07-24-2017 Patient encounter POLLY TORRES [facility] Start: 07-24-2017 Patient encounter POLLY TORRES [facility] Procedures Date Procedure Procedure Detail Performing Clinician Start: 12-30-[address] NEY COFFEY Comment on above: Performed By: #### P SASC #### [facility] [address] [place], [place] [address] Dr. Markus Andrade Start: 01-27-[address] NEY COFFEY Comment on above: Performed By: #### P SASC ####[facility] [address] [place] [address]Dr. Markus Andrade Start: 09-28-2017 Antibody screen POLLY NO BLE Comment on above: Performed By: #### C BCDIF, CMP, URIC, PTHI, VITD ####[facility] [address], [place] [phone] Start: 07-24-2017 Antibody screen POLLY NO BLE Comment on above: Performed By: #### T SCR30 ####[facility] [address] [place], [place] [phone] Dilatation of pylori c stenosis using fluoroscopic guidance Gary [place] Excision of sebaceous cyst [place] Comment on above: right upper back Payers Date Payer Category Payer Unknown [id number] 2.16.8 [id number] 1969 Unknown [id number] 2.16.8 [id number] 1969 Unknown [id number] 2.16.8 [id number] 1969 Unknown [id number] 2.16.8 [id number] 1969 Unknown [id number] 2.16.8 [id number] 1969 Unknown [id number] 2.16.84 [id number] 1969 Unknown [id number] 2.16.84 [id number] 1969 Unknown [id number] 2.16.84 [id number] 1959 Unknown [id number] Social History Date Type Detail Facility Start: 09-23-2021 Tobacco smoking status Ex-smoker (fi nding) [facility] Tobacco smoking status Former sm okeless tobacco user, quit more than 30 days ago [facility] Sex Assigned At Male [facility] Functional Status Date Assessment Result Facility 09-23-2021 Functional Status N/A [facility] Clinical Note 11-16-2021 Note Date & Type Note Facility 11-16-2021 Note OPERATIVE NOTE OPERATION DATE: 11/16/2021 PREOPERATIVE DIAGNOSIS: Previously infected, enlarging sebaceous cyst of the right upper back. POSTOPERATIVE DIAGNOSIS: Previously infected, enlarging sebaceous cyst of the right upper back. PROCEDURE: Excisional biopsy previously infected sebaceous cyst right upper back. SURGEON: Gary Ca M.D. ANESTHESIA: Local with 0.5% Marcaine plain. ESTIMATED BLOOD LOSS: Less than 7 mL. INDICATIONS AND CONSENT: Patient is a 51-year-old male with history of previously infected sebaceous cyst of the right upper back, as well as some intermittent drainage from this cyst, but currently there is no evidence of infection. He did complete a course of antibiotics approximately one month ago. Indications, risks, benefits, alternatives of proceeding with the excisional biopsy under local anesthesia were explained extensively to the patient, including risks of bleeding, infection, scarring, pain, recurrence and need for further surgery. All of his questions were answered. Informed consent was obtained. PROCEDURE: Patient brought to the procedure room, placed in the left lateral decubitus position. The area was prepped and draped in the usual sterile fashion, was anesthetized with 0.5% Marcaine plain. A 3 cm elliptical incision was made over the long axis of the lesion, encompassing the central core, which was excised. It was carried down through subcutaneous tissue using sharp dissection. There was a scarred sebaceous cyst that was completely excised. The depth was over 2 cm. The cyst was completely excised and sent off to Pathology. The wound was irrigated. Hemostasis achieved with needle tip electrocautery as well as subcutaneous 3-0 Monocryl sutures. The skin was then closed with 3-0 nylon mattress sutures and 4-0 nylon simple sutures. Sterile pressure dressing was applied. Sponge and needle counts were correct x2 per nursing personnel. Patient tolerated procedure well, was discharged home in good condition, is to follow up in 10 days for wound check and suture removal. He is to call sooner with any problems or questions. CC: Onel Coffey M.D. [facility] Clinical Note 09-25-2021 Note Date & Type Note Facility 09-25-2021 Note Chief Complaint consultation for sebaceous cyst [facility] Staff 51 year old male presents on consultation from Dr. Coffey for upper back sebaceous cyst. Reports several year history of nodule to right upper back. Roughly one month ago, this rapidly increased in size and became painful. I/D was attempted in office by PCP without return of material. Prescribed Doxycycline 100mg BID x 10 days and Cipro 500mg BID x 10 days. He finished course of ATB's with some improved in size and pain. Area spontaneously drained and continues to drain clear to yellow material. History of Present Illness 51 yo male with h/o htn, CHRISTOPHER, referred for infected sebaceous cyst on back; on antibiotics; attempted I & D by PCP with minimal drainage; completed course of antibiotics; mild soreness, has been squeezing area regularly; minimal serous drainage; cyst has been present for several years, then recently rapidly enlarged. no asa or NSAID use; no tobacco use. Review of Systems PHQ Score Initial Depression Screen Score: 0 ROS - Provider Constitutional: no fever, no sweats, no weight loss. Eyes: no glasses, no blurred vision, no visual loss. ENMT: no dentures, no hoarseness, no swallowing difficulties, no hearing loss, no ear infection(s), no nose bleeds. Cardiovascular: normal blood pressure, no chest pain, regular heartbeat, no heart murmur. Respiratory: no shortness of breath, no cough, no asthma, no wheezing. Gastrointestinal: no nausea, no vomiting, no diarrhea, no constipation, no blood in stool, no change in bowel habits, no abdominal pain, no hepatitis. Genitourinary: no kidney stones, no urine infection, no dysuria. Musculoskeletal: no pain, no weakness. Skin: no changing moles, no rash, yes skin lumps. Neurologic: no seizures, no epilepsy, no headache. Psychiatric: no emotional or psychiatric problem. Heme/Lymph: no bleeding problems, no anemia, no blood clots, no transfusions. Allergy/Immunologic: no swollen lymph nodes/glands, no IV drug abuse. Other: Additional ROS info: Except as noted in the above Review of Systems and in the History of Present Illness, all other systems have been reviewed and are negative or noncontributory. Physical Exam Vitals & Measurements HR: 80(Peripheral) RR: 16 BP: 126/82 HT: 182.88 cm HT: 182.9 cm WT: 162 kg WT: 162.0 kg BMI: 48.44 HEENT: normal conjunctiva, sclera clear, no scleral icterus, EOM intact, PERRLA, oral mucosa moist without lesions. Neck: trachea midline, no mass, symmetric, no thyromegaly or nodules, no adenopathy Respiratory: lungs CTA, respirations non labored. Cardiovascular: regular rate and rhythm, no murmur, no pedal edema or varicosities. Lymphatic: no cervical adenopathy, Musculoskeletal: normal gait, digits and nails without infection, nodes, cyanosis, clubbing. Skin: no rashes, no lesions, no ulcers, right upper back with 2 cm sebaceous cyst, no cellulitis, dilated central pore with minimal serous drainage, no fluctuance. Psychiatric/Neuro: oriented to time, place, person, judgement normal, affect appropriate for age, insight intact, no focal deficits. Tests: review of old records completed, Discussed surgical options, risks, and possible complications with patient.! Assessment/Plan 1. Infected sebaceous cyst (L72.3: Sebaceous cyst) stop squeezing area; keep clean and dry; will plan on excisional biopsy under local anesthesia at [facility] in 3-4 weeks, call sooner if problems/questions. Local infection of the skin and subcutaneous tissue, unspecified (L08.9: Local infection of the skin and subcutaneous tissue, unspecified) Follow-up No qualifying data available Problem List/Past Medical History Ongoing Allergic rhinitis BMI 45.0-49.9, adult History of hydronephrosis History of nephrolithiasis History of rheumatic fever HTN (hypertension) Idiopathic gout Infected sebaceous cyst Morbid obesity Nicotine addiction CHRISTOPHER (obstructive sleep apnea) Historical No qualifying data Procedure/Surgical History Fluoroscopic guidance for dilatation of pyloric stenosis. Medications amLODIPine 10 mg Tab, 10 mg= 1 tab(s), Oral, Daily carvedilol 25 mg Tab, 25 mg= 1 tab(s), Oral, TID colchicine 0.6 mg Tab, 0.6 mg= 1 tab(s), Oral, BID hydrALAZINE 100 mg oral tablet, 100 mg= 1 tab(s), Oral, TID Allergies codeine sulfate (Hives) Social History Alcohol - Denies Alcohol Use, 09/23/2021 Substance Abuse - Denies Substance Abuse, 09/23/2021 Tobacco Former smoker, quit more than 30 days ago Tobacco Use:. Former smokeless tobacco user, quit more than 30 days ago Smokeless Tobacco Use:. Cigarettes, Oral, Started age 18.0 Years. Stopped age 43 Years., 09/23/2021 Family History Diabetes mellitus type 2: Father. Liver cancer: Father. Primary malignant neoplasm of prostate: Father. Renal cell carcinoma: Mother. [facility] Comment on above: Result Comment: Elec tronically Signed By: Gary CA MD\.br\Date and Time Signed: 09/25/21 11:23 EDT Evaluation + Plan note Note Date & Type Note Facility Evaluation + Plan note No data available for this section General Surgery [place] Evaluation + Plan note Note Date & Type Note Facility Evaluation + Plan note Future Appointments Appointment Date:12/06/2021 01:00:00 PM Scheduled Provider:Gary CA MD Location:[facility] Appointment Type: Post Op 15 General Surgery [facility] Discharge instructions Note Date & Type Note Facility Hospital Discharge instructions No data available for this section General Surgery [place] Progress note Note Date & Type Note Facility Progress note No data available for this section General Surgery [place] Summary Purpose Family History No Family History Records FoundNo Family History Records FoundNo Family History Records Found Advance Directives No Advanced Directives Records FoundNo Advanced Directives Records FoundNo Advanced Directives Records Found Procedure Findings Note HNO ID: [id number]: CAIT Collins Reservice: UrologyAuthor Type: ResidentType: Brief Op NoteFiled: 10/05/2017 4:07 PMNote Text:UROLOGY BRIEF OPERATIVE NOTELOG ID: [id number]/Procedure Date: 10/05/2017Incision/Procedure Start Time: 2:14 PMIncision Close/Procedure End Time: 4:00 PMPatient Info: 47 year old male w/ 2.2 cm left UPJ stone and indwellingureteral stent.Preop Diagnosis: Pre-Op Diagnosis Codes: * Calculus of kidney [N20.0] * CHRISTOPHER (obstructive sleep apnea) [G47.33] * CPAP (continuous positive airway pressure) dependence [Z99.89]Postop Diagnosis: Post- Op Diagnosis Codes: * Calculus of kidney [N20.0] * CHRISTOPHER (obstructive sleep apnea) [G47.33] * CPAP (continuous positive airway pressure) dependence [Z99.89]Procedure: Procedure(s) and Anesthesia Type: * PERCUTANEOUS NEPHROSTOLITHOTOMY UP TO 2 CM - GeneralSurgeon(s)/Proceduralist(s) and Senior Research Analyst(s):Surgeon(s) and Role: * Polly Torres - Primary * Shruthi Montgomery MD - Resident - AssistingNo Additional StaffAnesthe (more content not included)... Additional Source Comments (unrecognized sect ion and content) No Status Records FoundNo Status Records FoundNo Status Records Found INFORMATION SOURCE (unrecogn ized section and content) DATE CREATED AUTHOR 01/15/2018 [facility] DATE CREATED AUTHOR AUTHOR'S ORGANIZ ATION 12/10/2021 [facility] DATE CREATED AUTHOR AUTHOR'S ORGANIZ ATION 01/05/2022 [facility] Care Team (unrecognized sect ion and content) Personnel Name: Onel Coffey MD Address: [address] [place] [address] Personnel Name: Onel Coffey MD Address: [address] [place] [address] Personnel Name: Onel Coffey MD Address: [address] [place] [address] FOR RECORDS PERTAINING TO PATIENTS WHO ARE OR HAVE BEEN ENROLLED IN A CHEMICAL DEPENDENCY/SUBSTANCEABUSE PROGRAM, SOME INFORMATION MAY BE OMITTED. This clinical summary was aggregated from multiple sources. Caution should be exercised in using it in the provision of clinical care. This summary normalizes information from multiple sources, and as a consequence, information in this document may materially change the coding, format and clinical context of patient data. In addition, data may be omitted in some cases. CLINICAL DECISIONS SHOULD BE BASED ON THE PRIMARY CLINICAL RECORDS. [facility] [employer] provides no warranty or guarantee of the accuracy or completeness of information in this document.
--- NOTE | 2023-11-11 04:07 | XR_ITS ---
The [address] [address] Patient Name: MONIE DAVID MRN: [id number] date: 1970 Sex: M Assigned Patient Location: ER Current Patient Location: ER Accession/Order Number: [id number] Exam Date: 11/11/2023 04:35 Report Date: 11/11/2023 05:22 At the request of: KASI MENCHACA Procedure: XR chest 1V EXAM: XR chest 1V HISTORY: chest pain COMPARISON: None. TECHNIQUE: One view of the chest was obtained. FINDINGS: The cardiac silhouette is mildly enlarged. There is interstitial prominence. There is no significant pneumothorax or pleural effusion. No acute osseous abnormality is seen. XR/XR chest 1V IMPRESSION: 1. Mildly enlarged cardiac silhouette with suspected interstitial edema. Electronically authenticated by: Onofre GOODWIN Date: 11/11/2023 05:22
--- NOTE | 2023-11-11 04:08 | ED_ITS ---
HPI - Chest Pain General Chief Complaint: Chest Pain Stated Complaint: chest pain Time Seen by Provider: 11/11/23 04:04 Source: patient Mode of arrival: walk-in Limitations: no limitations History of Present Illness HPI narrative: presents complaining of chest pain that started 4 hours ago. No associated dyspnea.nausea. Describes heaviness of his chest. Denies past history of CAD. History of obesity and HTN Related Data Home Medications ?Medication ?Instructions ?Recorded ?Confirmed amlodipine 10 mg tablet mg 11/11/23 carvedilol 25 mg tablet mg 11/11/23 hydralazine 100 mg tablet mg 11/11/23 Allergies Allergy/AdvReac Type Severity Reaction Status Date / Time codeine Allergy Intermediate Hives Verified 11/11/23 04:01 Review of Systems ROS Status of ROS 10 or more systems reviewed and unremark able except as noted in history and below Exam Constitutional Vital Signs, click to edit/add: Last Vital Signs Temp 98 F 11/11/23 03:56 Pulse 58 L 11/11/23 05:20 Resp 15 11/11/23 05:10 BP 121/72 11/11/23 05:20 Pulse Ox 96 11/11/23 05:20 O2 Del Method Room Air 11/11/23 03:56 O2 Flow Rate 2 11/11/23 04:30 Common normals: no apparent distress, oriented x3, healthy appearing, alert and well nourished [facility] Common normals: normocephalic and head/scalp atraumatic Respiratory Common normals: normal respiratory effort, no retractions, no use of accessory muscles and clear to auscultation bilaterally Cardio Common normals: regular rate, regular rhythm, S1 normal heart sound and S2 normal heart sound GI Common normals: Normal to inspection, nondistended, normoactive bowel sounds present, soft to palpation and non-tender Extremity Common normals: normal to inspection Neuro Common normals: oriented x3, CN's II-XII intact bilaterally, moves all extremities and no focal motor deficits Sensorium/orientation: awake Psych Appearance: grossly normal Course Vital Signs Vital signs: Vital Signs Temperature 98 F 11/11/23 03:56 Pulse Rate 73 11/11/23 03:56 Respiratory Rate 20 11/11/23 03:56 Blood Pressure 160/91 H 11/11/23 03:56 Pulse Oximetry 94 L 11/11/23 03:56 Oxygen Delivery Method Room Air 11/11/23 03:56 Temperature 98 F 11/11/23 03:56 Pulse Rate 58 L 11/11/23 05:20 Respiratory Rate 15 11/11/23 05:10 Blood Pressure 121/72 11/11/23 05:20 Pulse Oximetry 96 11/11/23 05:20 Oxygen Delivery Method Room Air 11/11/23 03:56 Oxygen Delivery Flow Rate 2 11/11/23 04:30 MDM - Chest Pain MDM Narrative Medical decision making narrative: patient presents with acute onset of chest pressure. no fever and cough. Did have nausea. EKG with RBBB NSR. No old EKGs for comparison. d-dimer and first troponin neg. Carlo with mild cardiomegaly and possible vascular congestion. BNP pending BNP and 2nd troponin are neg. Discussed with Dr Muñoz and patient accepted for admission to the ICU Lab Data Labs: Lab Results 11/11/23 11/11/23 Range/Units 04:05 06:10 WBC 13.2 H (4.0-11.0) 10^3/uL RBC 4.80 (4.70-6.10) 10^6/uL Hgb 15.2 (14.0-18.0) g/dL Hct 44.3 (42.0-54.0) % MCV 92.3 (80.0-94.0) fL MCH 31.7 (25.9-34.0) pg MCHC 34.3 (29.9-35.2) g/dL RDW 12.4 (11.0-15.0) % Plt Count 322 (150-450) 10^3/uL MPV 8.8 L (9.5-13.5) fL Neut % (Auto) 81.5 H (43.0-75.0) % Lymph % (Auto) 12.8 L (20.5-60.0) % [place] % (Auto) 4.3 (1.7-12.0) % Eos % (Auto) 0.5 L (0.9-7.0) % Baso % (Auto) 0.5 (0.2-2.0) % Neut # (Auto) 10.7 H (1.4-6.5) 10^3/uL Lymph # (Auto) 1.7 (1.2-3.8) 10^3/uL [place] # (Auto) 0.6 (0.3-0.8) 10^3/uL Eos # (Auto) 0.1 (0.0-0.7) 10^3/uL Baso # (Auto) 0.1 (0.0-0.1) 10^3/uL Abs Immat Gran (auto) 0.05 H (0.00-0.03) 10^3/uL Imm/Tot Granulo (auto) 0.4 (0.0-0.5) % D-Dimer 0.38 (<=0.59) mg/L FEU Sodium 139 (136-145) mmol/L Potassium 3.6 (3.5-5.1) mmol/L Chloride 103 (98-107) mmol/L Carbon Dioxide 26.5 (21.0-32.0) mmol/L Anion Gap 13.1 BUN 13.0 (7.0-18.0) mg/dL Creatinine 1.28 (0.70-1.30) mg/dL Est GFR ( Amer) >60 (>=60) Est GFR (Non-Af Amer) 59 L (>=60) BUN/Creatinine Ratio 10.2 Glucose 144 H (74-106) mg/dL Calcium 8.8 (8.5-10.1) mg/dL Troponin I High Sens 14.8 12.8 (4.0-76.1) pg/mL NT-Pro-B Natriuret Pep 163.0 (<=900.0) pg/mL Imaging Data Chest x-ray: Radiologist's impression: ITS Impressions Chest X-Ray 11/11/23 04:07 IMPRESSION: 1. Mildly enlarged cardiac silhouette with suspected interstitial edema. Electronically authenticated by: Onofre GOODWIN Date: 11/11/2023 05:22 Critical Care Time Critical Care Time Total Critical Care Time: 45 Discharge Plan Discharge Chief Complaint: Chest Pain Clinical Impression: Chest pain, rule out acute myocardial infarction, Congestive heart failure Patient Disposition: Admitted as Observation
[2023-11-11 04:12] LABS: Basophils Absolute Auto 0.1 10^3/uL (0.0-0.1); Basophils Percent Auto 0.5 % (0.2-2.0); Eosinophils Absolute Auto 0.1 10^3/uL (0.0-0.7); Eosinophils Percent Auto 0.5 % (0.9-7.0); Hematocrit 44.3 % (42.0-54.0); Hemoglobin 15.2 g/dL (14.0-18.0); Immature Granulocytes Abs Auto 0.05 10^3/uL (0.00-0.03); Immature Granulocytes Pct Auto 0.4 % (0.0-0.5); Lymphocytes Absolute Auto 1.7 10^3/uL (1.2-3.8); Lymphocytes Percent Auto 12.8 % (20.5-60.0); Mean Corpuscular HGB Conc 34.3 g/dL (29.9-35.2); Mean Corpuscular Hemoglobin 31.7 pg (25.9-34.0); Mean Corpuscular Volume 92.3 fL (80.0-94.0); Mean Platelet Volume 8.8 fL (9.5-13.5); Monocytes Absolute Auto 0.6 10^3/uL (0.3-0.8); Monocytes Percent Auto 4.3 % (1.7-12.0); Neutrophils Absolute Auto 10.7 10^3/uL (1.4-6.5); Neutrophils Percent Auto 81.5 % (43.0-75.0); Platelet Count 322 10^3/uL (150-450); Red Cell Distribution Width 12.4 % (11.0-15.0); White Blood Count 13.2 10^3/uL (4.0-11.0)
[2023-11-11 04:27] LABS: Anion Gap 13.1; BUN Creatinine Ratio 10.2; Calcium 8.8 mg/dL (8.5-10.1); Carbon Dioxide 26.5 mmol/L (21.0-32.0); Chloride 103 mmol/L (98-107); Estimated GFR (African America >60 (>=60); Estimated GFR (Non-African Ame 59 (>=60); Glucose 144 mg/dL (74-106); Potassium 3.6 mmol/L (3.5-5.1); Sodium 139 mmol/L (136-145); Troponin I High Sensitivity 14.8 pg/mL (4.0-76.1)
[2023-11-11] MEDS: MORPHINE SULFATE 4 MG/ML VIAL IV ×2 (04:27→05:11)
[2023-11-11] MEDS: ONDANSETRON PF 4 MG/2 ML VIAL IV (04:27)
[2023-11-11] MEDS: NITROGLYCERIN 0.4 MG BOTTLE SL ×2 (04:30→05:11)
--- NOTE | 2023-11-11 04:30 | ECG_ITS ---
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
[2023-11-11 04:31] LABS: D Dimer 0.38 mg/L FEU (<=0.59)
--- NOTE | 2023-11-11 04:40 | PC.NURSE ---
Pt began to have a pale appearance stating he felt an elephant was sitting on his chest . Pt was medicated a few moments prior with IV morphine and zofran per physician order. Pt also received one dose of sublingual nitro and refused subsequent doses stating it did not seem to help. Pt educated on usage of nitro. Dr Romero arrived at bedside and vital signs were repeated along with another EKG. Pt at bedside. Xray at bedside.
[2023-11-11] MEDS: ASPIRIN 81 MG TAB.CHEW 324 MG PO (05:08)
[2023-11-11] MEDS: 0.9 % SODIUM CHLORIDE 1,000 ML 999 ML IV (05:18)
--- NOTE | 2023-11-11 05:25 | PC.NURSE ---
Pt given medication per physician order including sublingual nitro which pt was agreeable to at this time. remains at bedside . Pt VS stable at this time.
[2023-11-11 06:31] LABS: Troponin I High Sensitivity 12.8 pg/mL (4.0-76.1)
[2023-11-11 07:48] LABS: Troponin I High Sensitivity 13.1 pg/mL (4.0-76.1)
[2023-11-11 07:51] LABS: Lactate/Lactic Acid 0.9 mmol/L (0.4-2.0)
[2023-11-11] MEDS: ACETAMINOPHEN 500 MG TABLET 1000 MG PO (08:39)
[2023-11-11] MEDS: LEVOFLOXACIN 750 MG TABLET PO (08:39)
--- NOTE | 2023-11-11 08:59 | P.HP_ITS ---
HPI H&P: HPI History of Present Illness Chief complaint: CHEST PAIN Narrative: Patient presented to the emergency room with increasing chest pain, pressure type, nothing seems to make it worse. Does not occur necessarily with activity. Midsternal. Some respiratory distress with that as well. Patient has a history of very difficult to control high blood pressure. Was elevated on admission, When I saw the patient up on the intensive care unit, he was resting comfortably in bed. Had supplemental oxygen on secondary to his sleep apnea. Was still describing some 2 out of 10 chest pain. Not reproducible., Denies any other symptoms such as nausea, vomiting, diaphoresis. Opioid HPI Opioid Management Most Recent Pain and Opioid Data: Last Pain Scale 2 11/11/23 09:50 Last Pain Assessment 11/11/23 09:00 Last MAR Pain Assessment 11/11/23 09:50 Last ORT Total Score 0 11/11/23 06:58 Last ORT Risk Category Low Risk 11/11/23 06:58 Review of Systems ROS Status of ROS 10 or more systems reviewed and unremark able except as noted in history and below [facility] Medical History (Updated 11/11/23 @ 06:57 by Zachairah Clay) Normal cystoscopy Hx of nephrolithotomy with removal of calculi ?Z98.890 - Other specified postprocedural states (ICD-10) ?Z87.442 - Personal history of urinary calculi (ICD-10) Chest pain ?R07.9 - Chest pain, unspecified (ICD-10) Hypertension ?I10 - Essential (primary) hypertension (ICD-10) Social History Highest level of school completed/degree received: high school graduate Meds Home Medications and Allergies Home Medications ?Medication ?Instructions ?Recorded ?Confirmed ?Type amlodipine 10 mg tablet 10 mg PO DAILY 11/11/23 11/11/23 History aspirin 81 mg tablet,delayed 81 mg PO QD #30 tabs 11/11/23 Rx release carvedilol 25 mg tablet 25 mg PO TID 11/11/23 11/11/23 History hydralazine 100 mg tablet 100 mg PO TID 11/11/23 11/11/23 History isosorbide mononitrate 30 mg 30 mg PO DAILY #30 tabs 11/11/23 Rx tablet,extended release 24 hr Allergies Allergy/AdvReac Type Severity Reaction Status Date / Time codeine Allergy Intermediate Hives Verified 11/11/23 04:01 Exam Constitutional Vital Signs, click to edit/add: Last Vital Signs Temp 98.9 F 11/11/23 06:58 Pulse 65 11/11/23 07:10 Resp 13 11/11/23 07:10 BP 153/81 H 11/11/23 07:00 Pulse Ox 93 L 11/11/23 07:10 O2 Del Method Room Air 11/11/23 06:58 O2 Flow Rate 2 11/11/23 06:45 Documenting provider has reviewed patient's vital signs: yes Common normals: no apparent distress Chest Common normals: inspection of chest normal Respiratory Common normals: normal respiratory effort and no retractions Cardio Common normals: regular rate, regular rhythm and no murmurs GI Common normals: Normal to inspection, nondistended, normoactive bowel sounds present Extremity Common normals: normal to inspection, full ROM and no clubbing, cyanosis or edema Results Labs Labs: Short CBC 11/11/23 Range/Units 04:05 WBC 13.2 H (4.0-11.0) 10^3/uL Hgb 15.2 (14.0-18.0) g/dL Hct 44.3 (42.0-54.0) % Plt Count 322 (150-450) 10^3/uL BMP 11/11/23 04:05 Sodium 139 Potassium 3.6 Chloride 103 Carbon Dioxide 26.5 BUN 13.0 Creatinine 1.28 Glucose 144 H Calcium 8.8 Assessment and Plan Assessment and Plan (1) Chest pain, rule out acute myocardial infarction: Plan Admission findings: Uncontrolled hypertension, respiratory distress, leukocytosis resulting in chest pain. Will obtain cardiac markers to rule out any myocardial injury, EKG is unremarkable. If chest pain resolves later today possible discharge to home. Chest x-ray consistent with interstitial fluid, may be more likely bronchitis although patient denies cough, his BNP is normal and he has no peripheral edema Uncontrolled hypertension-continue with current medications will add isosorbide. Admission status: Patient admitted with chest pain for rule out [facility]. Possible discharge to home later today if stable. Medically necessary treatment will span 1 midnight. Observation status.
--- NOTE | 2023-11-11 08:59 | P.DS_ITS ---
DS: Providers Provider Date of admission: 11/11/23 06:45 Primary care physician: Emiliano Muñoz MD Consults: 11/11/23 07:11 Consult to Pharmacy Routine Consulting Provider: Reason for consultation: Please [place] me when Med Rec is Updated Has provider been notified: No DS: Diagnosis Discharge Diagnosis (1) Chest pain, rule out acute myocardial infarction: Assessment and plan: Admission findings: Uncontrolled hypertension, respiratory distress, leukocytosis resulting in chest pain. Will obtain cardiac markers to rule out any myocardial injury, EKG is unremarkable. If chest pain resolves later today possible discharge to home. Chest x-ray consistent with interstitial fluid, no shortness of breath or cough with ambulation Uncontrolled hypertension-stable at the time of discharge Admission status: Patient admitted with chest pain for rule out [place]. Possible discharge to home later today if stable. Medically necessary treatment will span 1 midnight. Observation status. Plan Patient is admitted with chest pain. Cardiac markers were done which showed no evidence for myocardial damage. EKG is unremarkable. Blood pressure is better controlled. This patient will discharge patient home on the addition of Imdur. See us in the office this week. Patient did ambulate in the halls without any shortness of breath or chest pain. DS: Summary Status at Discharge Overall status at discharge: patient is not back to baseline Time Spent with Patient Time attestation: Total time spent providing and/or coordinating discharge services: Time spent: greater than 30 minutes Exam Constitutional Vital Signs, click to edit/add: Last Vital Signs Temp 98.9 F 11/11/23 06:58 Pulse 65 11/11/23 07:10 Resp 13 11/11/23 07:10 BP 153/81 H 11/11/23 07:00 Pulse Ox 93 L 11/11/23 07:10 O2 Del Method Room Air 11/11/23 06:58 O2 Flow Rate 2 11/11/23 06:45 Documenting provider has reviewed patient's vital signs: yes Common normals: no apparent distress Chest Common normals: inspection of chest normal Respiratory Common normals: normal respiratory effort and no retractions Cardio Common normals: regular rate, regular rhythm and no murmurs GI Common normals: Normal to inspection, nondistended, normoactive bowel sounds present Extremity Common normals: normal to inspection, full ROM and no clubbing, cyanosis or edema DS: Data Data Completed and Pending Labs on day of discharge: Labs from last 24 hours 11/11/23 11/11/23 11/11/23 07:24 06:10 04:05 WBC 13.2 H RBC 4.80 Hgb 15.2 Hct 44.3 MCV 92.3 MCH 31.7 MCHC 34.3 RDW 12.4 Plt Count 322 MPV 8.8 L Neut % (Auto) 81.5 H Lymph % (Auto) 12.8 L [place] % (Auto) 4.3 Eos % (Auto) 0.5 L Baso % (Auto) 0.5 Neut # (Auto) 10.7 H Lymph # (Auto) 1.7 [place] # (Auto) 0.6 Eos # (Auto) 0.1 Baso # (Auto) 0.1 Abs Immat Gran (auto) 0.05 H Imm/Tot Granulo (auto) 0.4 D-Dimer 0.38 Sodium 139 Potassium 3.6 Chloride 103 Carbon Dioxide 26.5 Anion Gap 13.1 BUN 13.0 Creatinine 1.28 Est GFR ( Amer) >60 Est GFR (Non-Af Amer) 59 L BUN/Creatinine Ratio 10.2 Glucose 144 H Lactate 0.9 Calcium 8.8 Troponin I High Sens 13.1 12.8 14.8 NT-Pro-B Natriuret Pep 163.0 Discharge Plan Discharge Disposition: Home, Self-Care Discharge Medications: New aspirin 81 mg Tablet,Delayed Release (Dr/Ec) 81 mg PO QD Qty: 30 11RF isosorbide mononitrate 30 mg tablet extended release 24 hr 30 mg PO DAILY Qty: 30 11RF Continued carvedilol 25 mg tablet 25 mg PO TID amlodipine 10 mg tablet 10 mg PO DAILY hydralazine 100 mg tablet 100 mg PO TID Print Language: Comoran Forms: Portal Instructions
[2023-11-11] MEDS: AMLODIPINE BESYLATE 5 MG TABLET 10 MG PO (09:49)
[2023-11-11] MEDS: ISOSORBIDE MONONITRATE 30 MG TAB.ER.24H PO (09:49)
[2023-11-11] MEDS: PANTOPRAZOLE SODIUM 40 MG VIAL IV (09:50)
[2023-11-11] MEDS: HYDRALAZINE HCL 50 MG TABLET 100 MG PO (09:50)
[2023-11-11] MEDS: CARVEDILOL 25 MG TABLET PO (09:50)
[2023-11-11 10:33] LABS: Troponin I High Sensitivity 13.4 pg/mL (4.0-76.1)
--- NOTE | 2023-11-13 10:37 | CM.DCFOLLOWU ---
1st attempt 11/13/23, no answer
--- NOTE | 2023-11-14 14:24 | CM.DCFOLLOWU ---
2nd attempt 11/14/23, no answer
--- NOTE | 2023-11-15 14:56 | CM.DCFOLLOWU ---
3rd attempt 11/15/23, no answer
== END 2023-11-11 15:00 | disposition home or self-care (01) ==
LOC: ER 03:56 → ICU 06:47
PROVIDERS: Admitting Provider Family Medicine; Emergency Provider Internal Medicine; PCP Family Medicine; Visit Provider Family Medicine
DX: R07.9 Chest pain, unspecified (principal); I10 Essential (primary) hypertension; R06.03 Acute respiratory distress; D72.829 Elevated white blood cell count, unspecified; R91.8 Other nonspecific abnormal finding of lung field; G47.30 Sleep apnea, unspecified; E66.9 Obesity, unspecified; Z68.42 Body mass index [BMI] 45.0-49.9, adult
CPT/HCPCS: 36415; 71045; 80048; 83605; 83880; 84484; 85025; 85378; 87070; 93005; 94761; 96374; 96375; 96376; 99285; G0378; J2270; J2405

== ENCOUNTER 2024-01-18 09:25 | Outpatient (OUT) | payer OTHER, SELFPAY ==
[2024-01-18 10:04] LABS: Basophils Absolute Auto 0.1 10^3/uL (0.0-0.1); Eosinophils Absolute Auto 0.1 10^3/uL (0.0-0.7); Hematocrit 43.5 % (42.0-54.0); Hemoglobin 14.8 g/dL (14.0-18.0); Immature Granulocytes Abs Auto 0.02 10^3/uL (0.00-0.03); Immature Granulocytes Pct Auto 0.3 % (0.0-0.5); Lymphocytes Absolute Auto 1.7 10^3/uL (1.2-3.8); Lymphocytes Percent Auto 24.4 % (20.5-60.0); Mean Corpuscular Volume 94.2 fL (80.0-94.0); Mean Platelet Volume 8.6 fL (9.5-13.5); Monocytes Absolute Auto 0.5 10^3/uL (0.3-0.8); Monocytes Percent Auto 7.7 % (1.7-12.0); Neutrophils Absolute Auto 4.6 10^3/uL (1.4-6.5); Neutrophils Percent Auto 65.6 % (43.0-75.0); Platelet Count 311 10^3/uL (150-450); Red Blood Count 4.62 10^6/uL (4.70-6.10); Red Cell Distribution Width 13.2 % (11.0-15.0)
[2024-01-18 10:31] LABS: Alanine Aminotransferase 30 U/L (16-63); Albumin Globulin Ratio 1.1; Albumin Level 3.7 g/dL (3.4-5.0); Alkaline Phosphatase 62 U/L (46-116); Anion Gap 14.2; Aspartate Amino Transferase 18 U/L (15-37); BUN Creatinine Ratio 9.3; Bilirubin Total 0.6 mg/dL (0.2-1.0); Calcium 9.1 mg/dL (8.5-10.1); Carbon Dioxide 26.5 mmol/L (21.0-32.0); Chloride 107 mmol/L (98-107); Chol HDL Ratio 2.8; Cholesterol 138 mg/dL (<=200); Estimated GFR (African America 59 (>=60 mL/min/1.73m^2); Estimated GFR (Non-African Ame 48 (>=60 mL/min/1.73m^2); Free T3 2.68 pg/mL (2.18-3.98); Globulin 3.5 g/dL; Glucose 97 mg/dL (74-106); HDL Cholesterol 49 mg/dL (40-60); LDL Cholesterol Calculated 78.2 mg/dL; Potassium 3.7 mmol/L (3.5-5.1); Sodium 144 mmol/L (136-145); Thyroid Stimulating Hormone 1.143 uIU/mL (0.358-3.740); Total Protein 7.2 g/dL (6.4-8.2); Triglycerides 54 mg/dL (<=150); Uric Acid 7.4 mg/dL (3.5-7.2); VLDL CHOLESTEROL 10.8 mg/dL
[2024-01-18 10:36] LABS: Estimated Average Glucose 94 mg/dL; Glycohemoglobin A1C 4.9 % (4.5-6.2)
[2024-01-18 11:27] LABS: Prostate Specific Antigen Scrn 1.96 ng/mL (<=4.00)
[2024-01-19 13:08] LABS: Insulin 17.5 uIU/mL (2.6-24.9)
== END 2024-01-18 09:26 | disposition home or self-care (01) ==
LOC: LAB 09:26
PROVIDERS: PCP Family Medicine; Visit Provider Family Medicine
DX: Z00.00 Encounter for general adult medical examination without abnormal findings (principal)
CPT/HCPCS: 36415; 80053; 80061; 83036; 83525; 84436; 84443; 84481; 84550; 85025; G0103

== ENCOUNTER 2025-01-19 09:14 | Outpatient (OUT) | payer OTHER, SELFPAY ==
--- OUTSIDE RECORDS SUMMARY | 2025-01-19 09:19 | XMS_ITS | Clinical Summary ---
Author Organization [facility] Address [address] [place], [place] [address] Care Team Providers Care Wastewater Operator Name Role Phone Emiliano Muñoz MD Primary Care Provider [phone] Allergies Active AllergyReactionsCriticalityNoted DxdmVtvecwwnYfmqavzFbkmhAdtaja06/15/2018 Medications MedicationSigDispense QuantityRefillsLast FilledStart DateEnd DateStatus carvedilol (COREG) 25 mg tablet Take 25 mg by mouth three times daily.Active acetaminophen (TYLENOL EXTRA STRENGTH) 500 mg tablet Take 1,000 mg by mouth as needed for Pain.Active docusate sodium (COLACE) 100 mg capsule Take 1 capsule by mouth twice daily. 60 capsule 08/01/2017Active Additional Information Patient not taking.Reason: No Longer Needed - PRN Medication, Reported on 10/18/2017 pyridoxine, vitamin B6, (VITAMIN B-6) 100 mg tablet Indications:Calculus of kidney,Hyperoxaluria,Hyperuricemia,Hypocitraturia,Low urine output,Hypernatriuria,Calculus of ureterTake 1 tablet by mouth once daily. 09/13/2017Active Additional Information Patient not taking.Reason: Other (Patient states pharmacy never recieved prescription), Reported on 10/18/2017 cholecalciferol, vitamin D3, 50,000 unit tab Take 1 tablet by mouth once each week.Active hydrALAZINE (APRESOLINE) 100 mg tablet Take 1 tablet by mouth three times daily. 90 tablet Active oxybutynin (DITROPAN) 5 mg tablet Take 1 tablet by mouth every 8 hours as needed. Take if you go home with a ascencio catheter. If you do not, no need to take. 21 tablet 10/06/2017Active Additional Information Patient not taking.Reason: Course of Therapy Completed, Reported on 10/18/2017 tamsulosin ER (FLOMAX) 0.4 mg cap Take 1 capsule by mouth once daily. While stent in place 30 minutes after the same meal each day. 30 capsule 10/06/2017Active Additional Information Patient not taking.Reason: Discontinued by Patient, Reported on 10/18/2017 Active Problems ProblemNoted DateDiagnosed FhsjOnowhalmjmvaax25/05/0563Tmsrzovxvlzjg79/05/2018 Low urine tmxyis8609/13/20171166Ieihrjeiyulprm99/05/2943Lqahqhrexcrkm32/17/2018Low vitamin D level07/26/2017Calculus of qnjfyn5407/24/2017CPAP (continuous positive airway pressure) skahpwkzmu06/15/2018OSA (obstructive sleep apnea)07/24/2017 Gastroesophageal reflux disease without mnqrlauuwsr76/15/2018Essential yytxrjpyuxta38/15/2018Former loamle7107/24/2017BMI 50.0-59.9, adult07/24/2017 Calculus of ctlvlq3707/24/2017Abnormal dzicswcqoq13/15/2018Family history of diabetes sxjvajtu31/15/2018Family history of prostate fqopev7207/24/2017Family history of rjcsmvgbnrikcrf46/15/2018NephrolithiasisMorbid obesityOSA on CPAP Social History Tobacco UseTypesPacks/DayYears UsedDateSmoking Tobacco: AdprsfRwenuqtuvn651 07/27/1989 - 07/27/2013Smokeless Tobacco: FormerSnuffQuit: 07/28/2011PHQ-2Answer Date RecordedPHQ2 Teukx675Area Deprivation IndexAnswerDate Recorded National Score (1-100), lower number is lower riskNot on file02/17/2020State Score (1-10), lower number is lower riskNot on file02/17/2020Data from: https://www.neighborhoodatlas.medicine.[facility].edu/. Last address used for calculationNot on file02/17/2020Sex and Gender InformationValueDate RecordedSex Assigned at BirthNot on fileLegal RptUimf9307/19/2017 11:22 AM EDTGender Identity Not on fileSexual OrientationNot on file Last Filed Vital Signs Vital SignReadingTime TakenCommentsBlood Eeydecee512/77010/06/2017 2:15 PM EDT Wjnjr417110/06/2017 11:17 AM HKWVpnhwgnuqmi27.9 ??C (98.4 ??F)10/06/2017 11:17 AM EDTRespiratory Etnu038210/06/2017 11:17 AM EDTOxygen Ztaikpmity77%10/06/2017 2:15 PM EDTInhaled Oxygen Concentration--Agexdp952 kg (348 lb 5.2 oz)10/05/2017 6:45 PM ZHLZxkprj680 cm (5' 8.5 )10/05/2017 6:45 PM EDTBody Mass Index52.19010/05/2017 6:45 PM EDT Plan of Treatment Health MaintenanceDue DateLast DoneCommentsAnxiety Iimkimwqv40/01/1988Depression Yhveegiwk14/01/1988HIV Mnynyfcbf43/01/1988Hepatitis C Ffqemtdhy09/01/1988 DTaP,Tdap,Td Vaccine (1 - Tdap)1988Hepatitis B Vaccine (1 of 3 - 19+ 3- dose series)1988Lipid Kjgxdmgvs99/01/2005CT Tqhxjzrbqaii31/01/2015 Cologuard (FIT-DNA)09/09/20143577Phililzgsbp25/01/2015Colorectal Cancer Screening 2014Fecal Occult Blood2014Prostate Cancer Screening Discussion 09/09/20144101Agfccnnhcqrcg01/01/2015Pneumococcal Vaccine: 50+ (1 of 1 - PCV) 09/10/2019Shingrix Vaccine (1 of 2)09/10/2019Diabetes Uyguwnnga68/28/2021 10/06/2017, 10/05/2017, 09/28/2017, Additional history existsCovid-19 Vaccine ( - 2024- season)2024Influenza Vaccine (#1)2024 Medical Devices ImplantedTypeAreaManufacturerDevice IdentifierShelf Expiration DateModel / Serial / LotStent Inlay [place] 7fr [employer] [place] [employer] Polymer Phreecoat 26cm Ureteral - [id number] [facility] [employer] [id number] / / [id number] Inlay [place] 7fr [employer] [place] Phreecoat Polymer 28cm Ureteral - [id number] Implanted:Qty: 1 on 08/01/2017 at [facility] StentsLeft: Ureter [employer] [id number]/[id number] / / [id number] Inlay [place] 7fr Taper [place] Polymer Phreecoat 30cm Ureteral - [id number] Implanted:Qty: 1 on 10/05/2017 at [facility] StentsROCKF[employer] MEDICAL [id number]/[id number] / / [id number] Procedures Procedure NamePriorityDate/TimeAssociated DiagnosisCommentsBASIC METABOLIC PANEL Dfvfeou5410/06/2017 12:59 AM EDT from Last 3 Months or Most Recently Relevant to Health Maintenance Results * (ABNORMAL) BASIC METABOLIC PNL (10/06/2017 12:59 AM EDT)ComponentValueRef RangeTest MethodAnalysis TimePerformed AtPathologist MhqqiiujxPwkvrtd8715 - 99 mg/dL10/06/2017 3:08 AM [facility] MA[facility] LABORATORYComment: The [place] Diabetes Association (ADA) provides guidance for cutoff values for fasting glucose and random glucose. The ADA defines fasting as no caloric intake for at least 8 hours. Fasting plasma glucose results between 100 to 125 mg/dL indicate increased risk for diabetes (prediabetes). Fasting plasma glucose results greater than or equal to 126 mg/dL meet the criteria for diagnosis of diabetes. In the absence of unequivocal hyperglycemia, results should be confirmed by repeat testing. In a patient with classic symptoms of hyperglycemia or hyperglycemic crisis, random plasma glucose results greater than or equal to 200 mg/dL meet the criteria for diagnosis of diabetes. Reference: Standards of Medical Care in Diabetes 2016, [place] Diabetes Association. Diabetes Care. 2016.39(Suppl 1). JJZ155 - 24 mg/dL10/06/2017 3:08 AM [facility] Creatinine2.04(H)0.73 - 1.22 mg/dL10/06/2017 3:08 AM [facility] MAIN GKAKEAQBMOSyqhfz592893 - 144 mmol/L10/06/2017 3:[facility]ORYPotassium4.03.7 - 5.1 mmol/L10/06/2017 3:08 AM [facility] MA[facility] FLQJNUSHJNLkmsokpj3095 - 105 mmol/L10/06/2017 3:08 AM [facility] MAIN ASBSZHTLKJKO674(L)22 - 30 mmol/L10/06/2017 3:08 AM [facility] MA[facility] LABORATORYAnion Mkn093 - 18 mmol/L10/06/2017 3:08 AM [facility] MAIN LABORATORYCalcium8.98.5 - 10.2 mg/dL10/06/2017 3:08 AM [facility] MAIN LABORATORYeGFR- Fjliowmp2728/28/2018 3:08 AM [facility] MAIN LABORATORYeGFR-All Other Races35.10/06/2017 3:08 AM [facility] MAIN LABORATORYComment: eGFR (Estimated GFR) Units of measure: mL/min/1.73 meters squared eGFR is derived from the reexpressed MDRD Study equation using the following parameters: serum creatinine, age, gender and race. The creatinine assay has been calibrated to be traceable to IDMS. An eGFR <60 mL/min/1.73m2 for >3 months is consistent with chronic kidney disease. Refer to KDOQI guidelines for clinical interpretation. In patients with unstable renal function, e.g. those with acute kidney injury, the eGFR may not accurately reflect actual GFR. Specimen (Source)Anatomical Location / LateralityCollection Method / Volume Collection TimeReceived TimeBlood specimen (specimen)BLOOD SPECIMEN / Unknown 10/06/2017 12:59 AM EDT10/06/2017 1:00 AM EDT Narrative Authorizing ProviderResult TypeResult StatusShaquille Torres MDLABORATORYFinal ResultPerforming OrganizationAddressCity/State/ZIP CodePhone Number [facility] [address] [place] [address] from Last 3 Months or Most Recently Relevant to Health Maintenance Care Teams Team MemberRelationshipSpecialtyStart DateEnd Date Emiliano Muñoz MD PCP - GeneralFamily Medicine07/19/17
--- OUTSIDE RECORDS SUMMARY | 2025-01-19 09:20 | XMS_ITS | CCD ---
Author Organization [facility] Care Team Providers Care X Ray Equipment Servicer Name Role Phone TORRES, POLLY Unavailable Unavailable [...] Unavailable TORRES, POLLY Unavailable Unavailable CAT WILL (AGILE BUSINESS ANALYST) Unavailable Unavailab le CAT WILL (AGILE BUSINESS ANALYST) Unavailable Unavailab ARMANI Brooke (FEL) Unavailable Unavailable TORRES, POLLY Unavailable Unavailable TORRES, POLLY Unavailable Unavailable TORRES, POLLY Unavailable Unavailable HOANG ABDULLAHI Unavailable Unavailable TORRES, POLLY Unavailable Unavailable TORRES, POLLY Unavailable Unavailable TORRES, POLLY Unavailable Unavailable TORRES, POLLY Unavailable Unavailable TORRES, POLLY Unavailable Unavailable CAT WILL (AGILE BUSINESS ANALYST) Unavailable Unavailab le TORRES, POLLY Unavailable Unavailable CAT WILL (AGILE BUSINESS ANALYST) Unavailable Unavailab CAT Lucas (AGILE BUSINESS ANALYST) Unavailable Unavailab Onel Shanks Primary Care Physician [phone] Onel Bryan Referring Unavailabl Gary Reilly Attending Unavailable NILLGary Attending Unavailable NILL, Gary Estevez Attending Unavailable NILGary Argueta Attending Unavailable Onel Bryan Referring Unavailabl e NILGary Argueta Attending Unavailable ALEXX, DR SYKES Primary Care Unavailable NILL, DR GREEN Admitting Unavailable NILL, DR GREEN Attending Unavailable NILL, DR GREEN Consulting Unavailable MARISY, DR SYKES Consulting Unavailable ALEXX, DR SYKES Primary Care Unavailable ALEXX, DR SYKES Admitting Unavailable ALEXX, DR SYKES Attending Unavailable HOY, DR SYKSE Primary Care Unavailable DR ONEL COFFEY Admitting Unavailable DR ONEL COFFEY Attending Unavailable DR ONEL COFFEY Consulting Unavailable Allergies Allergy ClassificationReported Allergen(s)Allergy TypeDate of OnsetReaction(s) Facility (5 sources)codeine; Translations: [CODEINE]Drug Bettctx22-24-0583Stvc (disorder) [facility] Repository (1 source)Codeine; Translations: [codeine sulfate][facility]ergy[facility] [place] [facility] Medications Current Medications MedicationDrug Class(es)DatesSig (Normalized)Sig (Original)amLODIPine 10 mg oral tablet (3 sources)Dihydropyridine Calcium Channel BlockerStart: 09-50-3522lrda 1 tablet by mouth once dailyamLODIPine 10 mg Tab 10 mg = 1 tab(s), Oral, Daily, Refills(s) 0 Start Date: 09/15/21 Status: Orderedcarvedilol 25 mg oral tablet (3 sources)alpha-Adrenergic Srinivas, beta-Adrenergic BlockerStart: 09-15-2021 take 1 tablet by mouth three times dailycarvedilol 25 mg Tab 25 mg = 1 tab(s), Oral, TID, Refills(s) 0 Start Date: 09/15/21 Status: Orderedcolchicine 0.6 mg oral tablet (3 sources)Start: 03-90-6790sdqw 1 tablet by mouth twice dailycolchicine 0.6 mg Tab 0.6 mg = 1 tab(s), Oral, BID, Refills(s) 0 Start Date: 09/15/21 Status: OrderedhydrALAZINE hydrochloride 100 mg oral tablet (3 sources)Arteriolar VasodilatorStart: 48-75-7435bybu 1 tablet by mouth three times dailyhydrALAZINE 100 mg oral tablet 100 mg = 1 tab(s), Oral, TID, Refills(s) 0 Start Date: 09/15/21 Status: OrderedlevoFLOXacin 750 mg oral tablet (1 source)Quinolone AntimicrobialStart: 11-29-2021 End: 60-76-3390wsnv 1 tablet by mouth once dailyLevaquin 750 mg Tab 750 mg = 1 tab(s), Oral, Daily, X 5 day(s), # 5 tab(s), Refills(s) 0, Pharmacy:[facility], 182.9, cm, 09/23/21 13:05:00 EDT, Height/Length Dosing, 162, kg, 09/23/21 13:05:00 EDT, Weight Dosing Start Date: 11/29/21 Stop Date: 12/04/21 Status: Ordered Problems Active Problems Problem ClassificationProblemDateDocumented DateEpisodic/ChronicCalculus of urinary tract (5 sources)Calculus of kidney; Translations: [Calculus of ureter]Onset: 269322-62-0631XlrngizzEfmacdhjvy disorders (1 source)Gastro-esophageal reflux disease without esophagitis; Translations: [Gastro-esophageal reflux disease without esophagitis]Onset: 46-34-8701Csyjykw Essential hypertension (5 sources)Essential (primary) hypertension; Translations: [Hypertensive disorder]Onset: 045414-77-4711RifbuvoKlkl and other crystal arthropathies (3 sources)Primary mpyx59-81-8085FfxwdugZdwlx circulatory disease (3 sources)H/O: rheumatic hyiog56-77-8991CrkceznmEsvbe nutritional; endocrine; and metabolic disorders (2 sources)Hyperoxaluria; Translations: [Hyperoxaluria]Onset: 40-23-9942Ukzqmmv Other nutritional; endocrine; and metabolic disorders (1 source)Body mass index (BMI) 50-59.9 , adult; Translations: [Body mass index (bmi) 50-59.9 , adult]Onset: 64-62-0805KznmjorBmvbi nutritional; endocrine; and metabolic disorders (2 sources)Morbid (severe) obesity due to excess calories; Translations: [Morbid (severe) obesity due to excess calories]Onset: 63-00-1077JebqooeGiouy nutritional; endocrine; and metabolic disorders (3 sources)Body mass index 40+ - severely -21-7230OtkqecxKalai nutritional; endocrine; and metabolic disorders (3 sources)Morbid ftairex14-16-7635QuqtkfwUcofm nutritional; endocrine; and metabolic disorders (1 source)Body mass index (BMI) 45.0-49.9, adult; Translations: [BODY MASS INDEX BMI 45.0-49.9 ADULT]Onset: 18-88-8294MtubrxbCsezl skin disorders (2 sources)Sebaceous cyst of skin; Translations: [Sebaceous cyst]Onset: 49-34-1321KtxvejtdItulq skin disorders (2 sources)Infection of sebaceous kixe04-35-9979RpdljcueXtdht skin disorders (4 sources)Sebaceous cyst; Translations: [SEBACEOUS CYST]Onset: 11-16-2021 EpisodicOther upper respiratory disease (3 sources)Allergic fkqpborh77-74-0858QndpkrcXvvgdglt codes; unclassified (3 sources)Obstructive sleep apnea xalxictp28-12-4562LyxphywVtyqbkkrk or history of mental health and substance abuse (2 sources)Personal history of nicotine dependence; Translations: [Personal history of nicotine dependence]Onset: 28-23-3844RavxeggvWtis and subcutaneous tissue infections (3 sources)Infection of skin and/or subcutaneous tissue; Translations: [Local infection of the skin and subcutaneous tissue, unspecified]Onset: 11-24-2021 EpisodicSpondylosis; intervertebral disc disorders; other back problems (1 source)Dorsalgia, unspecified; Translations: [DORSALGIA UNSPECIFIED]Onset: 49-80-2955WfuixqljRricsisdn-related disorders (3 sources)Nicotine -30-4658HxlrnzrDtmrgnpduoyy (3 sources)Obstructive sleep apnea (adult) (pediatric); Translations: [Dependence on other enabling machines and devices]Onset: 53-62-7720Pcniubm Unclassified (3 sources)Encounter for screening for other disorder; Translations: [Other specified abnormal findings of blood chemistry]Onset: 29-18-0958Zbfzxuxf Unclassified (1 source)Hypocitraturia; Translations: [Hypocitraturia]Onset: 09-13-2017 Unclassified (1 source)Unknown / UNK(Unknown)Onset: 45-52-2617Ahmtfhtbvsao (3 sources)History of xwmpjnsfjzztdu82-02-6884 Past or Other Problems Problem ClassificationProblemDateDocumented DateEpisodic/ChronicFluid and electrolyte disorders (1 source)Hyperosmolality and hypernatremia; Translations: [Hyperosmolality and hypernatremia]Onset: 91-87-1251BadbtdolMpmzrcmrmxkke symptoms and ill-defined conditions (2 sources)Anuria and oliguria; Translations: [Other abnormal findings in urine] Onset: 78-71-5520KdgihuruPimfu nutritional; endocrine; and metabolic disorders (1 source)Hyperuricemia without signs of inflammatory arthritis and tophaceous disease; Translations: [Hyperuricemia without signs of inflammatory arthritis and tophaceous disease]Onset: 45-26-4197Ivwodpdc Results Test NameValueInterpretationReference RangeFacilityINSULINon 56-71-7777Hotfgsw 33.8 uIU/mLCritically high2.6-24.9The [facility] HospitalComment on above: Performed By: #### INSULIN #### [facility] [address] [address] [address] Markus Das AUTO DIFFon 71-21-4034IRNX #0.1 103/ulNormal0.0-0.1The [facility] HospitalComment on above:Performed By: #### CBC ####[facility] [address] [address]Dr.Markus ChangBasophils/100 WBC (Bld)0.7 %Normal0.2-2.0The [facility] Hospitalment on above:Performed By: #### CBC ####[facility] [address] [address]Dr.Markus ChangEO #0.0 103/ulNormal0.0-0.7The [facility] HospitalComment on above:Performed By: #### CBC ####[facility] [address] [address]Dr.Markus ChangEosinophils/100 WBC (Bld)0.3 %Critically low0.9-7.0The [facility] HospitalComment on above:Performed By: #### CBC ####[facility] Dr[address]wc[address] [address]Dr. Markus ChangErythrocyte distribution width (RBC) [Ratio]13.0 %Woxaer47.0-15.0The [facility] HospitalComment on above:Performed By: #### CBC ####[facility] [address] [address]DrJoseph ChangHematocrit (Bld) [Volume fraction]43.8 %Dfedds28.0-54.0The [facility] HospitalComment on above:Performed By: #### CBC ####[facility] [address] [address]Dr.Markus ChangHemoglobin (Bld) [Mass/Vol]14.7 g/dL Ymqfod81.0-18.0The [facility] HospitalComment on above:Performed By: #### CBC ####[facility] [address] [address]Dr. Nellalan ChangIG #0.02 10e3/ulNormal0.00-0.03The [facility] HospitalComment on above: Performed By: #### CBC ####[facility] Gvhszfds[address] [place], [place] [address]Dr.Markus ChangIG %0.2 %Normal0.0-0.5The [facility] HospitalComment on above:Performed By: #### CBC ####[facility] Rnrvfdmgys[address] [place], [place] [address]Dr.Markus RaymondLYMPH #1.5 103/ulNormal1.2-3.8The [facility] HospitalComment on above:Performed By: #### CBC ####[facility] Icmxobdnix[address] [place], [place] [address]Dr. Markus RaymondLymphocytes/100 WBC (Bld)17.1 %Critically low20.5-60.0The [facility] HospitalComment on above:Performed By: #### CBC ####[facility] Sykjzhepwu[address] [place], [place] [address]Dr.Nellabrittanie AndradeMANUAL DIFF REQ NONormalThe [facility] HospitalComment on above:Performed By: #### CBC ####[facility] Vzvyxtzsco[address] [place], [place] [address]Dr. Markus AndradeH (RBC) [Entitic mass]31.6 ciWnrhht29.9-34.0The [facility] Comment on above:Performed By: #### CBC ####[facility] Zzlemwxffn[address] [place], [place] [address]Dr.Markus AndradeMCHC (RBC) [Mass/Vol]33.6 g/dL Ssitix22.9-35.2The [facility] HospitalComment on above:Performed By: #### CBC ####[facility] [address] [address]Dr. Markus AndradeMCV (RBC) [Entitic vol]94.2 fLCritically high80.0-94.0The [facility] HospitalComment on above:Performed By: #### CBC ####[facility] Dxesjspihp[address] [place], [place] [address]Dr.Markus AndradeMONO #0.6 103/ulNormal0.3-0.8The [facility] HospitalComment on above:Performed By: #### CBC ####[facility] Xxxbjcdudm[address] [place], [place] [address]Dr. Markus AndradeMonocytes/100 WBC (Bld)6.7 %Normal1.7-12.0The [facility] Comment on above:Performed By: #### CBC ####[facility] Rykfanzblr[address] [place], [place] [address]Dr.Nellabrittanie AndradeNEUT #6.5 103/ulNormal1.4-6.5 The [facility] HospitalComment on above:Performed By: #### CBC ####[facility] Vnbgxhqcor[address] [place], [place] [address]Dr.Markus Andrade Neutrophils/100 WBC (Bld)75.0 %Rhzpxk18.0-75.0The [facility] HospitalComment on above:Performed By: #### CBC ####[facility] Pmwbksmhbv[address] [place], [place] [address]Dr.Markus RaymondPlatelet mean volume (Bld) [Entitic vol] 8.6 fLCritically low9.5-13.5The [facility] HospitalComment on above:Performed By: #### CBC ####[facility] Gvtimzvtug[address] [place], [place] [address]Dr.Nellalan NvolrWUO084 103/jrSctqtj786-620Gub [facility] HospitalComment on above:Performed By: #### CBC ####[facility] Hcnjjeqokj[address] [place], [place] [address]Dr.Markus AndradeRBC4.65 106/ulCritically low4.70-6.10The [facility] HospitalComment on above:Performed By: #### CBC ####[facility] [address] [address]Dr.Markus AndradeWBC8.6 103/ul Normal4.0-11.0The [facility] HospitalComment on above:Performed By: #### CBC ####[facility] [address] [address]Dr. Markus AndradeFRAGNIESZKA THYROXINE INDEX T7on 54-34-7322GBA0.39Szgrib4.30-4.50The [facility] HospitalComcaro center on above:Performed By: #### TSH, T7, CMP, URIC, LIPID ####[facility] [address] [address]Dr. Markus AndradeT3U33.0 %Eeqbbq04.0-40.0The [facility] HospitalComcaro center on above: Performed By: #### TSH, T7, CMP, URIC, LIPID ####[facility] [address] [address]Dr. Markus AndradeT4 [Mass/Vol] 7.50 ug/dLNormal4.50-12.10The [facility] HospitalComcaro center on above:Performed By: #### TSH, T7, CMP, URIC, LIPID ####[facility] Sex[address]rx[address]ht[address] [address]Dr. Markus AndradeGLYCOHEMOGLOBIN A1Con 67-59-8237EZD RECOMMENDATIONSEE BELOWNoSt. Vincent HospitalComcaro center on above:Result Comment: ADA RECOMMENDED LIMIT 4.0 - 6.0 ADA THERAPEUTIC TARGET < 7.0 ACTION SUGGESTED > 7.0Performed By: #### A1C #### [facility] [address] [address] [address] Markus AndradeGlucose [Mass/Vol]100 mg/dLNoSt. Vincent HospitalComcaro center on above:Performed By: #### A1C #### [facility] [address] [address] [address] Markus AndradeHbA1c (Bld) [Mass fraction]5.1 %Normal4.5-6.2The [facility] HospitalComment on above:Performed By: #### A1C #### [facility] [address] [place], [place] [address] Dr. Markus VillalpandoID PROFILEon 90-43-9268DTMO-HDL RATIO NORMSEE BELOWUniversity Hospitals TriPoint Medical CenterComment on above:Result Comment: 3.3 - 4.4 LOW RISK 4.4 - 7.1 AVERAGE RISK 7.1 - 11.0 MODERATE RISK >11.0 HIGH RISKPerformed By: #### TSH, T7, CMP, URIC, LIPID ####[facility] [address]orc[address] [address]Dr. Markus AndradeCholesterol [Mass/Vol]139 mg/dLNormal<=200The [facility] on above:Performed By: #### TSH, T7, CMP, URIC, LIPID ####[facility] [address] [address]Dr. Markus AndradeCholesterol in HDL [Mass/Vol]41 mg/lQEkokhn62-33LalGrant Hospital Comment on above:Performed By: #### TSH, T7, CMP, URIC, LIPID ####[facility] [address]uz[address] [address]Dr. Markus Andrade Cholesterol in LDL [Mass/Vol]79.0 mg/dLNoAdams County Regional Medical Center on above:Performed By: #### TSH, T7, CMP, URIC, LIPID ####[facility] [address] [address]Dr. Markus Andrade Cholesterol.total/Cholesterol in HDL [Mass ratio]3.4 {ratio}NormalAvita Health System [facility] on above:Performed By: #### TSH, T7, CMP, URIC, LIPID ####[facility] [address]ta[address] [address]Dr. Markus AndradeHDL NORMAL> or = 60 mg/dl - LOW CARDIOVASCULAR RISK <40 mg/dl - HIGH CARDIOVASCULAR RISKUniversity Hospitals TriPoint Medical CenterComment on above:Performed By: #### TSH, T7, CMP, URIC, LIPID ####[facility] [address] [address]Dr. Markus AndradeLDL CALC NORMALSEE BELOWNoSt. Vincent HospitalComment on above:Result Comment: <100 mg/dl OPTIMAL 100 - 129 mg/dl NEAR OR ABOVE OPTIMAL 130 - 159 mg/dl BORDERLINE HIGH 160 - 189 mg/dl HIGH >190 mg/dl VERY HIGHPerformed By: #### TSH, T7, CMP, URIC, LIPID ####[facility] [address] [address]Dr. Markus Andrade Triglyceride [Mass/Vol]95 mg/dLNormal<=150The [facility] HospitalComment on above: Performed By: #### TSH, T7, CMP, URIC, LIPID ####[facility] [address] [address]Dr. Nellabrittanie AndradeVLDL CALC19.0 mg/dLNoSt. Vincent HospitalComment on above:Performed By: #### TSH, T7, CMP, URIC, LIPID ####[facility] [address]jm[address] [address]Dr. Markus AndradePROF 14(COMP METB)on 26-50-2235Kbqkmqc [Mass/Vol]4.0 g/dLNormal3.4-5.0The [facility] HospitalComment on above:Performed By: #### TSH, T7, CMP, URIC, LIPID ####[facility] [address] [address]Dr. Markus AndradeAlbumin/Globulin [Mass ratio]1.2 {ratio}Normal The [facility] HospitalComcaro center on above:Performed By: #### TSH, T7, CMP, URIC, LIPID ####[facility] [address]ri[address] [address]Dr. Markus AndradeALP [Catalytic activity/Vol]55 U/MSooaai87-967Nda [facility] Hospitalment on above:Performed By: #### TSH, T7, CMP, URIC, LIPID ####[facility] [address]td[address]ijasm[address] [address]Dr. Markus AndradeALT [Catalytic activity/Vol]25 U/WZlzojs42-85Gyf [facility] Comment on above:Performed By: #### TSH, T7, CMP, URIC, LIPID ####[facility] [address]kcx[address] [address]Dr. Yilan ChangAnion gap [Moles/Vol]11.3 mmol/LNormalThe [facility] HospitalComment on above:Performed By: #### TSH, T7, CMP, URIC, LIPID ####[facility] [address] [address]Dr. Yilan ChangAST [Catalytic activity/Vol]19 U/L Fftfur42-90Zxb [facility] HospitalComcaro center on above:Performed By: #### TSH, T7, CMP, URIC, LIPID ####[facility] Pfmkefwnlj[address] [place], [place] [address]Dr. Yilan ChangBilirubin [Mass/Vol]0.6 mg/dLNormal0.2-1.0The [facility] HospitalComcaro center on above:Performed By: #### TSH, T7, CMP, URIC, LIPID ####[facility] Jlfefiriou[address] [place], [place] [address]Dr. Yilan ChangCalcium [Mass/Vol]8.8 mg/dLNormal8.5-10.1The [facility] on above:Performed By: #### TSH, T7, CMP, URIC, LIPID ####[facility] Ebcxtlqyvl[address] [place], [place] [address]Dr. Yilan ChangChloride [Moles/Vol]105 mmol/KTdubbe46-029Bha [facility] on above:Performed By: #### TSH, T7, CMP, URIC, LIPID ####[facility] Quohdtfifp[address] [place], [place] [address]Dr. Yilan ChangCO2 [Moles/Vol]27.2 mmol/LNormal 21.0-32.0The [facility] HospitalComment on above:Performed By: #### TSH, T7, CMP, URIC, LIPID ####[facility] Xmiajfhbhz[address] [place], [place] [address]Dr. Yilan ChangCreatinine [Mass/Vol]1.33 mg/dLCritically high0.70-1.30The [facility] HospitalComment on above:Performed By: #### TSH, T7, CMP, URIC, LIPID ####[facility] [address]az[address] [address]Dr. Yilan ChangEGFR-AF VIETNAMESE>60Normal>=60The [facility] on above: Performed By: #### TSH, T7, CMP, URIC, LIPID ####[facility] [address]su[address]smg[address] [address]Dr. Yilan ChangEGFR-NON AF PDCPRLMX20 mL/min/1.10k4Omxysmyylk low>=60The [facility] HospitalComment on above: Performed By: #### TSH, T7, CMP, URIC, LIPID ####[facility] Gvjhyejzrz[address] [place], [place] [address]Dr. Yilan ChangGlobulin (S) [Mass/Vol]3.4 g/dLNormalThe [facility] HospitalComment on above:Performed By: #### TSH, T7, CMP, URIC, LIPID ####[facility] Qkfttyanom[address] [place], [place] [address]Dr. Yilan ChangGlucose [Mass/Vol]103 mg/eWLwnelz26-929 The [facility] HospitalComcaro center on above:Performed By: #### TSH, T7, CMP, URIC, LIPID ####[facility] Idakhteilp[address] [place], [place] [address]Dr. Yilan ChangPotassium [Moles/Vol]3.5 mmol/LNormal3.5-5.1[facility] on above:Performed By: #### TSH, T7, CMP, URIC, LIPID ####[facility] Ghczkzlfzy[address] [place], [place] [address]Dr. Yilan ChangProtein [Mass/Vol]7.4 g/dLNormal6.4-8.2The [facility] on above:Performed By: #### TSH, T7, CMP, URIC, LIPID ####[facility] Cynzcnpqha[address] [place], [place] [address]Dr. Yilan ChangSodium [Moles/Vol]140 mmol/BKtsziw107-621Tzg [facility]iff[facility] Hospitalment on above: Performed By: #### TSH, T7, CMP, URIC, LIPID ####[facility] [address] [id number]. Markus ChangUrea nitrogen [Mass/Vol]14.0 mg/dLNormal7.0-18.0The [facility] HospitalComment on above: Performed By: #### TSH, T7, CMP, URIC, LIPID ####[facility] [address] [address]Dr. Nellalan ChangUrea nitrogen/Creatinine [Mass ratio]10.5 mg/mgNormalThe [facility] HospitalComment on above:Performed By: #### TSH, T7, CMP, URIC, LIPID ####[facility] [address] [address]Dr. Markus ChangTSHon 82-51-6907JLN0.811 uIU/mLNormal0.358-3.740The [facility] HospitalComment on above: Performed By: #### TSH, T7, CMP, URIC, LIPID ####[facility] [address]ss[address] [address]Dr. Nellalan ChangURIC ACID SERUMon 68-46-8962Hxzqt [Mass/Vol]8.0 mg/dLCritically high3.5-7.2The [facility] Hospitalment on above:Performed By: #### TSH, T7, CMP, URIC, LIPID ####[facility] [address]ts[address] [address]Dr. Markus AndradeAmbulatory Visit Summaryon 33-96-3443Dagifumfdi Visit Summary JOE DAVID Oswald :1970 Visit Date:12/06/2021 Ambulatory Visit Instructions Your [...] obesity Nicotine addiction CHRISTOPHER (obstructive sleep apnea) [facility]General [facility] Office/Clinic Noteon 57-52-4160Tvyxgni Surgery Office/Clinic NoteChief Complaint post operative follow up HPI Staff [...] swallowing difficulties, no hearing loss, no ear infection(s),no nose bleeds. Cardiovascular: normal blood pressure, no [...] neoplasm of prostate: Father. Renal cell carcinoma: Mother.[facility] HospitalComment on above: Result Comment: Electronically Signed By: LANNY HERNANDEZ, Gary Molina\Date and Time Signed: 12/06/21 13:31 EDTGeneral Surgery Office/Clinic Noteon 38-17-0688Qmmvofy Surgery Office/Clinic NoteChief Complaint post operative follow up HPI Staff 13 day post operative follow up post excisional biopsy sebaceous cyst right upper back. Reports moderate redness around incision. Minimal tenderness. Small amount intermittent clear drainage. Suturesintact. History of Present Illness 2 weeks s/o [...] swallowing difficulties, no hearing loss, no ear infection(s),no nose bleeds. Cardiovascular: normal blood pressure, no [...] day(s), # 5 tab(s), Refills(s) 0, Pharmacy: [id number], 182.9, cm, 09/23/21 13:05:00 EDT, Height/Length Dosing, 162, kg, 09/23/21 13:05:00 EDT, Weight Dosing E&M of Est. Patient Straight Fwd 10-19 Min 73910 Local infection of the skin and subcutaneous [...] neoplasm of prostate: Father. Renal cell carcinoma: Mother.[facility] HospitalComment on above: Result Comment: Electronically Signed By: LANNY HERNANDEZ, Gary Molina\Date and Time Signed: 11/29/21 13:28 EDTPathology Noteon 70-54-1709Bysllrnch Note [id number]#1.00CD:127NoMetroHealth Main Campus Medical CenterOperative Reporton 74-34-8242Uxuvhnnuw Report [id number]#1.00CD:127[facility] HospitalConsent for Procedure/Surgeryon 96-09-8296Dvxfhht for Procedure/Surgery [id number]#1.00CD:127[facility] HospitalAmbulatory Visit Summaryon 54-90-5163Rujsolfzhf Visit Summary JOE DAVID :1970 Visit Date:09/23/2021 [...] obesity Nicotine addiction CHRISTOPHER (obstructive sleep apnea) [facility] HospitalPhysician Referralon 08-25-2021 Physician [id number]#1.00CD:127Normal [facility] OhioINSULINon 92-43-3659Tziyowi65.3 uIU/mLCritically high 2.6-24.9The [facility] HospitalComment on above:Performed By: #### INSULIN #### [facility] [address] [address] [address] Markus Das AUTO DIFFon 43-18-9196IRVE #0.1 103/ulNormal0.0-0.1The [facility] HospitalComment on above:Performed By: #### CBC #### [facility] [address] [address] [address] Markus AndradeBasophils/100 WBC (Bld)0.6 %Normal0.2-2.0[facility] Comment on above:Performed By: #### CBC #### [facility] [address] [place] [address] Dr. Markus Shaw #0.1 103/ulNormal0.0-0.7The [facility] HospitalComment on above: Performed By: #### CBC #### [facility] [address] [address] [address] Markus Warrenosinophils/100 WBC (Bld)0.8 %Critically low0.9-7.0The [facility]ula [facility] HospitalComment on above:Performed By: #### CBC #### [facility] [address] [address] [address] Markus Warrenrythrocyte distribution width (RBC) [Ratio]13.3 %Japgre25.0-15.0 The [facility]ula [facility] HospitalComment on above:Performed By: #### CBC #### [facility] [address] [place] [address] Dr. Markus AndradeHematocrit (Bld) [Volume fraction]44.4 %Zejmvn36.0-54.0The [facility] HospitalComment on above:Performed By: #### CBC #### [facility] [address] [place] [address] Dr. Markus AndradeHemoglobin (Bld) [Mass/Vol]14.8 g/mZCkbkex89.0-18.0The [facility] HospitalComment on above:Performed By: #### CBC #### [facility] [address] [place] [address] Dr. Markus Lamb #0.03 10e3/ulNormal0.00-0.03The [facility] HospitalComment on above:Performed By: #### CBC #### [facility] [address] [place] [address] Dr. Markus Lamb %0.4 %Normal0.0-0.5The [facility] HospitalComment on above: Performed By: #### CBC #### [facility] [address] [place] [address] Dr. Markus Lewis #1.7 103/ulNormal1.2-3.8The [facility] HospitalComment on above:Performed By: #### CBC #### [facility] [address] [place] [address] Dr. Markus Moreirahocytes/100 WBC (Bld)20.1 %Critically low20.5-60.0The [facility] HospitalComment on above:Performed By: #### CBC #### [facility] [address] [place] [address] Dr. Markus ToledoUAL DIFF REQNONormalThe [facility]ula [facility] HospitalComment on above: Performed By: #### CBC #### [facility] [address] [place] [address] Dr. Markus Selby (RBC) [Entitic mass]31.6 hnDhqdhs09.9-34.0The [facility] HospitalComment on above:Performed By: #### CBC #### [facility] [address] [place] [address] Dr. Markus Selby (RBC) [Mass/Vol]33.3 g/rIAcmxfx42.9-35.2The [facility] HospitalComment on above:Performed By: #### CBC #### [facility] [address] [place] [address] Dr. Markus Selby (RBC) [Entitic vol]94.7 fLCritically high80.0-94.0The [facility] HospitalComment on above:Performed By: #### CBC #### [facility] [address] [place] [address] Dr. Markus Weathers #0.6 103/ulNormal0.3-0.8The [facility] HospitalComment on above:Performed By: #### CBC #### [facility] [address] [place] [address] Dr. Markus Tuckerocytes/100 WBC (Bld)7.4 %Normal1.7-12.0The [facility] Comment on above:Performed By: #### CBC #### [facility] [address] [place] [address] Dr. Markus Mejia #5.9 103/ulNormal1.4-6.5The [facility] HospitalComment on above:Performed By: #### CBC #### [facility] [address] [place] [address] Dr. Markus Medranoutrophils/100 WBC (Bld)70.7 %Cxgrld55.0-75.0The [facility] HospitalComment on above:Performed By: #### CBC #### [facility] [address] [place] [address] Dr. Markus Reyes mean volume (Bld) [Entitic vol]8.5 fLCritically low 9.5-13.5The [facility] HospitalComment on above:Performed By: #### CBC #### [facility] [address] [place] [address] Dr. Markus SchultzT296 103/rlMpczpl756-002Yxw [facility] HospitalComment on above: Performed By: #### CBC #### [facility] [address] [place] [address] Dr. Markus AndradeRBC4.69 106/ulCritically low4.70-6.10The [facility] HospitalComment on above:Performed By: #### CBC #### [facility] [address] [place] [address] Dr. Markus AndradeWBC8.4 103/ulNormal4.0-11.0[facility] HospitalComment on above: Performed By: #### CBC #### [facility] [address] [address] [address] Markus AndradeGLYCOHEMOGLOBIN A1Con [id number] RECOMMENDATIONADA THERAPEUTIC TARGET 6.0 - 7.0 ACTION SUGGESTED > 7.0[facility] TriPoint Medical CenterComment on above:Performed By: #### A1C #### [facility] [address] [address] [address] Markus AndradeGlucose [Mass/Vol]97 mg/dLUniversity Hospitals TriPoint Medical CenterComment on above:Performed By: #### A1C #### [facility] [address] [address] [address] Markus AndradeHbA1c (Bld) [Mass fraction]5.0 %Normal<=6.0[facility] Comment on above:Performed By: #### A1C #### [facility] [address] [address] [address] Markus AndradeLIPID PROFILEon [id number]-HDL RATIO NORMSDelaware County HospitalComment on above:Result Comment: 3.3 - 4.4 LOW RISK 4.4 - 7.1 AVERAGE RISK 7.1 - 11.0 MODERATE RISK >11.0 HIGH RISKPerformed By: #### LIPID, CMP, URIC #### [facility] [address] [address] [address] Markus AndradeCholesterol [Mass/Vol]130 mg/dLrmal<=200[facility] Comment on above:Performed By: #### LIPID, CMP, URIC #### [facility] [address] [address] [address] Markus AndradeCholesterol in HDL [Mass/Vol]41 mg/dLUniversity Hospitals [facility] Center Comment on above:Performed By: #### LIPID, CMP, URIC #### [facility] [address] [address] [address] Markus AndradeCholesterol in LDL [Mass/Vol]72.0 mg/dLUniversity Hospitals TriPoint Medical CenterComment on above:Performed By: #### LIPID, CMP, URIC #### [facility] [address] [address] [address] Markus AndradeCholesterol.total/Cholesterol in HDL [Mass ratio]3.2 {ratio} NormalThe [facility]ula General HospitalComment on above:Performed By: #### LIPID, CMP, URIC #### [facility] [address] [address] [address] Markus Newman NORMAL> or = 60 mg/dl - LOW CARDIOVASCULAR RISK <40 mg/dl - HIGH CARDIOVASCULAR RISKUniversity Hospitals TriPoint Medical CenterComment on above:Performed By: #### LIPID, CMP, URIC #### [facility] [address] [address] [address] Markus AndradeLDL CALC NORMALSEE BELOWUniversity Hospitals TriPoint Medical CenterComcaro center on above:Result Comment: <100 mg/dl OPTIMAL 100 - 129 mg/dl NEAR OR ABOVE OPTIMAL 130 - 159 mg/dl BORDERLINE HIGH 160 - 189 mg/dl HIGH >190 mg/dl VERY HIGH Performed By: #### LIPID, CMP, URIC #### [facility] [address] [address] [address] Markus AndradeTriglyceride [Mass/Vol]85 mg/dLNormal<=150The [facility] Comment on above:Performed By: #### LIPID, CMP, URIC #### [facility] [address] [address] [address] Markus AndradeVLDL CALC17.0 mg/dLNormSelect Medical OhioHealth Rehabilitation HospitalComment on above: Performed By: #### LIPID, CMP, URIC #### [facility] [address] [address] [address] Markus AndradePROF 14(COMP METB)on [id number] [Mass/Vol]3.7 g/dLNormal 3.5-5.0The [facility] on above:Performed By: #### LIPID, CMP, URIC #### [facility] [address] [address] [address] Markus AndradeAlbumin/Globulin [Mass ratio]1.0 {ratio}NormalThe Commerce Township HospitalComment on above:Performed By: #### LIPID, CMP, URIC #### [facility] [address] [address] [address] Markus Ross [Catalytic activity/Vol]54 U/WAaqkqa71-639Ruf [facility] HospitalComment on above:Performed By: #### LIPID, CMP, URIC #### [facility] [address] [address] [address] Markus Barillas [Catalytic activity/Vol]30 U/BDomclv34-89Dwt [facility] HospitalComment on above:Performed By: #### LIPID, CMP, URIC #### [facility] [address] [place] [address] Dr. Markus Boyer gap [Moles/Vol]12.5 mmol/LNormalGrant Hospital Comment on above:Performed By: #### LIPID, CMP, URIC #### [facility] [address] [place] [address] Dr. Markus Medina [Catalytic activity/Vol]19 U/CMdoqcn16-23Hay [facility] Tiffin Hospitalment on above:Performed By: #### LIPID, CMP, URIC #### [facility] [address] [place] [address] Dr. Markus AndradeBilirubin [Mass/Vol]0.6 mg/dLNormal0.2-1.3TTriHealth [facility] Comment on above:Performed By: #### LIPID, CMP, URIC #### [facility] [address] [place] [address] Dr. Markus AndradeCalcium [Mass/Vol]8.6 mg/dLNormal8.4-10.2[facility] Comment on above:Performed By: #### LIPID, CMP, URIC #### [facility] [address] [place] [address] Dr. Markus AndradeChloride [Moles/Vol]105 mmol/EHxjotf28-729JbdGrant Hospital Comment on above:Performed By: #### LIPID, CMP, URIC #### [facility] [address] [place] [address] Dr. Markus AndradeCO2 [Moles/Vol]27.9 mmol/RKtxahh61.0-30.0The [facility] Comment on above:Performed By: #### LIPID, CMP, URIC #### [facility] [address] [address] [address] Markus AndradeCreatinine [Mass/Vol]1.35 mg/dLCritically high0.66-1.25The [facility] HospitalComment on above:Performed By: #### LIPID, CMP, URIC #### [facility] [address] [address] [address] Markus aWrrenGFR-AF VIETNAMESE>60Normal>=60The [facility] HospitalComment on above:Performed By: #### LIPID, CMP, URIC #### [facility] [address] [place] [address] Dr. Markus WarrenGFR-NON AF QWKBKRMG31 mL/min/1.83e3Wmhoxouaam low>=60The [facility] HospitalComment on above:Performed By: #### LIPID, CMP, URIC #### [facility] [address] [place] [address] Dr. Markus AndradeGlobulin (S) [Mass/Vol]3.6 g/dLNormalThe [facility] HospitalComment on above:Performed By: #### LIPID, CMP, URIC #### [facility] [address] [place] [address] Dr. Markus AndradeGlucose [Mass/Vol]101 mg/vFTgdaoj91-679LwjGrant Hospital Comment on above:Performed By: #### LIPID, CMP, URIC #### [facility] [address] [place] [address] Dr. Markus AndradePotassium [Moles/Vol]3.4 mmol/LNormal3.4-5.0[facility] Comment on above:Performed By: #### LIPID, CMP, URIC #### [facility] [address] [place] [address] Dr. Markus AndradeProtein [Mass/Vol]7.3 g/dLNormal6.1-8.2[facility] Comment on above:Performed By: #### LIPID, CMP, URIC #### [facility] [address] [address] [address] Markus AndradeSodium [Moles/Vol]142 mmol/WPitkfb447-037Lwz [facility] Comment on above:Performed By: #### LIPID, CMP, URIC #### [facility] [address] [address] [address] Markus AndradeUrea nitrogen [Mass/Vol]18.0 mg/dLNormal9.0-20.0The [facility] HospitalComment on above:Performed By: #### LIPID, CMP, URIC #### [facility] [address] [address] [address] Markus AndradeUrea nitrogen/Creatinine [Mass ratio]13.3 mg/mgNormalThe [facility] HospitalComment on above:Performed By: #### LIPID, CMP, URIC #### [facility] [address] [address] [address] Markus AndradeURIC ACID SERUMon [id number] [Mass/Vol]8.7 mg/dLCritically high3.5-8.5The [facility] HospitalComment on above:Performed By: #### LIPID, CMP, URIC #### [facility] [address] [place] [address] Dr. Markus Osorio [id number] Visit (KIRK) --------JOE DAVID ([id number]) 1970 MDate Time Provider Hivmyqpwks81/18/18 10:30 AM CAT WILL During your visit today, we recorded the following information about you:Cat Will APRN.AGILE BUSINESS ANALYST 12/27/2017 11:59 AM SignedBasic HPI: 47 year old male Presents today for follow up appt. S/p PCSTEPHANIE w/ Kevin in September 2017. Pt Denies renal colic, fever, chills, n/v dysuria or grosshematuria but did have a recent gout attack -right foot then left foot. Missed7 days of work due to pain, pt sts he increased his allopurinol to 200mg /d andsxs improved after a few daysImpression/Plan:N20.0 Calculus of kidney (primary encounter diagnosis)E79.0 AzubpeituooekI47.0 Calcium oxalate jvqobglgB72.992 YtapfsroooeqmT60.991 OasekrhiykzwpnP61.0 HypernatriuriaReviewed latest images and 24 hr urine testingMuch improved urine volume- encouraged to continueRecent gout attack and hx of high uric acid will increase allopurinol kg045vg/day. Pt to monitor animal protein intake, feels latest attack was due topork/ceballos/sausage he consumed. Hyperoxaluria- slowly improving, advised toadd vitamin C1Chmdsypsfadcaz- pt declined urocit but has increased dietary [...] Former User Types: Snuff Quit date: 07/28/2011 GUROS: UA: no sampleKUB: in processRenal Sono: Right [...] (H)24 hr Uric Acid <0.800 g/d 0.651 0.09306 hr Citrate >450 mg/d 106 (L) 279 [...] hr Urea Nitrogen 6.00 - 14.00 g/d 14.28(H) 12.18Protein Catabolic Rate 0.8 - 1.4 g/kg/d 0.8 0.7 (L)24 hr Creatinine mg/d 2,629 2,66291 hr Creatinine per Kilogram Body Weight 11.9 - 24.4 mg/d/kg 17.0 17.324 hr Calcium per Kilogram Body Weight <4.0 mg/d/kg 1.0 1.124 hr Calcium per 24 hr Creatinine 34 - 196 mg/g 56 6624 hr Urine Comments Comments CommentsTranscription Cystine Screen Negative Force of Stream: fineNOCTURIA: sometimes , 1-2 times /nightDay Time Frequency: 3hr, 4hr Hesitancy: NoIntermittency: NoIncomplete Emptying: NoPost void Dribbling: NoUrinary Retention Hx:NoDouble Voiding: NoUrgency: NoDysuria: NoIncontinence history: NoGross hematuria history: NoUTI Hx: NoStone Event Hx: NoReview, other organ system:GI:Blood: NoConstipation: NoDiarrhea: NoNausea/Vomiting: NoOTHER:Impression/Plan:N20.0 Calculus of kidney (primary encounter diagnosis)E79.0 TcdbnjrdaiikfI74.0 Calcium oxalate knoyadfkR33.992 RsactoaagcwevA90.991 NsnqbjuiyfmzwvG23.0 HypernatriuriaReviewed latest images and 24 hr urine testingMuch improved urine volume- encouraged to continueRecent goutattack and hx of high uric acid will increase allopurinol ny062yi/day. Pt to monitor animal proteinintake, feels latest attack was due topork/ceballos/sausage he consumed. Hyperoxaluria- slowly improving, advised toadd vitamin L6Rdepfuibifzgde- pt declined urocit but has increased dietary citrus, slow lyimproved, encouraged to continue. Hypernatriuria- worse than before, reviewedhigh sodium foods, pt to monitor intake better. Improved hydro and not stoneson imaging, will continue to monitor. RTC in 12 months with new imagesPt requested notes forwarded to Dr Oneill spent 25 minutes in this visit, with more than 50% of the time devoted topatient face to face counseling.Cat Will APRN.CNPReferring Provider: CAT WILL [[id number]]Allergies As of Date: 12/27/2017 Noted Allergy ReactionCODEINE 07/24/2017 4 - HivesDate Reviewed: 12/27/2017Reviewed by: Isabella Lyons [facility] - Fully AssessedPrimary Visit Diagnosis:Calculus of kidney [N20.0] Other Visit Diagnoses:Hyperuricemia [E79.0] Calciumoxalate calculus [N20.0] Hyperoxaluria [R82.992] Hypocitraturia [R82.991] Hypernatriuria [E87.0]Order(s):UA CHEMSTRIP ONLY [SQUA] Order #: [id number] FUTURE UA CHEMSTRIP ONLY [SQUA] Order #: [id number] allopurinol (ZYLOPRIM) 100 mg tabletTake 2 tablets by mouth once daily.Disp: 180 tabletRfl: 3 US KIDNEY/BLADDER [[id number]] Order #: [id number] FUTURE XR ABDOMEN 3V KUB W/OBLIQUES [[id number]] Order #: [id number] FUTUREPrescriptions as of 12/27/2017 Sig: ALLOPURINOL 100 [...] MG CAPSULE Take 1 capsule by mouth once* Patient not taking: Reported on 10/18/2017 PYRIDOXINE [...] Calculus of ureter [N20.1] INVALID FOR* Abnormal urinalysis[R82.90] INVALID FOR* Family history of diabetes mellitus [Z83.3] INVALID FOR* Family history of prostate cancer [Z80.42] INVALID FOR* Family history of nephrolithiasis [Z84.1] INVALID FOR* Hyperuricemia [E79.0] INVALID FOR* Low vitamin D level [R79.89] INVALID FOR* Hypocitraturia [R82.991] INVALIDFOR* Hyperoxaluria (HCC) [R82.992] INVALID FOR* Low urine [...] 90 t* 3 07/26/2017 12/27/2017 Route: ORAL Sig:Take 1 tablet by mouth once daily. Disc: Reason for discontinue is not on file. potassium citrate ER (UROCIT-K 10) 1* 180 * 3 09/13/2017 12/27/2017 Route: ORAL Sig: Take 1 tablet by mouth twice daily. Patient not taking: Reported on 10/18/2017 Disc: Cost of medicationDisposition: Return for New images in 1 yr .Follow-up and Disposition History RecordedEncounter Number: [id number] Status:Closed by CAT WILL AGILE BUSINESS ANALYST on 12/27/17Normal [facility] ToledoPROGRESSon [id number] mass concHNO ID: [id number]: Cat PeñaroService: (none)Author Type: Nurse PractitionerType: Progress NotesFiled: 12/27/2017 11:59 AMNote Text:Basic HPI: 47 year old male Presents today for follow upappt. S/p PCNLw/ Dr Torres in September 2017. Pt Denies renal colic, fever, chills, n/vdysuria or gross hematuria but did have a recent gout attack -right footthen left foot. Missed 7 days of work due to pain, pt sts he increasedhis allopurinol to 200mg /d and sxs improved after a few daysImpression/Plan:N20.0 Calculus of kidney (primary encounter diagnosis)E79.0 OjblafgrqygcoY84.0 Calcium oxalate sgzxjlvdN03.992 PzvyklbyioyhqT61.991 YtmdzcmtzkvxtsN82.0 HypernatriuriaReviewed latest images and 24 hr urine testingMuch improved urine volume- encouraged to continueRecent gout attack and hx of high uric acid will increase allopurinol fc312ji/day. Pt to monitor animal protein intake, feels latest attack wasdue to pork/ceballos/sausage he consumed. Hyperoxaluria- slowly improving,advised to add vitamin B9Xegyffjgibwrxb- pt declined urocit but has increased dietary citrus,slowly improved, encouraged tocontinue. Hypernatriuria- worse thanbefore, reviewed high sodium foods, [...] Former User Types: Snuff Quit date: 07/28/2011 GUROS: UA: no sampleKUB: in processRenal Sono: Right Kidney:?? ? - Renal length: 11.6 cm?? ? -Parenchyma: Normal parenchymal [...] (H)24 hr Uric Acid <0.800 g/d 0.651 0.52701 hr Citrate >450 mg/d 106 (L) 279 (L)24 hr Oxlate 20 - 40 mg/d 77 (H) 62 (H)24 hr Calcium <250 mg/d 147 180Urine Volume 0.50 - 4.00 L/d 1.95 3.29Supersaturation CaOx 6.00 - 10.00 8.12 3.63 (L)SupersaturationCaP 0.50 - 2.00 0.34 (L) 1.16Supersaturation Uric [...] 0.8 0.7 (L)24 hr Creatinine mg/d 2,629 2,06581 hr Creatinine per Kilogram Body Weight 11.9 - 24.4 mg/d/kg 17.0 17.324 hr Calcium per Kilogram Body Weight <4.0 mg/d/kg 1.0 1.124 hr Calcium per 24 hr Creatinine 34 - 196 mg/g 56 6624 hr Urine Comments Comments CommentsTranscription Cystine Screen Negative Force of Stream: fineNOCTURIA: sometimes , 1-2 times /nightDay Time Frequency:3hr, 4hrHesitancy: NoIntermittency: NoIncomplete Emptying: NoPost void Dribbling: NoUrinary Retention Hx:NoDouble Voiding: NoUrgency: NoDysuria: NoIncontinence history: NoGross hematuria history: NoUTI Hx: NoStone Event Hx: NoReview, other organ system:GI:Blood: NoConstipation: NoDiarrhea: NoNausea/Vomiting: NoOTHER:Impression/Plan:N20.0 Calculus of kidney (primary encounter diagnosis)E79.0 DmuedvulufnnuZ82.0 Calcium oxalate jetrnhioR30.992 AyqmowwnjnaamC58.991 GflcjrzucnocfgT96.0 HypernatriuriaReviewed latest images and 24 hr urine testingMuch improved urine volume- encouraged to continueRecent gout attack and hx of high uric acid will increase allopurinol nt676sw/day. Pt to monitor animalprotein intake, feels latest attack wasdue to pork/ceballos/sausage he consumed. Hyperoxaluria- slowlyimproving,advised to add vitamin F5Ersksqbtdehjwp- pt declined urocit but has increased dietary citr us,slowly improved, encouraged to continue. Hypernatriuria- worse thanbefore, reviewed high sodium foods, pt to monitor intake better. Improvedhydro and not stones on imaging, will continue to monitor. RTC in 12months with new imagesPt requested notes forwarded to Dr Oneill spent 25 minutes in this visit, with more than 50% of the time devotedto patient face to face counseling.Cat Will APRN.[facility]ITALNoOhio Valley HospitalProtein mass concHNO ID: [id number]: Gary Buenoice: (none)Author Type: (none)Type: Progress NotesFiled: 12/27/2017 9:59 AMNote Text: Radiology Service Progress NotePATIENT NAME: Joe DavidMRN: [id number] OF SERVICE: December 27, 2017TIME: 9:58 AMPATIENT IDENTITY VERIFICATION COMPLETED USING TWO (2) METHODS: Patientconfirmed name verbally and Date of .PATIENT GENDER DATA: MalePATIENT RELEVANT IMPLANT DATA REVIEWED: Not ApplicableRADIOLOGY DEPARTMENT: General X-ray: Exam(s) Completed: Abdomen X-RayAbdomen with ObliquesPERIPHERAL IV DATA: Not applicableSIGNED BY: Gary Batista 9:58 AMNormal [facility] ToledoUS KIDNEY/BLADDERon [id number] KIDNEY/BLADDER* * *Final Report* * *DATE OF EXAM: Dec 27 2017 9:15AM [address] KIDNEY/BLADDER / REASON: Calculus of kidney * * * * Physician Interpretation * * * * EXAMINATION: RENAL ULTRASOUNDCLINICAL HISTORY: Renal calculusTECHNIQUE: Sonography of the kidneys and urinary bladder was performed. Images were obtained and stored in a permanent archive.MQ: UR_1COMPARISON: 09/13/2017RESULT:Right Kidney: -Renal length: 11.6 cm -Parenchyma: Normal parenchymal echogenicity. Normalparenchymal thickness. -Collecting system: No hydronephrosis. -Calculus: No echogenic, shadowing calculus. -Lesion: None.Left Kidney: -Renal length: 15.4 cm -Parenchyma: Normal parenchymal echogenicity. Normal parenchymal thickness. -Collecting system: Previously shown hydronephrosis has improved with residual upper pole pelviectasis. Ureter stent is no longer visible. -Calculus: Previously shownechogenic, shadowing calculus is no longer identified. -Lesion: None.Bladder: Normal sonographic anthony earance.IMPRESSION:Improved left-sided hydronephrosis with residual upper pole pelviectasis.The previously shown left UPJ calculus is no longer identified.Interior Decorator Painting: NIECY Transcribe Date/Time:Dec 27 2017 9:46ADictated by : Arleth ESTEBAN examination was interpreted and the report reviewed and electronically signed by: YOGI CABAN MD on Dec 27 2017 9:52AM [id number] Clinic ClevelandXR ABDOMEN 3V KUB W/OBLIQUESon [id number] ABDOMEN 3V KUB W/OBLIQUES* * *Final Report* * *DATE OF EXAM: [...] CALCULUS. THE LEFT URETER STENT HAS BEEN REMOVED.Interior Decorator Painting: [facility] Transcribe Date/Time: 2017 1:27PDictated by : Arleth ESTEBAN examination was interpreted and the report reviewedand electronically signed by: YOGI CABAN MD on Dec 27 2017 1:30PM [id number] Clinic ClevelandCNOVon [id number] Visit (UROSMN) --------JOE DAVID ([id number]) 1970 MDate Time Provider Department10/18/17 3:00 PM POLLY TORRES During your visit today, we recorded the following information about you:Alberta Greenberg RN, RN12/19/2017 2:08 PM AddendumPRE PROCEDURE ASSESSMENT- CystoProcedure Indication: Cystoscopystent extr actionMaria Teresagust 2017, Time In: 1500Latex Allergy: NoAllergies reviewed [...] procedure, the cystoscope was withdrawn.Anesthetics given: 10 cc2% Lidocaine-UrethralOperative Findings Urethra: Normal Prostate: Occlusive Bladder: [...] Condition Post Procedure: satisfactory Post Procedure Medications: MARTHA Mancillairector, Surgical Stone DiseaseUniversity Hospitals Conneaut Medical Centeric [facility] Health CenterPager [phone] Muñoz Ma 10/18/2017 4:10 PM SignedPROCEDURE PREP-CystoPatient ID with two(2 )identifiers verified by: Tonio Thomas valve replacement: NoJoint replacement: NoPre-Procedure Antibiotics: None taken at home nor prior to procedurePatient Prep: Betadine Scrub to perineum and placement of Sterile Drape.COMPLETEDAnesthetic Given:10 cc 2% Lidocaine jelly Tonio Babin VERSAL PROTOCOL / SAFETY CHECKLISTProcedure to be performed: Cystoscopy and Stent ExtractionSign inCommunication: CompletedTime Out: Team Confirms the Correct Patient, Correct Procedure, Correct Siteand Site Marking, Correct Position (if applicable).Sign Out Discussion: CompletedTonio Mauricio PROCEDURE NURSE ASSESSMENTPresent along with physician during procedure exam. Tonio Zendejasrocedure/Indication: Cystoscopy and Stent ExtractionInstruction sheet given and reviewed and patient verbalizes understanding: yesPost Procedure Antibiotic: None givenCurrent pain intensity is 0 on a 0-10 pain scale.Tonio Muñoz MaAMBULATORY PATIENT EDUCATIONTHE FOLLOWING WAS EVALUATEDMotivation To Le arn: EagerFamily/Significant Other Support: None - Unavailable/disinterestedCognitive Ability: [...] In Department Urology .Referring Provider: POLLY TORRES [[id number]]AllergiesAs of Date: 10/18/2017 Noted Allergy ReactionCODEINE 07/24/2017 4 - HivesDate Reviewed: 10/18/2017Reviewed by: Alberta Mcrae (Rn) LOGAN Greenberg - Fully AssessedReason for Visit: Stent Extraction [372]Primary Visit Diagnosis:Calculus of kidney [N20.0]Order(s):US KIDNEY/BLADDER [[id number]] Order #: [id number] FUTURE XR ABDOMEN 3V KUB W/OBLIQUES [[id number]] Order #: [id number] FUTUREPrescriptions as of 10/18/2017 Sig: CHOLECALCIFEROL (VITAMIN [...] once * Patient not taking: Reported on 10/18/2017PYRIDOXINE (VITAMIN B6) 100 M* Take 1 tablet by mouth once d* Patient not taking: Reported on 10/18/2017 POTASSIUM CITRATE ER 10 MEQ (* Take 1 tablet by mouth twice * Patient not taking: Reported on 10/18/2017 DOCUSATE SODIUM 100 MG CAPSULE Take 1 capsule by mouth twice* Patient not taking: Reported on10/18/2017Problem List As Of Date 10/18/2017 Noted Resolved Calculus of kidney [N20.0] INVALID FOR* CPAP (continuous positive airway pressure) depe*INVALID FOR* CHRISTOPHER (obstructive sleep apnea) [G47.33] INVALID FOR* Gastroesophageal reflux disease without esophag*INVALID FOR* Essential hypertension [I10] INVALID FOR* Former smoker [Z87.891] INVALID FOR* BMI 50.0- 59.9, adult (HCC) [Z68.43] INVALID FOR*Calculus of ureter [N20.1] INVALID FOR* Abnormal urinalysis [R82.90] INVALID FOR* Family history ofdiabetes mellitus [Z83.3] INVALID FOR* Family history of prostate cancer [Z80.42] INVALID FOR* Family history of nephrolithiasis [Z84.1] INVALID FOR* Hyperuricemia [E79.0] INVALID FOR* Low vitamin D level [R79.89] INVALID FOR* Hypocitraturia [R82.991] INVALID FOR* Hyperoxaluria (HCC) [R82.992] INVALID FOR* Low urine output [R34] INVALID FOR* Hypernatriuria [E87.0] INVALID FOR* Nephrolithiasis [N20.0] Morbid obesity (HCC) [E66.01] CHRISTOPHER on CPAP [G47.33, Z99.89]Visit Notes:>> Alberta MahmoodAllen Greenberg RN [facility] Oct 18, 2017 3:06 PM Status: AddendumPRE PROCEDURE ASSESSMENT- CystoProcedure Indication: Cystoscopystent extractionAugust 2017, Time In: 1500Latex Allergy: NoAllergies reviewed and updated. YesPre-Procedure Vital Signs: BP: 159/77 Pulse: 111Heart valve replacement: NoJoint replacement: NoBack Office UA otained: noPatient brought to procedure room # 7 @ time 1500.Alberta Greenberg RN>> Tonio Muñoz Ma [facility] Oct 18, 2017 4:09 PM Status: SignedPROCEDURE PREP-CystoPatient IDwith two(2)identifiers verified by: Tonio Thomas valve replacement: NoJoint replacement: NoPre-Procedure Antibiotics: None taken at home nor prior to procedurePatient Prep: Betadine Scrub toperineum and placement of Sterile Drape.COMPLETEDAnesthetic Given:10 cc [...] and Stent ExtractionInstruction sheet given and reviewed andpatient verbalizes understanding:yesPost Procedure Antibiotic: None givenCurrent pain intensity is 0 on a 0-10 pain scale.Tonio Muñoz MaAMBULATORY PATIENT EDUCATIONTHE FOLLOWING WAS EVALUATEDMotivation To Learn: EagerFamily/Significant Other Support: None - Unavailable/disinterestedCognitive Ability: Alert/OrientedMethod of Instruction: Individual instructionWritten instruction - handoutsVerbalinstructionThe Following Influencing Factors Were Barriers To This [...] Dwayne Baxter 2017TO WHOM IT MAY CONCERN:This isto certify that Joe David has been under my care. Joe Davidwas unable to work from 10/05/17 through 10/23/17. The patient may return towork on 10/23/17 with the following instructions:No restrictionsSincerely yours,Polly Torres MDELECTRONICALLY SIGNEDEncounter Number: [id number] Status:Closed by POLLY TORRES MD on 10/18/17NoOhio [facility] PROGRESSon [id number] mass concHNO ID: [id number]: Polly Leiervice: (none)Author Type: PhysicianType: Progress NotesFiled:10/18/2017 4:07 PMNote Text:CYSTOSCOPY PROCEDUREM.D.'S HOPS NOTEPertinent History and Physical Exam reviewed and is unchanged.Primary Diagnosis: NephrolithiasisProcedure: Stent ExtractionInformed Consent Discussed: Yes. Risks, benefits, alternatives andpersonnel discussed with patient who consents toproceed.Audible Time-Out: YesDetails of Procedure:TECHNIQUE: The procedure was [...] Procedure Medications: NoneMark Brian, MDDirector, Surgical Stone DiseaseUniversity Hospitals Conneaut Medical Centeric [place], [facility] HospitalPager [phone]/18/2017Normal [facility]edoBarober[facility] chapel Metabolic Panlon 91-30-7517Uazts gap 3 molar conc18 mmol/LNormal9-18[facility] ToledoComment on above:Performed By: #### CBCDIF, CMP, URIC, PTHI, VITD ####[facility] AveCBrian Ville [phone] mass conc8.9 mg/dLNormal8.5-10.2 [facility] ToledoComment on above:Performed By: #### CBCDIF, CMP, URIC, PTHI, VITD ####[place] [address] AveCBrian Ville [phone] molar conc99 mmol/OMpbdcy34-648XrzbfsuonAccess Hospital Daytonment on above:Performed By: #### CBCDIF, CMP, URIC, PTHI, VITD ####[facility]CBrian Ville [phone] molar conc21 mmol/NMre43-71SgscuqctsRegency Hospital Toledo Comment on above:Performed By: #### CBCDIF, CMP, URIC, PTHI, VITD ####[place] [address]CBrian Ville [phone] mass conc2.04 mg/dLHigh0.73-1.22[facility] ToledoComment on above: Performed By: #### CBCDIF, CMP, URIC, PTHI, VITD ####[facility]CBrian Ville [phone]-Zqkdfwj Amer.42 NormalRegency Hospital ToledoComment on above:Performed By: #### CBCDIF, CMP, URIC, PTHI, VITD ####[facility] [place], [place] [phone]/1.73 sq M predicted among non-blacks MDRD vol rate/area (S/P/Bld)35 .NormalRegency Hospital ToledoComcaro center on above:Result Comment: eGFR (Estimated GFR) Units of measure: mL/min/1.73 meters squaredeGFR is derived from the reexpressed MDRD Study equation using the following parameters: serum creatinine, age, genderand race. The creatinine assay has been calibrated to be traceable to IDMS.An eGFR <60 mL/min/1.73m2 for >3 months is consistent with chronic kidney disease. Refer to KDOQI guidelines for clinical interpretation.In patients with unstable renal function, e.g. those with acute kidney injury, the eGFR may not accurately reflect actual GFR.Performed By: #### CBCDIF, CMP, URIC, PTHI, VITD ####[place] [address] [place], [place] [phone] mass conc88 mg/rVBjzdvm36-23EijcxhwddRegency Hospital Toledo Comment on above:Result Comment: The [place] [employer] (ADA) provides guidance for cutoff [...] unequivocal hyperglycemia, results should be confirmed by repeattesting. In a patient with classic symptoms of hyperglycemia or hyperglycemic crisis, random plasmaglucose results greater than or equal to 200 mg/dL meet the criteria for diagnosis of diabetes.Reference: Standards of Medical Care in Diabetes 2016, [place] [employer]. Diabetes Care. 2016.39(Suppl 1).Performed By: #### CBCDIF, CMP, URIC, PTHI, VITD ####[facility] [place], [place] [phone] molar conc4.0 mmol/LNormal3.7-5.1CMercy Health [facility]rbana Hospital on above:Performed By: #### CBCDIF, CMP, URIC, PTHI, VITD ####[facility] [address]ftfsumimhb[address] AvRandolph, [place] [phone] molar ffgb073 mmol/ABwfnwg619-064VhnedgpzqOhioHealth [facility] Hospital on above:Performed By: #### CBCDIF, CMP, URIC, PTHI, VITD ####[facility] Tbpqzzjzbvxk[address] AvRandolph, [place] [phone] nitrogen mass conc19 mg/dLNormal9-24[facility] on above:Performed By: #### CBCDIF, CMP, URIC, PTHI, VITD ####[facility] [address] [place], [place] [phone] MANAGEMon 18-50-0140IKBF MANAGEMHNO ID: [id number]: Delilah HellerRn) Jennifer RNService: Care ManagementAuthor Type: Registered NurseType: Care Mgt Progress NoteFiled: 10/06/2017 6:32 PMNote Text:CARE MANAGEMENT DISCHARGE NOTESERVICE DATE: 10/06/2017SERVICE TIME: 2:01 PM LOS: 0 daysNeeds Prior to Discharge: NoneMet with pt and spouse at bedside. No skilled needs identified. Pt readyfor discharge today. Pt verbalized agreementand understanding of thedischarge plan. Family to provide transportation. Bedside nurse to providedischarge instructions.SIGNATURE: Delilah Rodriguez RN PATIENT NAME: Joe Argueta HallDATE: October 06, 2017 : 6:31 PM PAGER/CONTACT #: [phone] Campus [facility] Center and Differentialon 10-06-2017 Abs Baso0.05 k/uLNormal<0.11CMercy Health Urbana Hospital on above:Performed By: #### CBCDIF, CMP, URIC, PTHI, VITD ####[facility] [address]ndpjzscuvfc[address] AvRandolph, [place] [phone] Mono0.82 k/uLNormal<0.87[facility] on above:Performed By: #### CBCDIF, CMP, URIC, PTHI, VITD ####[place] [address]CB[address]ille [phone] Neut9.54 k/uLHigh1.45-7.50[facility] on above:Performed By: #### CBCDIF, CMP, URIC, PTHI, VITD ####[place] [address]CBrian [address]ille [phone] nRBC<0.01 Normal<0.01[facility] on above:Performed By: #### CBCDIF, CMP, URIC, PTHI, VITD ####[place] [address] AvRobert [address] [phone]/100 WBC Auto (Bld)0.4 %NormalOhioHealth Riverside Methodist Hospital on above:Performed By: #### CBCDIF, CMP, URIC, PTHI, VITD ####[place] [address] AvRobert [address] [phone] DiffNormalCMercy Health Urbana Hospital on above: Performed By: #### CBCDIF, CMP, URIC, PTHI, VITD ####[place] [address] [phone] Auto #/vol (Bld)10*3/uLNormal<0.46[facility] on above: Performed By: #### CBCDIF, CMP, URIC, PTHI, VITD ####[place] [address] [phone]/100 WBC Auto (Bld)0.0 %NormalOhioHealth Riverside Methodist Hospital on above:Performed By: #### CBCDIF, CMP, URIC, PTHI, VITD ####[place] [address]CB[address] [phone] distribution width Auto Ratio (RBC)12.5 %Rrazic62.5-15.0[facility] on above:Performed By: #### CBCDIF, CMP, URIC, PTHI, VITD ####[place] [phone] Auto Volume Fraction (Bld) 41.0 %Pqfwsb90.0-51.0[facility] on above:Performed By: #### CBCDIF, CMP, URIC, PTHI, VITD ####[place] [phone] mass conc (Bld)13.8 g/dLNormal 13.0-17.0[facility] on above:Performed By: #### CBCDIF, CMP, URIC, PTHI, VITD ####[place] [phone] Auto #/vol (Bld)1.67 10*3/uLNormal1.00-4.00 [facility] on above:Performed By: #### CBCDIF, CMP, URIC, PTHI, VITD ####[place] [phone]/100 WBC Auto (Bld)13.8 %NormalOhioHealth Riverside Methodist Hospital on above:Performed By: #### CBCDIF, CMP, URIC, PTHI, VITD ####[place] [phone] Auto Entitic mass (RBC)31.4 lBZirbsg81.0-34.0[facility] on above:Performed By: #### CBCDIF, CMP, URIC, PTHI, VITD ####[address] AvRobert Ville [phone] Auto mass conc (RBC)33.7 g/iPFebqra73.5-36.0[facility] on above:Performed By: #### CBCDIF, CMP, URIC, PTHI, VITD ####[place] [phone] Auto Entitic volume (RBC)93.2 wJEmikxf04.0-100.0[facility] on above:Performed By: #### CBCDIF, CMP, URIC, PTHI, VITD ####[place] [phone]/100 WBC Auto (Bld)6.8 %NormalOhioHealth Riverside Methodist Hospital on above:Performed By: #### CBCDIF, CMP, URIC, PTHI, VITD ####[place] [phone]/100 WBC Auto (Bld)79.0 %NormalOhioHealth Riverside Methodist Hospital on above:Performed By: #### CBCDIF, CMP, URIC, PTHI, VITD ####[place] [phone] /100 FFZPskjbt3JvmcuxkabOhioHealth Riverside Methodist Hospital on above:Performed By: #### CBCDIF, CMP, URIC, PTHI, VITD ####[place] [phone] mean volume Auto Entitic volume (Bld)8.5 fLLow9.0-12.7CMercy Health [facility]rb[facility] Hospital on above:Performed By: #### CBCDIF, CMP, URIC, PTHI, VITD ####[place] [phone] Auto #/vol (Bld)343 10*3/fYOpbykz781-370MvqymyfipOhioHealth Riverside Methodist Hospital on above: Performed By: #### CBCDIF, CMP, URIC, PTHI, VITD ####[facility] [place], [place] [phone] Auto #/vol (Bld) 4.40 10*6/uLNormal4.20-6.00[facility] Daytonment on above:Performed By: #### CBCDIF, CMP, URIC, PTHI, VITD ####[address] [phone] Auto #/vol (Bld)12.08 10*3/uLHigh 3.70-11.00[facility] ToledoComment on above:Performed By: #### CBCDIF, CMP, URIC, PTHI, VITD ####[place] [address] [place], [place] [phone] 98-70-8401Cqzbdmt mass concHNO ID: [id number]: Shruthi (Joaquín Hackettice: UrologyAuthor Type: ResidentType: Progress NotesFiled: 10/06/2017 6:47 PMNote Text:The [place] [phone] or [phone] VK-[facility] O N F I D E N T I A L I N F O R M A T I O N STANDARD [facility] DOCUMENTDISCHARGE SUMMARYPatient Name: Joe Krueger Date: 10/05/2017Discharge Date:October 06, 2017Attending Physician: Tremaine Pagan Diagnosis: NephrolithiasisSecondary Diagnoses:Patient Active Hospital Problem List: Calculus of kidney (07/24/2017) CPAP (continuous positive airway pressure) dependence (07/24/2017) CHRISTOPHER (obstructive sleep apnea)(07/24/2017)Operations During Hospitalization: Procedure(s) (LRB):PERCUTANEOUS NEPHROSTOLITHOTOMY UPTO 2 CM (Left), 2.2cmReason for Hospitalization: 47 [...] restarted on prior to admission medications. On post-opera tive day, 1pt was afebrile, ambulating without difficulty, tolerating a regular diet,passing flatus, and pain was adequately controlled with PO medication. HisFoley was removed and voided without issue. Pt was discharged home withinstructions to return for follow up in clinic.[facility]: StableDischar Disposition:HomeInformation Provided to the Patient:Patient was given [...] mouth three times daily.Normal, Disp-90 tablet, R-2, Long- termpyridoxine, vitamin B6, (VITAMIN B-6) 100 mg tabletTake 1 tablet by mouth once daily.OTC, Long-termDx: 1. Calculus of kidney 2. Hyperoxaluria (HCC) 3. Hyperuricemia 4.Hypocitraturia 5. Lowurine output 6. Hypernatriuria 7. Calculus of ureterpotassium [...] your provider.Electronically SIGNED by Licensed Independent Practitioner: Beatriz JacksonKettering Health Hamilton concHNO ID: [id number]: CAIT Melchor Reservice: UrologyAuthor Type: ResidentType: Progress NotesFiled: 10/06/2017 10:42 AMNote Text:.UROLOGY SERVICE PROGRESS NOTEName: Joe Argueta BoBed: G090 019/V154-28DBL: [id number]i clearsNo n/vNo cp, sobOBJECTIVEBP 129/58 Pulse 85 Temp 37.2 ?C (99 ?F) (Oral) Resp 17 Ht 174cm (5' 8.5 ) Wt (!) 158 kg (348 lb 5.2 oz) SpO2 94% BMI 52.19kg/m?Physical ExamGeneral: Well-appearing, no acute distressCV: Hemodynamicallystable, regular rate, well perfusedLungs: Non-labored breathingAbdomen: soft, nt, ndWound: primipore dressing over left flank, c//di. No hematoma or leakageGU: valdes to gravity with light yellow urineIntake/Output Summary (Last 24 hours) at 10/06/17 1038Last data filed at 10/06/17 1000 Gross per 24hourIntake 3122 mlOutput 1850 mlNet 1272 mlCBC, Coags, BMP, Mg, PhosRecent Labs 633WBC 12.08* 11.44*HB 13.8 14.3HCT 41.0 42.7PLT 343 340NA 138 141K 4.0 4.4CHLOR 99 101CO2 21* 25BUN 19 20CREAT 2.04* 2.10*GLUC 88 129*CA 8.9 9.4Medications: ReviewedASSESSMENT AND PLANJeffry Oswald David is a 47 year old morbidly obese male with a 2.2cm left renalstone now POD#1 s/p L PCNL.Plan:-Pulm:CXR w/o pneumo, mild left basilar atelectasis. 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 Fill and pull today.-Pain: Controlled on po andiv prns-GI/Fluids: advance to cc diet and drop fluids-ID: periop ancef-Ppx: scds, sqh contraindicated given elevated bleeding risk-Drains: has internal L JJ stent- Home meds/other issues: continue home hydralazine, urocit K, B6,allopurinol, coreg-Discharge teaching: routine teaching-Discharge planning: D/c valdes, later today if he ambulates, weaned off O2and tolerates reg diet otherwise home tmrw. Will need follow up in 1 weekfor stent removal.Discussed w/ Dr. Torres, staff attending.Shruthi Montgomery MDUrologic Surgery PGY-2From 6a-6pm, please page with any issues or concerns: Pager: [phone] hours or on the weekend, page [phone] 201710:38 AMNormalRegency Hospital ToledoProtein mass concHNO ID: [id number]: Stas (Daisha) ShantelleSersimone: UrologyAuthor Type: ResidentType: Progress NotesFiled: 10/05/2017 11:47 PMNote Text: UROLOGY POST OPERATIVE CHECK NOTEName: Joe DavidMRN: [id number]: October 05, 2017S: Patient doing well. Pain well-controlled. Denies fevers, chills,chest pain, shortness of breath, nausea, vomiting.O: BP 155/82 Pulse 77 Temp 36.5 ?C (97.7 ?F) (Oral) Resp 16 Ht174 cm (5' 8.5 ) Wt (!) 158 kg (348 lb 5.2 oz) SpO2 93% BMI 52.19kg/m?Temp (24hrs), Av.3 ?C (97.4 ?F), Min:36.2 ?C (97.2 ?F), Max:36.5 ?C(97.7 ?F)Intake/Output Summary (Last 24 hours)at 10/05/17 2346Last data filed at 10/05/17 2242 Gross per 24 hourIntake 1703 mlOutput 600 mlNet 1103 mlCBC, Coags, BMP, Mg, PhosRecent Labs 633WBC 11.44*HB 14.3HCT 42.7PLT 340NA 141K 4.4CHLOR 101CO2 25BUN 20CREAT 2.10*GLUC 129*CA 9.4General - NAD, DYq0Qkajxvcif - non-labored breathingAbdomen - soft, appropriately tender, nondistendedGU - Valdes draining clear pink urineA/P: 47 year old male POD#0 S/P Procedure(s):Left PCNL. Doing well, hemodynamically stable, no issues. Routinepostoperative care.- Diet - Clear liquid diet- Activity - Ambulate with assistance- DVT prophylaxis - Pharmacologic DVT prophylaxis contraindicated due tobleeding risk- Antibiotics - ancef- zofran for nausea PRN- pain control with fentanylDaniel Beatriz PepperalCMercy HospitalANES Ambrocio [phone] POSTHNO ID: [id number]: Sohan McknightService: AnesthesiologyAuthor Type: AnesthesiologistType: Anesthesia PostOpFiled: 10/05/2017 4:43 PMNote Text:POST ANESTHESIA EVALUATION NOTESERVICE DATE: 10/04/2017SERVICE TIME: nowVitals:Patient Vitals for the past 24 hrs: BP Temp Temp src Pulse Resp SpO2 Height Teechs01/27/18 1631 162/93 36.2 ?C (97.2 ?F) Temporal Art 87 17 97 % - - 10/05/17 1024 134/6736.2 ?C (97.2 ?F) Temporal Art 81 18 [...] statusstable.SIGNATURE: JOB Mcknight MD PT NAME: Joe Green: October 05, 2017; 4:43 PM [facility]edoBar[facility] Metabolic Panlon 35-89-6627Dsylm gap 3 molar conc15 mmol/LNormal9-18[facility] ToledoComment on above:Performed By: #### CBCDIF, CMP, URIC, PTHI, VITD ####[facility] [address] [place], [place] [phone] mass conc9.4 mg/dLNormal8.5-10.2 [facility] ToledoComment on above:Performed By: #### CBCDIF, CMP, URIC, PTHI, VITD ####[facility] [address] [place], [place] [phone] molar qigz051 mmol/CZcnbcr96-423HazfqcsxpRegency Hospital ToledoComment on above:Performed By: #### CBCDIF, CMP, URIC, PTHI, VITD ####[facility]CC[address], [place] [phone] molar conc25 mmol/XMvtqga85-18EzvjxvoqqRegency Hospital Toledo Comment on above:Performed By: #### CBCDIF, CMP, URIC, PTHI, VITD ####[place] [address]CC[address], [place] [phone] mass conc2.10 mg/dLHigh0.73-1.22[facility] ToledoComment on above: Performed By: #### CBCDIF, CMP, URIC, PTHI, VITD ####[place] [address]CC[address], [place] [phone]-Rotohkb Amer.41 NormalOhioHealth Riverside Methodist Hospital on above:Performed By: #### CBCDIF, CMP, URIC, PTHI, VITD ####[place] [address], [place] [phone]/1.73 sq M predicted among non-blacks MDRD vol rate/area (S/P/Bld)34 .[facility] on above:Result Comment: eGFR (Estimated GFR) Units of measure: mL/min/1.73 meters squaredeGFR is derived from the reexpressed MDRD Study equation using the following parameters: serum creatinine, age, genderand race. The creatinine assay has been calibrated to be traceable to IDMS.An eGFR <60 mL/min/1.73m2 for >3 months is consistent with chronic kidney disease. Refer to KDOQI guidelines for clinical interpretation.In patients with unstable renal function, e.g. those with acute kidney injury, the eGFR may not accurately reflect actual GFR.Performed By: #### CBCDIF, CMP, URIC, PTHI, VITD ####[place] [address] AveCCou[address], [place] [phone] mass krfk939 mg/dDXjje38-23JshqwvvseRegency Hospital Toledo Comment on above:Result Comment: The [place] [employer] Association (ADA) provides guidance for cutoff [...] unequivocal hyperglycemia, results should be confirmed by repeattesting. In a patient with classic symptoms of hyperglycemia or hyperglycemic crisis, random plasmaglucose results greater than or equal to 200 mg/dL meet the criteria for diagnosis of diabetes.Reference: Standards of Medical Care in Diabetes 2016, [place] [employer]. Diabetes Care. 2016.39(Suppl 1).Performed By: #### CBCDIF, CMP, URIC, PTHI, VITD ####[place] [phone] molar conc4.4 mmol/LNormal3.7-5.1CMercy Health [facility]rbana Hospital on above:Performed By: #### CBCDIF, CMP, URIC, PTHI, VITD ####[place] [phone] molar qxpl170 mmol/LNknzvw828-786VkxnhqwwhOhioHealth Riverside Methodist Hospital on above:Performed By: #### CBCDIF, CMP, URIC, PTHI, VITD ####[place] [phone] nitrogen mass conc20 mg/dLNormal9-24[facility] on above:Performed By: #### CBCDIF, CMP, URIC, PTHI, VITD ####[place] [phone] and Differentialon 18-47-7816Khb Baso0.06 k/uLNormal<0.11 [facility] on above:Performed By: #### CBCDIF, CMP, URIC, PTHI, VITD ####[place] [phone] Mono0.62 k/uLNormal<0.87[facility] on above:Performed By: #### CBCDIF, CMP, URIC, PTHI, VITD ####[place] [address] [place] [phone] Neut9.12 k/uL High1.45-7.50[facility] on above:Performed By: #### CBCDIF, CMP, URIC, PTHI, VITD ####[place] [address] AvElizabeth [place] [phone] nRBC<0.01Normal<0.01[facility] on above:Performed By: #### CBCDIF, CMP, URIC, PTHI, VITD ####[place] [address] [place] [phone]/100 WBC Auto (Bld)0.5 %[facility] on above:Performed By: #### CBCDIF, CMP, URIC, PTHI, VITD ####[place] [address] [place] [phone] DiffNormalCMercy Health Urbana Hospital on above: Performed By: #### CBCDIF, CMP, URIC, PTHI, VITD ####[place] [phone] Auto #/vol (Bld)0.05 10*3/uLNormal<0.46[facility] on above: Performed By: #### CBCDIF, CMP, URIC, PTHI, VITD ####[place] [address] AvRobert [place] [phone]/100 WBC Auto (Bld)0.4 %NormalOhioHealth Riverside Methodist Hospital on above:Performed By: #### CBCDIF, CMP, URIC, PTHI, VITD ####[place] [address] AveCCrystal [place] [phone] distribution width Auto Ratio (RBC)12.7 %Leemsy64.5-15.0[facility] on above:Performed By: #### CBCDIF, CMP, URIC, PTHI, VITD ####[address] [place] [phone] Auto Volume Fraction (Bld) 42.7 %Rjjlry86.0-51.0[facility] on above:Performed By: #### CBCDIF, CMP, URIC, PTHI, VITD ####[place] [phone] mass conc (Bld)14.3 g/dLNormal 13.0-17.0[facility] on above:Performed By: #### CBCDIF, CMP, URIC, PTHI, VITD ####[place] [phone] Auto #/vol (Bld)1.59 10*3/uLNormal1.00-4.00 [facility] on above:Performed By: #### CBCDIF, CMP, URIC, PTHI, VITD ####[place] [phone]/100 WBC Auto (Bld)13.9 %NormalOhioHealth Riverside Methodist Hospital on above:Performed By: #### CBCDIF, CMP, URIC, PTHI, VITD ####[place] [address] [address] [place] [phone] Auto Entitic mass (RBC)31.1 xVQrigda55.0-34.0[facility] on above:Performed By: #### CBCDIF, CMP, URIC, PTHI, VITD ####[address] [place] [phone] Auto mass conc (RBC)33.5 g/qAQpituq36.5-36.0[facility] on above:Performed By: #### CBCDIF, CMP, URIC, PTHI, VITD ####[place] [address] [address] [place] [phone] Auto Entitic volume (RBC)92.8 lECofmfb40.0-100.0[facility] on above:Performed By: #### CBCDIF, CMP, URIC, PTHI, VITD ####[place] [phone]/100 WBC Auto (Bld)5.4 %NormalOhioHealth Riverside Methodist Hospital on above:Performed By: #### CBCDIF, CMP, URIC, PTHI, VITD ####[place] [phone]/100 WBC Auto (Bld)79.8 %NormalOhioHealth Riverside Methodist Hospital on above:Performed By: #### CBCDIF, CMP, URIC, PTHI, VITD ####[address] [place] [phone] /100 QXMSegfhs8VugfqdnvmOhioHealth [facility]ide [facility] Hospital on above:Performed By: #### CBCDIF, CMP, URIC, PTHI, VITD ####[address] [place] [phone] mean volume Auto Entitic volume (Bld)8.4 fLLow9.0-12.7CMercy Health [facility] on above:Performed By: #### CBCDIF, CMP, URIC, PTHI, VITD ####[address] [place] [phone] Auto #/vol (Bld)340 10*3/kZWtjhuv907-212SxvccoveuOhioHealth Riverside Methodist Hospital on above: Performed By: #### CBCDIF, CMP, URIC, PTHI, VITD ####[place] [address] [place], [place] [phone] Auto #/vol (Bld) 4.60 10*6/uLNormal4.20-6.00[facility] on above:Performed By: #### CBCDIF, CMP, URIC, PTHI, VITD ####[place] [address] [address] [place] [phone] Auto #/vol (Bld)11.44 10*3/uLHigh 3.70-11.00[facility] on above:Performed By: #### CBCDIF, CMP, URIC, PTHI, VITD ####[address] [phone] Analysison [id number] TypeNo Information ProvidedNoGlenbeigh Hospital on above:Performed By: #### CBCDIF, CMP, URIC, PTHI, VITD ####[address] [place] [phone](NOTE)NormalRegency Hospital [place]edo Comment on above:Result Comment: Calculus Color: BROWNCalculus Size & Weight: MULTIPLE PIECES, 3.9646 GRAMSComposition: CALCIUM PHOSPHATE - 60% CALCIUM OXALATE MONOHYDRATE - 30% MINOR COMPONENTS - 10%This test was developed and its performance characteristicsdetermined by the [facility]Labor[facility] [place] (-PLMI).It has not been cleared or approved by the FDA.[facility] is regulated under CLIA as qualified to performhigh- complexity testing.This test is used forclinical purposes. It should not be regarded asinvestigational or for research.Performed By: #### CBCDIF, CMP, URIC, PTHI, VITD ####[address] [place], [place] [phone] PROGon [id number] mass concHNO ID: [id number]: Carrie Mahmood) Cece Floresice: NursingAuthor Type: Registered NurseType: Nursing Progress NoteFiled: 10/05/2017 7:51 PMNote Text:Admission/Transfer NotePATIENT NAME: Jeremi JamesN: [id number] transferred from PACU via stretcher in stable condition.Actions taken: Patient oriented to room, call light function, prescribedactivities, Patient rights and Quiet at night. The patient has beeninstructed on the plan of care and fall prevention.This note was completed by: Macey BarkerOhio Valley HospitalProtein mass concHNO ID: [id number]: Cece Terrazas Rnice: (none)Author Type: Registered NurseType: Nursing Progress NoteFiled: 10/05/2017 5:56 PMNote Text: Nursing Progress NotePatient Name: Joe JamesN: [id number] Location: [facility] 014/B308-34 Pt rating pain 2/10, tolerable. Pt does not want pain medication at thistime. VSS. Sats are 94% on 4L NC, RR 14. Scant amt of bloody drainage ondressing. No hematoma noted. Valdes draining clear/bloody urine. Emotionalsupport provided. Mouth care provided. Will continue to monitor and assess.This note was completed by: Macey TerrazasOhio Valley HospitalProtein mass concHNO ID: [id number]: Jemima Mahmood) Cece Schulteice: NursingAuthor Type: Registered NurseType: Nursing Progress NoteFiled: 10/05/2017 10:29 AMNote Text: PATIENT EDUCATION TOPIC: PROCEDURE / SURGERY: Procedure/Surgery:PATIENT NAME: Joe JamesN: [id number] LOCATION: [place] [address]/Q482-87EMCOBGKBY TO LEARNCOGNITIVE ABILITY: Alert and orientedMOTIVATION TO LEARN: EagerFAMILY SUPPORT: High -Very involved in pt careINSTRUCTION PROVIDED TO: PatientPATIENT LEARNS BEST BY: Individual InstructionVerbal InstructionFACTORS AFFECTING LEARNING: NonePHYSICAL LIMITATIONS AFFECTING LEARNING: NoneLEARNING RESPONSEDIAGNOSIS: ADULT: PATIENT/FAMILY RESPONSE: METHOD OF INSTRUCTION:FOLLOW-UP PLAN:INSTRUCTIONAL AIDS USED:SUPPLEMENTAL MATERIAL PROVIDED TO PATIENT: noneREFERRAL (RECOMMENDATION): noneElectronically Signed By: Jemima Schulte RNNormalCMercy HospitalProtein mass concHNO ID: [id number]: Jemima (Rn) MITCH Schulteervice: NursingAuthor Type: Registered NurseType: Nursing Progress NoteFiled: 10/05/2017 10:27 AMNote Text:HOURLY SHIFT MANAGER BEDSIDE DELIVERY SURVEY1. Patient to use [facility] Bedside Delivery - YES2. If fax, patient would like us to fax prescriptions to [facility] a. Pharmacy: b. Location: c. Phone:3. Insurance card on file - YES4. Credit card for payment - NONo prescriptions yet. Please page sds manufacturing quality technician upon discharge.NormalRegency Hospital ToledoOPERATIVE NOon [id number] NOHNO ID: [id number]: Polly Leiervice: UrologyAuthor Type: PhysicianType: Operative ReportFiled: 10/08/2017 7:31 AMNote Text:OPERATIVE/PROCEDURE REPORTLOG ID: [id number]/Procedure Date: 2017Incision/Procedure Start Time: 2:14 PMIncision Close/Procedure End Time: 4:00 PMSurgeon(s)/Proceduralist(s) and Pin Puller(s):Surgeon(s) and Role: * Polly Torres - Primary * Shruthi (Jhonny Montgomery MD - Resident - AssistingProcedure(s):Flexible cystourethroscopyFlexible eft ureteroscopyLeft [...] and draped inthe standard sterile fashion. Preoperative antibioticwas administeredintravenously prior to the start of the procedure. SCDs were used for DVTprophylaxis and all pressure points were padded carefully. A time-out wasthen performed to confirm the patient, procedure and laterality.?We first obtained quality control representative images which showed an indwelling left ureteralstent and stone burden at the UPJ. A 22fr rigid cystoscope was insertedinto the bladder and a grasperwas used to pull the stent to the meatus.A stiff glidewire was passed up for through and through access. A duallumen catheter was used to perform a retrograde pyelogram which revealed afilling defectat the UPJ. A 14fr valdes catheter was inserted. A ureteral access sheath was passed over the second wire up to the kidneyunder flouroscopic guidance. A flexible ureteroscope was passed throughthis up to the kidney.This was done with great difficulty due to thepatient's morbid obesity. A thorough pyeloscopy was done which revealed noresidual stones in the upper poles.The 18- gauge Chiba percutaneous access needle was then used to access aposterior lower calyx and the percutaneous needle was then identified andvisualized by flexible ureteroscopy. Once the needle was within thecollecting system, a glide wire was advanced through the sheath and Promuc Heart nitinol basket was used to grasp the wire and pulled the wireout through the access sheath and out the urethral meatus to ybeiquvwgoz-iap-hegfqea access. The wire was exchanged out for a super stiffwire using the glide catheter. The tract was then dilated using the 8/10French coaxial dilator and the skin was incised. The Bard X-Force balloonwas advanced over the wire and noted to enter the collecting systemfluoroscopically. The renal tract was dilated to approximately 30F using30 atmospheres with good dilation of the tract.The working sheath wasthen advanced over the balloon and into the kidney under fluoroscopicguidance. This was done with difficulty due to the patient's morbidobesity and the sheath was essentially hubbed at the patient's skin.?The balloon was then removed, and the rigid nephroscope was inserted.Rigid nephroscopy was then performed, and the ShockPulse was used topulverize and vacuum the stone. Allcalyces were inspected, with the rigidand flexible nephroscopes. [...] using the glidecatheter. The nephrostomy sheath was thenremoved, and a 20 F three wayFoley catheter was placed. The perc access site was closed using twointerrupted stitches with 2-0 Prolene suture. The patient was thenawakened from anesthesia and taken to the PACU in stable condition. Thepatient tolerated the procedure well, and there were no complicati ons.Fluoroscopic interpretation of images was performed to evaluate [...] stone from left kidney- to PACU for analysisDra ins: left Indwelling 7 Fr. X 30cm JJ ureteral stentComplications: NoneThe primary surgeon/proceduralist performed the procedure with assistance.SIGNATURE: Shruthi Montgomery MD PATIENT NAME: Joe DavidDATE: October 05, 2017 : 4:23 PM PAGER/CONTACT #: [phone] Torres, MDDirector, Surgical Stone Disease, [facility] InstituteProfessor of Surgery, [facility] Medical CenterPager [phone]/08/2017NormalCMercy Hospital Urine Cultureon [id number] identified Cx Nom (U)Sp. Request/Comment: - Specimen collected in surgery. Culture Result - No growth (<100 CFU/ml)NormalRegency Hospital ToledoComment on above:Performed By: #### CBCDIF, CMP, URIC, PTHI, VITD ####[facility] [address] [place], [place] [phone] CHEST 1V FRONTAL PORTon [id number] CHEST 1V FRONTAL PORT* * *Final Report* * *DATE OF EXAM: Oct 05 2017 5:53PM ESX [id number] - XR CHEST 1V FRONTAL PORT / REASON: Chest pain or SOB, pleurisy or effusion suspected * * * * PhysicianInterpretation * * * * EXAMINATION: XR CHEST 1V FRONTAL PORTPATIENT/TECHNOLOGIST PROVIDED HISTORY:CLINICAL INFORMATION: Chest pain or SOB, pleurisy or effusion suspectedTECHNIQUE: Frontal portable image of the chestRESULT:COMPARISON: None.DEVICES: NoneHEART/MEDIASTINUM: The patient has taken a shallow breath which accentuates the heart size and the bronchopulmonary markings. The heart is upper normal in size, without specific chamber predominance. Mediastinum appears unremarkable.MARY/PULMONARYVASCULATURE: The pulmonary vascular pattern is normal.PULMONARY PARENCHYMA: There is mild left basilar linear atelectasis or fibrosis.PLEURA: There is no evidence of pneumothorax or effusion.IMPRESSION:LEFT BASILAR LINEAR ATELECTASIS OR FIBROSIS.Interior Decorator Painting: PSCB Transcribe Date/Time: Oct 05 2017 5:56PDictated by : AMRIT PAN MDThis examination was interpreted and the report reviewed and electronically signed by: AMRIT PAN MD on Oct 05 2017 6:07PM [id number]_OIQZLJIKZoscduFfkuxcttr Clinic ClevelandCNCOon [id number] Text10/01/2017Joe Argueta Pbpl[address] [facility] [id number] Mr. David:Your vitamin D level was quite low and I recommend that you start OTC(hgmg-ygo-uppozsf) vitamin D3, 2000 units daily. This will help protect youagainst osteoporosis (thin or weak bones) in the future. We can check anothervitamin D level in 3-4 months.Polly Torres, MDDirector, Surgical Stone Disease, [facility]rologicInstituteProfessor of Surgery, [facility] HospitalELECTRONICALLY SIGNEDNormalCMercy Hospital CBCon [id number] nRBC<0.01Normal<0.01[facility] on above:Performed By: #### CBCDIF, CMP, URIC, PTHI, VITD ####[place] [phone] distribution width Auto Ratio (RBC)12.6 %Tevnts91.5-15.0[facility] on above:Performed By: #### CBCDIF, CMP, URIC, PTHI, VITD ####[place] [phone] Auto Volume Fraction (Bld)41.4 %Vjwuyx66.0-51.0 [facility] on above:Performed By: #### CBCDIF, CMP, URIC, PTHI, VITD ####[place] [phone] mass conc (Bld)13.9 g/zEGmnsmn52.0-17.0[facility] on above:Performed By: #### CBCDIF, CMP, URIC, PTHI, VITD ####[place] [phone] Auto Entitic mass (RBC)31.6 cMOgqrmc50.0-34.0[facility] on above:Performed By: #### CBCDIF, CMP, URIC, PTHI, VITD ####[address] [place] [phone] Auto mass conc (RBC)33.6 g/sXXwzwwo79.5-36.0[facility] on above:Performed By: #### CBCDIF, CMP, URIC, PTHI, VITD ####[phone] Auto Entitic volume (RBC)94.1 mYSjdhdr60.0-100.0[facility] on above:Performed By: #### CBCDIF, CMP, URIC, PTHI, VITD ####[phone] mean volume Auto Entitic volume (Bld)8.6 fLLow9.0-12.7 [facility] on above:Performed By: #### CBCDIF, CMP, URIC, PTHI, VITD ####[place] [phone] Auto #/vol (Bld)333 10*3/uWRqdldi416-502CkbslmqadOhioHealth Riverside [facility] Hospital on above:Performed By: #### CBCDIF, CMP, URIC, PTHI, VITD ####[phone] Auto #/vol (Bld)4.40 10*6/uLNormal4.20-6.00[facility] on above:Performed By: #### CBCDIF, CMP, URIC, PTHI, VITD ####[place] [phone] Auto #/vol (Bld)7.62 10*3/uLNormal3.70-11.00[facility] on above:Performed By: #### CBCDIF, CMP, URIC, PTHI, VITD ####[facility] [address] [place], [place] [phone] [id number] Visit (IMPAMN) --------JOE DAVID ([id number]) 1970 MDate Time Provider Department09/28/17 1:45 PM HOANG ABDULLAHI During your visit today, we recorded the following information about you: Temperature Pulse Blood pressure Weight 98.9 degrees 88/minute 133/73 156.9 kg Height 1.74 Yariel Abdullahi MD 09/30/2017 10:31 PM SignedHISTORY AND PHYSICAL EXAMINATION (IMPACT)SERVICE DATE: 09/28/2017SERVICE TIME: 2:07 [facility] PH[facility]IAN: Onel Coffey [facility]ENTERЕЛЕНА COMPLAINT/HISTORY OF PRESENT ILLNESS:Mr. David is a 47 year old male referred to me for preoperative evaluation. Myfinal recommendations will be communicated back to the requestingphysician/surgeon by the way of the shared medical record.Referring Surgeon: Dr. Townsend of Surgery: 10/05Planned Surgery/Procedure: L perc nephrostolithotomyIndication for Planned Surgery / Procedure: L ureteral stone + ongoinghematuriaRefer to Assessment section for d etails of any comorbidities.Patient is Able to Perform the Following Physical Activity:Walk a blockor two on level ground (2.75 METs)Climb a flight of stairs or walk up a hill (5.50 METs)Patient's functional class is I based on self- reported physical activity.Significant Anesthesia Considerations:None. PAST MEDICAL/SURGICAL/FAMILY/SOCIAL HISTORYPAST MEDICAL HISTORYDiagnosis Date- Essential hypertension- Morbid obesity (HCC)- Nephrolithiasis- CHRISTOPHER on CPAPNo past surgical history on file.No family history on file.SOCIAL HISTORYSocial History Marital status: Spouse name: Years of education: Number of children:Social History Main Topics Smoking status: Former Smoker Packs/day: 1.00 Years: 24.00 Types: Cigarettes Quit date: 07/27/2013 Smokeless tobacco: Former User Types: Snuff Quit date: 07/28/2011MEDICATIONS/ALLERGIESCurrent Outpatient Prescriptions:cholecalciferol, vitamin D3, 50,000 unit tab Take 1 tablet by mouth once eachweek. Disp: Rfl:pyridoxine, vitamin B6, (VITAMIN B-6) 100 mg tablet Take 1 tablet by mouth oncedaily. Disp: Rfl:potassium citrate ER (UROCIT-K 10) 10 mEq (1,080 mg) TbER Take 1 tablet bymouth twice daily. Disp: 180 tablet Rfl: 3acetaminophen (TYLENOL EXTRASTRENGTH) 500 mg tablet Take 1,000 mg by [...] by mouth. Take one(1) tablet daily. Disp: R fl:No current facility-administered medications for this visit.ALLERGIESAllergen Reactions- CodeineHivesREVIEW OF SYSTEMSGeneral: No weight loss, malaise or fevers.Neuro: No history of TIA's, stroke, JUNIOR AUTOMATION ENGINEER tumor, impaired sensorium, hemiplegia,paraplegia or quadriplegia. No neurological symptoms or p roblems.Respiratory: Obstructive Sleep Apnea (on CPAP)Cardiovascular: Hypertension requiring [...] itching.PHYSICAL EXAMVITALS: BP 133/73 Pulse 88 Temp (Src)98.9 (Oral) Ht 5' 8.5 (1.74m) Wt346 lb [...] and motor skills.Pulses: Carotid and radial pulses normal+2.ASSESSMENTMrLinda David is a 47 year old male [...] adversecardiac events in the perioperative period.Diagnostic tests revie wed for today's visit:Most recent EKG: normal sinus rhythm, normal axis, normal intervals, small qinf, no acute changes, reviewed by myself.PLAN/RECOMMENDATIONSCARDIAC: Patient is at optimal cardiac condition for scheduled surgery / procedure.PULMONARY: Patient is at optimal Pulmonary status for scheduled surgery / procedure. Patient is at increased risk for postoperative pulmonary complications.Suggest the following in the post- operative period: Aggressivebronchopulmonary hygiene, CPAP/BiPAP at home setting (advised patient to bringtheir CPAP/BiPAP machine/mask), Minimize sedation/opioids as patient has OSAand Early ambulationVASCULAR/ANTICOAGULATION: VTE prophylaxis as deemed appropriateby the surgical service.Patient is optimally prepared for surgery pending labsPatient Instructions:As per patient instructions section.I have discussed the [...] - 51.0 % 41.2 41.4MCV 80.0 - 100.0fL 94.9 94.1MCH 26.0 - 34.0 pG 30.4 31.6MCHC 30.5 - 36.0 g/dL 32.0 33.6RDW-CV 11.5 - 15.0 % 13.0 12.6Platelet Count 150 - 400 k/uL 372 333MPV 9.0 - 12.7 fL 8.8 (L) 8.6 (L)Neut% % 71.5Abs Neut (ANC) 1.45 - 7.50 k/uL 5.80Lymph% % 19.8Abs Lymph 1.00 - 4.00 k/uL 1.61Mono% % 6.0Abs Wilkinson <0.87 k/uL 0.49Eosin% % 1.6Abs Eosin <0.46 [...] U/L 12 14eGFR- 50 55eGFR-All Other Races .41 45Uric Acid 4.0 - 8.1 mg/dL 9.3 (H) 7.3OK to proceed with surgery.Vinayak Benson LPN 09/30/2017 10:31 PM SignedJoe David is a 47 year old male [facility] Surgeon: Dr. Townsend of Surgery: 10/05/2017Planned Surgery/Procedure: PERCUTANEOUS NEPHROSTOLIAllergies have been reviewed and verified. They include the following:CodeineSocial HistorySubstance Use Topics- Smoking status: Former Smoker Packs/day: 1.00 Years: 24.00 Types: Cigarettes Quit date: 07/27/2013- Smokeless tobacco: Former User Types: Snuff Quit date: 07/28/2011- Alcohol use Not on fileMedications reviewed and updated: Isaac Bertrand LPNRhomero Abdullahi MD 09/28/2017 2:33 PM SignedPARMA COMMUNITY GENERAL HOSPITALPatient Instructions for SurgeryRepeat OLIVIER 160/96Exam is [...] black tea/coffee, fruit juicewithout pulp, Baldo Celestina, etc.)up until 2 hours prior to the arrival [...] day of surgery.MEDICATION INSTRUCTIONS: Day/Morning of Surgersee belowCarvedilolHydralazineZyloprimIf you have any questions or concerns regarding today's visit please do nothesitate to contact the [facility] at [phone] or [phone], [phone].Signature: Hoang Abdullahi, MDDate: September 28, 2017Referring Provider: POLLY TORRES [[id number]]Allergies As of Date: 09/28/2017 Noted Allergy ReactionCODEINE 07/24/2017 4 - HivesDate Reviewed: 09/28/2017Reviewed by: Milton James LPN - Fully AssessedPrimary Visit Diagnosis:Pre-op evaluation [Z01.818] Other Visit Diagnose s:Calculus of kidney [N20.0] Nephrolithiasis [N20.0] Morbid obesity [...] Bertrand LPN 09/28/2017 1:27 PM >> MILTON MADSEN L* SunSep 28, 2017 1:27 PMProblem List As Of [...] Hyperuricemia [E79.0] INVALID FOR* Low vitamin D level[R79.89] INVALID FOR* Hypocitraturia [R82.99] INVALID FOR* Hyperoxaluria (HCC) [E72.53] INVALID FOR* Low urine output [R34] INVALID FOR* Hypernatriuria [E87.0] INVALID FOR* Nephrolithiasis [N20.0] Morbid obesity (HCC) [E66.01] CHRISTOPHER on CPAP [G47.33, Z99.89] Other instructions from your clinician: [facility] Patient Instructions for Surgery Repeat OLIVIER 160/96 Exam is stable Same meds except: Increase Hydralazine to 1 pill 3 times a day Bring CPAP machine + mask with you (+ water)FOOD INSTRUCTIONS: NO solid food or non-clear liquids [...] please do not hesitate to contact the [facility] at [phone] or [phone], [phone]. Signature: Hoang Abdullahi MD Date: September 28, [...] file. Status:Closed by HOANG ABDULLAHI MD on 09/30/17[facility] - DublinCNOVOffice Visit (UROLMN) --------JOE DAVID ([id number]) 1970 MDate Time Provider Department09/28/17 9:30 AM ARMANI URENA) KIRK During your visit today, we recorded the following information about you: Pulse Blood pressure Weight Height 87/minute 184/104 158.8 kg 1.727 Ralph Urena MD 09/28/2017 9:45 AM [facility] UROLOGICAL AND KIDNEY INSTITUTEPRE-OP NOTEJoe David is [...] steroids?: NoHas the patient had a UTI inthe past month?: No.Does the patient have any [...] Yes.DOS Orders Placed and Signed: Yes.Pre-op HANDP Doneby Impact: To be done by IMPACT.PATIENT INSTRUCTIONS FOR SURGERY1.) DO NOT HAVE ANYTHING TO EAT AFTER MIDNIGHT THE DAY BEFORE SURGERY exceptfor certain morning medications as instructed by the doctor. Candy, mints, gum,and smoking are NOT permitted. You may drink clear liquids (Sprite, water,gingerale) up to two hours before your arrival time on the day of surgery.2.) Medications to be taken on t he morning of surgery with a few sips [...] AM Modules accepted: OrdersReferring Provider: POLLY TORRES [[id number]]Allergies As of Date: 09/28/2017 NotedAllergy ReactionCODEINE 07/24/2017 4 - HivesDate Reviewed: 09/28/2017Reviewed by: Briana Conklin -Fully AssessedPrimary Visit Diagnosis:Screening for genitourinary condition [Z13.89] Other Visit Valeria gnosis:Calculus of kidney [N20.0]Order(s):UA CHEMSTRIP ONLY [SQUA] Order #: [id number] FUTURE UA CHEMSTRIP ONLY [SQUA] Order #: [id number]. #:[id number] URINE CULTURE [SQURCUL] Order #: [id number] as of 09/28/2017 Sig: PYRIDOXINE (VITAMIN B6) 100 M* Take 1 tablet by mouth once d* P OTASSIUM CITRATE ER 10 MEQ (* Take 1 [...] FOR* Former smoker [Z87.891] INVALID FOR* BMI 50.0- 59.9, adult (HCC) [Z68.43] INVALID FOR* Calculus of ureter [N20.1] INVALID FOR* Abnormal urinalysis [R82.90] INVALID FOR* Family history of diabetes mellitus [Z83.3] INVALID FOR* Family history of prostate cancer [Z80.42] INVALID FOR* Familyhistory of nephrolithiasis [Z84.1] INVALID FOR* Hyperuricemia [E79.0] INVALID FOR* Low vitamin D level [R79.89] INVALID FOR* Hypocitraturia [R82.99] INVALID FOR* Hyperoxaluria (HCC) [E72.53] INVALID FOR* Low urine output [R34] INVALID FOR* Hypernatriuria [E87.0] INVALID FOR* Nephrolithiasis [N20.0]Morbid obesity (HCC) [E66.01] CHRISTOPHER on CPAP [G47.33, Z99.89] Status:Closed by ARMANI URENA MD on 09/28/17NoalCKettering Health Springfield Metabolic Panelon 23-13-2412Dzzuonk mass conc4.3 g/dLNormal 3.9-4.9CMercy Health [facility]rb[facility] on above:Performed By: #### CBCDIF, CMP, URIC, PTHI, VITD ####[facility] [place], [place] [phone] enzyme act/vol53 U/ZEwizdc63-586XmwcwgwblAccess Hospital Daytonment on above:Performed By: #### CBCDIF, CMP, URIC, PTHI, VITD ####[facility] AvRand[place], [place] [phone] enzyme act/vol14 U/GYyvnxi99-68SmljpfgqgRegency Hospital Toledo Comment on above:Performed By: #### CBCDIF, CMP, URIC, PTHI, VITD ####[facility]CC[address]pl[address], [place] [phone] gap 3 molar conc13 mmol/LNormal9-18[facility] on above: Performed By: #### CBCDIF, CMP, URIC, PTHI, VITD ####[facility]Rand[address], [place] [phone] enzyme act/vol10 U/LNwf61-77GfdxiiednOhioHealth Riverside Methodist Hospital on above:Performed By: #### CBCDIF, CMP, URIC, PTHI, VITD ####[place] [address]CB[address] [place] [phone] mass conc0.3 mg/dLNormal0.2-1.3CMercy Health [facility]rb[facility] Hospital on above:Performed By: #### CBCDIF, CMP, URIC, PTHI, VITD ####[place] [address] [phone] mass conc9.9 mg/dLNormal8.5-10.2CMercy Health Urbana Hospital on above:Performed By: #### CBCDIF, CMP, URIC, PTHI, VITD ####[place] [phone] molar dcns234 mmol/CWvewju49-225YsvosobrjOhioHealth Riverside Methodist Hospital on above:Performed By: #### CBCDIF, CMP, URIC, PTHI, VITD ####[place] [address] [place] [phone] molar conc26 mmol/VZcsrpr16-40DfpwkqvnnRegency Hospital [facility] Comment on above:Performed By: #### CBCDIF, CMP, URIC, PTHI, VITD ####[place] [address] [place] [phone] mass conc1.64 mg/dLHigh0.73-1.22[facility] on above: Performed By: #### CBCDIF, CMP, URIC, PTHI, VITD ####[place] [address] [phone]-Mdczizw Amer.55 NormalOhioHealth Riverside Methodist Hospital on above:Performed By: #### CBCDIF, CMP, URIC, PTHI, VITD ####[place] [address] [place], [place] [phone]/1.73 sq M predicted among non-blacks MDRD vol rate/area (S/P/Bld)45 .NormalRegency Hospital ToledoComcaro center on above:Result Comment: eGFR (Estimated GFR) Units of measure: mL/min/1.73 meters squaredeGFR is derived from the reexpressed MDRD Study equation using the following parameters: serum creatinine, age, genderand race. The creatinine assay has been calibrated to be traceable to IDMS.An eGFR <60 mL/min/1.73m2 for >3 months is consistent with chronic kidney disease. Refer to KDOQI guidelines for clinical interpretation.In patients with unstable renal function, e.g. those with acute kidney injury, the eGFR may not accurately reflect actual GFR.Performed By: #### CBCDIF, CMP, URIC, PTHI, VITD ####[facility] [place], [place] [phone] mass zvoa889 mg/eKQeiq51-88EpfbjcgpaRegency Hospital Toledo Comment on above:Result Comment: The [place] [employer] Association (ADA) provides guidance for cutoff [...] unequivocal hyperglycemia, results should be confirmed by repeattesting. In a patient with classic symptoms of hyperglycemia or hyperglycemic crisis, random plasmaglucose results greater than or equal to 200 mg/dL meet the criteria for diagnosis of diabetes.Reference: Standards of Medical Care in Diabetes 2016, [place] [employer]. Diabetes Care. 2016.39(Suppl 1).Performed By: #### CBCDIF, CMP, URIC, PTHI, VITD ####[facility] [address] [place], [place] [phone] molar conc4.0 mmol/LNormal3.7-5.1CMercy HospitalComcaro center on above:Performed By: #### CBCDIF, CMP, URIC, PTHI, VITD ####[facility], [place] [phone] mass conc6.5 g/dLNormal6.3-8.0[facility] on above:Performed By: #### CBCDIF, CMP, URIC, PTHI, VITD ####[facility] [address]csr[address], [place] [phone] molar lmyf850 mmol/MUbsiou551-703VohhuxbolOhioHealth Riverside [facility] Hospital on above:Performed By: #### CBCDIF, CMP, URIC, PTHI, VITD ####[facility], [place] [phone] nitrogen mass conc19 mg/dLNormal9-24[facility] on above:Performed By: #### CBCDIF, CMP, URIC, PTHI, VITD ####[place] [address] [place], [place] [phone] 19-66-2308Evsizbb mass concHNO ID: [id number]: Milton Bertrand LPNService: (none)Author Type: (none)Type: Progress NotesFiled: 09/30/2017 10:31 PMNote Text:Joe David is a 47 year old male [facility]Referring Surgeon: Dr. Townsend of Surgery: 10/05/2017Planned Surgery/Procedure: PERCUTANEOUS NEPHROSTOLIAllergies have been reviewed and verified. They include the following:CodeineSocialHistorySubstance Use Topics- Smoking status: Former Smoker Packs/day: 1.00 Years: 24.00 Types: Cigarettes Quit date: 07/27/2013- Smokeless tobacco: Former User Types: Snuff Quit date: 07/28/2011- Alcohol use Not on fileMedications reviewed and updated: Isaac Bertrand LPNNormalRegency Hospital ToledoProtein mass concHNO ID: [id number]: Armani Joel (Fel): (none)Author Type: FellowType: Progress NotesFiled: 09/28/2017 9:45 AMNote Text:[facility] UROLOGICAL AND KIDNEY INSTITUTEPRE-OP NOTEJesandeep David addison 47 year old male.Pre-op Date: September 28, 2017Date of Procedure: 10/05/17Procedure/Surgery: left PCNLDiagnosis: left UPJ stonePrimary Surgeon: MD Brian, MarkHealthquest Score:BP 184/104 Pulse 87 Ht 172.7 cm (5' 8 ) Wt (!) 158.8 kg (350 lb) BMI 53.22 kg/m?Pain Assessment: Are you currently having pain? No 0 on a scale of 0 vt20Tkhavjde Guide Book Status: Patient given book today.Dialysis [...] pendingIMPACT, LABS and urine culture.Armani Urena MDElectronically signedNoOhio Valley HospitalProtein mass concHNO ID: [id number]: Hoang AbdullahiService: (none)Author Type: PhysicianType: Progress NotesFiled: 09/30/2017 10:31 PMNote Text:HISTORY AND PHYSICAL EXAMINATION (IMPACT)SERVICE DATE: 09/28/2017SERVICE TIME: 2:07 [facility] CARE PHYSICIAN: Onel Coffey [facility] COMPLAINT/HISTORY OF PRESENT ILLNESS:Mr. David is a [...] I based on self-reported physical activity.Significant Anesthesia C onsiderations: None. PAST MEDICAL/SURGICAL/FAMILY/SOCIAL HISTORYPAST MEDICAL HISTORYDiagnosis Date-Essential hypertension- Morbid obesity (HCC)- Nephrolithiasis- CHRISTOPHER on CPAPNo past surgical history on file.No family history on file.SOCIAL HISTORYSocial History Marital status: Spouse name: Years of education: Number of children:Social History Main Topics Smoking status: Former Smoker Packs/day: 1.00 Years: 24.00 Types: Cigarettes Quit date: 07/27/2013 Smokeless tobacco: Former User Types: Snuff Quit date: 07/28/2011MEDICATIONS/ALLERGIESCurrent Outpatient Prescriptions:cholecalciferol, vitamin D3, 50,000 unit tab [...] or fevers.Neuro: No history of TIA's, stroke, JUNIOR AUTOMATION ENGINEER tumor, impaired sensorium,hemiplegia, paraplegia or quadriplegia. No [...] oncological symptoms orproblems.Psych: No history of psychiatric symptomsor problems.Skin: Negative for lesions, rash, and itching.PHYSICAL [...] radial pulses normal +2.ASSESSMENTMrLinda David is a 47 year old male referred to me for preoperative evaluation.Patient has the following medical comorbidities which might affect theperioperative course:- Hypertension, uncontrolled and Hydral dose changed to 100mg TID .- Patient is morbidly obese related to exc essive caloric intake. Body massindex is 51.84 kg/m?.- Patient with sleep apnea and uses CPAP.Patient's RCRI (Revised Cardiac Risk Index: CAD/CHF/Stroke or TIA/SCr>2/DMon Insulin/High Risk Surgery) score is 0 and is at low risk for majoradverse cardiac events in the perioperative period.Diagnostic tests reviewed for today's visit:Most recent EKG: normal sinus rhythm, normal axis, normal intervals, smallq inf, no acute changes, reviewed by myself.PLAN/RECOMMENDATIONSCARDIAC: Patient is at optimal cardiac condition for scheduled surgery /procedure.PULMONARY: Patient is at optimal Pulmonary status for scheduled surgery /procedure. Patient is at increased risk for postoperative pulmonary complications. Suggest the following in the post-operative period: Aggressivebronchopulmonary hygiene, CPAP/BiPAP at home setting (advised patient tobring their CPAP/BiPAP machine/mask), Minimize sedation/opioids as patienthas CHRISTOPHER and Early ambulationVASCULAR/ANTICOAGULATION: VTE prophylaxis as deemed a ppropriate by the surgical service.Patient is optimally prepared [...] - 36.0 g/dL 32.0 33.6RDW-CV 11.5 - 15.0% 13.0 12.6Platelet Count 150 - 400 k/uL 372 333MPV 9.0 - 12.7 fL 8.8 (L) 8.6 (L)Neut% % 71.5Abs Neut (ANC) 1.45 - 7.50 k/uL 5.80Lymph% % 19.8Abs Lymph 1.00 - 4.00 k/uL 1.61Mono% % 6.0Abs Wilkinson <0.87 k/uL 0.49Eosin% % 1.6Abs Eosin <0.46 [...] - 40 U/L 10 (L) 10 (L)Glucose 74- 99 mg/dL 90 109 (H)BUN 9 - 24 mg/dL 22 19Creatinine 0.73 - 1.22 mg/dL 1.78 (H) 1.64 (H)Sodium 136- 144 mmol/L 139 140Potassium 3.7 - 5.1 mmol/L 4.0 4.0Chloride 97 - 105 mmol/L 101 101CO2 22 - 30 mmol/L 25 26Anion Gap 9 - 18 mmol/L 13 13ALT 10 - 54 U/L 12 14eGFR- 50 55eGFR-All Other Races . 41 45Uric Acid 4.0 - 8.1 mg/dL 9.3 (H) 7.3OK to proceed with surgery.Hoang Abdullahi MDNoalCMercy HospitalType and SCR (30D)on 66-60-3952SEB/RH(D)PositiveNoalCMercy HospitalComment on above: Performed By: #### CBCDIF, CMP, URIC, PTHI, VITD ####[place] [phone] Acidon 38-50-5881Vyyef mass conc7.3 mg/dLNormal4.0-8.1CMercy HospitalComment on above:Performed By: #### CBCDIF, CMP, URIC, PTHI, VITD ####[address] [phone] 19-64-3631Rqpelmvfq, UrineNegativeNormalNegativeRegency Hospital [facility]edo Comment on above:Performed By: #### CBCDIF, CMP, URIC, PTHI, VITD ####[place] [address] [place] [phone] Slightly CloudyCritically abnormalClearCMercy HospitalComment on above:Performed By: #### CBCDIF, CMP, URIC, PTHI, VITD ####[address] [place], [place] [phone] abnormalYellowCleKettering Health TroyComment on above:Performed By: #### CBCDIF, CMP, URIC, PTHI, VITD ####[place] [address] AveCBrian [place]ille [phone] COMMENTNormalCMercy Health Urbana Hospital on above:Result Comment: Microscopic Examination Performed Performed By: #### CBCDIF, CMP, URIC, PTHI, VITD ####[facility] [phone] Ql (U) NegativeNormalNegativeOhioHealth [facility] on above:Performed By: #### CBCDIF, CMP, URIC, PTHI, VITD ####[place] [address] [phone]/Blood,Ur3+Critically abnormal NegativeOhioHealth Riverside Methodist Hospital on above:Performed By: #### CBCDIF, CMP, URIC, PTHI, VITD ####[place] [address] [phone] Coag RelTime (Bld){INR}Critically abnormal0-3CMercy Health Urbana Hospital on above:Performed By: #### CBCDIF, CMP, URIC, PTHI, VITD ####[place] [address] [phone] Ql (U)NegativeNormalNegativeRegency Hospital Toledo Comment on above:Performed By: #### CBCDIF, CMP, URIC, PTHI, VITD ####[facility] [phone]+ Critically abnormalNegativeOhioHealth [facility] on above:Performed By: #### CBCDIF, CMP, URIC, PTHI, VITD ####[place] [address] [place] [phone]fqrlgb [facility] on above:Performed By: #### CBCDIF, CMP, URIC, PTHI, VITD ####[place] [address] [phone] on above: Performed By: #### CBCDIF, CMP, URIC, PTHI, VITD ####[address] AvRobert [place]ille [phone], Urine30 mg/dLCritically abnormalNegativeOhioHealth [facility] on above: Performed By: #### CBCDIF, CMP, URIC, PTHI, VITD ####[place] [phone] [place], Ur 1.572Yczzdu1.005-1.030[facility] on above:Performed By: #### CBCDIF, CMP, URIC, PTHI, VITD ####[address] [place] [phone] Brayan CommentSEE COMMENTNormalCMercy Health Urbana Hospital on above:Result Comment: N/APerformed By: #### CBCDIF, CMP, URIC, PTHI, VITD ####[address] Av[address] [place] [phone]WtvtmvCndlbvsct Clinic [place] Comment on above:Performed By: #### CBCDIF, CMP, URIC, PTHI, VITD ####[place] [address] [phone] Critically abnormal0-5CMercy Health Urbana Hospital on above:Performed By: #### CBCDIF, CMP, URIC, PTHI, VITD ####[place] [address] [place] [phone] Cultureon 27-78-5579Dplzrubf identified Cx Nom (U)Sp. Request/Comment: - Presurgical Sterilization Specimen received in preservative Culture Result - Normal Urogenital nadia: Staphylococcus epidermidis --> ABNORMAL ALERT Corynebacterium species --> ABNORMAL ALERTCritically abnormal [facility] on above:Performed By: #### CBCDIF, CMP, URIC, PTHI, VITD ####[facility] [place], [place] [phone] D 25 Hydroxyon 30-62-6857Toeydup D 25 Tpvdocr40.2 ng/mL Low31.0-80.0[facility] on above:Result Comment: Classification of 25 [place] Vitamin D status:Insufficiency/Moderate Deficiency: < or = 30 ng/mLSufficiency/Optimal Levels: 31 to 80 ng/mLToxicity: > 100 ng/mLTest performed by chemiluminescent immunoassay.Performed By: #### CBCDIF, CMP, URIC, PTHI, VITD ####[facility] [place], [place] [phone] 50-70-7547JBUAOwzrfvk Update (UROLMN) --------JOE DAVID ([id number]) 1970 MDate Time Provider Department09/19/17 CAT WILL (AGILE BUSINESS ANALYST)UROLMN During your visit today, we recorded the following information about you:Allergies As of Date: 09/19/2017 Noted Allergy ReactionCODEINE 07/24/2017 4 - HivesDate Reviewed: 08/16/2017Reviewed by: Kayleigh Muñoz - Fully AssessedPrimary Visit Diagnosis:Calculus of kidney [N20.0] Other Visit Diagnoses:CPAP (continuous positive airway pressure) dependence [Z99.89] CHRISTOPHER (obstructive sleep apnea) [G 47.33]Order(s):COMP METABOLIC PANEL [SQCMP] Order #: [id number] FUTURE CBC [SQCBC] Order #: [id number] FUTURE TYPE + SCREEN,30 DAY [RUPENZ29] Order #: [id number] FUTURE URINALYSIS WITH MICROSCOPIC [SQUAWMIC] Order #: [id number] FUTURE URINE CULTURE [SQURCUL] Order #: [id number] CONSULT TO ANESTHESIOLOGY [9002] Order #: [id number]: 1 CONSULT TO INT MED-IMPACT [4342003] Order #: [id number]: 1SURGICAL REQUEST - ELECTIVE [9210692] Order #: [id number]: 1Prescriptions as of 09/19/2017 Sig: PYRIDOXINE (VITAMIN [...] INVALID FOR* Calculus of ureter [N20.1] INVALID FOR*Abnormal urinalysis [R82.90] INVALID FOR* Family history of diabetes mellitus [Z83.3] INVALID FOR* Family history of prostate cancer [Z80.42] INVALID FOR* Family history of nephrolithiasis [Z84.1] INVALID FOR* Hyperuricemia [E79.0] INVALID FOR* Low vitamin D level [R79.89] INVALID FOR* Hypocitraturia [R82.99] INVALID FOR* Hyperoxaluria (HCC) [E72.53] INVALID FOR* Low urine output [R34] INVALID FOR* Hypernatriuria [E87.0] INVALID FOR*Follow-up and Disposition History RecordedEncounter Number: [id number] Status:Closed by CAT WILL CNP on 09/19/17[facility] LMRN: Height:5' 8 (1.727 m)Weight:350 lb (158.759 kg)Outpatient Medications as of 10/05/17:cholecalciferol, vitamin D3, 50,000 unit tabhydrALAZINE (APRESOLINE) 100 mg tabletpyridoxine, vitamin B6, (VITAMIN B-6) 100 mg tabletpotassium citrate ER (UROCIT-K 10) 10 mEq (1,080 mg) TbERdocusate sodium (COLACE) 100 mg capsuleacetaminophen (TYLENOL EXTRA STRENGTH) 500 mg tabletallopurinol (ZYLOPRIM) 100 mg tabletcarvedilol (COREG) 25 mg tabletAdmission/Clinic Administered Medicationsas of 10/05/17:lactated ringers infusionProblem List:Calculus of kidney [...] urine output [R34]Hypernatriuria [E87.0]Nephrolithiasis [N20.0]Morbid obesity (HCC) [E66.01]O SA on CPAP [G47.33, Z99.89]Allergies:CodeineDate Verified: 10/05/17Lab ValuesLab Value Units Date High LowPOTA* 4.0 mmol/L 09/28/2017 5.1 3.7HEMA* 41.4 % 09/28/2017 51.0 39.0Progress Notes (UROL MAIN):Armani Urena MD 09/28/2017 9:45 AM SignedCAR[facility]ONT [facility] UROLOGICAL AND KIDNEY INSTITUTEPRE-OP NOTEJoe David is [...] N/AAllergies Reviewed: YesMedications Reviewed: YesIs patient currently onoral steroids?: NoHas the patient had a UTI [...] by Impact: To be done by IMPACT.PATIENT INSTRUCTIONSFOR SURGERY1.) DO NOT HAVE ANYTHING TO EAT AFTER MIDNIGHT THE DAY BEFORE SURGERY except forcertain morning medications as instructed by the doctor. Candy, mints, gum, andsmoking are NOT permitted. You may drink clear liquids (Sprite, water, gingerale) up to two hours before your arrival time on theday of surgery.2.) Medications to be taken on the morning of surgery with a few sips of water:per IMPACT3.) Please bring all your prescribed inhalers (if you have any you normallytake) to the hospital .4.) Arrival time: Call for arrival.5.) Prep given: No6.) Lovenox instructions given: N/A7.) Patient reminded that surgery time provided day before surgery is tentativebased on potential changes withtransplants.Recommendations: This patient is optimally prepared for surgery pending IMPACT,LABS andurine culture.Armani Urena MDElectronically signedArmani Urena MD 09/28/2017 9:49 AM SignedAddended by: ARMANI URENA MD on: 09/28/2017 09:49 AM Modules accepted: OrdersProgress Notes (INTM MAIN IMPACT):Hoang Abdullahi MD 09/30/2017 10:31 PM SignedHISTORY AND PHYSICAL EXAMINATION (IMPACT)SERVICE DATE: 09/28/2017SERVICE TIME: 2:07 PMPRIMARSHALL [facility] PH[facility]IAN: MATTHEW RushingGAЕЛЕНА COMPLAINT/HISTORY OF PRESENT ILLNESS:Mr. David is a 47 year old male referred to me for preoperative evaluation. Myfinalrecommendations will be communicated back to the requestingphysician/surgeon by the way of the shared medical record.Referring Surgeon: Dr. Townsend of Surgery: 10/05Planned Surgery/Procedure: L perc nephrostolithotomyIndication for Planned Surgery / Procedure: L ureteral stone + ongoing hematuriaRefer to Assessment section for details of any comorbidities.Patient is Able to Perform the FollowingPhysical Activity:Walk a block or two on level [...] Types: Cigarettes Quit date: 07/27/2013 Smokeless tobacco: Fo rmer User Types: Snuff Quit date: 07/28/2011MEDICATIONS/ALLERGIESCurrent Outpatient Prescriptions:cholecalciferol, vitamin D3, 50,000 unit tab [...] Disp: Rfl:No current facility-administered medications for this visit.ALLERG IESAllergen Reactions- Codeine HivesREVIEW OF SYSTEMSGeneral: No weight loss, malaise or fevers.Neuro: No history of TIA's, stroke, JUNIOR AUTOMATION ENGINEER tumor, impaired sensorium, hemiplegia,paraplegia or quadriplegia. No neurological symptoms or problems.Respiratory: Obstructive Sleep Apnea (on CPAP)Cardiovascular: Hypertension requiring meds, Hx of Rheumatic fever age 4, nosequelae + NO CAD/CHFGI: No history ofGI symptoms or problems. No history of esophageal varices,recent ascites, or ETOH greater than 2 drinks per day., Hx of pyloricobstruction, had surgical correction age 6 weeksGU: see HPIEndocrine: Valeria betes Mellitus with diet controlHematology: No history of bleeding or clotting disorder. No historyofhematological symptoms or problems.Oncology: No history of CA [...] radial pulses normal +2.ASSESSMENTMrLinda David is a 47 year old male [...] small qinf, no acute changes, reviewed by myself.PLAN/RECOMMENDATIONSCARDIAC:Patient is at optimal cardiac condition for scheduled surgery / procedure.PULMONARY: Patient is at o ptimal Pulmonary status for scheduled surgery / procedure. Patient is at increased risk for postoperative pulmonary complications. Suggest the following in the post-operative period: Aggressivebronchopulmonary hygiene, CPAP/BiPAP at home setting (advised patient to bringtheir CPAP/BiPAP machine/mask), Minimize sedation/opioids as patient has CHRISTOPHER andEarly ambulationVASCULAR/ANTICOAGULATION: VTE prophylaxis as deemed appropriate by the [...] satisfaction.SIGNATURE: Hoang Abdullahi MD PATIENT NAME: Joe CarrasquilloTE: September 28, 2017 : 2:07 PMAddendum 09/30:LabsComponent [...] % 19.8Abs Lymph 1.00 - 4.00 k/uL 1.61Mono%% 6.0Abs Wilkinson <0.87 k/uL 0.49Eosin% % 1.6Abs Eosin <0.46 [...] U/L 54 53AST 14 - 40 U/L 10(L) 10 (L)Glucose 74 - 99 mg/dL 90 109 (H)BUN 9 - 24 mg/dL 22 19Creatinine 0.73 - 1.22 mg/dL 1.78 (H) 1.64 (H)Sodium 136 - 144 mmol/L 139 140Potassium 3.7 - 5.1 mmol/L 4.0 4.0Chloride 97 - 105 mmol/L101 101CO2 22 - 30 mmol/L 25 26Anion Gap 9 - 18 mmol/L 13 13ALT 10 - 54 U/L 12 14eGFR- 50 55eGFR-All Other Races . 41 45Uric Acid 4.0 - 8.1 mg/dL 9.3 (H) 7.3OK to proceed with surgery.Vinayak Benson LPN 09/30/2017 10:31 PM SignedJoe David is a 47 year old male here today for visit in [facility] Surgeon: Dr. Townsend of Surgery: 10/05/2017Planned Surgery/Procedure: PERCUTANEOUS NEPHROSTOLIAllergies have been reviewed and verified. They include the following:CodeineSocial HistorySubstance Use Topics- Smoking status: Former Smoker Packs/day:1.00 Years: 24.00 Types: Cigarettes Quit date: 07/27/2013- Smokeless tobacco: Former User Types: Snuff Quit date: 07/28/2011- Alcohol use Not on fileMedications reviewed and updated: Isaac Bertrand LPNRhomero Abdullahi MD 09/28/2017 2:33 PM SignedPARMA COMMUNITY GENERAL HOSPITALPatient Instructions for SurgeryRepeat OLIVIER 160/96Exam is stableSame meds except:Increase Hydralazine to 1 pill 3times a dayBring CPAP machine + mask with you (+ water)FOOD INSTRUCTIONS:NO solid food or non-clearliquids for 8 hours prior to the arrival time foryour surgery. Unless you are instructed otherwise,you are allowed to drink upto 12 ounces of clear liquids (e.g. water, black tea/coffee, fruit juicewithoutpulp, Baldo Celestina, etc.) up until 2 hours prior to the arrival time for surgery.MEDICATION INS TRUCTIONS: Prior to Surgery:Do not take the following medications for 7 days prior to surgery: DONE- any NSAID's (e.g. Motrin, Aleve, Arthrotec, Naproxen,etc) - any herbal preparations - Aspirin or aspirin containing productsDo not take any Vitamin E / multivitamins for 10-14 days before surgery:You are allowed to take Tylenol if needed until the day of surgery.MEDICATION INSTRUCTIONS: Day/Morning of Surgersee belowCarvedilolHydralazineZyloprimIf you have any questions or concerns regarding today's visit please do nothesitate to contact the [facility] at [phone] or [phone], [phone].Signature: Hoang Abdullahi, MDDate: September 28, 2017[facility] DublinCase [id number] Visit (UROMAURICEN) --------JOE DAVID Oswald ([id number]) 1970 MDate Time Provider Department09/13/17 10:00 AM CAT WILL(EDNA) URODAQUAN During your visit today, we recorded the following information about you:Cat Will APRN.CNP 09/13/2017 12:32 PM SignedChief complaint: Kidney stonesJefflyly David is a 47 year old male [...] TorresAssessment/Plan:N20.0 Calculus of kidney (primary encounter diagnosis)E79.0 RnjflubkvcrpyV29.99 QvqytoxihmoiacK36.53 Hyperoxaluria (HCC)R34 Low urine kwenibC00.0 FnuxqljyunzordM49.1 Calculus of ureterReviewed recent 24 hour urine study and discussed strategies for stoneprevention.Hyperuricemia- pt recently started on allopurinol. Denies hx of goutHypocitraturia-Recommend increasing dietary citrate intake. Adding more fruitsAND vegetables to your diet; in particular citrus fruits like mesfin, limes,oranges, melons and tomatoes. Will also start potassium citrate BIDHyperoxaluria-recommend a low oxalate diet, adding calcium rich foods at each meal and add a vitamin B6 100 mg supplement daily.Low urine volume-We recommend increasing your fluid intake to 2.5-3L/day qi20-409 ounces/day. Not only increase fluids during the [...] (APRESOLINE) 100 mg tablet Take 100 mg bymouth twice daily.carvedilol (COREG) 25 mg tablet Take 25 mg by mouth three times daily.Cephalexin 500 mg tab Take by mouth. Take one(1) tablet daily.No current facility-administered medications on file prior to visit.ALLERGIESAllergen Reactions- Codeine HivesResults Only on 09/04/2017Component Date Value Ref Range Status- 24 hr Urine Comments 09/04/2017 Comments Corrected Comment: BORDERLINE LOWURINE PH. : May lead to uric acid stoneformation, particularly if urine volume is low. If thepatient has uric acid stones consider treatment with alkalipotassium citrate, 20 - 60 mEq/day in 2-3 doses(check serumpotassium). If unable to tolerate potassium loads considersodium bicarbonate. Recheck at 6 weeks including serumpotassium.MARKED HYPOCITRATURIA. : Consider treatment with lpvsoukuciumaqdz70 to 60 meq per day in 2 [...] occurred and uric acid excretion and SS arefalsely low.- Urine pH 09/04/2017 5.642* 5.800 - 6.200 Final Comment: This value shows an increasedrisk factor of 2, where 0 isnormal and 7 is extremely high.- 24 hr Uric Acid 09/04/2017 0.651 <0.800 g/d Final- 24 hr Citrate 09/04/2017 106* >450 mg/d Final Comment: This value shows an increased risk factor of 5, where 0 isnormal and 7 is extremely high.- 24 hr Oxlate 09/04/2017 77* 20 - 40mg/d Final Comment: This value shows an increased [...] 15 - 60 mmol/d Final- 24 hr Ibpuuata88/26/2018 290* 70 - 250 mmol/d Final Comment: This value shows an increased risk factor of 4, where 0 isnormal and 7 is extremely high.- 24 hr Magnesium 09/04/2017 138* 30 - 120 mg/d Final- 24 hr Rachel sphorus 09/04/2017 1.072 0.60 - 1.20 g/d Final- 24 hr Urea Nitrogen 09/04/2017 14.28* 6.00 - 14.00 g/d Final- Protein Catabolic Rate 09/04/2017 0.8 0.8 - 1.4 g/kg/d Final- 24 hr Creatinine 09/04/20172629 mg/d Final Comment: Priming Mixture Carrier Note: Effective 07/08/2017, reference rangeshave changed for Cr24/Kg, Ca24/Cr24 and Cit24/Cr24 due toconversion to an IDMS traceable urine creatininecalibration.- 24 hr Creatinine per Kilogram Body* 09/04/2017 17.0 11.9 - 24.4 mg/d/kgFinal- 24 hr Calcium perKilogram Body We* 09/04/2017 1.0 <4.0 mg/d/kg Final- 24 hr Calcium per 24 hr Creatinine 09/04/2017 56 34 - 196 mg/g Final- Computer Lab Assistant 09/04/2017 Final Value: Cystine Screen Negative Urinalysis: Red (A) Yellow Final CCMClarity Cloudy (A) Clear Final CCMGlucose, Urine Negative Negative mg/dL Final CCMBilirubin, Urine Negative Negative Final CCMKetones, Urine Negative Negative Final CCMSpecific [place], Ur 1.018 1.005 - 1.030 Final CCMHemoglobin/Blood,Ur [...] NO LONGER VISIBLE.Stone Panel/ Litholink:Component Latest Ref RngAND Units 09/04/2017Urine pH 5.800 - 6.200 5.642 (L)24 hr Uric Acid <0.800 g/d 0.48588 hr Citrate>450 mg/d 106 (L)24 hr Oxlate 20 - 40 mg/d 77 (H)24 hr Calcium <250 mg/d 147Urine Volume 0.50- 4.00 L/d 1.95Supersaturation CaOx 6.00 - 10.00 [...] (H)24 hr Phosphorus 0.60 - 1.20 g/d 1.90548 hr Urea Nitrogen 6.00 - 14.00 g/d 14.28 (H)Protein Catabolic Rate 0.8 - 1.4 g/kg/d 0.824 hr Creatinine mg/d 2,91215dl Creatinine per Kilogram Body Weight 11.9 - 24.4 mg/d/kg 17.024 hr Calcium per Kilogram Body Weight <4.0 mg/d/kg 1.024 hr Calcium per 24 hr Creatinine 34 - 196 mg/g 5624 hr Urine Comments CommentsTranscription Cystine Screen Negative ==24-Hour Diet Recall:B'fast: Sleeps till 11am-snack- Diet Dew or waterLunch: Water, 40-60oz duringwork shift--1pm or 3pm: pc of fruit, chixtenders.-snack- Small frozen mealsDinner: After work meal-frozen meal/ PB or cheese crackers; Dt 7up or water-snack- waterFluids: Water, Dt Dew, Dt 7 up, no coffee/tea, rare ETOH, rare milk, no sportdrinks, no energy drinks, no protein drinks, occ OJWorks afternoons 3-11pm, tool makerAssessment/Plan:N20.0 Calculus of kidney (primary encounter diagnosis)E79.0 EfaaecrhqdydjY55.99 QxveoqzhyjhbwnM81.53 Hyperoxaluria (HCC)R34 Low urine umlerqT35.0 DhitlafzfiuqjiG54.1 Calculus of ureterReviewed recent 24 hour urine study and discussed strategies for stonepre vention.Hyperuricemia- pt recently started on allopurinol. Denies hx of goutHypocitraturia-Recommend increasing dietary citrate intake. Adding more fruitsAND vegetables to your diet; in particular citrus fruits like mesfin, limes,oranges, melons and tomatoes. Will also start potassium citrate BIDHyp eroxaluria-recommend a low oxalate diet, adding calcium rich foods at eachmeal and add a vitamin B6100 mg supplement daily.Low urine volume-We recommend increasing your fluid intake to 2.5-3L/day zu07-599 ounces/day. Not only increase fluids during the day but also drink 1-2glasses of water beforebed, get up at least once thru the night to urinate andthen before returning to sleep drink anotherglass of water.Hypernatriuria-we recommend a low sodium diet <2000mg/d. Read food labels,choose low sodium options, avoid canned, frozen or boxed meals, eat more freshfoods and reduce consumption of fast food, convenience meals and processedmeats.Ureteral stone AND stent- will confirm sx date w/Dr Torres for PCNl procedureNew litholink in 3 monthsTime spent in direct contact (face to face) with the patient, counseling andcoordination of care over 30 minutes. Greater than 50% of the visit wasspentwith face to face counselling, discussion of the above topics, and coordinationof care. All questions answered.Cat Will APRN.CNPReferring Provider: CAT WILL ([facility]) [[id number]]Allergies As of Date: 09/13/2017 Noted Allergy ReactionCODEINE 07/24/2017 4 - HivesDate Reviewed: 08/16/2017Reviewed by: Kayleigh Muñoz - Fully AssessedPrimary Visit Diagnosis:Calculus of kidney [N20.0] Other Visit Diagnoses:Hyperuricemia [E79.0] Hypocitraturia [R82.99] Hyperoxaluria (HCC) [E72.53] Low urine output [R34] Hypernatriuria [E87.0] Calculus of ureter [N20.1]Order(s):UA CHEMSTRIP ONLY [SQUA] Order #: [id number] FUTURE UA CHEMSTRIP ONLY [SQUA] Order #: [id number]. #:[id number] pyridoxine, vitamin B6, (VITAMIN B-6) 100 mg tabletTake 1 tablet by mouth once daily.Disp: Rfl: potassium citrate ER (UROCIT-K 10) 10 mEq (1,080 mg) TbERTake 1 tablet by mouth twice daily.Disp: 180 tabletRfl: 3 URINE CULTURE [SQURCUL] Order #: [id number] as of 09/13/2017 Sig: PYRIDOXINE (VITAMINB6) 100 M* Take 1 tablet by mouth [...] Take 25 mg by mouth three randall* CEPHAL EXIN 500 MG TABLET Take by mouth. Take one(1) ta*Problem List As Of Date 09/13/2017 Noted Resolved Calculus of kidney [N20.0] INVALID FOR* CPAP (continuous positive airway pressure) depe*INVALID FOR*CHRISTOPHER (obstructive sleep apnea) [G47.33] INVALID FOR* Gastroesophageal reflux disease without esophag* INVALID FOR* Essential hypertension [I10] INVALID FOR* Former [...] D level [R79.89] INVALID FOR* Hypocitraturia [R82.99] INVALIDFOR* Hyperoxaluria (HCC) [E72.53] INVALID FOR* Low urine output [R34] INVALID FOR* Hypernatriuria [E87.0] INVALID FOR*Prescriptions ordered this encounter Disp Refills Start End PYRIDOXINE (VITAMIN B6) 100 MG TABLET 09/13/2017 Class: OTC Route: ORAL Sig: Take 1 tablet by mouth once daily. POTASSIUMCITRATE ER 10 MEQ (1,080 M* 180 * 3 09/13/2017 Route: ORAL Sig: Take 1 tablet by mouth twice daily.Disposition: Return for Blood work in 2-3 weeks, new 24 hr testing in 3 months - will update w/ sx date once I speak w/ Dr Del Toro.Follow-up and Disposition History RecordedEncounter Number: [id number] Status:Closed by CAT WILL CNP on 09/13/17Normal [facility] ClevelandPROGRESSon 25-00-8601Qrouuhm mass concHNO ID: [id number]: Cat (Edna) CaseyroService: (none)Author Type: Nurse PractitionerType: [...] TorresAssessment/Plan:N20.0 Calculus of kidney (primary encounter diagnosis)E79.0 UeaszeufoiezxQ80.99 HalptsatkdkbtjW32.53 Hyperoxaluria (HCC)R34 Low urine iecvhhN09.0 KlryuokyxetwxyH31.1 Calculus of ureterReviewed recent 24 hour urine studyand discussed strategies for stoneprevention.Hyperuricemia- pt recently started [...] only increase fluids during the day but a lsodrink 1-2 glasses of water before bed, get up at least once thru the nightto urinate and then before returning to sleep drink another glass ofwater.Hypernatriuria-we recommend a low sodium diet <2000mg/d. Read foodlabels, choose low sodium options, avoid canned, frozen or boxed meals,eat morefresh foods and reduce consumption of fast food, [...] primary hyperoxaluria usually raise oxalate morethan this. T reat with low oxalate diet and diet calcium of800 to 1200 mg/day. Recheck at 6 weeks.SUBOPTIMAL URINE VOLUME. : Increase urine volume above 2.5liters.MODERATE CAOX STONE RISK. : If stones are calciumoxalateand actively forming, manage urine volume, calcium andoxalate to lower SS below 4.MILD URIC ACID SUPERSATURATION. : If stones are uric acidmanage volume and pH to reduce SS below 1. If uric acidexcretion low and urine pH is low, consider crystallizationhas occurred and uric acid excretion and SS are falsely low.- Urine pH 09/04/2017 5.642* 5.800 - 6.200 Final Comment: This value shows an in creased risk factor of 2, where 0 isnormal and 7 is extremely high.- 24 hr Uric Acid 09/04/2017 0.651 <0.800 g/d Final- 24 hr Citrate 09/04/2017 106* >450 mg/d Final Comment: This value shows an increased risk factor of 5, where 0 isnormal and 7 is extremely high.- 24 hr Oxlate 09/04/2017 77*20 - 40 mg/d Final Comment: This value [...] This value shows an increased risk factor of4, where 0 isnormal and 7 is extremely high.- 24 hr Magnesium 09/04/2017 138* 30 - 120 mg/d Final- 24 hr Phosphorus 09/04/2017 1.072 0.60 - 1.20 g/d Final- 24 hr Urea Nitrogen 09/04/2017 14.28* 6.00 - 14.00 g/d Final- Protein Catabolic Rate 09/04/2017 0.8 0.8 - 1.4 g/kg/d Final- 24 hr Creatinine 09/04/2017 2629 mg/d Final Comment: Priming Mixture Carrier Note: Effective 07/08/2017, reference rangeshave changed for Cr24/Kg, Ca24/Cr24 and Cit24/Cr24 due toconversion to an IDMS traceable urine creatininecalibration.- 24 hr Creatinine per Kilogram Body* 09/04/2017 17.0 11.9 - 24.4 mg/d/kgFinal- 24 hr Calcium per Kilogram Body We* 09/04/2017 1.0 <4.0 mg/d/kg Final- 24 hr Calcium per 24 hr Creatinine 09/04/2017 56 34 - 196 mg/g Final- Computer Lab Assistant 09/04/2017 Final Value: Cystine Screen Negative===== Urinalysis: Red (A) Yellow Final CCMClarity Cloudy (A) Clear Final CCMGlucose, Urine Negative Negative mg/dL Final CCMBilirubin, Urine Negative Negative Final CCMKetones, Urine Negative Negative Final CCMSpecific [place], Ur 1.018 1.005 - 1.030 Final CCMHemoglobin/Blood,Ur [...] 5.642 (L)24 hr Uric Acid <0.800 g/d 0.15308 hr Citrate >450 mg/d 106 (L)24 hr [...] (H)24 hr Phosphorus 0.60 - 1.20 g/d 1.09174 hr Urea Nitrogen 6.00 - 14.00 g/d 14.28 (H)Protein Catabolic Rate 0.8 - 1.4 g/kg/d 0.824 hr Creatinine mg/d 2,20427 hr Creatinine per Kilogram Body Weight 11.9 - 24.4 mg/d/kg 17.024 hr Calcium per Kilogram Body Weight <4.0 mg/d/kg 1.024 hr Calcium per 24 hr Creatinine 34 - 196 mg/g 5624 hr Urine CommentsCommentsTranscription Cystine Screen Negative =========24-Hour Diet Recall:B'fast: Sleeps till 11am-snack- Diet Dew or waterLunch: Water, 40-60ozduring work shift--1pm or 3pm: pc of fruit, chixtenders.-snack- Small frozen mealsDinner: After work meal- frozen meal/ PB or cheese crackers; Dt 7up orwater-snack- waterFluids: Water, Dt Dew, Dt 7 up, no coffee/tea, rare ETOH, rare milk, nosport drinks, no energy drinks, no protein drinks, occ OJWorks afternoons 3-11pm, tool makerAssessment/Plan:N20.0 Calculus of kidney (primary encounter diagnosis)E79.0 NgqjttmfxkufrR36.99 HotzupsecybrhvV78.53 Hyperoxaluria (HCC)R34 Low urine idvybkQ85.0 Hyper uhhclygylT66.1 Calculus of ureterReviewed recent 24 hour urine study and discussed strategies for stoneprevention.Hyperuricemia- pt recently started on allopurinol. Denies hx of goutHypocitraturia-Recommend increasing dietary citrate intake. Adding morefruits AND vegetables to your diet; in particular citrus fruits like mesfin,limes, oranges, melons and tomatoes. Will also start potassium citrateBIDHyperoxaluria-recommend a low oxalate diet, adding calcium rich [...] monthsTime spent in direct contact (face to face)with the patient, counselingand coordination of care over 30 minutes. Greater than 50% of the visitwas spent with face to face counselling, discussion of the above topics,and coordination of care. All questions answered.Cat Will APRN.CNPNormalCMercy Hospital Protein mass concHNO ID: [id number]: Mackenzie Sánchez (Rt)Service: RadiologyAuthor Type: TechnicianType: Progress NotesFiled: 09/13/2017 9:06 AMNote Text: Radiology Service Progress NotePATIENT NAME: Joe FerrisMRN: [id number] OF SERVICE: September 13, 2017TIME: 9:05 AMPATIENT IDENTITY VERIFICATION COMPLETED U SING TWO (2) METHODS: Patientconfirmed name verbally and Date of .PATIENT GENDER DATA: MalePATIENT RELEVANT IMPLANT DATA REVIEWED: YesRADIOLOGY DEPARTMENT: General X-ray: Exam(s) Completed: Abdomen X-RayAbdomen with ObliquesPERIPHERAL IV DATA: Not applicableSIGNED BY: RT PrincessJuluis 2017 9:05 AMNormalRegency Hospital ToledoUS KIDNEY/BLADDERon 57-72-0311NC KIDNEY/BLADDER* * *Final Report* * *DATE OF EXAM: Sep 13 2017 8:26AM KATTY 1055 - KIDNEY/BLADDER / REASON: Calculus of kidney * * * * Physician Interpretation * * * * EXAMINATION: RENAL ULTRASOUNDCLINICAL HISTORY: NephrolithiasisTECHNIQUE: Sonography of the kidneys and urinary bladder was performed. Images were obtained and stored in a permanent archive.MQ: [id number]_1COMPARISON: 07/27/2017 CT scanRESULT:Right Kidney: -Renal length: 9.6 cm - Parenchyma: Normal parenchymal echogenicity.Normal parenchymal thickness. - Collecting system: No hydronephrosis. -Calculus: No echogenic, shadowing calculus. -Lesion: None.Left Kidney: -Renal length: 13.2 cm -Parenchyma: Normal parenchymal echogenicity. Normal parenchymal thickness. -Collecting system: Mild hydronephrosis with 2 cm shadowingcalculus at the UPJ, similar to prior CT. Portions of ureter stent are identified in the lower polecollecting system. - Calculus: UPJ calculus as above -Lesion: None.Bladder: Normal sonographic appear ance with portion of ureter stent visualized.IMPRESSION:PERSISTENT MILD LEFT- SIDED HYDRONEPHROSIS DESPITE PRESENCE OF URETER STENT. PERSISTENT 2 CM SHADOWING CALCULUS AT THE LEFT UPJ.Interior Decorator Painting: NIECY Transcribe Date/Time: Sep 13 2017 8:33ADictated by : YOGI CABAN MDThis examination was interpreted and the report reviewed and electronically signed by: YOGI CABAN MD on Sep 13 2017 8:39AM [id number] Clinic ClevelandUrinalysison 17-08-2815Uonryjzry, UrineNegativeNormalNegativeCleKettering Health Troy Comment on above:Performed By: #### CBCDIF, CMP, URIC, PTHI, VITD ####[facility] [address] [place] [place], [place] [phone] Critically abnormalClearCMercy Health Urbana Hospital on above:Performed By: #### CBCDIF, CMP, URIC, PTHI, VITD ####[facility] [address] [place], [place] [phone] abnormalYellowOhioHealth Riverside Methodist Hospital on above:Performed By: #### CBCDIF, CMP, URIC, PTHI, VITD ####[facility] [address] [place], [place] [phone] COMMENTNormalCMercy Health Urbana Hospital on above:Result Comment: Microscopic Examination PerformedPerformed By: #### CBCDIF, CMP, URIC, PTHI, VITD ####[facility] [address] AveCBrian Ville [phone] Ql (U)NegativeNormalNegative Access Hospital Daytonment on above:Performed By: #### CBCDIF, CMP, URIC, PTHI, VITD ####[place] [address] [address] [phone]/Blood,Ur2+Critically abnormalNegativeAccess Hospital Daytonment on above:Performed By: #### CBCDIF, CMP, URIC, PTHI, VITD ####[place] [address] [address] [place] [phone] Coag RelTime (Bld){INR}Critically abnormal0-3CMercy Health Urbana Hospital on above:Performed By: #### CBCDIF, CMP, URIC, PTHI, VITD ####[place] [address] [address] [place] [phone] Ql (U)NegativeNormalNegativeRegency Hospital Toledo Comment on above:Performed By: #### CBCDIF, CMP, URIC, PTHI, VITD ####[place] [address] [address] [place] [phone]+ Critically abnormalNegativeOhioHealth Riverside Methodist Hospital on above:Performed By: #### CBCDIF, CMP, URIC, PTHI, VITD ####[place] [address] [address] [phone]nfppyb [facility] on above:Performed By: #### CBCDIF, CMP, URIC, PTHI, VITD ####[place] [address] [address] [phone] Daytonment on above: Performed By: #### CBCDIF, CMP, URIC, PTHI, VITD ####[place] [address] [place] [phone], Urine30 mg/dLCritically abnormalNegativeOhioHealth Riverside Methodist Hospital on above: Performed By: #### CBCDIF, CMP, URIC, PTHI, VITD ####[address] [place] [phone] [place], Ur 1.536Khjgsn0.005-1.030[facility] on above:Performed By: #### CBCDIF, CMP, URIC, PTHI, VITD ####[place] [address] [address] [phone] Brayan CommentSEE COMMENTPike Community Hospital on above:Result Comment: N/APerformed By: #### CBCDIF, CMP, URIC, PTHI, VITD ####[address] [place] [phone]AdispzBitiyknzn [facility] [place] Comment on above:Performed By: #### CBCDIF, CMP, URIC, PTHI, VITD ####[address] [place] [phone] Critically abnormal0-5CMercy Health Urbana Hospital on above:Performed By: #### CBCDIF, CMP, URIC, PTHI, VITD ####[place] [address] [address] [place] [phone] Cultureon 90-41-5781Xmxtfwon identified Cx Nom (U)Sp. Request/Comment: - Specimen received in preservative Presurgical Sterilization Culture Result - <1,000 CFU/ml Normal Urogenital nadia: --> ABNORMAL ALERT Coagulase negativeStaphylococcus species --> ABNORMAL ALERTCritically abnormal [facility] on above:Performed By: #### CBCDIF, CMP, URIC, PTHI, VITD ####[place] [address] [place] [phone] ABDOMEN 3V KUB W/OBLIQUESon [id number] ABDOMEN 3V KUB W/OBLIQUES* * *Final Report* * *DATE OF EXAM: [...] CT, measuring approximately 3 cm x 1.75 cm.Noradiopaque calculus in the distribution of the RIGHT kidney or ureter. Previously reported RIGHT ureteral calculus is no longer visible.No dilated bowel. No organomegaly.IMPRESSION:LEFT DOUBLE-J URETERAL STENT WITH LARGE LEFT URETERAL CALCULUS DESCRIBED.PREVIOUSLY REPORTED RIGHT URETERAL CALCULUS IS NO LONGER VISIBLE.Interior Decorator Painting: PSCB Transcribe Date/Time: Sep 13 2017 9:38ADictated by : Loli SALAZAR examination was interpreted and the report reviewed and electronically signed by: BENITEZ BOYKIN MD on Sep 13 2017 9:53AM [id number] Clinic ClevelandCNOVon [id number] Office Visit (UROSMN) --------JOE DAVID ([id number]) 1970 MDate Time Provider Department08/16/17 10:30 AM [...] with two(2)identifiers verified by: Page Thomas valve replacemen t: NoJoint replacement: NoPre-Procedure Antibiotics: Patient is currently on Cephalexin 500 mg daily.Patient Prep: Betadine Scrub to perineum and placement of Sterile Drape.COMPLETEDAnesthetic Given:10 cc 2% Lidocaine jelly Page Anderson Ma/given by Maribel FORDUNIVERSAL PROTOCOL / SAFETY CHECKL ISTProcedure to be performed: Cystoscopy and Stent ExtractionSign in Communication: CompletedTime Out: Team Confirms the Correct Patient, Correct Procedure, Correct Siteand Site Marking, Correct Position (if applicable).Sign Out Discussion: Erlinda Mauricio PROCEDURE NURSE ASSESSMENTP resent along with physician during procedure exam. Page Zendejasrocedure/Indication: Cystoscopy and Stent ExtractionInstruction sheet given and reviewed and patient verbalizes understanding: yesPost Procedure Antibiotic: noneCurrent pain intensity is 0 on a 0-10 pain scale.Page Thacker BULATORY PATIENT EDUCATIONTHE FOLLOWING WAS EVALUATEDMotivation To Learn: InterestedFamily/Significant Other Support: Unable to assess - Family not presentCognitive Ability: Alert/OrientedMethod of Instruction: Individual instructionWritten instruction - handoutsVerbal instructionThe Following Influ encing Factors Were Barriers To This Education Session: NoneThe Following Physical Limitations WereBarriers To This Education Session: NoneInstruction Provided To: PatientInterpreter Present: not applicableDiscipline: NursingLearning Topic: SURVIVAL SKILLS: Complication PreventionPatient Evaluation: Verbalizes understanding: YesSupplemental Material Given: NoneInstructed By Page Anderson Ma InDepartment Urology .Polly Torres MD 08/16/2017 1:27 PM SignedCYSTOSCOPY PROCEDUREM.D.'S HOPS NOTEPertinent History and Physical Exam reviewed and is unchanged.Primary Diagnosis: NephrolithiasisProcedure: Stent ExtractionInformed Consent Discussed: Yes. Risks, benefits, alternatives and personneldiscussed with patient who consents to proceed.Audible Time-Out: YesDetails of Procedure:TECHNIQUE: The procedure was fully explained to the patient, risks werereviewed. The patient was placed in the supineposition. The genitalia wereprepped with antiseptic soap per protocol, and the urethra was anesthetizedwith viscous 2% lidocaine. The flexible cystoscope was introduced into theurethra and advanced under direct vision with findings as outlined below. Atthe conclusion of the procedure, the cystoscope was withdrawn.Anesthetics given: 10 cc 2% Lidocaine-UrethralOperative Findings Urethra: Normal Prostate: Occlusive Bladder: Right stent removed with difficulty; it was necessary to untanglethe coilsof the left and right stents to avoid [...] Condition Post Procedure: satisfactory Post Procedure Medications: NoneMARTHA Paganirector, Surgical Stone DiseaseScionhealth Urologic OriskanyMagruder Memorial HospitalPager [phone]/16/2017Referring Provider: POLLY TORRES [[id number]]Allergies As of Date: 08/16/2017 Noted Allergy ReactionCODEINE 07/24/2017 4 - HivesDate Reviewed: 08/16/2017Reviewed by: Kayleigh Muñoz - Fully AssessedPrimary Visit Diagnosis:Calculus of kidney [N20.0]Order(s):US KIDNEY/BLADDER [3451206] Order #: [id number] FUTURE XR ABDOMEN 3V KUB W/OBLIQUES [[id number]] Order#: [id number] FUTUREPrescriptions as of 08/16/2017 Sig: DOCUSATE SODIUM [...] MG TABLET Take by mouth. Take one(1) ta *Medication notes this encounter LIDOCAINE 2 % MUCOUS MEMBRANE JELLY IN APPLICATOR >> Page Anderson Ma 08/16/2017 11:14 AM >> PAGE ANDERSON MA SunAug 16, 2017 11:14 AM Medication givenas directed in SIG, administered into urethra , Lot#[id number], expiration date 10/2018.Problem List As Of Date [...] FOR* Low vitamin D level [E55.9] INVALID F OR*Visit Notes:>> Kayleigh Muñoz SunAug 16, 2017 10:39 AM Status: SignedPRE PROCEDURE ASSESSMENT- CystoProcedure Indication: Stent ExtractionJun2017, Time In: 10:36Latex Allergy: NoAllergies reviewed and updated. YesPre-Procedure Vital Signs: BP: 166/100 Pulse: 84Heart valve replacement: NoJoint replacement: NoBack Office UA otained: noPatient brought to procedure room # 9 @ time 10:56 .Kayleigh Muñoz>> Page Anderson Ma Angella Aug 16, [...] left PCNL.Follow-up and Disposition History RecordedLetter TextTHE CLEVEL[facility] CHILDR[facility]'S H[facility]ITAL FOR REHABILITATIONUROLOGICAL INSTITUTEAFTER YOUR STENT EXTRACTIONYou have undergone a cystoscopy. Your doctor has inserted a telescope intoyour urinary bladder through your urethra to view the inside of your bladderand/or urethra.WHAT TO EXPECT * Possible burning during urination and/orblood-tinged urine.WHAT TO DO * Resume normal activity and medications. * Drink 6-8 glasses of fluid each day for 3 days to help flush yoururinary system.MEDICATIONS * If an antibiotic is prescribed,take it until ALL the medicationis gone. (If [...] office:Dr. Polly Torres M.D., Office Phone #: [phone] 5 PM and on weekends for [facility] [place] physicians only:Call [phone] / [phone] and ask for the urologist business controller. The doctor will needto know that you have had a cystoscopy and what symptoms you are having. Status:Closed by POLLY TORRES MD on 08/16/17[facility] 78-52-0722Veeystm mass concHNO ID: [id number]: Polly Leiervice: (none)Author Type: PhysicianType: Progress NotesFiled: 08/16/2017 1:27 PMNote Text:CYSTOSCOPY PROCEDUREM.DLinda'S HOPS NOTEPertinent History and Physical Exam reviewed and is unchanged.Primary Diagnosis: NephrolithiasisProcedure: Stent ExtractionInformed Consent Discussed: Yes. Risks, benefits, alternatives andpersonnel discussed with patient who consents toproceed.Audible Time-Out: YesDetails of Procedure:TECHNIQUE: The procedure was [...] Pyelogram(s): None Ultrasound: None KUB: NoneComplications: NoneRecommendations: Discussedfindings with patient, RTC in 4-6 wk for f/u(call me if probs), KUB at F/U, Renal Ultrasound at F/U, Complete 24 hrurine stone panel prior to F/U and set up for left PCNL in about 6 wk;Comments: well-tolerated;Post Procedure Evaluation Condition Post Procedure: satisfactory Post Procedure Medications: NoneMark Brian, MDDirector, Surgical Stone DiseaseScionhealth Urologic OriskanyMagruder Memorial HospitalPager [phone] Clinic [facility] Ambrocio 08-01-2017 ANES POSTHNO ID: [id number]: Parrish Flaherty: (none)Author Type: AnesthesiologistType: Anesthesia PostOpFiled: 08/01/2017 2:46 PMNote Text:POST ANESTHESIA EVALUATION NOTESERVICE DATE: 08/01/2017SERVICE TIME: 1445DOB: 1970Vitals: 08/01/1813Temp: 36.5 ?C (97.7 ?F) 36.3 ?C (97.3 ? F) 08/01/1813P: 153/70 157/77 08/01/1813Pulse: 85 84 08/01/1813Resp: 16 20 08/01/1813SpO2: 94% 96%Validated Vital Signs: YesPOST ANES STATUS: No apparent anesthetic complications. The patient isappropriately hydrated with stable respiratory and cardiovascular status.Patient has safe and adequate airway control. The patient has appropriatepain relief and no significant post operative nausea or vomiting. Thepatient has achieved baselinemental status.Further assessment by Anesthesia Service: NoneOther Remarks:SIGNATURE: Parrish Umana MD PATIENT NAME: Joe CarrasquilloTE: August 01, 2017 : 2:45 PM PAGER/CONTACT #: [phone] [facility] ToledoCalculi Analysison [id number] TypeSTONENormal [facility] on above:Performed By: #### CBCDIF, CMP, URIC, PTHI, VITD ####[facility], [place] [phone](NOTE)NormalOhioHealth Riverside Methodist Hospital on above: Result Comment: Calculus Color: BROWNCalculus Size & Weight: MULTIPLE PIECES, 0.0798 GRAMSComposition: CALCIUM PHOSPHATE - 60% CALCIUM OXALATE DIHYDRATE - 30% MINOR COMPONENTS - 10%This test was developed and its performance characteristicsdetermined by the [facility] [place] ([facility]).It has not been cleared or approved by the FDA.[facility] is regulated under CLIA as qualified to performhigh- complexity testing.This test is used for clinical purposes. It should not be regarded asinvestigational or for research.Performed By: #### CBCDIF, CMP, URIC, PTHI, VITD ####[facility] [address], [place] [phone] PROGon [id number] mass concHNO ID: [id number]: Adriana (Rn) MITCH Sheffieldervice: NursingAuthor Type: Registered NurseType: Nursing Progress NoteFiled: 08/01/2017 6:21 PMNote Text:PATIENT EDUCATION TOPIC: SURVIVAL SKILLS: Symptom ManagementPATIENT NAME: Joe DavidMRN: [id number] LOCATION: [place] [address]READINESS TO LEARNCOGNITIVE ABILITY: Alert and orientedMOTIVATION TO LEARN: EagerFAMILY SUPPORT: High - Veryinvolved in pt careINSTRUCTION PROVIDED TO: Patient and family memberPATIENT LEARNS BEST BY: Written Instruction - Hand-outsVerbal InstructionFACTORS AFFECTING LEARNING: NonePHYSICAL LIMITATIONS AFFECTING LEARNING: NoneLEARNING RESPONSEDIAGNOSIS: ADULT: Well AdultPATIENT/FAMILY RESPONSE: Verbalizesunderstanding of: RARY-SFQPHAUBCXZDFKCWEFNIC-Fpesvtc actions to take to reduce postoperative complicationsPOST-PROCEDURE INSTRUCTIONS- Correct actions to take to reduce postprocedure complicationsMETHOD OF INSTRUCTION: Written instruction - handoutsVerbal instructionFOLLOW-UP PLAN: Follow up phone call.INSTRUCTIONAL AIDS USED: NASUPPLEMENTAL MATERIAL PROVIDED TO PATIENT: NoneREFERRAL (RECOMMENDATION): NoneElectronically Signed By: Adriana Sheffield RNNormKettering Health Hamilton concHNO ID: [id number]: Adriana (Rn) MITCH Sheffieldervice: NursingAuthor Type: Registered NurseType: Nursing Progress NoteFiled: 08/01/2017 6:08 PMNote Text:Pt has voided 125cc (around 60 twice). PVRis 50 from bladder scan Del paged to advisOur Lady of Mercy Hospital - Anderson concHNO ID: [id number]: Cat Adhikari (Rn) MITCH Torreservice: NursingAuthor Type: Registered NurseType: Nursing Progress NoteFiled: 08/01/2017 11:47 AMNote Text:PRE OP LEARNING ASSESSMENTPROCEDURE/SURGERY: SURGERY: logisticsREADINESS TO LEARNCOGNITIVE ABILITY: Alert and orientedMOTIVATION TO LEARN: InterestedFAMILY SUPPORT: High - Very involved in pt carePATIENT LEARNS BEST BY: Verbal InstructionFACTORS AFFECTING LEARNING: NonePHYSICAL LIMITATIONS AFFECTING LEARNING: NoneElectronically Signed By: Boom Torres RN In Department: HOSP [id number] [facility] NOon [id number] NOHNO ID: [id number]: Polly Leiervice: UrologyAuthor Type: PhysicianType: Operative ReportFiled: 08/02/2017 7:41 AMNote Text:OPERATIVE/PROCEDURE REPORTLOG ID: [id number]/Procedure Date: 08/01/2017Incision/Procedure Start Time: 1:21 PMIncision Close/Procedure End Time: 2:11 PMSurgeon(s)/Proceduralist(s) and Pin Puller(s):Surgeon(s) and Role: * Polly Torres - Primary * Nestor (Daisha) June - Resident - Assisting * Armani ([place]) Ayanna - FellowProcedure(s):Cystoscopyright Ureteroscopy with laser lithotripsy and basket of stoneInsertion of right indwelling 7 Fr x 26cm JJ ureteral stentLeft ureteral stent exchange 7 Fr x 28cm JJPhysician fluoroscopy time <1hrAnatomic Site:Kidney, Laterality: B ilateralUreter, Laterality: BilateralApproach: EndoscopicAnesthesia: GeneralOperative Indications: This is [...] a safety. A 14 Fr. valdes was plac ed to keepthe bladder decompressed. A semirigid ureteroscope was then used tovisualize the stone that was impacted in the lower right ureter.This wasbroken with the holmium laser 200 micron fiber andbasketed out. A second0.035 stiff shaft glidewire was introduced via the scope to kidney underfluoroscopic guidance. The semi rigid scope was removed. One of thesewires was clamped to the drape as a safety wire and the other kept as aworking wire. At this point, over one of the the wires a 13/15 Frby 46 cmureteral access sheath was placed up [...] all the way to the left kidney. Anew 7 Fr x 28 cm JJstent was [...] it was) that the left stoneremoval via percutaneousapproach would be deferred to a separate date andthey had understood and agreed pre-operatively.Pre-Op/Pre- Procedure Diagnosis: Pre-Op Diagnosis Codes: * Calculus of kidney [N20.0]Post-Op/Post-Procedure Diagnosis: Post-Op Diagnosis Codes: * Calculus of kidney [N20.0]Estimated Blood Loss: 3 mlsSpecimens: Kidney stones for analysisSpecimen ID Type Site Comments Sent Tostone [address] ones for analysis; to PACU with pt OtherDrains: 20 coude tip Valdes catheterImplantable Devices: bilateral Indwelling 7 Fr. X 26cm JJ ureteral stenton right and 7 Fr x 28 cm on the leftComplications: NoneQualifier: NoneThe primary surgeon/proceduralist performed the procedure with assistance.SIGNATURE: Armani Urena MD PATIENT NAME: Joe DavidDATE: August 01, 2017 : 2:56 PM PAGER/CONTACT #: [phone] Paganirector, Surgical Stone Disease, [facility] InstituteProfessorof Surgery, [facility] HospitalPager [phone] Valley Hospital PLAN OF CAREon [phone] OF CAREHNO ID: [id number]: Karina Yepez (Desire2Learn)Service: (none)Author Type: (none)Type: Plan of CareFiled: 08/01/2017 5:25 PMNote Text:PHARMACY BEDSIDE DELIVERY SERVICEPatient Name: Joe DavidMRN: [id number] marked outpatient medications were Filled at: [facility] anddelivered to the patient's bedside to ptMedication ListSTART taking these medicationsdocusate sodium 100 mg capsule xCommonly known as: COLACETake 1 capsule by mouth twice daily.oxyCODONE-acetaminophen 5-325 mg tablet xCommonly known as: PERCOCETTake 1 tablet by mouth every 8 hours as needed for Pain for up to7 days.CONTINUE taking these medicationsallopurinol 100 mg tabletCommonly [...] them or your Primary Care Provider.Karina Yepez (Desire2Learn)PAGER: [phone] 2017 4:33 PMNormalRegency Hospital ToledoPLAN OF CAREHNO ID: [id number]: Karina Yepez (Desire2Learn)Service: (none)Author Type: (none)Type: Plan of CareFiled: 08/01/2017 3:20 PMNote Text:HOURLY SHIFT MANAGER BEDSIDE DELIVERY SURVEY1. Patient to use [facility] Bedside Delivery - YES2. If fax, patient would like us to fax prescriptions to [facility] a. Pharmacy: b. Location: c. Phone:3. Insurance card on file - YES4. Credit card for payment - YESNo prescriptions yet. Please page [phone] upon discharge.NormalRegency Hospital ToledoPLAN OF CAREHNO ID: [id number]: Karina Yepez (Cvt Tech)Service: (none)Author Type: (none)Type: Plan of CareFiled: 08/01/2017 3:18 PMNote Text:Pharmacy Discharge Medication Service:This patient has elected to receive their discharge prescriptions throughthe [facility]. Theprescriptions are currently being processed. A follow-up note will beentered once the prescriptions have been filled and delivered to thepatient. Please contact me with any questions or updates to the patient'sdischarge medications.Karina Yepez (Desire2Learn)DCT Contact Info: [phone] Valley HospitalPROGRESSon [phone] mass concHNO ID: [id number]: Nestor Solizervice: UrologyAuthor Type: ResidentType: Progress Notes Filed: 08/01/2017 2:21 PMNote Text:BRIEF OPERATIVE / PROCEDURE NOTELOG ID: [id number]/PROCEDURE DATE: 08/01/2017INCISION/PROCEDURE START TIME: 1:21 PMINCISION CLOSE/PROCEDURE END TIME: 2:11 PMSURGEON(S)/PROCEDURALIST(S) AND COFFEE ROASTER(S):Surgeon(s) and Role: * Polly Torres - Primary * Nestor Watkins - Resident - Assisting * Armani Urena (Fel) - FellowNo Additional StaffSURGERY/PROCEDURE(S):1. Cystoscopy2. Bilateral ureteral stent removal3. Bilateral ureteral stent replacement4. Right semirigid ureteroscopy with laser lithotripsy5. Right ureteral stone basketing6. Right retrograde pyelography7. Right physician fluoroscopy interpretation <1hrANESTHESIA: GeneralFINDINGS:-10mm right impacted mid ureteral stone with moderate ureteral edema andtrauma- Decision made to forego left PCNL givenextent of right ureteral work andconcern for complications given comorbidities-Left ureteral stent successfully exchangedESTIMATED BLOOD LOSS: 2 mlsSPECIMENS:Specimen ID Type Site Comments Sent Tostone 1 Stone RIGHT ureteral stones for analysis; to PACU with pt OtherCOMPLICATIONS: NonePRE-OP/PRE-PROCEDURE DIAGNOSIS: NephrolithiasisPOST-OP/POST-PROCEDURE DIAGNOSIS: SameSIGNATURE: Nestor Watkins MD, PhD PATIENT NAME: Joe DavidDATE: August 01, 2017 : 2:19 PM PAGER/CONTACT #: [phone]n Behavioral Hospital EDon [phone] EDHNO ID: [id number]: Neha (Rn) Francia RNService: NursingAuthor Type: Registered NurseType:Patient EducationFiled: 08/01/2017 5:23 PMNote Text:PATIENT EDUCATION TOPIC: PROCEDURE / SURGERY: Post-op Teaching: SymptomManagementPATIENT NAME: Joe DavidMRN: [id number] LOCATION: [place] [address]READINESS TO LEARNCOGNITIVE ABILITY: Alert and orientedMOTIVATION TO LEARN: InterestedFAMILY SUPPORT: High - Very involved in pt careINSTRUCTION PROVIDED TO: Patient and family memberPATIENT LEARNS BEST BY: Written Instruction - Hand-outsVerbal InstructionFACTORS AFFECTING LEARNING: NonePHYSICAL LIMITATIONS AFFECTING LEARNING: NoneLEARNING RESPONSEDIAGNOSIS: ADULT: Procedure(s):Cystoscopyright Ureteroscopy with laser lithotripsy and basket of stoneInsertion of right indwelling 7 Fr x 26cmJJ ureteral stentLeft ureteral stent exchange 7 Fr [...] op discharge instructionsREFERRAL (RECOMMENDATION): NoneElectronically Signed By: Reba ShepherdParma Community General HospitalOVelle [phone] Office Visit (PSSCMN) --------JOE DAVID ([id number]) 1970 MDate Time Provider Department07/27/17 9:[address] [facility] During your visit today, we recorded the following information about you: Pulse Blood pressure Weight Height 83/minute 159/85 152 kg 1.753 WALTER Boyd 07/27/2017 9:23 AM SignedANESTHESIA PRE-OPERATIVE ASSESSMENT (PACE)SERVICE DATE: 07/27/2017SERVICE TIME: 53ASSESSMENT AND PLAN:Joe David is a 46 year old male scheduled for Left PercutaneousNephrolithotomy per Informed Consent in [facility] on 08/01/17.PMH:1. Renal calculus (is s/p stent placement 3-4 wks ago)2. HTN on carvedilol and hydralazine3. CHRISTOPHER on CPAP (provides adequate relief)4. Morbid Obesity5. May be difficult maskventilation: CHRISTOPHER, thick neck, large beardHealthQuest: 4FC: IIMETS: Walk a block or two on level ground (2.75 METs)Do moderate work around the house such as vacuuming, sweeping floors, orcarrying in groceries (3.50 METs)Do yardwork, such as raking leaves, weeding,or pushing a power mower (4.50 METs)C limb a flight of stairs or walk up [...] CMNECK FLEX: Full ROMNECK EXTENSION: Full ROMAIRWAY H ISTORY: No abnormal airway historyARKS AIRWAY DETAIL:N/ADATA:EKG READING: [...] 07/24/2017 54 10AST 10 U/L 07/24/2017 40 14TBILI 0.4 mg/dL 07/24/2017 1.3 0.2 TSH No results within date range. Lab Value Units Date High Low HCGQT No results within date range. UHCG No results within date range. HCG, BODY* No results within date range. ABORHD O POSI* no uni* 07/24/2017 ABSCREEN NEG no uni* 07/24/2017HBA1C: No results foundfor: HBA1C)Patient accompanied by selfCase Discussed with Dr. GeorgePTIMIZATION STATUS: Patient optimized for OR, pending DOS review.SIGNATURE: WALTER Celeste PATIENT NAME: Joe DavidDATE: July 27, 2017 : 9:15 AM PAGER/CONTACT #:Referring Provider: POLLY TORRES [[id number]]Allergies As of Date: 07/27/2017 Noted Allergy ReactionCODEINE 07/24/2017 4 - HivesDate Reviewed: 07/27/2017Reviewed by: Stacia (Walter) Mary - Fully AssessedPrimary Visit Diagnosis:Pre-op evaluation [...] Date 07/27/2017 Noted Resolved Calculus of kidney [N20.0]INVALID FOR* CPAP (continuous positive airway pressure) depe*INVALID FOR* CHRISTOPHER (obstructive sleep apnea) [G47.33] INVALID FOR* Gastroesophageal reflux disease without esophag*INVALID FOR* Essential hyp ertension [I10] INVALID FOR* Former smoker [Z87.891] INVALID FOR* BMI 50.0-59.9, adult (HCC) [Z68.43] INVALID FOR* Calculus of ureter [N20.1] INVALID FOR* Abnormal urinalysis [R82.90] INVALID FOR* Family history of diabetes mellitus [Z83.3] INVALID FOR* Family history of prostate cancer [Z80.42] INVALID FOR* Family history of nephrolithiasis [Z84.1] INVALID FOR* Hyperuricemia [E79.0] INVALID FOR*Low vitamin D level [E55.9] INVALID FOR* Status:Closed by STACIA FRIEDMAN on 07/27/17Chart Close Cosign Required by: Jurgen Emerson[][facility] - DublinCNOVOffice Visit (IMPAMN) --------JOE DAVID ([id number]) 1970 MDate Time Provider Department07/27/17 7:45 AM [facility] EST[facility] During your visit today, we recorded the following information about you: Temperature Pulse Blood pressure Weight 97.9 degrees 83/minute 159/85 152 kg Height 1.753 Ana Esteves MD 07/27/2017 8:22 AM SignedJoe David is a 46 year old male [facility]Referring Sur[facility]: Dr. Townsend of Surgery: 08/01/2017Planned Surgery/Procedure: PERCUTANEOUS NEPHROLITHOAllergies have been reviewed and verified. They include the following:CodeineSocial HistorySubstance Use Topics- Smoking status: Not on file- Smokeless tobacco: Not on file- Alcohol use Not on fileMedicationsreviewed and updated: Jeronimo Esteves MD 07/27/2017 8:22 AM SignedHISTORY AND PHYSICAL EXAMINATION (IMPACT)SERVICE DATE: 07/27/2017SERVICE TIME: 8:02 [facility] CARE PHYSICIAN: Onel Coffey [facility] COMPLAINT/HISTORY OF PRESENT ILLNESS:Mr. David is a [...] tobacco: Former User Types: Snuff Quit date: 07/28/2011MEDICATIONS/ALLERGIESCurrent Outpatient Prescriptions:acetaminophen (TYLENOL EXTRA STRENGTH) 500 mg [...] bymouth once each week. (Patient not taking: Reportedon 07/27/2017) Disp: 12 capsule Rfl: 1hydrALAZINE (APRESOLINE) 100 mg tablet Take 100 mg by mouth twice daily. Disp:Rfl:No current facility-administered medications for this visit.ALLERGIESAllergen Reactions- Codeine HivesREVIEW OF SYSTEMSGeneral: No weight loss, malaise or fevers.Neuro: No history of TIA's, stroke, JUNIOR AUTOMATION ENGINEER tumor, impaired sensorium, hemiplegia,paraplegia or quadriplegia. No [...] disorder. No history ofhematological symptoms or problems.Oncology: Nohistory of CA metastasis, chemo within 30 days, [...] but has been normal in recentvisits with PCPand dose just adjusted- Patient is overweight related [...] 8.8 (L)Neut% % 71.5Abs Neut (ANC) 1.45 -7.50 k/uL 5.80Lymph% % 19.8Abs Lymph 1.00 - 4.00 k/uL 1.61Mono% % 6.0Abs Wilkinson <0.87 k/uL 0.49Eosin% % 1.6Abs Eosin <0.46 k/uL 0.13Baso% % 1.1Abs Baso <0.11 k/uL 0.09Nucleated Reds 0 /100 WBC0.0Absolute nRBC <0.01 k/uL <0.01Diff Type Auto DiffProtein, Total 6.3 - 8.0 g/dL 7.6Albumin 3.9 - 4.9 g/dL 4.6Calcium 8.5 - 10.2 mg/dL 9.5Bilirubin, Total 0.2 - 1.3 mg/dL 0.4Alkaline Phosphatase 36 - 108 U/L 54AST 14 - 40 U/L 10 (L)Glucose 74 - 99 mg/dL 90BUN 9 - 24 mg/dL 22Creatinine 0.73 -1.22 mg/dL 1.78 (H)Sodium 136 - 144 mmol/L [...] sinus rhythm, normal axis, normal intervals, reviewedby myself.PLAN/RECOMMENDATIONSCARDIAC: Patient is at optimal cardiac condition for scheduled surgery / procedure.PULMONARY: Suggest the followingin the post-operative period: Aggressivebronchopulmonary hygiene, CPAP/BiPAP at home setting (advised patient to bringtheir CPAP/BiPAP machine/mask), Minimize sedation/opioids as patient has OSAand Early ambulationVASCULAR/ANTICOAGULATION: VTE prophylaxis as deemed appropriate by the surgical service.Patient is optimally prepared for surgery.Patient Instructions: As per patient instructions section.I have discussed the above recommendations with the patient in detail, in frankand lay terms, andprovided a written summary of instructions as needed. Wehave discussed that no surgery is without risk, but that the goal ofpreoperative assessment is to optimize that risk, and that was clearlyunders tood by the patient. I have given ample opportunity for the patient toask questions, and answered all questions to their stated satisfaction.SIGNATURE: Shoshana Esteves MD PATIENT NAME: Joe DavidDATE: July 27, 2017 : 8:02 AMShoshana Esteves MD 07/27/2017 8:21 AM Signed [facility]OSPITALPatient Instructions for SurgeryFOOD INSTRUCTIONS:NO solid food or non-clearliquids for 8 hours prior to the arrival time foryour surgery. Unless you are instructed otherwise,you are allowed to drink upto 12 ounces of clear liquids (e.g. water, black tea/coffee, fruit juicewithout pulp, Baldo Celestina, etc.) up until 2 hours prior to the arrival time forsurgery.MEDICATION INST RUCTIONS: Prior to Surgery:Do not take the following medications for 7 days prior to surgery: - anyNSAID's (e.g. Motrin, Aleve, Arthrotec, Naproxen,etc) - any [...] with sips of water: Carvedilol(Coreg) and HydralazineIf youhave any questions or concerns regarding today's visit please do nothesitate to contact the [facility] enter at [phone] or [phone], [phone].Signature: MARTHA Christineate: July 27, 2017Referring Provider: POLLY TORRES [[id number]]Allergies As of Date: 07/27/2017 Noted Allergy BjtaqaykJQQDLAP27/15/2018 4 - HivesDate Reviewed: 07/27/2017Reviewed by: Rosana Romero Ma - Fully AssessedPrimary Visit Diagnosis:Pre-operative examination [Z01.818] Other Visit Diagnoses:Calculus of kidney [N20.0]CHRISTOPHER (obstructive sleep apnea) [G47.33] Essential hypertension [I10]Prescriptions [...] cancer [Z80.42] INVALID FOR* Family history of nephrolit hiasis [Z84.1] INVALID FOR* Hyperuricemia [E79.0] INVALID FOR* Low vitamin D level [E55.9] INVALID FOR* Other instructions from your clinician: [facility] Patient Instructions forSurgery FOOD INSTRUCTIONS: NO solid food or non-clear liquids for 8 hours prior to the arrival timefor your surgery. Unless you are instructed otherwise, [...] Day/Morning of Surgery: The following medications should betaken with sips of water: Carvedilol (Coreg) and Hydralazine If you have any questions or concerns regarding today's visit please do not hesitate to contact the [facility] at [phone] or [phone], [phone]. Signature: Shoshana Esteves MD Date: July 27, 2017Medications Discontinued During This Encounter ergocalciferol, vitamin D2, (VITAMIN* 12 c* 1 07/26/2017 07/27/2017 Route: ORAL Sig:Take 1 capsule by mouth once each week. Patient not taking: Reported on 07/27/2017 Disc: Reason for discontinue is not on file. Status:Closed by SHOSHANA ESTEVES MD on 07/27/17[facility] - DublinCT FLANK WO IVCONon [id number] FLANK WO IVCON* * *Final Report* * * * SEE BOTTOM OF REPORT FOR ADDENDED TEXT * * *DATE OF EXAM: Jul 27 2017 7:24AM [facility] - CT FLANK WO IVCON / REASON: multiple diagnoses * * Physician Interpretation * * * * * * * * * * * * ORIGINAL REPORT * * * * * * * *EXAMINATION: CT ABDOMEN AND PELVIS WITHOUT IV CONTRAST (Renal stone protocol)CLINICAL HISTORY: Calculus of kidneyTECHNIQUE: Non-contrast imaging of the abdomen and pelvis was performed through the urinary tract. Studyperformed without intravenous or oral contrast to evaluate [...] liver disease/cirrhosis.Biliary: Gallbladder present, unremarkableSpleen: No splenomegaly.Pancreas: Interdig itation of peripancreatic fat along pancreatic tail. No contour deforming mass or ductal dilatation.Adrenals: Mild nodular thickening bilaterally.GI Tract: No bowel dilation. Colonic diverticulosis without acute inflammation. Normal appendix right lower quadrant.Lymph Nodes: No lymphadenopathy.Mesen garrett/peritoneum: Inflammatory retroperitoneal stranding, probably from prior stent [...] interstitial lung disease.IMPRESSION:BILATERAL DOUBLE-J URETERAL STENTS IN PLACE.OBSTRUCTING RIGHT DISTAL URETERAL CALCULUS WITH UPSTREAM MODERATE HYDROURETERONEPHROSIS.LARGE LEFT PELVIC CALCULUS WITH MILD PELVOCALIECTASIS.NODULAR HEPATIC SURFACE CONTOUR RAISES POSSIBILITY OF UNDE RLYING CHRONIC LIVER DISEASE. CORRELATE CLINICALLY.CHANGES IN LUNG BASES DESCRIBED. * * * * * * ADDENDUM #1 * * * * * * * *Addendum:There is also 0.5 cm noncalcified nodule in the left lower lobe, which is similar to prior study. This is not well seen on the prior study, and therefore could be inflammatory in etiology, though follow-up study in 6-12 months may be of value to ensure temporal stability/resolution.-Interior Decorator Painting: NIECY Transcribe Date/Time: Jul 27 2017 11:30ADictated by : AMALIA FREIRE MDThitavia examination was interpreted and the report reviewed and electronically signed by: AMALIA FREIRE MD on Jul 27 2017 9:45AM ESTThis document has been addended by: AMALIA FREIRE MD on Jul 27 2017 11:31AM [id number] [facility] HISTORY PHYSICALon [id number] PHYSICALHNO ID: [id number]: Shoshana Houser: (none)Author Type: PhysicianType: HANDPFiled: 07/27/2017 8:22 AMNote Text:HISTORY AND PHYSICAL EXAMINATION (IMPACT)SERVICE DATE: 07/27/2017SERVICE TIME: 8:02 [facility]PR[facility]ARSHALL [facility] PH[facility]: NIKI Rushing COMPLAINT/HISTORY OF PRESENT [...] tobacco: Former User Types: Snuff Quit date: 07/28/2011MEDICATIONS/ALLERGIESCurrent Outpatient Prescriptions:acetaminophen (TYLENOL EXTRA STRENGTH) 500 mg tablet Take 1,000 mg bymouth as needed for Pain. Disp: Rfl:allopurinol (ZYLOPRIM) 100 mg tabletTake 1 tablet by mouth once daily.Disp: 90 tablet Rfl: 3carvedilol (COREG) 25 mg tablet Take 25 mg by mouth three times daily.Disp: Rfl:Cephalexin 500 mg tab Take by mouth. Take one(1) tablet daily. Disp: Rfl:ergocalciferol, vitamin D2, (VITAMIN D) 50,000 unit capsule Take 1 capsuleby mouth once each week. (Patient not taking: Reported on 07/27/2017) Disp: 12 capsule Rfl: 1hydrALAZINE (APRESOLINE)100 mg tablet Take 100 mg by mouth twice daily.Disp: Rfl:No current facility-administered medications for this visit.ALLERGIESAllergen Reactions- Codeine HivesREVIEW OF SYSTEMSGeneral: No weight loss, malaise or fevers.Neuro: No history of TIA's, stroke, JUNIOR AUTOMATION ENGINEER tumor, impaired sensorium,hemiplegia, paraplegia or quadriplegia. No [...] of CA metastasis, chemo within 30 days, orradiotherapywithin 90 days. No history of oncological symptoms orproblems.Psych: No history of psychiatric symptoms or problems.Skin: Negative for lesions, rash, and itching.PHYSICAL EXAMVITALS: BP 159/85[ noti fied[ Pulse 83 Temp (Src) 97.9 (Oral) Ht 5'9 (1.75m) Wt 335 lb (152.0kg) SpO2 95% BMI 49.45 kg/(m2).Last 14 BPLast 14 Encounter BP Readings: Date: BP: 07/27/2017 159/85[MD notified[ 07/24/2017 175/99General: Alert and orientedSkin: Normal color, no rash, no lesions.HEENT: EOM, pupils eq ual, round and reactive.Cardiovascular: Normal S1 AND S2, no rubs, murmurs or gallops. No JVD. Pulseregular.Lungs: Normal breath sounds, no wheezes or crackles.Abdomen: Soft, non-tender, no rigidity.Extremities: No deformity, no edema or tenderness, no joint swelling orclubbing.Neurological: Normalcognition and motor skills.Pulses: Carotid and radial pulses [...] period.Diagnostic tests reviewed for today's visit:Most recent labsComponentLatest Ref Rng AND Units 07/24/2017WBC 3.70 - [...] % 19.8Abs Lymph 1.00 - 4.00 k/uL 1.61Mono%% 6.0Abs Wilkinson <0.87 k/uL 0.49Eosin% % 1.6Abs Eosin <0.46 [...] 80.0 ng/mL 9.7 (L)Uric Acid 4.0 - 8.1mg/dL 9.3 (H)Most recent EKG: normal sinus rhythm, normal axis, normal intervals,reviewed by myself.PLAN/RECOMMENDATIONSCARDIAC: Patient is at optimal cardiac condition for scheduled surgery /procedure.PULMONARY: Suggest the following in the post- operative period: Aggressivebronchopulmonary hygiene, CPAP/BiPAP at home setting (advised patient tobring their CPAP/BiPAP machine/mask), Minimize sedati on/opioids as patienthas CHRISTOPHER and Early ambulationVASCULAR/ANTICOAGULATION: VTE prophylaxis as deemed appropriate by the surgical service.Patient is optimally prepared for surgery.Patient Instructions: As per patient instructions section.I have discussed the above recommendations with the patient indetail, infrank and lay terms, and provided a written summary of instructions asneeded. We have discussed that no surgery is without risk, but that thegoal of preoperative assessment is to optimize that risk, and that wasclearly understood by the patient. I have given ample opportunity for thepatient to ask questions, and answered all questions to their statedsatisfaction.SIGNATURE: Shoshana Esteves MD PATIENT NAME: Joe DavidDATE: July 27, 2017 : 8:02 AM [facility] HospitalGRESSon [id number] mass [facility] CenterO ID: [id number]: Stacia (Walter) Rony: (none)Author Type: StudentType: Progress NotesFiled: 07/27/2017 9:23 AMNote Text:ANESTHESIA PRE-OPERATIVE ASSESSMENT (PACE)SERVICE DATE: 07/27/2017SERVICE TIME: 0853ASSESSMENT AND PLAN:Joe David is a 46 year old male scheduled for Left Percu taneousNephrolithotomy per Informed Consent in MAIN on 08/01/17.PMH:1. Renal calculus (is s/p stent placement 3-4 wks ago)2. HTN on carvedilol and hydralazine3. CHRISTOPHER on CPAP (provides adequate relief)4. Morbid Obesity5. May be difficult mask ventilation: CHRISTOPHER, thick neck, large beardHealthQuest: 4FC: I IMETS: Walk a block or two on level [...] 49.46 kg/m?BMI 49.46 kg/(m2)Vital signs completed by: Macaw acquired: per HANDP. Height acquired: per HANDPAirway Exam:MOUTH OPENING/TMJ: Full jaw ROMMICROGNATHIA/OVERBITE:NoMALLAMPATI SCORE is CLASS IVUPPER LIP BITE TEST: Class II - Lower incisors can bite the upper lipbelow the dirk lineDENTITION: Chipped, loose, and/or missing - right lower jaw, left upperjawTH YROMENTAL DIST: WNLSHORT NECK: NoNECK CIRCUMFERENCE >40 cm: [...] within date range. UHCG No results within daterange. HCG, BODY* No results within date range. ABORHD O POSI* no uni* 07/24/2017 ABSCREEN NEG no uni* 07/24/2017HBA1C: No results found for: HBA1C)Patient accompanied by selfCase Discussed with Dr. Onofre ChasePTIMIZATION STATUS: Patient optimized for OR, pending DOS review.SIGNATURE: WALTER Celeste PATIENT NAME: Joe DavidDATE: July 27, 2017 : 9:15 AM PAGER/CONTACT #:[facility] - DublinProtein mass concHNO ID: [id number]: Shoshana Houser: (none)Author Type: PhysicianType: Progress NotesFiled: 07/27/2017 8:22 AMNote Text:Joe David is a 46 year old male [facility]Referring Surgeon: Dr. Townsend of Surgery: 08/01/2017Planned Surgery/Procedure: PERCUTANEOUS NEPHRO LITHOAllergies have been reviewed and verified. They include the following:CodeineSocial HistorySubstance Use Topics- Smoking status: Not on file- Smokeless tobacco: Not on file- Alcohol use Not on fileMedications reviewed and updated: Jeronimo Romero [facility] HospitalProtein mass concHNO ID: [id number]: Barbara Garcia) Alis, CTService: RadiologyAuthor Type: Clinical TechnicianType: Progress NotesFiled: 07/27/2017 7:27 AMNote Text: Radiology Service Progress NotePATIENT NAME: Joe DavidMRN: [id number] OF SERVICE: July 27, 2017TIME: 7:12 AMPATIENT IDENTITY VERIFICATION COMPLETED USING TWO (2) METHODS: Patientconfirmed name verbally and ID band matches..PATIENT GENDERDATA: MalePATIENT RELEVANT IMPLANT DATA REVIEWED: YesRADIOLOGY DEPARTMENT: CT; Exam(s) Completed: Abdomen/PelvisPERIPHERAL IV DATA: Not applicableSIGNED BY: Barbara Diego, CTMay 2017 7:12 AMNormal [facility] and Differentialon [id number] Baso0.09 k/uL Normal<0.11CMercy HospitalComment on above:Performed By: #### CBCDIF, CMP, URIC, PTHI, VITD ####[facility] [address]cc[address] [place], [place] [phone] Mono0.49 k/uLNormal<0.87[facility] Hospital ToledoComcaro center on above:Performed By: #### CBCDIF, CMP, URIC, PTHI, VITD ####[place] [address] [address] AveCBrian Ville [phone] Neut5.80 k/uLNormal1.45-7.50[facility] Comment on above:Performed By: #### CBCDIF, CMP, URIC, PTHI, VITD ####[place] [address] AveCCou[address], [place] [phone] nRBC <0.01Normal<0.01[facility] on above:Performed By: #### CBCDIF, CMP, URIC, PTHI, VITD ####[place] [address] AveCBrian Ville [phone]/100 WBC Auto (Bld)1.1 %Normal [facility] on above:Performed By: #### CBCDIF, CMP, URIC, PTHI, VITD ####[place] [address] AveCBrian Ville [phone] DiffNormalCMercy Health Urbana Hospital on above: Performed By: #### CBCDIF, CMP, URIC, PTHI, VITD ####[place] [address] AvRobert Ville [phone] Auto #/vol (Bld)0.13 10*3/uLNormal<0.46[facility] on above: Performed By: #### CBCDIF, CMP, URIC, PTHI, VITD ####[place] [address] AveCBrian Ville [phone]/100 WBC Auto (Bld)1.6 %NormalOhioHealth Riverside Methodist Hospital on above:Performed By: #### CBCDIF, CMP, URIC, PTHI, VITD ####[place] [address] AveCBrian Ville [phone] distribution width Auto Ratio (RBC)13.0 %Rmiulu71.5-15.0[facility] on above:Performed By: #### CBCDIF, CMP, URIC, PTHI, VITD ####[place] [phone] Auto Volume Fraction (Bld) 41.2 %Hiflot40.0-51.0[facility] on above:Performed By: #### CBCDIF, CMP, URIC, PTHI, VITD ####[place] [phone] mass conc (Bld)13.2 g/dLNormal 13.0-17.0[facility] on above:Performed By: #### CBCDIF, CMP, URIC, PTHI, VITD ####[place] [phone] Auto #/vol (Bld)1.61 10*3/uLNormal1.00-4.00 [facility] on above:Performed By: #### CBCDIF, CMP, URIC, PTHI, VITD ####[place] [phone]/100 WBC Auto (Bld)19.8 %NormalOhioHealth Riverside Methodist Hospital on above:Performed By: #### CBCDIF, CMP, URIC, PTHI, VITD ####[place] [phone] Auto Entitic mass (RBC)30.4 lUUrljxb73.0-34.0[facility] on above:Performed By: #### CBCDIF, CMP, URIC, PTHI, VITD ####[place] [phone] Auto mass conc (RBC)32.0 g/bJIpkbfy46.5-36.0[facility] on above:Performed By: #### CBCDIF, CMP, URIC, PTHI, VITD ####[place] [address] Av[address] [place] [phone] Auto Entitic volume (RBC)94.9 zVScifzc55.0-100.0[facility] on above:Performed By: #### CBCDIF, CMP, URIC, PTHI, VITD ####[address]ille [phone]/100 WBC Auto (Bld)6.0 %NormalOhioHealth Riverside Methodist Hospital on above:Performed By: #### CBCDIF, CMP, URIC, PTHI, VITD ####[place] [phone]/100 WBC Auto (Bld)71.5 %NormalOhioHealth Riverside Methodist Hospital on above:Performed By: #### CBCDIF, CMP, URIC, PTHI, VITD ####[place] [phone] /100 GEHVjhkpv5BzotongtuOhioHealth Riverside Methodist Hospital on above:Performed By: #### CBCDIF, CMP, URIC, PTHI, VITD ####[place] [phone] mean volume Auto Entitic volume (Bld)8.8 fLLow9.0-12.7CMercy Health Urbana Hospital on above:Performed By: #### CBCDIF, CMP, URIC, PTHI, VITD ####[place] [phone] Auto #/vol (Bld)372 10*3/rKFvgvkg302-335BuzlsirfwOhioHealth [facility]ide [facility] Hospital on above: Performed By: #### CBCDIF, CMP, URIC, PTHI, VITD ####[place] [address] [place], [place] [phone] Auto #/vol (Bld) 4.34 10*6/uLNormal4.20-6.00[facility] on above:Performed By: #### CBCDIF, CMP, URIC, PTHI, VITD ####[facility] [place], [place] [phone] Auto #/vol (Bld)8.12 10*3/uL Normal3.70-11.00[facility] on above:Performed By: #### CBCDIF, CMP, URIC, PTHI, VITD ####[facility] [place], [place] [phone] 12-01-8679PRWBObtrua Visit (UROMAURICEN) --------JOE DAVID ([id number]) 1970 [facility] Time Provider Department07/24/17 8:45 AM POLLY TORRES During your visit today, we recorded the following information about you: Pulse Blood pressure Weight Height 89/minute 175/99 153.6 kg 1.753 Polly Rust 07/24/2017 10:08 AM SignedBasic HPI: 46 yearold male who comes in for kidney stone management. Hx ofstones starting 10 years ago. Patient has ahistory of stones and has hadmultiple URS in the past. Patient has bilateral stents placed 3-4 weeks ago.Patient has some irritation from the stents. Patient's father had stones andDM. No family history of gout. Family history of prostate cancer. GUROS: UA: unable to leave a sampleOutside records receivedForce of Stream: fluctuatesNOCTURIA: Yes: 2 times /nightDay Time Frequency: 1-2hrHesitancy: NoIntermittency: NoIncomplete Emptying:Yes: unsurePost void Dribbling: NoUrinary Retention Hx:NoDouble Voiding: NoUrgency: NoDysuria: Yes:Incontinence history: NoGross hematuria history: NoUTI Hx: NoStone Event Hx: Yes: URS 4 weeks agoRevi ew, other organ system:GI:Blood: NoConstipation: NoDiarrhea: NoNausea/Vomiting: NoREVIEW [...] Duggan UROLOGY NOTE:I personally interviewed the patient, examined,confirmed and edited thehistory that was documented by [...] AMREFERRING PROVIDER: Elias Saldana MD[address] [place] [address]ULJ: Onel Coffey MDGENDER:SUBJECTIVECHIEF COMPLAINT: Pre-op examHISTORY OF PRESENT ILLNESS: Mr. David is a 46 year old male who presents forbilateral stones (see above);FUNCTIONAL STATUS: Do moderate work around the house such as vacuuming,sweeping floors, or carrying in groceries(3.50 METs)No past medical history on file.No past surgical history on file.No family history on asa e.Social HistorySubstance Use Topics- Smoking status: Not on file- Smokeless tobacco: Not on file- Alcohol use Not on fileREVIEW OF SYSTEMS:General: General: Well developed, well nourished. No acute distressGeneral: Positive for Morbidly obeseHEENT: Negative for sore throat, difficulty swallowing.Negative for frequent or significant headaches, changes in vision or hearing.Cardiovascular: No history of cardiovascular symtoms or problems.No history of angina, CHF, [place], cardiac surgery of stents.Respiratory: Negative for current [...] or problems.Neurologic: No history of TIA's, stroke, JUNIOR AUTOMATION ENGINEER tumor, impaired se nsorium,hemiplegia, paraplegia or quadriplegia. No neurological symptoms or problems.Hematology/Oncology: No history of bleeding or clotting disorder. Pt is nottaking anti-coagulation or platelet medications. No history of hematologicalsymptoms or problems.Endocrine: No history of endocrinological s ymtoms or problemsNo history of DM; has not taken steroids w/in past 30 days.Negative for excessivesweating, thirst or hungerPHYSICAL EXAM:General Appearance/ Constitutional: Well developed, well nourished, and in noapparent distressHead and Neck normal, no jugular venous extension, no thyromegalyand nopalpable massEyes: Pupils are equally round and reactive to light. Extraocular movementsare intact.Respiratory: Clear to auscultation AND percussionCardiovascular: Normal, Regular rate and rhythm and No murmursGI: Soft, Non-tender, No masses, hepatosplenomegaly and No lymphadenopathyExtremitie s: Radial and pedal pulses +2, no edema, extremities WNLBack: Normal back and mobilityNeurological:Normal cognition and motor skills.Skin: Color, texture, turgor normal.VITALS:BP 175/99 Pulse 89 Ht 175.3 cm (5' 9 ) Wt (!) 153.6 kg (338 lb 11.2oz) BMI 50.02 kg/m?Temperature Max: @TMAXREFRESH (24)@ALLERGIES:ALLERGIESAllergen Reactions- Codeine HivesLABS:No results found for: BUNNo results found for: CREATNo results found for: PSANo results found for: UGLUC, UBILI, UKET, SPGR, UHB, UPH, UPROT, NITRITES,UWBC, COLOR, CLARITYMEDICATIONS:(Not in a hospital admission)Current Outpatient Prescri ptions:hydrALAZINE (APRESOLINE) 100 mg tablet Take 100 mg by mouth twice daily.carvedilol (COREG) 25 mg tablet Take 25 mg by mouth three times daily.Cephalexin 500 mg tab Take by mouth. Take one(1) tablet daily.No current facility-administered medications for this visit.DIAGNOSIS, ASSESSMENT AND JACK NThere are no active hospital problems to display for this patient.Medication and Non-PharmacologicVTE Prophylaxis/AnticoagulantsVTE Prophylaxis: VTE prophylaxis appropriateAssessment AND Plan:Imp: The primary encounter diagnosis was Calculus of kidney. Diagnoses of CPAP(continuous positive airwaypressure) dependence, CHRISTOPHER (obstructive sleepapnea), Gastroesophageal reflux disease [...] consent done. Culture. IMPACT/PACE.Very complex, very high risk,complete HANDPMMARTHA Stewartirector, Surgical Stone Disease, [facility] InstituteProfessor of Surgery, [facility] HospitalPager [phone]: Polly Torres MD PATIENT NAME: Joe DavidDATE: July 24, 2017 : 9:31 AM PAGER/CONTACT #:Referring Provider: ELIAS SALDANA [[id number]]Allergies As of Date: 07/24/2017 Noted Allergy ReactionCODEINE 07/24/2017 4 - HivesDate Reviewed: 07/24/2017Reviewed by: Isabella Armstrong - Fully AssessedPrimary Visit Diagnosis:Calculus of kidney [N20.0] Other Visit Diagnoses:CPAP (continuous positive airway pressure) dependence [Z99.89] CHRISTOPHER (obstructive sleep apnea) [G47.33] Gastroesophageal reflux disease without esophagitis [K21.9] Essential hypertension [I10] Former smoker [Z87.891] BMI 50.0-59.9, adult(HCC) [Z68.43] Calculus of ureter [N20.1] Kidney stone [N20.0] Abnormal urinalysis [R82.90] Family history of nephrolithiasis [Z84.1] Family history of prostate cancer [Z80.42] Family history of diabetes mellitus [Z83.3]Order(s):UA CHEMSTRIP ONLY [SQUA] Order #: [id number] FUTURE UA CHEMSTRIP ONLY [SQUA] Order #: [id number] CBC + DIFF [SQCBCDIF] Order #: [id number] FUTURE COMP METABOLIC PANEL [SQCMP] Order #: [id number] FUTURE PTH INTACT BLD [SQPTHI] Order #: [id number] FUTURE VITAMIN D 25 HYDROXY [SQVITD] Order #: [id number] FUTURE URIC ACID BLOOD [SQURIC] Order #: [id number] FUTURE CONFIRM BLOOD TYPE [SQCONABO] Order #: [id number] FUTURE TYPE + SCREEN,30 DAY [UZWEYO22] Order #: [id number] ECG COMPLETE W INTERPRETATION [ECG01] Order #: [id number] FUTURE CT FLANK WO IVCON [5266630] Order #: [id number] FUTURE CONSULT TO ANESTHESIOLOGY [544] Order #: [id number]: 1 CONSULT TO INT MED-IMPACT [2132718] Order #: [id number]: 1 [facility] [3877383] Order #: [id number] URINE CULTURE [SQURCUL] Order #: [id number] as of 07/24/2017 Sig: HYDRALAZINE 100 MG TABLET Ndwk522 mg by mouth twice da* CARVEDILOL 25 MG TABLET Take 25 mg by mouth three randall* CEPHALEXIN 500 MG TABLET Take by mouth. Take one(1) ta*Problem List As Of Date 07/24/2017 Noted Resolved Calculus of kidney [N20.0] INVALID FOR* CPAP (continuous positive airway pressure) depe*INVALID FOR* CHRISTOPHER (obstructive sleep apnea) [G47.33] INVALID FOR* Gastroesophageal reflux disease without esophag*INVALID FOR*Essential hypertension [I10] INVALID FOR* Former smoker [Z87.891] INVALID FOR* BMI 50.0-59.9, adult(HCC) [Z68.43] INVALID FOR* Calculus of ureter [N20.1] INVALID FOR* Abnormal urinalysis [R82.90] INVALID FOR* Family history of diabetes mellitus [Z83.3] INVALID FOR* Family history of prostate cancer [Z80.42] INVALID FOR* Family history of nephrolithiasis [Z84.1] INVALID FOR*Disposition: Return for blood work and EKG today; surgery 08/01/17.Follow-up and Disposition History RecordedLetter CiazDnw92, 2018Elias Saldana MD[address] [place] [address]LUYN: Boo David NO: [id number] OF SERVICE: 07/24/2017Dear Dr. Saldana,I recently saw your patient, Mr. David, in [facility].Enclosed is a copy of my clinic note which should be self-explanatoryregarding findings, recommendations, and treatment plan. Please don'thesitate to contact me if thereare questions.Sincerely,Polly Torres M.D.Staff Urologist, [facility] Centeric [facility]sworth-Rittman HospitalELECTRONICALLY SIGNEDcc: Onel Coffey MD, [address] [facility] [address]Bhlrnxfsx Number: [id number] Status:Closed by POLLY TORRES MD on 07/24/17NormalCMercy HospitalComp Metabolic Panelon 49-69-4373Celztgp mass conc4.6 g/dLNormal3.9-4.9CMercy Hospital Comment on above:Performed By: #### CBCDIF, CMP, URIC, PTHI, VITD ####[facility]CC[address], [place] [phone] enzyme act/vol54 U/LQpqtcb81-774DgrugblnfOhioHealth Riverside Methodist Hospital on above:Performed By: #### CBCDIF, CMP, URIC, PTHI, VITD ####[place] [address] [address] AveCBrian [place]ille [phone] enzyme act/vol12 U/EHlnljc36-82 [facility] on above:Performed By: #### CBCDIF, CMP, URIC, PTHI, VITD ####[place] [address]CC[address], [place] [phone] gap 3 molar conc13 mmol/LNormal9-18[facility] on above:Performed By: #### CBCDIF, CMP, URIC, PTHI, VITD ####[place] [address]CB[address] [phone] enzyme act/vol10 U/BOyw22-36GjnzsaxdqRegency Hospital Toledo Comment on above:Performed By: #### CBCDIF, CMP, URIC, PTHI, VITD ####[place] [address]CC[address], [place] [phone] mass conc0.4 mg/dLNormal0.2-1.3CMercy Health Urbana Hospital on above: Performed By: #### CBCDIF, CMP, URIC, PTHI, VITD ####[place] [address]CC[address], [place] [phone] mass conc9.5 mg/dLNormal8.5-10.2CMercy Health Urbana Hospital on above:Performed By: #### CBCDIF, CMP, URIC, PTHI, VITD ####[place] [address]CB[address] [phone] molar otxs345 mmol/DYgvdrl16-702 [facility] on above:Performed By: #### CBCDIF, CMP, URIC, PTHI, VITD ####[facility]CC[address], [place] [phone] molar conc25 mmol/ZRklamj53-13BkcrxluwfRegency Hospital Toledo Comment on above:Performed By: #### CBCDIF, CMP, URIC, PTHI, VITD ####[place] [address]CC[address], [place] [phone] mass conc1.78 mg/dLHigh0.73-1.22[facility] on above: Performed By: #### CBCDIF, CMP, URIC, PTHI, VITD ####[place] [address]CC[address], [place] [phone]-Snwknuj Amer.50 NormalOhioHealth Riverside Methodist Hospital on above:Performed By: #### CBCDIF, CMP, URIC, PTHI, VITD ####[place] [address]CC[address], [place] [phone]/1.73 sq M predicted among non-blacks MDRD vol rate/area (S/P/Bld)41 .[facility] on above:Result Comment: eGFR (Estimated GFR) Units of measure: mL/min/1.73 meters squaredeGFR is derived from the reexpressed MDRD Study equation using the following parameters: serum creatinine, age, genderand race. The creatinine assay has been calibrated to be traceable to IDMS.An eGFR <60 mL/min/1.73m2 for >3 months is consistent with chronic kidney disease. Refer to KDOQI guidelines for clinical interpretation.In patients with unstable renal function, e.g. those with acute kidney injury, the eGFR may not accurately reflect actual GFR.Performed By: #### CBCDIF, CMP, URIC, PTHI, VITD ####[place] [address] AveCCou[address], [place] [phone] mass conc90 mg/xFEqojli90-79 [facility] on above:Result Comment: The [place] [employer] Association (ADA) provides guidance for cutoff [...] symptoms of hyperglycemia or hyperglycemic crisis, random plasmaglucose results greater than or equal to 200 mg/dL meet the criteria for diagnosis of diabetes.Reference: Standards of Medical Care in Diabetes 2016, [place] [employer]. Diabetes Care. 2016.39(Suppl 1). Performed By: #### CBCDIF, CMP, URIC, PTHI, VITD ####[address] [phone] molar conc 4.0 mmol/LNormal3.7-5.1CMercy Health Urbana Hospital on above:Performed By: #### CBCDIF, CMP, URIC, PTHI, VITD ####[place] [address] [place] [phone] mass conc7.6 g/dLNormal6.3-8.0 [facility] on above:Performed By: #### CBCDIF, CMP, URIC, PTHI, VITD ####[address] [place] [phone] molar aaeq046 mmol/JQepmeh701-793OtplxkjbbOhioHealth Riverside Methodist Hospital on above:Performed By: #### CBCDIF, CMP, URIC, PTHI, VITD ####[address] [phone] nitrogen mass conc22 mg/dLNormal9-24[facility] on above:Performed By: #### CBCDIF, CMP, URIC, PTHI, VITD ####[address], [place] [phone] Blood Typeon 68-90-3520VSJ/RH(D)PositiveNormalCMercy HospitalComment on above:Performed By: #### CONABO ####[facility] [address] [place], [place] [phone] 07-24-2017 HOSPPatient Update (UROLMN) --------JOE DAVID ([id number]) 1970 MDate Time Provider Department07/24/17 JANA DUGGAN (RN) UROLMNDuring your visit today, we recorded the following information about you:Allergies As of Date: 07/24/2017 Noted Allergy ReactionCODEINE 07/24/2017 4 - HivesDate Reviewed: 07/24/2017Reviewed by: Isabella Okeefe - Fully AssessedOrder(s):SURGICAL REQUEST - ELECTIVE [[id number]] Order #: [id number]: 1Prescriptions as of 07/24/2017 Sig: HYDRALAZINE 100 MG TABLET Take 100 mg by mouth twice da* CARVEDILOL 25 MG TABLET Take 25 mg by mouth three randall* CEPHALEXIN 500 MG TABLET Take by mouth. Take one(1)ta*Problem List As Of Date 07/24/2017 Noted Resolved [...] INVALID FOR*Follow-up and Disposition History RecordedEncounter Number: [id number] Status:Closed by JANA DUGGAN on 07/24/17[facility]Patient:[facility] David LMRN: Height:5' 9.016 (1.753 m)Weight:335 lb 1.6 oz (152 kg)Outpatient Medications as of 08/01/17:acetaminophen (TYLENOL EXTRA STRENGTH) 500 mg tabletallopurinol (ZYLOPRIM) 100 mg tablethydrALAZINE (APRESOLINE) 100 mg tabletcarvedilol (COREG) 25 mg tabletCephalexin 500 mg tabAdmission/Clinic Administered Medications as of 08/01/17:0.9% NaCl 2-10 mLlactated ringers infusionceFAZolin 3 g in D5W 100 mL (ANCEF)Problem List:Calculus of kidney [N20.0]CPAP (continuous positive airwaypressure) dependence [Z99.89]CHRISTOPHER (obstructive sleep apnea) [G47.33]Gastroesophageal reflux [...] MAIN IMPACT):Shoshana Esteves MD 07/27/2017 8:22 AM SignedRobertosandeep David is a 46 year old male here today for visit in IMPACTReferring Surgeon: Dr. Townsend of Surgery: 08/01/2017Planned Surger y/Procedure: PERCUTANEOUS NEPHROLITHOAllergies have been reviewed and verified. They include the following:CodeineSocial HistorySubstance Use Topics- Smoking status: Not on file- Smokeless tobacco: Not on file- Alcohol use Not on fileMedications reviewed and updated: Jeronimo Romero MaPrevious Pranav Esteves MD 07/27/2017 8:22 AM SignedHISTORY AND PHYSICAL EXAMINATION (IMPACT)SERVICE DATE: 07/27/2017SERVICE TIME: 8:02 [facility] CARE PHYSICIAN: Onel Coffey [facility] COMPLAINT/HISTORY OF PRESENT ILLNESS:Mr. David is a [...] sick but was givenanti-emetic prior to surgery .PAST MEDICAL/SURGICAL/FAMILY/SOCIAL HISTORYNo past medical history on file.No past surgical historyon file.No family history on file.SOCIAL HISTORYSocial History Marital status: Spouse name:Years of education: Number of children:Social History Main Topics Smoking status: Former Smoker Pack s/day: 1.00 Years: 24.00 Types: Cigarettes Quit date: 07/27/2013 Smokeless tobacco: Former User Types: Snuff Quit date: 07/28/2011MEDICATIONS/ALLERGIESCurrent Outpatient Prescriptions:acetaminophen (TYLENOL EXTRA STRENGTH) 500 mg [...] D2, (VITAMIN D) 50,000 unit capsule Take 1capsule bymouth once each week. (Patient not taking: Reported on 07/27/2017) Disp: 12 capsule Rfl: 1hydrALAZINE (APRESOLINE) 100 mg tablet Take 100 mg by mouth twice daily. Disp:Rfl:No current facility-administered medications for this visit.ALLERGIESAllergen Reactions- Codeine HivesREVIEW OF SYSTEMSGeneral: No weight loss, malaise or fevers.Neuro: No history of TIA's, stroke, JUNIOR AUTOMATION ENGINEER tumor, impaired sensorium, hemiplegia,paraplegia or quadriplegia. No [...] Ht 5' 9 (1.75m) Wt 335 lb (1 52.0kg) SpO2 95% BMI 49.45 kg/(m2).Last 14 BPLast [...] to me for preoperative evaluation.Patient has the fol lowing medical comorbidities which might affect theperioperative course:- Hypertension, uncontrolled - bp meds taken but has been normal in recentvisits with PCP and dose just adjusted- Patient is overweight related to- Patient with sleep apnea and uses CPAP.Patient's RCRI (Revised Cardiac Risk Index: CAD/CHF/Stroke or TIA/SCr>2/DM onInsulin/High Risk Surgery) score is 0 and is at low risk formajor adversecardiac events in the perioperative period.Diagnostic tests reviewed for today's visit:Most recent labsComponent Latest Ref Rng AND Units 07/24/2017WBC 3.70 - 11.00 k/uL 8.12RBC 4.20 - 6.00 m/uL 4.34Hemoglobin 13.0 - 17.0 g/dL 13.2Hematocrit 39.0 - 51.0 % 41.2MCV 80.0 - 100.0 fL 94.9MCH 26.0 - 34.0 pG 30.4MCHC 30.5 - 36.0 g/dL 32.0RDW-CV 11.5 - 15.0 % 13.0Platelet Count 150 - 400 k/hS899UOV 9.0 - 12.7 fL 8.8 (L)Neut% % 71.5Abs Neut (ANC) 1.45 - 7.50 k/uL 5.80Lymph% % 19.8Abs Lymph 1.00 - 4.00 k/uL 1.61Mono% % 6.0Abs Wilkinson <0.87 k/uL 0.49Eosin% % 1.6Abs Eosin <0.46 [...] sinus rhythm, normal axis, normal intervals, reviewed bymyself.PLAN/RECOMMENDATIONSCARDIAC: Patient is at optimal cardiac condition for scheduled surgery / procedure.PULMONARY: Suggest the following in the post- operative period: Aggressivebronchopulmonary hygiene, CPAP/BiPAP at home setting (advised patient to bringtheir CPAP/BiPAP machine/mask), Minimize sedation/opioids as patient has CHRISTOPHER andEarly ambulationVASCULAR/ANTICOAGULATION: VTE prophylaxis as deemed appropriate by the [...] Joe CarrasquilloTE: July 27, 2017 : 8:02 Debbie Esteves MD 07/27/2017 8:21 AM Signed [facility]ITALPatient Instructions for SurgeryFOOD INSTRUCTIONS:NO solid food or non- clear liquids for 8 hours prior to the [...] visit please do nothesitate to contact the [facility] at [phone] or [phone], [phone].Signature: Shoshana Esteves, MDDate: July 27, 2017Progress Notes ([facility]):WALTER Celeste 07/27/2017 9:23 AM SignedANESTHESIA PRE-OPERATIVE ASSESSMENT (PACE)SERVICE DATE: 07/27/2017[facility] TIME: 0853ASSESSMENT AND PLAN:Joe David is a [...] on dayof surgery.PRE-OP PLAN ORDERED: Not ApplicablePatient Instruc wong:? No solid food or non-clear liquids after [...] Units Date High Low HB 13.2 g/dL 07/24/201717.0 13.0 HCT 41.2 % 07/24/2017 51.0 39.0 WBC 8.12 k/uL 07/24/2017 11.00 3.70 PLT 372 k/uL 07/24/2017 400 150 NA 139 mmol/L 07/24/2017 144 136 K 4.0 mmol/L 07/24/2017 5.1 3.7 GLUC 90 mg/dL 07/24/201799 74 BUN 22 mg/dL 07/24/2017 24 9CREAT [...] HBA1C)Patient accompanied by selfCase Discussed with Dr. Rm estevezzOPTIMIZATION STATUS: Patient optimized for OR, pending DOS review.SIGNATURE: WALTER Celeste PATIENT NAME: Joe Argueta HallDATE: July 27, 2017 : 9:15 AM PAGER/CONTACT #:[facility] DublinPROGRESSon [phone] mass concHNO ID: [id number]: Ana Torresice: (none)Author Type: PhysicianType: Progress NotesFiled: [...] family history of gout. Family history of prostatecancer.======= GUROS: UA: unable to leave a sampleOutside [...] kidney stone consult. Currently on keflex s/pstent placementSaKRISSY Mckeon UROLOGY NOTE:I personally interviewed the patient, examined, confirmed and edited thehistory that was documented by Ms Ema RN and ancillary personnel.Consultation requested by Dr. Saldana for an opinion regardingbilaterallarge stones; 14 mm distal right ureter and 2.2 cm left UPJ. My finalrecommendations will be communicated back to the requesting physician byway of shared Medical record or letter to requesting physician via USmail.UROLOGY SURGICAL HANDPSERVICE DATE: 07/24/2017SERVICE TIME: 9:31 AMREFERRINGPROVIDER: Elias Saldana MD[address] [place] [address]AXT: Onel Coffey MDGENDER:SUBJECTIVECHIEF COMPLAINT: Pre-op examHISTORY OF PRESENT ILLNESS: Mr. David is a 46 year old male who presentsfor bilateral stones (see above);FUNCTIONAL STATUS: Do moderate work around the house such as vacuum ing,sweeping floors, or carrying in groceries (3.50 METs)No past medical history on file.No past surgical history on file.No family history on file.Social HistorySubstance Use Topics- Smoking status:Not on file- Smokeless tobacco: Not on file- Alcohol use Not on fileREVIEW OF SYSTEMS:General: General: Well developed, well nourished. No acute distressGeneral: Positive for Morbidly obeseHEENT: Negative for sore throat, difficulty swallowing.Negative for frequent or significant headaches, changesin vision orhearing.Cardiovascular: No history of cardiovascular symtoms or problems.No history of angina, CHF, [place], cardiac surgery of stents.Respiratory: Negative for current [...] or problems.Neurologic: No history of TIA's, stroke, JUNIOR AUTOMATION ENGINEER tumor, impaired sensorium,hemiplegia, paraplegia or quadriplegia. No [...] (338 lb11.2 oz) BMI 50.02 kg/m?Temperature Max: @TMAXREFRESH(24)@ALLERGIES:ALLERGIESAllergen Reactions- Codeine Hives LABS:No results found for: BUNNo results found for: [...] positive airway pressure) dependence, CHRISTOPHER (obstructivesleep apnea), Gastr oesophageal reflux disease without esophagitis,Essential hypertension, Former smoker, BMI 50.0-59.9, adult (HCC),Calculus of ureter, Kidney stone, Abnormal urinalysis, Family history ofnephrolithiasis, Family history of prostate cancer, and Family history ofdiabetes mellitus were also pertinent to this visit.Plan: Labs, EKG, repeat CT (has had right URS x [address]); thenmay need repeatright URS plus will need left PCNL with URS-guided access;brochures given and consent done. Culture. IMPACT/PACE.Very complex, very high risk, complete HANDPMark MARTHA Torresirector, Surgical Stone Disease, [facility] InstituteProfessor of Surgery, [facility] School of MedicinePager [phone]: Polly Torres MD PATIENT NAME: Joe DavidDATE: July 24, 2017 : 9:31 AM PAGER/CONTACT #:NormalRegency Hospital ToledoPT, Intacton 23-00-3265JHG, Acnukn11 pg/oCLymyjl58-72FzudceiiwRegency Hospital ToledoComment on above:Performed By: #### CBCDIF, CMP, URIC, PTHI, VITD ####[facility] [place], [place] [phone] and SCR (30D)on 28-79-8446NWT/RH(D)PositiveNormalCMercy Health Urbana Hospital on above:Performed By: #### TSCR30 ####[facility]CC[address], [place] [phone] Acidon 62-05-3442Ffotn mass conc9.3 mg/dLHigh4.0-8.1CMercy Health Urbana Hospital on above:Performed By: #### CBCDIF, CMP, URIC, PTHI, VITD ####[facility] AveCBrian Ville [phone] 55-59-8100Ohbkftfdv, UrineNegativeNormalNegativeRegency Hospital Toledo Comment on above:Performed By: #### UA ####[place] [address] AveCBrian Ville [phone]iknfesff Clinic ClevelandComment on above:Performed By: #### UA ####[facility] AveCBrian Ville [phone] YellowCleSelect Medical [facility] on above:Performed By: #### UA ####[facility]CC[address], [place] [phone] COMMENTNormalCMercy Health Urbana Hospital on above:Result Comment: Microscopic Examination PerformedPerformed By: #### UA ####[facility]CC[address], [place] [phone] Ql (U)NegativeNormalNegativeOhioHealth Riverside Methodist Hospital on above:Performed By: #### UA ####[facility] Kndbwpr[address]CCoupland, [place] [phone]/Blood,Ur2+Critically abnormalNegativeOhioHealth Riverside Methodist Hospital on above:Performed By: #### UA ####[place] [address]CBrian Ville [phone] Coag RelTime (Bld){INR}Critically abnormal0-3CMercy Health Urbana Hospital on above: Performed By: #### UA ####[place] [address]Robert Ville [phone] Ql (U)NegativeNormalNegativeOhioHealth Riverside Methodist Hospital on above:Performed By: #### UA ####[place] [address] [place] [phone]+Critically abnormalNegativeOhioHealth Riverside Methodist Hospital on above:Performed By: #### UA ####[place] [phone]NegativeOhioHealth Riverside Methodist Hospital on above: Performed By: #### UA ####[place] [phone] on above:Performed By: #### UA ####[place] [phone], Urine30 mg/dLCritically abnormal NegativeOhioHealth Riverside Methodist Hospital on above:Performed By: #### UA ####[place] [phone] 755Specific [place], Ur1.285Zkixsg9.005-1.030[facility] on above:Performed By: #### UA ####[place] [address] [phone] Brayan CommentSEE COMMENTNormalCMercy Health Urbana Hospital on above:Result Comment: N/APerformed By: #### UA ####[place] [address] [place] [phone]NormalCMercy Health Urbana Hospital on above: Performed By: #### UA ####[place] [address] [place], [place] [phone]>25Critically abnormal0-5CMercy Hospital Comment on above:Performed By: #### UA ####[address] [phone] Cultureon 75-64-8223Lcfazbgo identified Cx Nom (U)Culture Result - <10,000 CFU/ml Normal urogenital nadia NormalOhioHealth Riverside Methodist Hospital on above:Performed By: #### URCUL ####[place] [address] [place], [place] [phone] D 25 Hydroxyon 08-82-6791Krsrdpz D 25 Hydroxy9.7 ng/mLLow31.0-80.0 [facility] on above:Result Comment: Classification of 25 [place] Vitamin D status:Insufficiency/Moderate Deficiency: < or= 30 ng/mLSufficiency/Optimal Levels: 31 to 80 ng/mLToxicity: > 100 ng/mLTest performed by chemiluminescent immunoassay.Performed By: #### CBCDIF, CMP, URIC, PTHI, VITD ####[facility] [place], [place] [phone]-HX ABD/PELVIS W CON IMPORTon 92-07-2182LD-CT ABD/PELVIS W CON IMPORTImages were obtained outside of [facility] [id number]_IDCSIACNNormalRegency Hospital Toledo Vital Signs Date TimeVital SignValuePerforming WlktuzbbbArepiffi14-60-3645 12:52-0400Blood Pressure LocationMichaeoswald CA [facility] [place] 07-15-2022 12:52-0400Diastolic blood igemokry73 mm[Hg] Gary CA General Surgery [place] 07-15-2022 12:52-0400Heart rate80 /minMichael NILL General Surgery [place] 07-15-2022 12:52-0400Respiratory rate16 /minMichael NILL General Surgery [place] 07-15-2022 12:52-0400Systolic blood igniumdf219 mm[Hg] Gary NILL General Surgery [place] Encounters Encounter DateEncounter TypeCare ProviderFacilityStart: 14-34-4293Isjksgaqs for general adult medical examination without abnormal findingsDR ONEL HOYThe [place] HospitalStart: 12-30-2021 End: 48-93-5609xlhjxcwhmbFJ ONEL HOYFacility:V6Ozodg: 12-30-2021 End: 60-04-4971Oxdeybbew for general adult medical examination without abnormal findingsDR ONEL HOYFacility:W1Veuck: 12-06-2021 End: 38-56-4617hoxqkiogxdTrxhosh R NILLFacility:[facility] Hospitaltart: 12-06-2021 End: 12-81-6472Ogjviid encounter procedureMichael R NILL General Surgery Nill/Said [place] Start: 11-29-2021 End: 89-28-2255bfvctxsddoJjznvzz R NILLFacility:[facility] Hospitaltart: 11-29-2021 End: 02-18-8232Mpsamvz encounter procedureMichael R NILL General Surgery Nill/Said [place] Start: 11-16-2021 End: 22-86-4830tkwjrzpmgjDbrrgnd R NILLFacility:CD:[id number]: 09-23-2021 End: 34-85-9089bbzirxdbjiJsjpaxs [place] PROVIDERFacility: SalmaueStart: 09-23-2021 End: 94-61-6004Fjiurci encounter procedureMichael R NILL General Surgery Nill/Said [place] Start: 97-09-1359affpqdnihiPillhrn [place] PROVIDER Facility:[facility] HospitalDraketart: 01-27-2021 End: 23-94-7710mimupfkilfCS ONEL COFFEYFacility:I8Epxta: 12-27-2017 End: 98-61-7495Yddfuro encounterHEIDI (AGILE BUSINESS ANALYST) [facility] Start: 12-27-2017 End: 61-64-9957Hetmvhk encounterHEIDI (AGILE BUSINESS ANALYST) [facility] Start: 17-73-6477Sctfgei encounterMARK [facility] Hospitalart: 10-05-2017 End: 46-06-5368Cdotbwa encounterMARK [facility] EastStart: 76-75-2467Yfniyjuip for other preprocedural examinationMARK [facility]: 09-28-2017 End: 79-93-8402Jngpuhl encounterROBERT T [facility]: 09-28-2017 End: 41-13-5997Kwgkjug encounterMARK [facility] EastStclifton: 09-13-2017 End: 50-96-2776Tqylzek encounterHEIDI (AGILE BUSINESS ANALYST) [facility] Start: 08-16-2017 End: 15-35-3836Okvbmyo encounterMARK [facility] EastStart: 08-01-2017 End: 19-94-7044Hqzybnk encounterMARK [facility]: 07-27-2017 End: 35-53-4851Hxnilet encounterMARK [facility]: 07-24-2017 End: 42-25-2104Nehfsub encounterMARK [facility] EastStart: 75-74-0213Heajowq encounterMARK [facility] Procedures DateProcedureProcedure DetailPerforming ClinicianStart: 91-74-6974NKG screening DR ONEL HOYComment on above:Performed By: #### PSASC #### [facility] [address] [place], [place] [address] Dr. Markus Bryan: 39-14-4300LXH screeningDR ONEL HOYComment on above: Performed By: #### PSASC ####[facility] [address] [place], [place] [address]OhDr. Markus Longoriaart: 28-14-0052Seehzcgz screenMARK NOBLEComment on above:Performed By: #### CBCDIF, CMP, URIC, PTHI, VITD ####[facility] Osimgrcytocr[address] [place], [place] [phone]: 36-89-7733Quaoqyax screenMARK NOBLEComment on above: Performed By: #### TSCR30 ####[facility] [address] [place], [place] [phone] of pyloric stenosis using fluoroscopic guidanceMichael NILL Excision of sebaceous cystMichael NILL Comment on above:right upper back Payers DatePayer CategoryPayerPolicy [id number] 2..[id number] 2..[id number] 2..[id number] 2..[id number] 2..[id number] 2..[id number] 2..[id number] [id number] Social History DateTypeDetailFacilityStart: 23-84-8094Ykhaonu smoking statusEx-smoker (finding) General Surgery [place] Tobacco smoking statusFormer smokeless tobacco user, quit more than 30 days agoGeneral Surgery [place] Sex Assigned At BirthMaleGoaklawn [facility] CV Functional Status ThtlDhwgxbvygbTevttpVkydhunc06-48-6288Qdpicriyol StatusN/AGeneral Surgery [place] CV Clinical Note 11-16-2021 Note Date & TxubYogoWxcveazr65-84-4135 NoteOPERATIVE NOTE OPERATION DATE: 11/16/2021 PREOPERATIVE DIAGNOSIS: Previously [...] any problems or questions. CC: Onel Coffey M.D.[facility] Clinical Note 09-25-2021 Note Date & KlbvPiybPxkpdvtz13-55-8812 NoteChief Complaint consultation for sebaceous cyst HPI Staff 51 year old male presents on consultation from Dr. Coffey for upper back sebaceous cyst. Reports several year history of nodule to right upper back. Roughly one month ago, this rapidly increased in sizeand became painful. I/D was attempted in office [...] swallowing difficulties, no hearing loss, no ear infection(s),no nose bleeds. Cardiovascular: normal blood pressure, no [...] on excisional biopsy under local anesthesia at [facility] in 3-4 weeks, call sooner if problems/questions. [...] neoplasm of prostate: Father. Renal cell carcinoma: Mother.[facility] [place]Comment on above:Result Comment: Electronically Signed By: Gary CA MD\.br\Date and Time Signed: 09/25/21 11:23 EDT Evaluation + Plan note Note Date & TypeNoteFacilityEvaluation + Plan note No data available for this section General Surgery [place] Evaluation + Plan note Note Date & TypeNoteFacilityEvaluation + Plan note Future Appointments Appointment Date:12/06/2021 01:00:00 PM Scheduled Provider:Gary CA MD Location:[facility] Appointment Type: Post Op 15 General Surgery [place] [facility] Discharge instructions Note Date & TypeNoteFacilityHospital Discharge instructions No data available for this section General Surgery [place] Progress note Note Date & TypeNoteFacilityProgress note No data available for this section General Surgery [place] Summary Purpose Family History No Family History Records FoundNo Family History Records FoundNo Family History Records Found Advance Directives No Advanced Directives Records FoundNo Advanced Directives Records FoundNo Advanced Directives Records Found Procedure Findings Note HNO ID: [id number]: CAIT Collins Reservice: UrologyAuthor Type: ResidentType: Brief Op NoteFiled: 10/05/2017 4:07 PMNote Text:UROLOGY BRIEF OPERATIVE NOTELOG ID: [id number]/Procedure Date: 10/05/2017Incision/Procedure Start Time: 2:14 PMIncision Close/Procedure [...] UP TO 2 CM - GeneralSurgeon(s)/Proceduralist(s) and Pin Puller(s):Surgeon(s) and Role: * Polly Torres - Primary * Shruthi Montgomery MD - Resident - AssistingNo Additional StaffAnesthe (more content not included)... Additional Source Comments (unrecognized sect ion and content) No Status Records FoundNo Status Records FoundNo Status Records Found INFORMATION SOURCE (unrecogn ized section and content) DATE CREATED AUTHOR 01/15/2018 [facility] DATE CREATED AUTHOR AUTHOR'S ORGANIZ ATION 12/10/2021 [facility] [place] DATE CREATED AUTHOR AUTHOR'S ORGANIZ ATION 01/05/2022 [facility] Care Team (unrecognized sect ion and content) Personnel Name: Onel Coffey MD Address: [address] [place] [address] Personnel Name: Onel Coffey MD Address: [address] [place] [address] Personnel Name: Onel Coffey MD Address: [address] [place] [address] FOR RECORDS PERTAINING TO PATIENTS WHO ARE [...] BE BASED ON THE PRIMARY CLINICAL RECORDS. [facility] CenterGoGroceries Business Plan [facility]. provides no warranty or guarantee of the accuracy or completeness of information in this document.
[2025-01-19 09:43] LABS: Hematocrit 46.3 % (42.0-54.0); Hemoglobin 15.4 g/dL (14.0-18.0); Immature Granulocytes Abs Auto 0.01 10^3/uL (0.00-0.03); Immature Granulocytes Pct Auto 0.1 % (0.0-0.5); Lymphocytes Absolute Auto 1.4 10^3/uL (1.2-3.8); Mean Corpuscular HGB Conc 33.3 g/dL (29.9-35.2); Mean Corpuscular Hemoglobin 31.4 pg (25.9-34.0); Mean Corpuscular Volume 94.3 fL (80.0-94.0); Platelet Count 316 10^3/uL (150-450); Red Blood Count 4.91 10^6/uL (4.70-6.10); White Blood Count 7.2 10^3/uL (4.0-11.0)
[2025-01-19 11:43] LABS: Alanine Aminotransferase 29 U/L (16-63); Albumin Globulin Ratio 1.1; Albumin Level 3.8 g/dL (3.4-5.0); Alkaline Phosphatase 62 U/L (46-116); Anion Gap 9.1; Aspartate Amino Transferase 13 U/L (15-37); Blood Urea Nitrogen 13.0 mg/dL (7.0-18.0); Calcium 9.0 mg/dL (8.5-10.1); Carbon Dioxide 30.6 mmol/L (21.0-32.0); Chloride 106 mmol/L (98-107); Cholesterol 129 mg/dL (<=200); Estimated GFR (African America >60 (>=60 mL/min/1.73m^2); Estimated GFR (Non-African Ame >60 (>=60 mL/min/1.73m^2); Free T3 2.35 pg/mL (2.18-3.98); Globulin 3.4 g/dL; Glucose 99 mg/dL (74-106); HDL Cholesterol 44 mg/dL (40-60); Potassium 3.7 mmol/L (3.5-5.1); Sodium 142 mmol/L (136-145); Thyroid Stimulating Hormone 0.901 uIU/mL (0.358-3.740); Total Protein 7.2 g/dL (6.4-8.2); Triglycerides 69 mg/dL (<=150); Uric Acid 6.7 mg/dL (3.5-7.2); VLDL CHOLESTEROL 13.8 mg/dL
== END 2025-01-19 09:15 | disposition home or self-care (01) ==
PROVIDERS: PCP Family Medicine; Visit Provider Family Medicine
DX: Z00.00 Encounter for general adult medical examination without abnormal findings (principal); Z12.5 Encounter for screening for malignant neoplasm of prostate
CPT/HCPCS: 36415; 80053; 80061; 83036; 83525; 84436; 84443; 84481; 84550; 85025; G0103